=== PATIENT | female | born 1945 | race Caucasian/White ===

== ENCOUNTER 2018-01-04 23:15 | Inpatient (IN) ==
[2018-01-05] MEDS ORDERED: Nitroglycerin 0.4 MG TAB.SUBL SL ONE (00:29)
[2018-01-05] MEDS ORDERED: Aspirin 81 MG TAB.CHEW PO ONE (00:29)
[2018-01-05] MEDS ORDERED: Furosemide 40 MG/4 ML VIAL IVP ONE (00:29)
[2018-01-05] MEDS ORDERED: Ipratropium/Albuterol Neb 3 ML IH ONE (00:31)
--- NOTE | 2018-01-05 00:34 | Emergency Department Note ---
Disposition Clinical Impression: Acute exacerbation of CHF (congestive heart failure) Qualifiers: Heart failure type: combined systolic and diastolic Qualified Code(s): I50.43 - Acute on chronic combined systolic (congestive) and diastolic (congestive) heart failure Disposition: Admitted As Inpatient Condition: Good Referrals: Joy Finnegan MD [Primary Care Provider] - Forms: ED Satisfaction Letter Time of Disposition: 02:28 General Adult HPI - General Chief complaint: ED Extremity Injury, Lower Stated complaint: Cellulitis L Leg Time Seen by Provider: 01/05/18 00:12 Source: patient Limitations: physical limitation Nursing Notes Reviewed: Yes Vital Signs Reviewed: Yes - History of Present Illness HPI Narrative: History of present illness: Chief complaint status lower leg cellulitis the patient is actually here for weeping of the lower extremities with swelling dyspnea on exertion chest discomfort and extreme fatigue. Patient has a history of COPD does not wear oxygen at home came in with saturation 90% on room air. She said she was treated 10 days for Keflex for cellulitis and lower extremities she said that "dried up for weeping". Denies fevers chills no recent medication changes she is normally on Lasix 40 mg daily. Pain Scale: 7 - Related Data Home Medications Medication Instructions Recorded Confirmed Albuterol Sulfate [Albuterol 1 puff IH BID 04/23/17 04/23/17 Inhaler] Ascorbic Acid [Vitamin C] 200 mg PO DAILY 04/23/17 04/23/17 Beclomethasone Diprop 40mcg [Qvar 2 gm IH BID 04/23/17 04/23/17 40 mcg] Calcium Carbonate/Vitamin D3 1 each PO BID 04/23/17 04/23/17 [Calcium 500 + Vit D Caplet] DULoxetine [Cymbalta] 20 mg PO DAILY 04/23/17 04/23/17 Diltiazem HCl [Diltiazem ER] 360 mg PO DAILY 04/23/17 04/23/17 Docusate [Colace] 100 mg PO BID 04/23/17 04/23/17 Ferrous Sulfate [Iron] 325 mg PO DAILY 04/23/17 04/23/17 Furosemide [Lasix] 40 mg PO DAILY 04/23/17 04/23/17 HydrOXYzine 10 mg PO HS 04/23/17 04/23/17 Loratadine [Allergy Relief] 10 mg PO DAILY 04/23/17 04/23/17 Magnesium Oxide [Magnesium] 400 mg PO DAILY 04/23/17 04/23/17 Ranitidine HCl [Acid Bottle Assembler] 150 mg PO BID 04/23/17 04/23/17 Vitamin E 1,000 unit PO BID 04/23/17 04/23/17 Warfarin [Coumadin] 5 mg PO 1800 04/23/17 04/23/17 Previous Rx's Medication Instructions Recorded Tamoxifen Citrate 20 mg PO DAILY #30 tablet 09/20/16 Clotrimazole/Betamethasone Dip 15 gm TP TID PRN #1 tub 12/17/17 [Lotrisone Cream] Allergies Allergy/AdvReac Type Severity Reaction Status Date / Time gabapentin [From Neurontin] Allergy See Verified 07/13/16 19:19 Comments Penicillins [PCN] Allergy Rash Verified 07/13/16 19:19 All systems ED: reviewed and negative except as stated. Constitutional: Reports: weakness Cardiovascular: Reports: chest pain, dyspnea on exertion, orthopnea, edema Past Medical History - Past Medical History Attestation: Yes The following information was validated with the patient. Source: patient Medical history: Reports: atrial fibrillation, cancer, CHF, osteoporosis Psychiatric history: Reports: depression - Social History Smoking Status: Never smoker Smokeless Tobacco Status: No Alcohol use: Reports: none Drug use: Reports: none Physical Exam - General Limitations: no limitations, physical limitation General appearance: alert, in distress - Head Head exam: atraumatic, normocephalic - Eye Eye exam: Present: normal appearance, PERRL, EOMI - ENT ENT exam: normal exam, normal oropharynx - Neck Neck exam: Present: normal inspection, full ROM - Chest Chest inspection: Present: normal inspection - Respiratory Respiratory exam: Present: other - Cardiovascular Cardiovascular exam: Present: regular rate, normal rhythm - Abdominal Exam Abdominal exam: Present: soft, Non-Tender - Extremities Exam Extremities exam: Present: pedal edema (Symmetrical bilateral 3+ pitting edema to the mid tibia with weeping and chronic skin changes) - Expanded Lower Extremity Exam Neurovascular/Tendon exam: Present: normal capillary refill Gait: not tested/not observed - Back Exam Back exam: Present: normal inspection, full ROM - Neurological Exam Neurological exam: Present: alert, oriented X3 - Psychiatric Psychiatric exam: Present: normal affect, normal mood - Skin Skin exam: Present: warm, dry, intact Course - Reevaluation(s) Reevaluation #1: Patient's clinical presentation is more consistent with CHF with dyspnea on exertion chest discomfort fatigue and increased swelling in the lower extremities. Patient will get a cardiac workup including a BNP chest x-ray DuoNeb treatment 40 mg IV Lasix with admission anticipated. Disposition pending Time: 00:34 Reevaluation #2: The workup is complete. CBC chemistry panel within normal limits patient's chest x-ray from radiology as suggestive for pulmonary edema. Patient will be admitted hospitalist kyled. Time: 01:57 Reevaluation #3: Discussed patient's information so condition. He requested PT INR which was reported. case with the hospitalist Dr. MELLO, Time: 02:27 Vital Signs Temperature 97.7 F 01/04/18 23:27 Pulse Rate 83 01/04/18 23:27 Respiratory Rate 20 01/04/18 23:27 Blood Pressure 153/90 01/04/18 23:27 O2 Sat by Pulse Oximetry 92 01/04/18 23:27 Temperature 97.7 F 01/04/18 23:27 Pulse Rate 80 01/05/18 01:00 Respiratory Rate 19 01/05/18 01:00 Blood Pressure 135/80 01/05/18 01:00 O2 Sat by Pulse Oximetry 96 01/05/18 01:00 Oxygen Delivery Oxygen Delivery Room Air Medical Decision Making - Medical Records Medical records reviewed: Yes I reviewed the patient's medical records. - Lab Data Lab results reviewed: Yes I reviewed the patient's lab results. Result diagrams: 01/05/18 01:00 01/05/18 01:00 Lab Results 01/05/18 01/05/18 01/05/18 Range/Units 01:00 01:00 01:00 WBC 6.1 (4.3-11.1) K/mcL RBC 4.36 (3.82-4.97) M/mcL Hgb 13.2 (11.5-15.4) g/dL Hct 40.3 (35.3-44.9) % MCV 92.4 (83.0-100.0) fL MCH 30.3 (28.0-33.3) pg MCHC 32.8 (31.6-35.5) g/dL RDW 13.8 (11.5-14.5) % Plt Count 166 (140-400) K/mcL MPV 10.4 (9.4-12.4) fL Immature Gran % 0.3 (0-4) % Seg Neutrophils % 67.2 % Lymphocytes % 16.9 % Monocytes % 6.7 % Eosinophils % 8.6 % Basophils % 0.3 % Neutrophils # 4.1 (1.6-8.9) K/mcL Lymphocytes # 1.0 (0.6-4.6) K/mcL Monocytes # 0.4 (0.0-1.3) K/mcL Eosinophils # 0.5 (0.0-0.6) K/mcL Basophils # 0.0 (0.0-0.2) K/mcL Sodium 139 (136-145) mEq/L Potassium 3.5 (3.5-5.1) mEq/L Chloride 102 (98-107) mEq/L Carbon Dioxide 31 H (23-29) mEq/L BUN 23 (8-23) mg/dL Creatinine 0.99 (0.60-1.20) mg/dL Est GFR ( Amer) > 60 (> 60) Est GFR (Non-Af Amer) 55 L (> 60) BUN/Creatinine Ratio 23 (6-26) Glucose 92 (70-105) mg/dL Calculated Osmolality 291 (280-300) Calcium 8.9 (8.6-10.3) mg/dL Troponin I < 0.03 (< 0.04) ng/mL B-Natriuretic Peptide 175 H (Less than 100) pg/mL - Radiology Data Radiology results reviewed: Yes I reviewed the patient's radiology results. - EKG Data EKG #1 EKG attestation: Yes I reviewed and interpreted this EKG. EKG results narrative: Twelve-lead EKG interpreted without Cardiologic assistance shows atrial fibrillation history of same nonspecific ST-T changes no old EKG available for comparison
[2018-01-05 01:21] LABS: Basophils % 0.3 %; Eosinophils # 0.5 K/mcL (0.0-0.6); Eosinophils % 8.6 %; Hematocrit 40.3 % (35.3-44.9); Hemoglobin 13.2 g/dL (11.5-15.4); Immature Granulocytes % 0.3 % (0-4); Lymphocytes % 16.9 %; Mean Corpuscular HGB Conc 32.8 g/dL (31.6-35.5); Mean Corpuscular Hemoglobin 30.3 pg (28.0-33.3); Mean Corpuscular Volume 92.4 fL (83.0-100.0); Mean Platelet Volume 10.4 fL (9.4-12.4); Monocytes # 0.4 K/mcL (0.0-1.3); Monocytes % 6.7 %; Neutrophils # 4.1 K/mcL (1.6-8.9); Platelet Count 166 K/mcL (140-400); Red Blood Count 4.36 M/mcL (3.82-4.97); Red Cell Distribution Width 13.8 % (11.5-14.5); Segmented Neutrophils % 67.2 %
[2018-01-05 01:41] LABS: BUN/Creatinine Ratio 23 (6-26); Blood Urea Nitrogen 23 mg/dL (8-23); Calcium 8.9 mg/dL (8.6-10.3); Carbon Dioxide 31 mEq/L (23-29); Chloride 102 mEq/L (98-107); Glucose 92 mg/dL (70-105); Osmolality,Calculated 291 (280-300); Potassium 3.5 mEq/L (3.5-5.1); Sodium 139 mEq/L (136-145); eGFR For African Americans > 60 (> 60); eGFR For Non-African Americans 55 (> 60)
[2018-01-05 01:42] LABS: Troponin I < 0.03 ng/mL (< 0.04)
[2018-01-05 02:47] LABS: INR 2.3
[2018-01-05] MEDS ORDERED: Naloxone 0.4 MG/ML INJ IVP PRN (05:34)
[2018-01-05] MEDS ORDERED: Acetaminophen 325 MG TABLET PO PRN (05:34)
[2018-01-05] MEDS ORDERED: Albuterol 2.5 MG/3 ML NEBULIZER IH PRN (05:42)
--- NOTE | 2018-01-05 05:52 | Internal Med History&Physical ---
Date of Encounter: 01/05/18 Time of Encounter: 05:10 Internal Medicine - H&P: HPI Chief complaint: SOB; leg swelling Admitted From: Emergency Dept Plans for Post Hospital Care: Home History of present illness: Ms. Veloz is a 72 year old female who presents to the ER tonight with complaints of shortness of breath, leg swelling, and weeping drainage from her legs. She had been on some outpatient antibiotics with some improvement in her legs. However, she noticed some swelling, increasing abdominal girth, and shortness of breath. She had remote history of heart failure in the past but has not been treated for that for quite some time. She came to ER where she was seen and evaluated and diagnosed with heart failure. She was therefore admitted to hospitalist service. Upon my assessment of the patient, she is resting comfortably. She does admit to having increasing dyspnea, lower extremity edema, and some orthopnea. She does have sleep apnea, but she does not wear CPAP mask. She does not smoke but she is surrounded by smokers. She states she has been told she has COPD but she 's never been a smoker. However, she has been exposed to secondhand smoke most of her life. She denies any fevers, shakes, chills, or night sweats. Past Med Surg Social Fam HX - Past Medical History Source: patient, old records reviewed Medical history: atrial fibrillation, cancer, CHF, osteoporosis Additional medical history: breast cancer, sleep apnea non compliant with cpap machine Psychiatric history: depression - Past Surgical History Surgical History: breast surgery - Social History Smoking Status: Never smoker Smokeless Tobacco Status: No Alcohol use: none Drug use: none Current living situation: Home, With Family Activity Level: Independent ambulation Recent Out of Country Travel Within the Last 8 Weeks: No - Family History Father Living Status: Hx Family Endocrine Disorder: Yes (Diabetes) Mother Living Status: Hx Family Cancer: Yes (Breast) Internal Medicine - H&P: Meds Tamoxifen Citrate 20 mg PO DAILY #30 tablet 09/20/16 [Rx] Albuterol Sulfate [Albuterol Inhaler] 1 puff IH BID 04/23/17 [History] Ascorbic Acid [Vitamin C] 200 mg PO DAILY 04/23/17 [History] Beclomethasone Diprop 40mcg [Qvar 40 mcg] 2 gm IH BID 04/23/17 [History] Calcium Carbonate/Vitamin D3 [Calcium 500 + Vit D Caplet] 1 each PO BID [History] DULoxetine [Cymbalta] 20 mg PO DAILY 04/23/17 [History] Diltiazem HCl [Diltiazem ER] 360 mg PO DAILY 04/23/17 [History] Docusate [Colace] 100 mg PO BID 04/23/17 [History] Ferrous Sulfate [Iron] 325 mg PO DAILY 04/23/17 [History] Furosemide [Lasix] 40 mg PO DAILY 04/23/17 [History] HydrOXYzine 10 mg PO HS 04/23/17 [History] Loratadine [Allergy Relief] 10 mg PO DAILY 04/23/17 [History] Magnesium Oxide [Magnesium] 400 mg PO DAILY 04/23/17 [History] Ranitidine HCl [Acid Volunteer Services Specialist] 150 mg PO BID 04/23/17 [History] Vitamin E 1,000 unit PO BID 04/23/17 [History] Warfarin [Coumadin] 5 mg PO 1800 04/23/17 [History] Clotrimazole/Betamethasone Dip [Lotrisone Cream] 15 gm TP TID PRN #1 tub [Rx] 3 Allergy/AdvReac Type Severity Reaction Status Date / Time gabapentin [From Neurontin] Allergy See Verified 07/13/16 19:19 Comments Penicillins [PCN] Allergy Rash Verified 07/13/16 19:19 - Constitutional Constitutional: fatigue, weight gain, no chills, no fever(s) - EENT Eyes: no blurry vision, no change in vision Ears: no tinnitus Nose, mouth and throat: no sore throat - Cardiovascular Cardiovascular ROS IM: dyspnea, dyspnea on exertion, edema, orthopnea, no chest pain - Respiratory Respiratory: no cough, no hemoptysis, no chest congestion, no excessive phlegm production - Gastrointestinal Gastrointestinal: no abdominal pain, no diarrhea, no hematemesis, no hematochezia, no melena, no vomiting - Genitourinary Genitourinary: no dysuria, no flank pain, no hematuria - Musculoskeletal Musculoskeletal ROS IM: no back pain, no joint swelling - Integumentary Integumentary IM: erythema (legs), rash (legs) - Neurological Neurological ROS: no focal weakness, no frequent falls, no headache(s) - Psychiatric Psychiatric: no anxiety, no depression - Endocrine Endocrine IM: no polydipsia, no polyuria - Allergic/Immunologic Allergic/Immunologic: no GI upset with certain foods - Constitutional Vitals: Temp Pulse Resp BP Pulse Ox 97.7 F 81 16 136/86 96 01/05/18 03:22 01/05/18 03:22 01/05/18 03:22 01/05/18 03:22 01/05/18 03:47 General appearance: Present: cooperative, A&O X 3, pleasant, no acute distress - Head Head exam: Present: atraumatic, normal inspection - Eye Eye exam: Present: EOMI, normal appearance, PERRL. Absent: scleral icterus Pupils: Present: normal accommodation - ENT ENT exam: Present: mucous membranes dry, normal exam - Neck Neck exam general surgery: Present: full ROM, supple. Absent: tenderness, nuchal rigidity, thyromegaly - Respiratory Respiratory exam: Present: prolonged expiratory phase, rales (bibasilar ), wheezes. Absent: respiratory distress, rhonchi - Cardiovascular Cardiovascular exam: Present: RRR, +S1, +S2. Absent: diastolic murmur, JVD, systolic murmur - GI/Abdominal GI/Abdominal exam: Present: normal bowel sounds, soft. Absent: hepatomegaly, splenomegaly, tenderness - Extremities Exam Extremities exam: Present: full ROM, pedal edema (2-3+ with red cellulitis and weeping rash both legs), warm, radial pulses palpable and symmetrical. Absent: calf tenderness - Back Exam Back exam: Absent: CVA tenderness (L), CVA tenderness (R) - Neurological Exam Neurological exam: Present: alert, oriented X3, no focal deficits - Psychiatric Psychiatric exam: Present: normal affect, normal mood - Skin Skin exam: Present: dry, rash (BLE as above), warm Internal Med - H&P Results - Labs CBC & Chem 7: 01/05/18 01:00 01/05/18 01:00 - EKG Data -: EKG Interpreted by Myself - EKG Data Prior EKG available for review: no EKG comments: 01/05/18 06:01 atrial fibrillation -- rate controlled - Diagnostic Studies Chest x-ray Status: image reviewed by me (mild pulmonary edema) - VTE Reasons for not Prescribing Prophylaxis: Not indicated-Anticoagulated or INR therapeutic - Assessment and plan (1) CHF (congestive heart failure) Current Visit: Yes Status: Acute Assessment and plan: 1. Will treat with IV Lasix x 2 doses, then her home dose needs to be resumed. 2. Fluid restrict at 1500 ml per day. 3. Will trend troponins and order ECHO. Qualifiers: Heart failure type: unspecified Heart failure chronicity: acute Qualified Code(s): I50.9 - Heart failure, unspecified (2) Bilateral lower leg cellulitis Current Visit: Yes Status: Acute Assessment and plan: 1. Patient failed outpatient Keflex. 2. Will place on Rocephin and Vancomycin. 3. Monitor clinical response. (3) Afib Current Visit: Yes Status: Chronic Assessment and plan: 1. Continue home meds as appropriate once verified. 2. Continue Coumadin -- therapeutic presently. 3. Monitor daily PT/INR. Qualifiers: Atrial fibrillation type: chronic Qualified Code(s): I48.2 - Chronic atrial fibrillation (4) DVT prophylaxis Current Visit: Yes Status: Acute Assessment and plan: 1. On Coumadin as above.
[2018-01-05] MEDS: Furosemide 20 MG/2 ML VIAL IVP SCH ×2 (09:10→16:13)
[2018-01-05] MEDS: cefTRIAXone 1,000 MG in Water for inj. (sterile) 20 ML 10 ML IVP SCH (09:10)
[2018-01-05] MEDS ORDERED: Perflutren Lipid Microsphere 1.3 ML in 0.9 % Sodium Chloride 8.7 ML IVP ONE (14:09)
[2018-01-05] MEDS ORDERED: Perflutren Lipid Microsphere 2 ML VIAL ONE (14:13)
[2018-01-05] MEDS ORDERED: diazePAM 5 MG TABLET PO PRN (15:04)
--- NOTE | 2018-01-05 15:20 | Internal Med Progress Note ---
Date of Encounter: 01/05/18 Time of Encounter: 15:24 - Assessment and plan (1) Bilateral lower leg cellulitis Current Visit: Yes Status: Acute Assessment and plan: recently treated Keflex; failed outpatient therapy. Symptomatic with erythema and open lesions. Cont IV vanco. Wound care consult (2) Afib Current Visit: Yes Status: Chronic Assessment and plan: per hx. Rate controlled. Cont home CCB, coumadin Qualifiers: Atrial fibrillation type: chronic Qualified Code(s): I48.2 - Chronic atrial fibrillation (3) CHF (congestive heart failure) Current Visit: Yes Status: Acute Assessment and plan: Expected. Symptomatically shortness of breath and lower extremity edema. Received 2 doses of IV Lasix. No known CHF or echocardiogram per chart review. Check echo. Qualifiers: Heart failure type: unspecified Heart failure chronicity: acute Qualified Code(s): I50.9 - Heart failure, unspecified (4) DVT prophylaxis Current Visit: Yes Status: Acute Assessment and plan: Coumadin - Time Spent With Patient Total time spent is greater than 50% in coordination of care (as documented) at patient's floor/unit and/or counseling patient: - Subjective Interval history: Seen and examined at bedside. Patient is new to me, information obtained from chart review and patient report. Says she is feeling a little better today. Shortness of breath is better. Says she was recently treated with ATB for lower extreme a cellulitis; redness has improved but open wounds/drainage is worse. - Constitutional Vitals: Temp Pulse Resp BP Pulse Ox 97.8 F 88 17 145/82 97 01/05/18 11:44 01/05/18 11:44 01/05/18 11:44 01/05/18 11:44 01/05/18 11:44 General appearance: Present: cooperative, A&O X 3, pleasant, no acute distress Internal Medicine: Result - Labs CBC & Chem 7: 01/05/18 01:00 01/05/18 01:00 Labs: Cardiac Enzymes 01/05/18 01/05/18 Range/Units 07:14 13:18 Troponin I < 0.03 < 0.03 (< 0.04) ng/mL - ABG Interpretation ABG results: PT/INR, D-dimer PT 25.0 Seconds (9.4-12.1) H 01/05/18 01:00 - VTE Reasons for not Prescribing Prophylaxis: Not indicated-Anticoagulated or INR therapeutic Consult Discharge Plan - Plan Referrals: Joy Finnegan MD [Primary Care Provider] -
[2018-01-05] MEDS ORDERED: Warfarin perPT PO PRN (18:00)
[2018-01-05] MEDS ORDERED: *HR* Warfarin 4 MG TABLET PO ONE (18:00)
[2018-01-05] MEDS: Famotidine 20 MG TABLET PO SCH (20:32)
[2018-01-05] MEDS: Beclomethasone 40mcg MDI IH SCH (20:36)
[2018-01-06] MEDS: Diltiazem CD (24hr) 120 MG CAPSULE PO SCH (06:22)
[2018-01-06 07:29] LABS: Hematocrit 39.6 % (35.3-44.9); Hemoglobin 12.8 g/dL (11.5-15.4); Mean Corpuscular HGB Conc 32.3 g/dL (31.6-35.5); Mean Corpuscular Hemoglobin 30.3 pg (28.0-33.3); Mean Corpuscular Volume 93.8 fL (83.0-100.0); Mean Platelet Volume 10.5 fL (9.4-12.4); Platelet Count 143 K/mcL (140-400); Red Blood Count 4.22 M/mcL (3.82-4.97); Red Cell Distribution Width 13.9 % (11.5-14.5)
[2018-01-06 07:36] LABS: INR 1.7; Prothrombin Time 18.2 Seconds (9.4-12.1)
[2018-01-06 07:51] LABS: Alanine Aminotransferase 13 Units/L (7-52); Albumin 3.3 g/dL (3.5-5.7); Albumin/Globulin Ratio 1.1 (1.1-2.2); Alkaline Phosphatase 77 Units/L (34-104); Aspartate Amino Transferase 22 Units/L (13-39); BUN/Creatinine Ratio 22 (6-26); Bilirubin,Total 0.6 mg/dL (0.3-1.0); Blood Urea Nitrogen 22 mg/dL (8-23); Calcium 8.7 mg/dL (8.6-10.3); Carbon Dioxide 31 mEq/L (23-29); Chloride 105 mEq/L (98-107); Chol/HDL Ratio 2.8 (0-4.9); Cholesterol 144 mg/dL (< 200); Globulin 2.9 g/dL (2.4-3.5); Glucose 97 mg/dL (70-105); HDL Cholesterol 52 mg/dL (40-59); LDL Cholesterol,Calculated 78 mg/dL (0-99); Osmolality,Calculated 295 (280-300); Potassium 3.8 mEq/L (3.5-5.1); Sodium 141 mEq/L (136-145); Total Protein 6.2 g/dL (6.4-8.9); Triglycerides 71 mg/dL (< 150); eGFR For African Americans > 60 (> 60); eGFR For Non-African Americans 55 (> 60)
[2018-01-06] MEDS: Beclomethasone 40mcg MDI IH SCH ×2 (07:51→19:35)
[2018-01-06] MEDS: Loratadine 10 MG TABLET PO SCH (08:35)
[2018-01-06] MEDS: Furosemide 40 MG TABLET PO SCH (08:35)
[2018-01-06] MEDS: Famotidine 20 MG TABLET PO SCH ×2 (08:35→20:51)
[2018-01-06] MEDS: cefTRIAXone 1,000 MG in Water for inj. (sterile) 20 ML 10 ML IVP SCH (08:36)
--- NOTE | 2018-01-06 10:08 | Electrocardiograph Report ---
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
--- NOTE | 2018-01-06 15:43 | Internal Med Progress Note ---
Date of Encounter: 01/06/18 Time of Encounter: 15:36 - Assessment and plan (1) Bilateral lower leg cellulitis Current Visit: Yes Status: Acute Assessment and plan: recently treated Keflex; failed outpatient therapy. Symptomatic with erythema and open lesions. Cont IV vanco. Wound care consulted (2) Afib Current Visit: Yes Status: Chronic Assessment and plan: per hx. Rate controlled. Cont home CCB, coumadin (pharmacy dosing) Qualifiers: Atrial fibrillation type: chronic Qualified Code(s): I48.2 - Chronic atrial fibrillation (3) CHF (congestive heart failure) Current Visit: Yes Status: Acute Assessment and plan: Acute on chronic diastolic heart failure. TTE with EF 60%, mild left ventricular hypertrophy, mild aortic regurgitation and aortic stenosis. No wall motion abnormalities. Received 2 doses IV Lasix. Home Lasix resumed. Educated on low sodium diet, limiting water intake and daily weights. Qualifiers: Heart failure type: unspecified Heart failure chronicity: acute Qualified Code(s): I50.9 - Heart failure, unspecified (4) DVT prophylaxis Current Visit: Yes Status: Acute Assessment and plan: Coumadin - Time Spent With Patient Total time spent is greater than 50% in coordination of care (as documented) at patient's floor/unit and/or counseling patient: - Subjective Interval history: Seen and examined at bedside. Sitting up in chair bedside. Says she feels okay. Lower extremity leg wounds improved per patient but still draining. Erythema improved. She thinks she needs 1 more day of IV ATB. Wound consult pending. - Constitutional Vitals: Temp Pulse Resp BP Pulse Ox 97.6 F 114 14 156/80 94 01/06/18 11:49 01/06/18 11:49 01/06/18 11:49 01/06/18 11:49 01/06/18 11:49 General appearance: Present: cooperative, A&O X 3, pleasant, no acute distress - Head Head exam: Present: atraumatic, normocephalic - Eye Eye exam: Present: PERRL, conjuntiva pink, sclera anicteric Pupils: Present: PERRL - Neck Neck exam general surgery: Present: supple, trachea midline. Absent: lymphadenopathy - Respiratory Respiratory exam: Present: CTAB. Absent: accessory muscle use, rales, rhonchi, wheezes - Cardiovascular Cardiovascular exam: Present: RRR, +S1, +S2. Absent: diastolic murmur, gallop, rubs, systolic murmur - GI/Abdominal GI/Abdominal exam: Present: normal bowel sounds, soft, no peritoneal signs. Absent: distended, tenderness - Extremities Exam Extremities exam: Present: pedal edema, warm, radial pulses palpable and symmetrical. Absent: calf tenderness, cyanotic - Neurological Exam Neurological exam: Present: CN II-XII intact, oriented X3, no focal deficits. Absent: pronater drift, facial droop, speech deficit - Skin Skin exam: Present: dry, intact Internal Medicine: Result - Labs CBC & Chem 7: 01/06/18 07:08 01/06/18 07:08 Labs: Short CBC 01/06/18 Range/Units 07:08 WBC 4.1 L (4.3-11.1) K/mcL Hgb 12.8 (11.5-15.4) g/dL Hct 39.6 (35.3-44.9) % Plt Count 143 (140-400) K/mcL BMP 01/06/18 07:08 Sodium 141 Potassium 3.8 Chloride 105 Carbon Dioxide 31 H BUN 22 Creatinine 0.99 Glucose 97 Calcium 8.7 Liver Function 01/06/18 Range/Units 07:08 Total Bilirubin 0.6 (0.3-1.0) mg/dL AST 22 (13-39) Units/L ALT 13 (7-52) Units/L Alkaline Phosphatase 77 (34-104) Units/L Albumin 3.3 L (3.5-5.7) g/dL - ABG Interpretation ABG results: PT/INR, D-dimer PT 18.2 Seconds (9.4-12.1) H 01/06/18 07:08 - Impressions Impressions Echocardiogram 01/05/18 05:34 Impressions: LVEF 60%. Normal LV chamber size and function. Mild concentric left ventricular hypertrophy. Indeterminate diastolic function. Right ventricle was not well visualized. Grossly, it is normal in function. Mild aortic regurgitation. Mild aortic stenosis. Mean gradient 13 mmHg. Mild tricuspid regurgitation. Moderate pulmonary hypertension. Left Ventricular Wall Motion: Rest Echo Findings All wall segments showed normal motion. Findings: Study Quality * Technically adequate exam. ECG Findings * Atrial fibrillation. Left Ventricle * LVEF 60%. * Normal LV chamber size and function. * Mild concentric left ventricular hypertrophy. * Indeterminate diastolic function. Right Ventricle * Right ventricle was not well visualized. Grossly, it is normal in function. Left Atrium * Grossly, moderately dilated left atrium. Right Atrium * Grossly, moderately dilated right atrium. Aortic Valve * Aortic valve not well visualized. * Grossly, mildly calcified aortic valve leaflets. * Mild aortic regurgitation. * Mild aortic stenosis. Mean gradient 13 mmHg. Mitral Valve * Normal mitral valve structure and function. * No mitral regurgitation. * No mitral stenosis. Tricuspid Valve * Normal tricuspid valve structure. * Mild tricuspid regurgitation. * Moderate pulmonary hypertension. Pulmonic Valve * Normal pulmonic valve structure and function. * No pulmonic regurgitation. Aorta * Normally sized aortic root. Pericardium * The pericardium appears normal. IVC * Normal IVC dimensions and inspiratory collapse. Pulmonary Artery * Normal visualized portions of the main pulmonary artery. - VTE Reasons for not Prescribing Prophylaxis: Not indicated-Anticoagulated or INR therapeutic Consult Discharge Plan - Plan Referrals: Joy Finnegan MD [Primary Care Provider] - 01/14/18 11:45 am
[2018-01-06] MEDS ORDERED: *HR* Warfarin 5 MG TABLET PO ONE (18:00)
[2018-01-07 04:40] LABS: INR 1.5; Prothrombin Time 16.8 Seconds (9.4-12.1)
[2018-01-07] MEDS: Beclomethasone 40mcg MDI IH SCH ×2 (07:41→19:57)
[2018-01-07] MEDS: Loratadine 10 MG TABLET PO SCH (09:01)
[2018-01-07] MEDS: Furosemide 40 MG TABLET PO SCH (09:01)
[2018-01-07] MEDS: cefTRIAXone 1,000 MG in Water for inj. (sterile) 20 ML 10 ML IVP SCH (09:01)
[2018-01-07] MEDS: Diltiazem CD (24hr) 120 MG CAPSULE PO SCH (09:01)
[2018-01-07] MEDS: Famotidine 20 MG TABLET PO SCH ×2 (09:01→21:10)
[2018-01-07 09:44] LABS: Basophils % 0.8 %; Eosinophils # 0.4 K/mcL (0.0-0.6); Eosinophils % 10.5 %; Hematocrit 41.8 % (35.3-44.9); Hemoglobin 13.2 g/dL (11.5-15.4); Immature Granulocytes % 0.3 % (0-4); Lymphocytes # 0.7 K/mcL (0.6-4.6); Lymphocytes % 17.1 %; Mean Corpuscular HGB Conc 31.6 g/dL (31.6-35.5); Mean Corpuscular Hemoglobin 29.9 pg (28.0-33.3); Mean Corpuscular Volume 94.6 fL (83.0-100.0); Mean Platelet Volume 10.4 fL (9.4-12.4); Monocytes # 0.3 K/mcL (0.0-1.3); Monocytes % 6.6 %; Neutrophils # 2.5 K/mcL (1.6-8.9); Platelet Count 150 K/mcL (140-400); Red Blood Count 4.42 M/mcL (3.82-4.97); Red Cell Distribution Width 13.7 % (11.5-14.5); Segmented Neutrophils % 64.7 %
[2018-01-07 10:03] LABS: BUN/Creatinine Ratio 26 (6-26); Blood Urea Nitrogen 22 mg/dL (8-23); Carbon Dioxide 31 mEq/L (23-29); Chloride 105 mEq/L (98-107); Glucose 88 mg/dL (70-105); Osmolality,Calculated 297 (280-300); Sodium 142 mEq/L (136-145); eGFR For African Americans > 60 (> 60); eGFR For Non-African Americans > 60 (> 60)
--- NOTE | 2018-01-07 11:12 | Internal Med Progress Note ---
Date of Encounter: 01/07/18 Time of Encounter: 11:12 - Assessment and plan (1) Afib Current Visit: Yes Status: Chronic Assessment and plan: Presently rate controlled we will continue with Coumadin per pharmacy dosing continue with Cardizem Qualifiers: Atrial fibrillation type: chronic Qualified Code(s): I48.2 - Chronic atrial fibrillation (2) CHF (congestive heart failure) Current Visit: Yes Status: Acute Assessment and plan: Acute on chronic diastolic heart failure. TTE with EF 60%, mild left ventricular hypertrophy, mild aortic regurgitation and aortic stenosis. No wall motion abnormalities. Received 2 doses IV Lasix. Home Lasix resumed. Educated on low sodium diet, limiting water intake and daily weights. Weight appears stable at this time continues to have lower extremity swelling encouraged patient to elevate lower extremities Qualifiers: Heart failure type: unspecified Heart failure chronicity: acute Qualified Code(s): I50.9 - Heart failure, unspecified (3) Bilateral lower leg cellulitis Current Visit: Yes Status: Acute Assessment and plan: recently treated Keflex; failed outpatient therapy. Symptomatic-continues with erythema and open lesions. Cont IV vanco. Wound care consulted appreciate recommend patient (4) DVT prophylaxis Current Visit: Yes Status: Acute Assessment and plan: On Coumadin - Time Spent With Patient Total time spent is greater than 50% in coordination of care (as documented) at patient's floor/unit and/or counseling patient: - Subjective Interval history: Patient was seen and examined at bedside. Presently denies any chest pain shortness of breath or palpitations. Encouraged patient to elevate lower extremities - Constitutional Vitals: Temp Pulse Resp BP Pulse Ox 97.5 F L 101 16 132/83 94 01/07/18 07:50 01/07/18 07:50 01/07/18 07:50 01/07/18 07:50 01/07/18 07:50 General appearance: Present: cooperative, A&O X 3, pleasant, no acute distress - Head Head exam: Present: atraumatic, normocephalic - Eye Eye exam: Present: PERRL, conjuntiva pink, sclera anicteric Pupils: Present: PERRL - Neck Neck exam general surgery: Present: supple, trachea midline. Absent: lymphadenopathy - Respiratory Respiratory exam: Present: CTAB. Absent: accessory muscle use, rales, rhonchi, wheezes - GI/Abdominal GI/Abdominal exam: Present: normal bowel sounds, soft, no peritoneal signs. Absent: distended, tenderness - Extremities Exam Extremities exam: Present: pedal edema, warm, radial pulses palpable and symmetrical. Absent: calf tenderness, cyanotic Additional comments: Lower extremity swelling bilaterally with weeping wounds - Neurological Exam Neurological exam: Present: CN II-XII intact, oriented X3, no focal deficits. Absent: pronater drift, facial droop, speech deficit - Skin Skin exam: Present: dry, intact Internal Medicine: Result - Labs CBC & Chem 7: 01/07/18 08:42 01/07/18 08:42 Labs: Short CBC 01/07/18 Range/Units 08:42 WBC 3.8 L (4.3-11.1) K/mcL Hgb 13.2 (11.5-15.4) g/dL Hct 41.8 (35.3-44.9) % Plt Count 150 (140-400) K/mcL Neutrophils # 2.5 (1.6-8.9) K/mcL BMP 01/07/18 08:42 Sodium 142 Potassium 4.0 Chloride 105 Carbon Dioxide 31 H BUN 22 Creatinine 0.86 Glucose 88 Calcium 9.0 - ABG Interpretation ABG results: PT/INR, D-dimer PT 16.8 Seconds (9.4-12.1) H 01/07/18 04:14 - VTE Reasons for not Prescribing Prophylaxis: Not indicated-Anticoagulated or INR therapeutic Consult Discharge Plan - Plan Referrals: Joy Finnegan MD [Primary Care Provider] - 01/14/18 11:45 am
[2018-01-07] MEDS ORDERED: *HR* Warfarin 5 MG TABLET PO ONE (18:00)
[2018-01-08 06:33] LABS: Basophils % 0.7 %; Eosinophils # 0.5 K/mcL (0.0-0.6); Hematocrit 39.5 % (35.3-44.9); Hemoglobin 12.5 g/dL (11.5-15.4); Immature Granulocytes % 0.2 % (0-4); Lymphocytes # 0.8 K/mcL (0.6-4.6); Lymphocytes % 19.5 %; Mean Corpuscular HGB Conc 31.6 g/dL (31.6-35.5); Mean Corpuscular Hemoglobin 29.6 pg (28.0-33.3); Mean Corpuscular Volume 93.6 fL (83.0-100.0); Mean Platelet Volume 10.7 fL (9.4-12.4); Monocytes # 0.3 K/mcL (0.0-1.3); Neutrophils # 2.4 K/mcL (1.6-8.9); Platelet Count 166 K/mcL (140-400); Red Blood Count 4.22 M/mcL (3.82-4.97); Red Cell Distribution Width 13.8 % (11.5-14.5); Segmented Neutrophils % 58.6 %
[2018-01-08 06:41] LABS: INR 1.5; Prothrombin Time 16.2 Seconds (9.4-12.1)
[2018-01-08 06:47] LABS: BUN/Creatinine Ratio 30 (6-26); Blood Urea Nitrogen 24 mg/dL (8-23); Calcium 8.9 mg/dL (8.6-10.3); Carbon Dioxide 30 mEq/L (23-29); Chloride 106 mEq/L (98-107); Glucose 88 mg/dL (70-105); Osmolality,Calculated 295 (280-300); Sodium 141 mEq/L (136-145); eGFR For African Americans > 60 (> 60); eGFR For Non-African Americans > 60 (> 60)
[2018-01-08] MEDS: Beclomethasone 40mcg MDI IH SCH ×2 (07:44→22:34)
[2018-01-08] MEDS: Famotidine 20 MG TABLET PO SCH ×2 (08:42→20:51)
[2018-01-08] MEDS: cefTRIAXone 1,000 MG in Water for inj. (sterile) 20 ML 10 ML IVP SCH (08:42)
[2018-01-08] MEDS: Furosemide 40 MG TABLET PO SCH (08:42)
[2018-01-08] MEDS: Loratadine 10 MG TABLET PO SCH (08:42)
[2018-01-08] MEDS: Diltiazem CD (24hr) 120 MG CAPSULE PO SCH (08:42)
--- NOTE | 2018-01-08 16:13 | Discharge Summary ---
- NOTES TO OUTPATIENT PROVIDER Notes to Outpatient Provider: Patient was diuresed-educated on low sodium diet as well as monitoring water intake and daily weights. Lower leg cellulitis patient will follow-up with outpatient wound clinic was given IV vague and Rocephin transition to doxycycline Orders not resulted at time of discharge: Pending orders 01/09/18 04:00 INR/PT [Prothrombin Time INR] [COAG] AM 0400 01/10/18 04:00 INR/PT [Prothrombin Time INR] [COAG] AM 0400 01/11/18 04:00 INR/PT [Prothrombin Time INR] [COAG] AM 0400 01/12/18 04:00 INR/PT [Prothrombin Time INR] [COAG] AM 0400 01/13/18 04:00 INR/PT [Prothrombin Time INR] [COAG] AM 040 Date of Encounter: 01/09/18 Time of Encounter: 10:32 - Discharge Diagnosis (1) Afib Priority: Secondary Status: Chronic Qualifiers: Atrial fibrillation type: chronic Qualified Code(s): I48.2 - Chronic atrial fibrillation (2) CHF (congestive heart failure) Priority: Primary Status: Acute Qualifiers: Heart failure type: diastolic Heart failure chronicity: acute Qualified Code(s): I50.31 - Acute diastolic (congestive) heart failure (3) Bilateral lower leg cellulitis Priority: Secondary Status: Acute Hospital course: Ms. Veloz is a 72 year old female past medical history of atrial fibrillation CHF DIANNE breast cancer. Patient presented to [facility] ER with complaints of shortness of breath and lower extremity leg swelling weeping and drainage from legs bilaterally. She been treated as an outpatient was placed on antibiotics with some improvement in leukocytosis chest x-ray with some mild pulmonary edema patient was given IV Lasix 2 and home dose resumed she is placed on fluid restriction echo was completed which showed EF of 60%. She was placed on IV Rocephin and vancomycin. Her respiratory state did improve as well as swelling in her lower extremities. Lower extremities without any drainage wound to left leg dried and improved. Patient educated on the importance of fluid restriction daily weights and low salt diet. Patient is set up with appointment to follow-up in wound clinic. Advised patient to follow-up with primary care provider since this provider knows her best and can adjust medications accordingly. Patient given a prescription of doxycycline for 7 days. Anticipated discharging patient yesterday However patient had elevated HR.Apparently she was taking 120 of cardizem cd and was suppose to be on 360mg cardizem CD. Resumed 360mg cardizem cd this am hr improved. I answered patient 's questions she verbalized understanding concerning follow-ups and medications she is hemodynamically stable this time is ready for discharge. Discharge discussed with: patient - Time Spent with Patient Total time spent providing and/or coordinating discharge services: - Discharge Medications Prescriptions: Doxycycline 100 mg PO BID 7 Days #14 capsule Home Medications: Albuterol Sulfate [Albuterol Inhaler] 1 puff IH BID 04/23/17 [History] Ascorbic Acid [Vitamin C] 200 mg PO DAILY 04/23/17 [History] Beclomethasone Diprop 40mcg [QVAR 40 mcg] 2 puff IH BID 04/23/17 [History] Calcium Carbonate/Vitamin D3 [Calcium 500 + Vit D Caplet] 1 each PO BID [History] Docusate [Colace] 100 mg PO BID 04/23/17 [History] Ferrous Sulfate [Iron] 325 mg PO DAILY 04/23/17 [History] Furosemide [Lasix] 40 mg PO DAILY 04/23/17 [History] Loratadine [Allergy Relief] 10 mg PO DAILY 04/23/17 [History] Magnesium Oxide [Magnesium] 400 mg PO DAILY 04/23/17 [History] Ranitidine HCl [Acid Plow Mechanic] 150 mg PO BID 04/23/17 [History] Vitamin E 1,000 unit PO BID 04/23/17 [History] Warfarin [Coumadin] 5 mg PO SUTUTHSA 04/23/17 [History] Clotrimazole/Betamethasone Dip [Lotrisone Cream] 1 appl TP TID PRN 01/05/18 [ History] Duloxetine HCl [Cymbalta] 60 mg PO DAILY 01/05/18 [History] Warfarin [Coumadin] 2.5 mg PO MOWEFR 01/05/18 [History] diazePAM [Valium] 5 mg PO BID PRN 01/05/18 [History] dilTIAZem HCl [Diltiazem HCl] 360 mg PO DAILY 01/05/18 [History] Doxycycline 100 mg PO BID 7 Days #14 capsule 01/08/18 [Rx] Allergies/Adverse Reactions: 3 Allergy/AdvReac Type Severity Reaction Status Date / Time gabapentin [From Neurontin] Allergy See Verified 07/13/16 19:19 Comments Penicillins [PCN] Allergy Rash Verified 07/13/16 19:19 Date of admission: 01/06/18 23:43 Primary care physician: Joy Marshall Consults: 01/07/18 09:18 Consult to Nurse Navigator [CONS] Routine Comment: CHF Discharging clinician: Kirstin Johnson Anticipated date of discharge: 01/08/18 - Constitutional Vitals: Temp Pulse Resp BP Pulse Ox 97.8 F 116 17 143/82 94 01/08/18 11:24 01/08/18 11:24 01/08/18 11:24 01/08/18 11:24 01/08/18 11:24 General appearance: Present: cooperative, A&O X 3, pleasant, no acute distress - Head Head exam: Present: atraumatic, normocephalic - Eye Eye exam: Present: PERRL, conjuntiva pink, sclera anicteric Pupils: Present: PERRL - Neck Neck exam general surgery: Present: supple, trachea midline. Absent: lymphadenopathy - Respiratory Respiratory exam: Present: CTAB. Absent: accessory muscle use, rales, rhonchi, wheezes - Cardiovascular Cardiovascular exam: Present: RRR, +S1, +S2. Absent: diastolic murmur, gallop, rubs, systolic murmur - GI/Abdominal GI/Abdominal exam: Present: normal bowel sounds, soft, no peritoneal signs. Absent: distended, tenderness - Extremities Exam Extremities exam: Present: warm, radial pulses palpable and symmetrical. Absent : calf tenderness, cyanotic, pedal edema - Neurological Exam Neurological exam: Present: CN II-XII intact, oriented X3, no focal deficits. Absent: pronater drift, facial droop, speech deficit - Skin Skin exam: Present: dry, intact - Patient Status Disposition: Home, Self-Care Condition: Good - Discharge Instructions Follow Up With: Baldev Knott MD [Non-Partnered Physician] - 01/14/18 9:30 am Joy Finnegan MD [Primary Care Provider] - 01/14/18 11:45 am - Diet and Activity Activity: resume usual activities as tolerated Diet: advance to your usual diet - VTE Reasons for not Prescribing Prophylaxis: Not indicated-Anticoagulated or INR therapeutic
--- NOTE | 2018-01-08 16:58 | Internal Med Progress Note ---
Date of Encounter: 01/08/18 Time of Encounter: 16:56 - Assessment and plan (1) CHF (congestive heart failure) Current Visit: Yes Status: Acute Assessment and plan: Acute on chronic diastolic heart failure. TTE with EF 60%, mild left ventricular hypertrophy, mild aortic regurgitation and aortic stenosis. No wall motion abnormalities. Received 2 doses IV Lasix. Home Lasix resumed. Educated on low sodium diet, limiting water intake and daily weights. Appears to be euvolemic at this time Weight appears stable lower extremity swelling improved encouraged patient to elevate lower extremities educated patient on the importance of low sodium diet as well as monitoring fluid intake and daily weights Qualifiers: Heart failure type: diastolic Heart failure chronicity: acute Qualified Code(s): I50.31 - Acute diastolic (congestive) heart failure (2) Afib Current Visit: Yes Status: Chronic Assessment and plan: Presently rate increased 120s to upper 100s. We will increase Cardizem CD to 180 mg daily starting tomorrow. We will give extra dose of 60 mg Cardizem this p.m. continue with Coumadin Qualifiers: Atrial fibrillation type: chronic Qualified Code(s): I48.2 - Chronic atrial fibrillation (3) Bilateral lower leg cellulitis Current Visit: Yes Status: Acute Assessment and plan: recently treated Keflex; failed outpatient therapy. Does appear to be improving no seeping noted no redness or swelling Cont IV vanco, Rocephin. Wound care consulted appreciate recommend patient patient will follow up with wound clinic as outpatient. We will discharge on oral doxycycline - Time Spent With Patient Total time spent is greater than 50% in coordination of care (as documented) at patient's floor/unit and/or counseling patient: - Subjective Interval history: Patient was seen and examined at bedside. Was preparing to discharge patient home however noted that her heart rate was increased 120-100. Patient denies a chest pain or shortness of breath. She has been upset due to recent in her family however she states she feels fine now. We will keep patient overnight and increased Cardizem and observe, if improved we will discharge in a.m. discussed with patient who verbalized understanding and agreement to treatment plan - Constitutional Vitals: Temp Pulse Resp BP Pulse Ox 97.5 F L 100 16 128/72 93 01/08/18 16:16 01/08/18 16:55 01/08/18 16:16 01/08/18 16:55 01/08/18 16:16 General appearance: Present: cooperative, A&O X 3, pleasant, no acute distress - Head Head exam: Present: atraumatic, normocephalic - Eye Eye exam: Present: PERRL, conjuntiva pink, sclera anicteric Pupils: Present: PERRL - Neck Neck exam general surgery: Present: supple, trachea midline. Absent: lymphadenopathy - Respiratory Respiratory exam: Present: CTAB. Absent: accessory muscle use, rales, rhonchi, wheezes - Cardiovascular Cardiovascular exam: Present: irregular rhythm, RRR, +S1, +S2. Absent: diastolic murmur, gallop, rubs, systolic murmur - GI/Abdominal GI/Abdominal exam: Present: normal bowel sounds, soft, no peritoneal signs. Absent: distended, tenderness - Extremities Exam Extremities exam: Present: warm, radial pulses palpable and symmetrical. Absent : calf tenderness, cyanotic, pedal edema - Neurological Exam Neurological exam: Present: CN II-XII intact, oriented X3, no focal deficits. Absent: pronater drift, facial droop, speech deficit - Skin Skin exam: Present: dry, intact Internal Medicine: Result - Labs CBC & Chem 7: 01/08/18 05:30 01/08/18 05:30 Labs: Short CBC 01/08/18 Range/Units 05:30 WBC 4.0 L (4.3-11.1) K/mcL Hgb 12.5 (11.5-15.4) g/dL Hct 39.5 (35.3-44.9) % Plt Count 166 (140-400) K/mcL Neutrophils # 2.4 (1.6-8.9) K/mcL BMP 01/08/18 05:30 Sodium 141 Potassium 4.0 Chloride 106 Carbon Dioxide 30 H BUN 24 H Creatinine 0.79 Glucose 88 Calcium 8.9 - ABG Interpretation ABG results: PT/INR, D-dimer PT 16.2 Seconds (9.4-12.1) H 01/08/18 05:30 - VTE Reasons for not Prescribing Prophylaxis: Not indicated-Anticoagulated or INR therapeutic Consult Discharge Plan - Plan Referrals: Baldev Knott MD [Non-Partnered Physician] - 01/14/18 9:30 am Joy Finnegan MD [Primary Care Provider] - 01/14/18 11:45 am Prescriptions: Doxycycline 100 mg PO BID 7 Days #14 capsule
[2018-01-08] MEDS ORDERED: *HR* Warfarin 5 MG TABLET PO ONE (18:00)
[2018-01-09] MEDS: Beclomethasone 40mcg MDI IH SCH (07:41)
[2018-01-09 07:49] LABS: Basophils % 0.8 %; Eosinophils # 0.6 K/mcL (0.0-0.6); Eosinophils % 15.1 %; Hematocrit 41.2 % (35.3-44.9); Hemoglobin 13.5 g/dL (11.5-15.4); Immature Granulocytes % 0.3 % (0-4); Lymphocytes # 0.9 K/mcL (0.6-4.6); Lymphocytes % 21.9 %; Mean Corpuscular HGB Conc 32.8 g/dL (31.6-35.5); Mean Corpuscular Hemoglobin 30.3 pg (28.0-33.3); Mean Corpuscular Volume 92.6 fL (83.0-100.0); Mean Platelet Volume 10.3 fL (9.4-12.4); Monocytes # 0.3 K/mcL (0.0-1.3); Neutrophils # 2.2 K/mcL (1.6-8.9); Platelet Count 168 K/mcL (140-400); Red Blood Count 4.45 M/mcL (3.82-4.97); Red Cell Distribution Width 13.5 % (11.5-14.5); Segmented Neutrophils % 53.9 %
[2018-01-09] MEDS: Famotidine 20 MG TABLET PO SCH (07:49)
[2018-01-09] MEDS: Loratadine 10 MG TABLET PO SCH (07:49)
[2018-01-09] MEDS: Furosemide 40 MG TABLET PO SCH (07:49)
[2018-01-09] MEDS: cefTRIAXone 1,000 MG in Water for inj. (sterile) 20 ML 10 ML IVP SCH (07:58)
[2018-01-09 07:59] LABS: INR 1.4; Prothrombin Time 15.7 Seconds (9.4-12.1)
[2018-01-09 08:05] LABS: BUN/Creatinine Ratio 26 (6-26); Blood Urea Nitrogen 21 mg/dL (8-23); Calcium 8.9 mg/dL (8.6-10.3); Carbon Dioxide 31 mEq/L (23-29); Chloride 105 mEq/L (98-107); Glucose 90 mg/dL (70-105); Osmolality,Calculated 295 (280-300); Potassium 3.9 mEq/L (3.5-5.1); Sodium 141 mEq/L (136-145); eGFR For African Americans > 60 (> 60); eGFR For Non-African Americans > 60 (> 60)
[2018-01-09] MEDS ORDERED: Diltiazem CD (24hr) 180 MG CAPSULE PO SCH ×2 (09:00)
[2018-01-09 11:50] VITALS: BP 142/77
[2018-01-09] MEDS ORDERED: Aminoglycoside Consult 1 EACH MC ONE (13:23)
[2018-01-09] MEDS ORDERED: *HR* Warfarin 7.5 MG TABLET PO ONE (18:00)
== END 2018-01-09 13:24 | disposition home or self-care (01) | DRG 194 ==
LOC: 3BNU 23:15 → EMEROO 23:15 → 3BNU 01-05 03:07
PROVIDERS: ADMIT Pediatrics; ATTEND Pediatrics

== ENCOUNTER 2018-07-20 12:14 | Observation (INO) ==
[2018-07-20] MEDS ORDERED: Albuterol 2.5 MG/3 ML NEBULIZER IH ONE (12:41)
[2018-07-20] MEDS ORDERED: Furosemide 40 MG/4 ML VIAL IVP ONE (12:41)
[2018-07-20] MEDS ORDERED: predniSONE 20 MG TABLET PO ONE (12:41)
[2018-07-20] MEDS ORDERED: Ipratropium/Albuterol Neb 3 ML IH ONE (12:41)
--- NOTE | 2018-07-20 12:45 | Emergency Department Note ---
Disposition Clinical Impression: Acute exacerbation of chronic obstructive airways disease CHF (congestive heart failure) Qualifiers: Heart failure type: unspecified Heart failure chronicity: unspecified Qualified Code(s): I50.9 - Heart failure, unspecified Disposition: Admitted As Inpatient Condition: Fair Referrals: Joy Finnegan MD [Primary Care Provider] - Forms: ED Satisfaction Letter Time of Disposition: 17:12 General Adult HPI - General Chief complaint: ED Shortness of Breath/Dyspnea Stated complaint: cough, LLQ pain, blisters bilat LE Time Seen by Provider: 07/20/18 12:34 Source: patient Mode of arrival: wheelchair Limitations: no limitations - History of Present Illness HPI Narrative: This is an obese 72-year-old female with a history of COPD and CHF who comes to emergency department stating that she has become more short of breath over the previous 5 days, with cough worsening, largely nonproductive. She has also developed worsening pedal edema with leakage of fluid from her legs over the course of the last 2 weeks. In addition, she has now developed left lower quadrant pain that she states is worse when she coughs. Pain Scale: 9 - Related Data Home Medications Medication Instructions Recorded Confirmed Albuterol Sulfate [Albuterol 2 puff IH Q4H PRN 04/23/17 07/20/18 Inhaler] Calcium Carbonate/Vitamin D3 1 each PO BID 04/23/17 07/20/18 [Calcium 500 + Vit D Caplet] Docusate [Colace] 100 mg PO BID PRN 04/23/17 07/20/18 Furosemide [Lasix] 40 mg PO DAILY 04/23/17 07/20/18 Loratadine [Allergy Relief] 10 mg PO DAILY 04/23/17 07/20/18 Magnesium Oxide [Magnesium] 400 mg PO DAILY 04/23/17 07/20/18 Ranitidine HCl [Acid Window Trimmer] 150 mg PO BID 04/23/17 07/20/18 Warfarin [Coumadin] 5 mg PO SUTUTHSA 04/23/17 07/20/18 Clotrimazole/Betamethasone Dip 1 appl TP TID PRN 01/05/18 07/20/18 [Lotrisone Cream] Duloxetine HCl [Cymbalta] 60 mg PO DAILY 01/05/18 07/20/18 Warfarin [Coumadin] 2.5 mg PO MOWEFR 01/05/18 07/20/18 Ascorbic Acid [Vitamin C] 1,000 mg PO DAILY 07/20/18 07/20/18 Beclomethasone Dip 40mcg REDIH 2 puff IH BID 07/20/18 07/20/18 [Qvar 40 mcg REDIHALER] Diltiazem CD (24hr) [Cardizem CD] 120 mg PO DAILY 07/20/18 07/20/18 Diltiazem CD (24hr) [Cardizem CD] 240 mg PO DAILY 07/20/18 07/20/18 Spironolactone 25 mg PO DAILY 07/20/18 07/20/18 Vitamin E Acetate [Vitamin E] 400 unit PO BID 07/20/18 07/20/18 hydrOXYzine HCl [Hydroxyzine HCl] 50 mg PO TID PRN 07/20/18 07/20/18 Allergies Allergy/AdvReac Type Severity Reaction Status Date / Time gabapentin [From Neurontin] Allergy See Verified 07/20/18 13:50 Comments Penicillins [PCN] Allergy Rash Verified 07/20/18 13:50 All systems ED: reviewed and negative except as stated. Cardiovascular: Reports: dyspnea on exertion, edema Respiratory: Reports: cough, dyspnea Gastrointestinal: Reports: abdominal pain Past Medical History - Past Medical History Medical history: Reports: atrial fibrillation, cancer, CHF, COPD, hypertension, osteoporosis Surgical history: Reports: breast surgery Psychiatric history: Reports: depression DEMOLITION SPECIALIST history: Reports: no DEMOLITION SPECIALIST history - Social History Smoking Status: Never smoker Smokeless Tobacco Status: No Alcohol use: Reports: none Drug use: Reports: none Physical Exam - General Limitations: no limitations General appearance: alert, anxious, in distress (In moderate distress from dyspnea) - Head Head exam: atraumatic, normocephalic, normal inspection - Eye Eye exam: Present: normal appearance, PERRL, EOMI. Absent: scleral icterus - Chest Chest inspection: Present: normal inspection, symmetric chest wall rise. Absent: tenderness - Respiratory Respiratory exam: Present: respiratory distress (There is mild restaurant distress), wheezes (There are expiratory wheezes in all torres), other (There are coarse crackles in the bases bilaterally) - Cardiovascular Cardiovascular exam: Present: regular rate, irregular rhythm - Abdominal Exam Abdominal exam: Present: soft, tenderness, distention. Absent: guarding, rebound, rigidity Abdominal tenderness: Present: LUQ, LLQ. Absent: RUQ, RLQ - Extremities Exam Extremities exam: Present: pedal edema (There is 2+ bilateral pedal edema to the mid calves), other (There is hyperpigmentation of both lower legs consistent with venous insufficiency) - Neurological Exam Neurological exam: Present: alert, oriented X3 - Psychiatric Psychiatric exam: Present: normal affect, normal mood - Skin Skin exam: Present: warm, dry, intact, normal color Course Course Narrative: This is a 72-year-old female with an exam most consistent with COPD exacerbation and CHF exacerbation. Vital Signs Temperature 97.7 F 07/20/18 12:32 Pulse Rate 115 07/20/18 12:32 Respiratory Rate 24 07/20/18 12:32 Blood Pressure 170/75 07/20/18 12:32 O2 Sat by Pulse Oximetry 92 07/20/18 12:32 Temperature 98.4 F 07/20/18 16:59 Pulse Rate 112 07/20/18 16:59 Respiratory Rate 24 07/20/18 16:59 Blood Pressure 139/59 07/20/18 16:59 O2 Sat by Pulse Oximetry 95 07/20/18 16:59 Oxygen Delivery Oxygen Delivery Room Air Medical Decision Making - [facility] Narrative Medical decision making narrative: This is a 72-year-old female with a COPD exacerbation. Because of the worsening pedal edema, treatment for CHF appeared warranted She was given bronchodilators and prednisone for COPD, and furosemide for the CHF exacerbation. Her heart rate was increased after bronchodilators. She appears appropriate for admission. I discussed her case with the on-call hospitalist, who accepted her for admission - Lab Data Result diagrams: 07/20/18 12:41 07/20/18 12:41 Lab Results 07/20/18 07/20/18 07/20/18 Range/Units 12:41 12:41 13:28 WBC 5.3 (4.3-11.1) K/mcL RBC 4.62 (3.82-4.97) M/mcL Hgb 13.5 (11.5-15.4) g/dL Hct 42.8 (35.3-44.9) % MCV 92.6 (83.0-100.0) fL MCH 29.2 (28.0-33.3) pg MCHC 31.5 L (31.6-35.5) g/dL RDW 13.8 (11.5-14.5) % Plt Count 151 (140-400) K/mcL MPV 10.2 (9.4-12.4) fL Immature Gran % 0.4 (0-4) % Seg Neutrophils % 76.5 % Lymphocytes % 10.4 % Monocytes % 10.4 % Eosinophils % 1.9 % Basophils % 0.4 % Neutrophils # 4.0 (1.6-8.9) K/mcL Lymphocytes # 0.6 (0.6-4.6) K/mcL Monocytes # 0.6 (0.0-1.3) K/mcL Eosinophils # 0.1 (0.0-0.6) K/mcL Basophils # 0.0 (0.0-0.2) K/mcL Sodium 139 (136-145) mEq/L Potassium 3.9 (3.5-5.1) mEq/L Chloride 102 (98-107) mEq/L Carbon Dioxide 28 (23-29) mEq/L BUN 13 (8-23) mg/dL Creatinine 0.81 (0.60-1.20) mg/dL Est GFR ( Amer) > 60 (> 60) Est GFR (Non-Af Amer) > 60 (> 60) BUN/Creatinine Ratio 16 (6-26) Glucose 103 (70-105) mg/dL Calculated Osmolality 288 (280-300) Lactic Acid 0.9 (0.5-2.2) mmol/L Calcium 9.0 (8.6-10.3) mg/dL Troponin I < 0.03 (< 0.04) ng/mL - EKG Data EKG #1 EKG attestation: Yes I reviewed and interpreted this EKG. EKG results narrative: ECG showed atrial fibrillation with a rapid ventricular response of 106 bpm, normal intervals, normal axis, normal ST and T waves Critical Care Time Critical Care Time: No
[2018-07-20 13:32] LABS: Basophils % 0.4 %; Eosinophils # 0.1 K/mcL (0.0-0.6); Eosinophils % 1.9 %; Hematocrit 42.8 % (35.3-44.9); Hemoglobin 13.5 g/dL (11.5-15.4); Immature Granulocytes % 0.4 % (0-4); Lymphocytes # 0.6 K/mcL (0.6-4.6); Lymphocytes % 10.4 %; Mean Corpuscular HGB Conc 31.5 g/dL (31.6-35.5); Mean Corpuscular Hemoglobin 29.2 pg (28.0-33.3); Mean Corpuscular Volume 92.6 fL (83.0-100.0); Mean Platelet Volume 10.2 fL (9.4-12.4); Monocytes # 0.6 K/mcL (0.0-1.3); Monocytes % 10.4 %; Platelet Count 151 K/mcL (140-400); Red Blood Count 4.62 M/mcL (3.82-4.97); Red Cell Distribution Width 13.8 % (11.5-14.5); Segmented Neutrophils % 76.5 %
[2018-07-20 13:51] LABS: BUN/Creatinine Ratio 16 (6-26); Blood Urea Nitrogen 13 mg/dL (8-23); Carbon Dioxide 28 mEq/L (23-29); Chloride 102 mEq/L (98-107); Glucose 103 mg/dL (70-105); Osmolality,Calculated 288 (280-300); Potassium 3.9 mEq/L (3.5-5.1); Sodium 139 mEq/L (136-145); eGFR For Non-African Americans > 60 (> 60)
[2018-07-20 13:53] LABS: Troponin I < 0.03 ng/mL (< 0.04)
[2018-07-20] MEDS ORDERED: Isovue-370 500 ML INFUS..BTL IV ONE (14:17)
[2018-07-20] MEDS ORDERED: 0.9 % Sodium Chloride 1,000 ML IVC ONE (17:05)
[2018-07-20] MEDS ORDERED: Clotrimazole/Betameth Dip CRM 45 APPL/45 GM TUBE TP PRN (17:38)
[2018-07-20] MEDS ORDERED: hydrOXYzine pamoate 25 MG CAPSULE PO PRN (17:38)
[2018-07-20] MEDS ORDERED: *HR* Warfarin 5 MG TABLET PO SCH (17:45)
[2018-07-20] MEDS ORDERED: 0.9 % Sodium Chloride 1,000 ML ONE (17:56)
[2018-07-20] MEDS ORDERED: Diltiazem CD (24hr) 240 MG CAPSULE PO SCH (18:15)
[2018-07-20] MEDS ORDERED: Diltiazem SR (12hr) 60 MG CAPSULE PO STA (18:31)
[2018-07-20] MEDS ORDERED: Ipratropium/Albuterol Neb 3 ML IH PRN (18:33)
[2018-07-20] MEDS ORDERED: Naloxone 0.4 MG/ML INJ IVP PRN (18:36)
[2018-07-20] MEDS ORDERED: Acetaminophen 325 MG TABLET PO PRN (18:36)
[2018-07-20] MEDS ORDERED: traMADol 50 MG TABLET PO PRN (18:36)
--- NOTE | 2018-07-20 18:43 | Internal Med History&Physical ---
Date of Encounter: 07/20/18 Time of Encounter: 18:40 Internal Medicine - H&P: HPI Admitted From: Home Plans for Post Hospital Care: Home History of present illness: This is an obese 72-year-old female with a history of COPD and CHF who comes to emergency department stating that she has become more short of breath over the previous 5 days, with cough worsening, largely nonproductive. She has also developed worsening pedal edema with leakage of fluid from her legs over the course of the last 2 weeks. In addition, she has now developed left lower quadrant pain that she states is worse when she coughs. At the ED, was found tachycardia with heart rate between 110-140, telemetry tracing showed atrial fibrillation, labs were unremarkable, chest x-ray has no acute changes, CT abdomen was unremarkable. However, patient does appear in moderate respiratory distress with diffuse bilateral wheezing and rhonchi. She also seems volume overloaded with bilateral pitting edema and crackles on both lung torres. Patient will be admitted for further management of COPD and CHF. Past Med Surg Social Fam HX - Past Medical History Medical history: atrial fibrillation, cancer, CHF, COPD, hypertension, osteoporosis Additional medical history: breast cancer, sleep apnea non compliant with cpap machine Psychiatric history: depression - Past Surgical History Surgical History: breast surgery - Social History Smoking Status: Never smoker Smokeless Tobacco Status: No Alcohol use: none Drug use: none - Family History Father Adopted: No Family Member Ethnicity: Non- Living Status: Hx Family Cardiac Disorders: Yes Hx Family Respiratory Disorders: No Hx Family Cancer: No Hx Family GI Disorders: No Hx Family Endocrine Disorder: Yes (Diabetes) Hx Family Neuromuscular Disorders: No Hx Family Neurologic Disorders: No Hx Family HEENT Disorders: No Hx Family Autoimmune Disorders: No Mother Living Status: Hx Family Cardiac Disorders: No Hx Family Respiratory Disorders: No Hx Family Cancer: Yes (Breast) Hx Family GI Disorders: No Hx Family Endocrine Disorder: No Hx Family Neuromuscular Disorders: No Hx Family Neurologic Disorders: No Hx Family HEENT Disorders: No Hx Family Autoimmune Disorders: No Internal Medicine - H&P: Meds Albuterol Sulfate [Albuterol Inhaler] 2 puff IH Q4H PRN 04/23/17 [History] Calcium Carbonate/Vitamin D3 [Calcium 500 + Vit D Caplet] 1 each PO BID 04/23/17 [History] Docusate [Colace] 100 mg PO BID PRN 04/23/17 [History] Furosemide [Lasix] 40 mg PO DAILY 04/23/17 [History] Loratadine [Allergy Relief] 10 mg PO DAILY 04/23/17 [History] Magnesium Oxide [Magnesium] 400 mg PO DAILY 04/23/17 [History] Ranitidine HCl [Acid [facility]] 150 mg PO BID 04/23/17 [History] Warfarin [Coumadin] 5 mg PO SUTUTHSA 04/23/17 [History] Clotrimazole/Betamethasone Dip [Lotrisone Cream] 1 appl TP TID PRN 01/05/18 [History] Duloxetine HCl [Cymbalta] 60 mg PO DAILY 01/05/18 [History] Warfarin [Coumadin] 2.5 mg PO MOWEFR 01/05/18 [History] Ascorbic Acid [Vitamin C] 1,000 mg PO DAILY 07/20/18 [History] Beclomethasone Dip 40mcg REDIH [Qvar 40 mcg REDIHALER] 2 puff IH BID 07/20/18 [History] Diltiazem CD (24hr) [Cardizem CD] 120 mg PO DAILY 07/20/18 [History] Diltiazem CD (24hr) [Cardizem CD] 240 mg PO DAILY 07/20/18 [History] Spironolactone 25 mg PO DAILY 07/20/18 [History] Vitamin E Acetate [Vitamin E] 400 unit PO BID 07/20/18 [History] hydrOXYzine HCl [Hydroxyzine HCl] 50 mg PO TID PRN 07/20/18 [History] Allergy/AdvReac Type Severity Reaction Status Date / Time gabapentin [From Neurontin] Allergy See Verified 07/20/18 13:50 Comments Penicillins [PCN] Allergy Rash Verified 07/20/18 13:50 All Systems PM: A 10-system review of systems was performed and is negative for pertinent findings except as documented above in the HPI. Review of systems: REVIEW OF SYSTEMS: CONSTITUTIONAL: No weight loss, fever, chills, weakness or fatigue. HEENT: Eyes: No visual loss, blurred vision, double vision or yellow sclerae. Ears, Nose, Throat: No hearing loss, sneezing, congestion, runny nose or sore throat. SKIN: No rash or itching. CARDIOVASCULAR: No chest pain, chest pressure or chest discomfort. No palpi tations, see HPI. RESPIRATORY: see HPI. GASTROINTESTINAL: No anorexia, nausea, vomiting or diarrhea. No abdominal pain or blood. GENITOURINARY: No dysuria, urgency, or frequency. NEUROLOGICAL: No headache, dizziness, syncope, paralysis, ataxia, numbness or tingling in the extremities. No change in bowel or bladder control. MUSCULOSKELETAL: No muscle, back pain, joint pain or stiffness. HEMATOLOGIC: No anemia, bleeding or bruising. LYMPHATICS: No enlarged nodes. No history of splenectomy. PSYCHIATRIC: No history of depression or anxiety. ENDOCRINOLOGIC: No reports of sweating, cold or heat intolerance. No polyuria or polydipsia. - Constitutional Vitals: Temp Pulse Resp BP Pulse Ox 98.7 F 112 24 134/77 95 07/20/18 18:08 07/20/18 16:59 07/20/18 18:08 07/20/18 18:08 07/20/18 16:59 General appearance: Present: cooperative, A&O X 3, answers questions appropriately Exam: PHYSICAL EXAMINATION: GENERAL APPEARANCE: The patient is alert, oriented and in no acute distress. HEENT: Head is normocephalic. The sinuses are nontender. Pupils are equal and reactive. The nares are patent. Oropharynx clear without lesions. NECK: Supple without lymphadenopathy. HEART: Regular rate and rhythm. LUNGS: bilateral crackles and wheezes are heard. ABDOMEN: Soft, nontender, nondistended with good bowel sounds heard. Inguinal area is normal. EXTREMITIES: Without cyanosis, clubbing or edema. NEUROLOGICAL: Gross nonfocal. SKIN: Warm and dry without any rash. Internal Med - H&P Results - Labs CBC & Chem 7: 07/20/18 12:41 07/20/18 12:41 Labs: Short CBC 07/20/18 Range/Units 12:41 WBC 5.3 (4.3-11.1) K/mcL Hgb 13.5 (11.5-15.4) g/dL Hct 42.8 (35.3-44.9) % Plt Count 151 (140-400) K/mcL Neutrophils # 4.0 (1.6-8.9) K/mcL BMP 07/20/18 12:41 Sodium 139 Potassium 3.9 Chloride 102 Carbon Dioxide 28 BUN 13 Creatinine 0.81 Glucose 103 Calcium 9.0 Cardiac Enzymes 07/20/18 Range/Units 12:41 Troponin I < 0.03 (< 0.04) ng/mL - Impressions ITS Impressions Chest X-Ray 07/20/18 12:41 IMPRESSION: No acute process. D/ / Neo Reynoso MD / Neo Reynoso MD Interpreting Provider: Neo Reynoso MD Abdomen/Pelvis CT 07/20/18 14:17 IMPRESSION: 1. No acute abnormality in the abdomen or pelvis. 2. Severe sigmoid diverticulosis. No CT changes of acute diverticulitis. 3. Abnormal postmenopausal endometrial thickening up to 9 mm. Nonemergent pelvic ultrasound recommended to better characterize. RECOMMENDATIONS: Nonemergent pelvic ultrasound recommended. D/ / 07/20/2018 15:21:40 Quinton Saucedo MD / [facility] Interpreting Provider: Quinton Saucedo MD - Assessment and plan (1) Acute exacerbation of chronic obstructive airways disease Current Visit: Yes Status: Acute Assessment and plan: Pt denies recent URI but admitted she started to cough since [place] and not get better. She does not have any signs of infection. physical exam did reveal diffuse wheezing and rhonchi. we will escalate with with IV steroid, bronchodilators and mucinex. (2) Acute exacerbation of CHF (congestive heart failure) Current Visit: Yes Status: Acute Assessment and plan: She seems volume overloaded, will increase dose. monitor Is/Os. Qualifiers: Heart failure type: combined systolic and diastolic Qualified Code(s): I50.43 - Acute on chronic combined systolic (congestive) and diastolic (congestive) heart failure (3) Afib Current Visit: No Status: Chronic Assessment and plan: rate not controlled, increase dose of cardizem. continue Coumadin. Qualifiers: Atrial fibrillation type: chronic Qualified Code(s): I48.2 - Chronic atrial fibrillation (4) DVT prophylaxis Current Visit: Yes Status: Acute Assessment and plan: continue coumadin. - Time Spent With Patient Total time spent is greater than 50% in coordination of care (as documented) at patient's floor/unit and/or counseling patient: Greater than 35 minutes
[2018-07-20] MEDS ORDERED: Warfarin perPT PO PRN (18:54)
[2018-07-20] MEDS: Ipratropium/Albuterol Neb 3 ML IH SCH (20:20)
[2018-07-20] MEDS: MOMETASONE FUROATE 100 mcg Inhaler IH SCH (20:23)
[2018-07-20] MEDS: Famotidine 20 MG TABLET PO SCH (20:35)
[2018-07-20] MEDS ORDERED: NON-FORMULARY MEDICATION 1 EACH EACH (Calcium Carbonate/Vitamin D3 [Calcium 500 + Vit D Ca PO SCH (21:00)
[2018-07-20] MEDS ORDERED: BECLOMETHASONE DIP 40 MCG IH SCH (21:00)
[2018-07-20] MEDS: Furosemide 40 MG/4 ML VIAL IVP SCH (21:14)
[2018-07-20] MEDS: Cholecalciferol (D-3) 1,000 UNIT TABLET PO SCH (21:16)
[2018-07-20 21:22] LABS: INR 1.5; Prothrombin Time 16.9 Seconds (9.4-12.1)
[2018-07-20] MEDS ORDERED: *HR* Warfarin 5 MG TABLET PO ONE (22:45)
[2018-07-21] MEDS: methylPREDNISolone 125 MG/2 ML VIAL IVP SCH ×3 (03:26→17:11)
[2018-07-21] MEDS: Ipratropium/Albuterol Neb 3 ML IH SCH ×7 (04:32→23:57)
[2018-07-21 06:54] LABS: Basophils % 0.1 %; Hematocrit 41.7 % (35.3-44.9); Hemoglobin 13.4 g/dL (11.5-15.4); Immature Granulocytes % 0.4 % (0-4); Lymphocytes # 0.4 K/mcL (0.6-4.6); Lymphocytes % 5.6 %; Mean Corpuscular HGB Conc 32.1 g/dL (31.6-35.5); Mean Corpuscular Hemoglobin 29.2 pg (28.0-33.3); Mean Corpuscular Volume 90.8 fL (83.0-100.0); Mean Platelet Volume 10.6 fL (9.4-12.4); Monocytes # 0.3 K/mcL (0.0-1.3); Monocytes % 3.4 %; Neutrophils # 7.1 K/mcL (1.6-8.9); Platelet Count 219 K/mcL (140-400); Red Blood Count 4.59 M/mcL (3.82-4.97); Red Cell Distribution Width 13.4 % (11.5-14.5); Segmented Neutrophils % 90.5 %
[2018-07-21 07:03] LABS: INR 1.7; Prothrombin Time 19.2 Seconds (9.4-12.1)
[2018-07-21 07:14] LABS: BUN/Creatinine Ratio 20 (6-26); Blood Urea Nitrogen 17 mg/dL (8-23); Calcium 9.3 mg/dL (8.6-10.3); Carbon Dioxide 27 mEq/L (23-29); Chloride 99 mEq/L (98-107); Glucose 145 mg/dL (70-105); Osmolality,Calculated 288 (280-300); Potassium 3.8 mEq/L (3.5-5.1); Sodium 137 mEq/L (136-145); eGFR For Non-African Americans > 60 (> 60)
[2018-07-21] MEDS: MOMETASONE FUROATE 100 mcg Inhaler IH SCH ×2 (07:23→20:32)
[2018-07-21] MEDS: Diltiazem SR (12hr) 60 MG CAPSULE PO SCH ×2 (08:26→20:21)
[2018-07-21] MEDS: Famotidine 20 MG TABLET PO SCH ×2 (08:26→20:21)
[2018-07-21] MEDS: Cholecalciferol (D-3) 1,000 UNIT TABLET PO SCH (08:26)
[2018-07-21] MEDS: Ascorbic Acid 500 MG TABLET PO SCH (08:26)
[2018-07-21] MEDS: Magnesium Oxide 400 MG TABLET PO SCH (08:27)
[2018-07-21] MEDS: Spironolactone 25 MG TABLET PO SCH (08:27)
[2018-07-21] MEDS: Loratadine 10 MG TABLET PO SCH (08:27)
[2018-07-21] MEDS: Furosemide 40 MG/4 ML VIAL IVP SCH ×2 (08:28→17:11)
[2018-07-21] MEDS ORDERED: Diltiazem CD (24hr) 120 MG CAPSULE PO SCH (09:00)
--- NOTE | 2018-07-21 14:53 | Internal Med Progress Note ---
Hospitalist Progress Note - Encounter Date of Encounter: 07/21/18 Time of Encounter: 14:51 - Subjective Interval History: Pt feels better in breathing, less cough overnight. - Exam Vitals: Temp Pulse Resp BP Pulse Ox 98.5 F 97 15 121/80 93 07/21/18 10:47 07/21/18 10:47 07/21/18 11:57 07/21/18 10:47 07/21/18 11:57 Exam: PHYSICAL EXAMINATION: GENERAL APPEARANCE: The patient is alert, oriented and in no acute distress. HEENT: Head is normocephalic. The sinuses are nontender. Pupils are equal and reactive. The nares are patent. Oropharynx clear without lesions. NECK: Supple without lymphadenopathy. HEART: Regular rate and rhythm. LUNGS: bilateral crackles and wheezes are heard. ABDOMEN: Soft, nontender, nondistended with good bowel sounds heard. Inguinal area is normal. EXTREMITIES: Without cyanosis, clubbing or edema. NEUROLOGICAL: Gross nonfocal. SKIN: Warm and dry without any rash. - Assessment and Plan (1) Acute exacerbation of chronic obstructive airways disease Current Visit: Yes Status: Acute Assessment and Plan: 07/20/2018 Pt denies recent URI but admitted she started to cough since [place] and not get better. She does not have any signs of infection. physical exam did reveal diffuse wheezing and rhonchi. we will escalate with with IV steroid, bronchodilators and mucinex. 07/21 symptoms improved. continue current treatment. (2) Acute exacerbation of CHF (congestive heart failure) Current Visit: Yes Status: Acute Assessment and Plan: 07/20/2018 She seems volume overloaded, will increase dose of lasix. monitor Is/Os. 07/21 overall symptoms improved. continue current treatment. (3) Afib Current Visit: No Status: Chronic Assessment and Plan: 07/20/2018 rate not controlled, increase dose of cardizem. continue Coumadin. 07/21 rate controlled, continue current cardizem dose and coumadin. (4) DVT prophylaxis Current Visit: Yes Status: Acute Assessment and Plan: continue coumadin. - Time Spent with Patient Total time spent is greater than 50% in coordination of care (as documented) at patient's floor/unit and/or counseling patient: Greater than 35 minutes Plan of Care Discussed with: patient Internal Medicine: Result - Labs CBC & Chem 7: 07/21/18 05:45 07/21/18 05:45 Labs: Short CBC 07/21/18 Range/Units 05:45 WBC 7.9 (4.3-11.1) K/mcL Hgb 13.4 (11.5-15.4) g/dL Hct 41.7 (35.3-44.9) % Plt Count 219 (140-400) K/mcL Neutrophils # 7.1 (1.6-8.9) K/mcL BMP 07/21/18 05:45 Sodium 137 Potassium 3.8 Chloride 99 Carbon Dioxide 27 BUN 17 Creatinine 0.83 Glucose 145 H Calcium 9.3 - ABG Interpretation ABG results: PT/INR, D-dimer PT 19.2 Seconds (9.4-12.1) H 07/21/18 05:45 - Impressions Impressions Abdomen/Pelvis CT 07/20/18 14:17 IMPRESSION: 1. No acute abnormality in the abdomen or pelvis. 2. Severe sigmoid diverticulosis. No CT changes of acute diverticulitis. 3. Abnormal postmenopausal endometrial thickening up to 9 mm. Nonemergent pelvic ultrasound recommended to better characterize. RECOMMENDATIONS: Nonemergent pelvic ultrasound recommended. D/ / 07/20/2018 15:21:40 Quinton Saucedo MD / [facility] Interpreting Provider: Quinton Saucedo MD Consult Discharge Plan - Plan Referrals: Joy Finnegan MD [Primary Care Provider] - (Unable to schedule appointment due to holiday. Please call and schedule an appointment witin 7-10 days.) (2) Acute exacerbation of CHF (congestive heart failure) Qualifiers: Heart failure type: combined systolic and diastolic Qualified Code(s): I50.43 - Acute on chronic combined systolic (congestive) and diastolic (congestive) heart failure (3) Afib Qualifiers: Atrial fibrillation type: chronic Qualified Code(s): I48.2 - Chronic atrial fibrillation
[2018-07-21] MEDS ORDERED: *HR* Warfarin 2.5 MG TABLET PO SCH (17:38)
[2018-07-22] MEDS: methylPREDNISolone 125 MG/2 ML VIAL IVP SCH ×3 (00:22→16:02)
[2018-07-22 04:34] LABS: Basophils % 0.1 %; Hematocrit 40.8 % (35.3-44.9); Hemoglobin 13.2 g/dL (11.5-15.4); Immature Granulocytes % 0.4 % (0-4); Lymphocytes # 0.5 K/mcL (0.6-4.6); Mean Corpuscular HGB Conc 32.4 g/dL (31.6-35.5); Mean Corpuscular Hemoglobin 29.2 pg (28.0-33.3); Mean Corpuscular Volume 90.3 fL (83.0-100.0); Mean Platelet Volume 10.5 fL (9.4-12.4); Monocytes # 0.4 K/mcL (0.0-1.3); Monocytes % 3.5 %; Neutrophils # 9.2 K/mcL (1.6-8.9); Platelet Count 300 K/mcL (140-400); Red Blood Count 4.52 M/mcL (3.82-4.97); Red Cell Distribution Width 13.6 % (11.5-14.5)
[2018-07-22 04:38] LABS: INR 1.8; Prothrombin Time 20.4 Seconds (9.4-12.1)
[2018-07-22 04:52] LABS: BUN/Creatinine Ratio 29 (6-26); Blood Urea Nitrogen 31 mg/dL (8-23); Calcium 9.4 mg/dL (8.6-10.3); Carbon Dioxide 27 mEq/L (23-29); Chloride 97 mEq/L (98-107); Glucose 214 mg/dL (70-105); Osmolality,Calculated 293 (280-300); Potassium 4.1 mEq/L (3.5-5.1); Sodium 135 mEq/L (136-145); eGFR For Non-African Americans 50 (> 60)
[2018-07-22] MEDS: Ipratropium/Albuterol Neb 3 ML IH SCH ×5 (05:51→19:51)
[2018-07-22] MEDS: MOMETASONE FUROATE 100 mcg Inhaler IH SCH ×2 (07:38→19:51)
[2018-07-22] MEDS: Furosemide 40 MG/4 ML VIAL IVP SCH (09:20)
[2018-07-22] MEDS: Ascorbic Acid 500 MG TABLET PO SCH (09:21)
[2018-07-22] MEDS: Magnesium Oxide 400 MG TABLET PO SCH (09:22)
[2018-07-22] MEDS: Famotidine 20 MG TABLET PO SCH ×2 (09:22→21:49)
[2018-07-22] MEDS: Loratadine 10 MG TABLET PO SCH (09:22)
[2018-07-22] MEDS: Cholecalciferol (D-3) 1,000 UNIT TABLET PO SCH (09:22)
[2018-07-22] MEDS: Spironolactone 25 MG TABLET PO SCH (09:22)
[2018-07-22] MEDS: Diltiazem SR (12hr) 60 MG CAPSULE PO SCH ×2 (10:22→21:49)
--- NOTE | 2018-07-22 13:45 | Internal Med Progress Note ---
Hospitalist Progress Note - Encounter Date of Encounter: 07/22/18 Time of Encounter: 13:43 - Subjective Interval History: Pt feels better in breathing, less cough overnight. - Exam Vitals: Temp Pulse Resp BP Pulse Ox 97.8 F 104 16 115/70 90 07/22/18 12:07 07/22/18 12:07 07/22/18 12:07 07/22/18 12:07 07/22/18 12:07 Exam: PHYSICAL EXAMINATION: GENERAL APPEARANCE: The patient is alert, oriented and in no acute distress. HEENT: Head is normocephalic. The sinuses are nontender. Pupils are equal and reactive. The nares are patent. Oropharynx clear without lesions. NECK: Supple without lymphadenopathy. HEART: Regular rate and rhythm. LUNGS: bilateral crackles and wheezes are heard. ABDOMEN: Soft, nontender, nondistended with good bowel sounds heard. Inguinal area is normal. EXTREMITIES: Without cyanosis, clubbing or edema. NEUROLOGICAL: Gross nonfocal. SKIN: Warm and dry without any rash. - Assessment and Plan (1) Acute exacerbation of chronic obstructive airways disease Current Visit: Yes Status: Acute Assessment and Plan: 07/20/2018 Pt denies recent URI but admitted she started to cough since [place] and not get better. She does not have any signs of infection. physical exam did reveal diffuse wheezing and rhonchi. we will escalate with with IV steroid, bronchodilators and mucinex. 07/21 symptoms improved. continue current treatment. 07/22/2018 Symptoms improving, less wheezing and cough, continue current treatment, will taper steroid tomorrow. (2) Acute exacerbation of CHF (congestive heart failure) Current Visit: Yes Status: Acute Assessment and Plan: 07/20/2018 She seems volume overloaded, will increase dose of lasix. monitor Is/Os. 07/21 overall symptoms improved. continue current treatment. 07/22/2018 Pt euvolemic, Lasix deescalate to 40 mg po daily ( home dose). (3) Afib Current Visit: No Status: Chronic Assessment and Plan: 07/20/2018 rate not controlled, increase dose of cardizem. continue Coumadin. 07/21 rate controlled, continue current cardizem dose and coumadin. 07/22 HR 90-100 most of the time, continue current treatment. (4) DVT prophylaxis Current Visit: Yes Status: Acute Assessment and Plan: continue coumadin. - Time Spent with Patient Total time spent is greater than 50% in coordination of care (as documented) at patient's floor/unit and/or counseling patient: Greater than 35 minutes Plan of Care Discussed with: patient Internal Medicine: Result - Labs CBC & Chem 7: 07/22/18 04:00 07/22/18 04:00 Labs: Short CBC 07/22/18 Range/Units 04:00 WBC 10.1 (4.3-11.1) K/mcL Hgb 13.2 (11.5-15.4) g/dL Hct 40.8 (35.3-44.9) % Plt Count 300 (140-400) K/mcL Neutrophils # 9.2 H (1.6-8.9) K/mcL BMP 07/22/18 04:00 Sodium 135 L Potassium 4.1 Chloride 97 L Carbon Dioxide 27 BUN 31 H Creatinine 1.07 Glucose 214 H Calcium 9.4 - ABG Interpretation ABG results: PT/INR, D-dimer PT 20.4 Seconds (9.4-12.1) H 07/22/18 04:00 Consult Discharge Plan - Plan Referrals: Joy Finnegan MD [Primary Care Provider] - (Unable to schedule a ppointment due to holiday. Please call and schedule an appointment witin 7-10 days.) __ (2) Acute exacerbation of CHF (congestive heart failure) Qualifiers: Heart failure type: combined systolic and diastolic Qualified Code(s): I50.43 - Acute on chronic combined systolic (congestive) and diastolic (congestive) he art failure (3) Afib Qualifiers: Atrial fibrillation type: chronic Qualified Code(s): I48.2 - Chronic atrial fibrillation
[2018-07-22] MEDS ORDERED: *HR* Warfarin 5 MG TABLET PO ONE (18:00)
[2018-07-23] MEDS: methylPREDNISolone 125 MG/2 ML VIAL IVP SCH ×2 (00:21→07:57)
[2018-07-23] MEDS: Ipratropium/Albuterol Neb 3 ML IH SCH ×5 (00:27→15:25)
[2018-07-23 05:43] LABS: Basophils % 0.2 %; Hematocrit 38.7 % (35.3-44.9); Hemoglobin 12.6 g/dL (11.5-15.4); Immature Granulocytes % 0.6 % (0-4); Lymphocytes # 0.4 K/mcL (0.6-4.6); Lymphocytes % 6.1 %; Mean Corpuscular HGB Conc 32.6 g/dL (31.6-35.5); Mean Corpuscular Volume 89.2 fL (83.0-100.0); Mean Platelet Volume 10.3 fL (9.4-12.4); Monocytes # 0.2 K/mcL (0.0-1.3); Monocytes % 3.5 %; Neutrophils # 5.9 K/mcL (1.6-8.9); Platelet Count 235 K/mcL (140-400); Red Blood Count 4.34 M/mcL (3.82-4.97); Red Cell Distribution Width 13.5 % (11.5-14.5); Segmented Neutrophils % 89.6 %
[2018-07-23 05:49] LABS: INR 1.7; Prothrombin Time 18.8 Seconds (9.4-12.1)
[2018-07-23 06:06] LABS: BUN/Creatinine Ratio 33 (6-26); Blood Urea Nitrogen 33 mg/dL (8-23); Calcium 9.4 mg/dL (8.6-10.3); Carbon Dioxide 28 mEq/L (23-29); Chloride 97 mEq/L (98-107); Glucose 197 mg/dL (70-105); Osmolality,Calculated 293 (280-300); Potassium 4.2 mEq/L (3.5-5.1); Sodium 135 mEq/L (136-145); eGFR For Non-African Americans 55 (> 60)
[2018-07-23] MEDS: MOMETASONE FUROATE 100 mcg Inhaler IH SCH (07:32)
[2018-07-23] MEDS: Spironolactone 25 MG TABLET PO SCH (07:56)
[2018-07-23] MEDS: Ascorbic Acid 500 MG TABLET PO SCH (07:56)
[2018-07-23] MEDS: Magnesium Oxide 400 MG TABLET PO SCH (07:56)
[2018-07-23] MEDS: Diltiazem SR (12hr) 60 MG CAPSULE PO SCH (07:56)
[2018-07-23] MEDS: Cholecalciferol (D-3) 1,000 UNIT TABLET PO SCH (07:57)
[2018-07-23] MEDS: Loratadine 10 MG TABLET PO SCH (07:57)
[2018-07-23] MEDS: Famotidine 20 MG TABLET PO SCH (07:57)
[2018-07-23] MEDS ORDERED: Furosemide 40 MG TABLET PO SCH (09:00)
--- NOTE | 2018-07-23 10:14 | Discharge Summary ---
- NOTES TO OUTPATIENT PROVIDER Notes to Outpatient Provider: f/u with PCP within a week. Orders not resulted at time of discharge: Pending orders 07/24/18 04:00 INR/PT [Prothrombin Time INR] [COAG] AM 0400 07/25/18 04:00 INR/PT [Prothrombin Time INR] [COAG] AM 0400 07/26/18 04:00 INR/PT [Prothrombin Time INR] [COAG] AM 0400 07/20/18 12:41 ECG 12 lead ECG [ECG] Stat Date of Encounter: 07/23/18 Time of Encounter: 10:09 - Discharge Diagnosis (1) Acute exacerbation of chronic obstructive airways disease Priority: Primary Status: Acute (2) Acute exacerbation of CHF (congestive heart failure) Priority: Primary Status: Acute Qualifiers: Heart failure type: combined systolic and diastolic Qualified Code(s): I50.43 - Acute on chronic combined systolic (congestive) and diastolic (congestive) heart failure (3) Afib Priority: Secondary Status: Chronic Qualifiers: Atrial fibrillation type: chronic Qualified Code(s): I48.2 - Chronic atrial fibrillation (4) DVT prophylaxis Priority: Primary Status: Acute Hospital course: Ms. Veloz is a 72 year old female with a history of COPD and CHF who comes to emergency department stating that she has become more short of breath over the previous 5 days, with cough worsening, largely nonproductive. She has also developed worsening pedal edema with leakage of fluid from her legs over the course of the last 2 weeks. In addition, she has now developed left lower quadr ant pain that she states is worse when she coughs. At the ED, was found tachycardia with heart rate between 110-140, telemetry tracing showed atrial fibrillation, labs were unremarkable, chest x-ray has no acute changes, CT abdomen was unremarkable. However, patient does appear in moderate respiratory distress with diffuse bilateral wheezing and rhonchi. She also seems volume overloaded with bilateral pitting edema and crackles on both lung torres. Patient will be admitted for further management of COPD and CHF. Pt was started on IV lasix for fluid overloaded. To treat the COPD exacerbation, She received [place] azithromycin for acute bronchitis, IV steroid for wheezing, bronchodilator for SOB. She was also tachycardia with HR 130, cardizem ER was increased to 240 mg BID. Her sob, cough and fluid overload were improved. She will be discharged home today with tapering dose of steroid. She will f/u with PCP within a week. Discharge discussed with: patient Time spent discussing smoking cessation with patient: more than 10 minutes - Time Spent with Patient Total time spent providing and/or coordinating discharge services: Greater than 30 minutes - Discharge Medications Prescriptions: predniSONE [PredniSONE] 40 mg PO DAILY #21 tablet Home Medications: Albuterol Sulfate [Albuterol Inhaler] 2 puff IH Q4H PRN 04/23/17 [History] Calcium Carbonate/Vitamin D3 [Calcium 500 + Vit D Caplet] 1 each PO BID 04/23/17 [History] Docusate [Colace] 100 mg PO BID PRN 04/23/17 [History] Furosemide [Lasix] 40 mg PO DAILY 04/23/17 [History] Loratadine [Allergy Relief] 10 mg PO DAILY 04/23/17 [History] Magnesium Oxide [Magnesium] 400 mg PO DAILY 04/23/17 [History] Ranitidine HCl [Acid [employer]] 150 mg PO BID 04/23/17 [History] Warfarin [Coumadin] 5 mg PO SUTUTHSA 04/23/17 [History] Clotrimazole/Betamethasone Dip [Lotrisone Cream] 1 appl TP TID PRN 01/05/18 [History] Duloxetine HCl [Cymbalta] 60 mg PO DAILY 01/05/18 [History] Warfarin [Coumadin] 2.5 mg PO MOWEFR 01/05/18 [History] Ascorbic Acid [Vitamin C] 1,000 mg PO DAILY 07/20/18 [History] Beclomethasone Dip 40mcg REDIH [Qvar 40 Mcg Redihaler] 2 puff IH BID 07/20/18 [History] Spironolactone 25 mg PO DAILY 07/20/18 [History] Vitamin E Acetate [Vitamin E] 400 unit PO BID 07/20/18 [History] hydrOXYzine HCl [Hydroxyzine HCl] 50 mg PO TID PRN 07/20/18 [History] Diltiazem SR (12hr) [Cardizem SR] 240 mg PO BID cap.er.12h 07/23/18 [Rx] predniSONE [PredniSONE] 40 mg PO DAILY #21 tablet 07/23/18 [Rx] Allergies/Adverse Reactions: Allergy/AdvReac Type Severity Reaction Status Date / Time gabapentin [From Neurontin] Allergy See Verified 07/20/18 13:50 Comments Penicillins [PCN] Allergy Rash Verified 07/20/18 13:50 Date of admission: 07/20/18 17:47 Primary care physician: Joy Finnegan MD Anticipated date of discharge: 07/23/18 - Constitutional Vitals: Temp Pulse Resp BP Pulse Ox 97.6 F 91 18 148/80 94 07/23/18 07:09 07/23/18 07:09 07/23/18 07:34 07/23/18 07:09 07/23/18 08:05 General appearance: Present: cooperative, A&O X 3, answers questions appropriately Exam: PHYSICAL EXAMINATION: GENERAL APPEARANCE: The patient is alert, oriented and in no acute distress. HEENT: Head is normocephalic. The sinuses are nontender. Pupils are equal and reactive. The nares are patent. Oropharynx clear without lesions. NECK: Supple without lymphadenopathy. HEART: Regular rate and rhythm. LUNGS: scattered bilateral crackles and wheezes are heard. ABDOMEN: Soft, nontender, nondistended with good bowel sounds heard. Inguinal area is normal. EXTREMITIES: Without cyanosis, clubbing or edema. NEUROLOGICAL: Gross nonfocal. SKIN: Warm and dry without any rash. - Patient Status Disposition: Home, Self-Care Condition: Fair Functional capacity at discharge: independent ambulation Overall status at discharge: patient is progressing back to baseline - Discharge Instructions Follow Up With: Joy Finnegan MD [Primary Care Provider] - 08/04/18 11:45 am (Unable to schedule appointment due to holiday. Please call and schedule an appointment witin 7-10 days.) - Diet and Activity Activity: increase activity as tolerated Diet: advance to your usual diet
[2018-07-23 15:51] VITALS: BP 129/65
[2018-07-23] MEDS ORDERED: *HR* Warfarin 5 MG TABLET PO ONE (18:00)
[2018-07-24] MEDS ORDERED: predniSONE 20 MG TABLET PO SCH (09:00)
== END 2018-07-23 18:06 | disposition home or self-care (01) ==
LOC: EMEROOARM 12:14 → 3BNU 12:14
PROVIDERS: ADMIT Internal Medicine; ATTEND Internal Medicine

== ENCOUNTER 2018-09-25 13:00 | Observation (INO) ==
[2018-09-25] MEDS ORDERED: Dexamethasone 4 MG/ML VIAL IVP ONE (15:46)
[2018-09-25] MEDS ORDERED: Famotidine 20 MG/2 ML VIAL IVP ONE (15:47)
[2018-09-25] MEDS ORDERED: Ondansetron 4 MG/2 ML VIAL IVP ONE (15:49)
--- NOTE | 2018-09-25 15:52 | Emergency Department Note ---
Disposition Clinical Impression: Scalded skin syndrome Cellulitis Qualifiers: Site of cellulitis: unspecified site Qualified Code(s): L03.90 - Cellulitis, unspecified Disposition: Admitted As Inpatient Condition: Fair Referrals: Joy Finnegan MD [Primary Care Provider] - Forms: ED Satisfaction Letter General Adult HPI - General Chief complaint: ED Extremity Problem,Nontraumatic Stated complaint: Cellulitis Time Seen by Provider: 09/25/18 15:30 Source: patient, family Mode of arrival: private vehicle Limitations: no limitations Nursing Notes Reviewed: Yes Vital Signs Reviewed: Yes - History of Present Illness HPI Narrative: Patient presents from home with family for evaluation of itching all over and a rash. She states that she is concerned she may have cellulitis legs as she has had this several times before. She states that she has CHF and often has a lot of peripheral edema. For the past six days she has had itching in the extremities and the trunk. This has progressively gotten worse and now is "all over." She also describes having some nausea but no vomiting, generalized malaise, and decreased food intake - because of the nausea. She denies pain a nywhere at this time. No fever or chills. No recent changes in meds, no new meds or new foods. No travel and no trauma. Pt Subjective Complaint: Itchy rash and redness all over, nausea Onset (ago): day(s) (6) Location: head, face, neck, chest, back, abdomen, buttocks, left, right, upper extremity, lower extremity Pain Scale: 0 ("no pain, just very itchy") Quality: other (pruritic) Consistency: constant Improves with: nothing Worsens with: nothing Associated symptoms: Reports: loss of appetite, nausea/vomiting, rash. Denies: confusion, chest pain, cough, diaphoresis, fever/chills, headaches, seizure, shortness of breath, syncope, weakness Treatments Prior to Arrival: other (benadryl) - Related Data Home Medications Medication Instructions Recorded Confirmed Albuterol Sulfate [Albuterol 2 puff IH Q4H PRN 04/23/17 07/24/18 Inhaler] Calcium Carbonate/Vitamin D3 1 each PO BID 04/23/17 07/24/18 [Calcium 500 + Vit D Caplet] Docusate [Colace] 100 mg PO BID PRN 04/23/17 07/24/18 Furosemide [Lasix] 40 mg PO DAILY 04/23/17 07/24/18 Loratadine [Allergy Relief] 10 mg PO DAILY 04/23/17 07/24/18 Magnesium Oxide [Magnesium] 400 mg PO DAILY 04/23/17 07/24/18 Ranitidine HCl [Acid Tool Grinder Operator External] 150 mg PO BID 04/23/17 07/24/18 Clotrimazole/Betamethasone Dip 1 appl TP TID PRN 01/05/18 07/24/18 [Lotrisone Cream] Duloxetine HCl [Cymbalta] 60 mg PO HS 01/05/18 07/24/18 Ascorbic Acid [Vitamin C] 1,000 mg PO DAILY 07/20/18 07/24/18 Beclomethasone Dip 40mcg REDIH 2 puff IH Q4H PRN 07/20/18 07/24/18 [Qvar 40 Mcg Redihaler] Spironolactone 25 mg PO DAILY 07/20/18 07/24/18 Vitamin E Acetate [Vitamin E] 400 unit PO BID 07/20/18 07/24/18 hydrOXYzine HCl [Hydroxyzine HCl] 50 mg PO HS 07/20/18 07/20/18 Ferrous Sulfate 325 mg PO DAILY 07/24/18 07/24/18 Previous Rx's Medication Instructions Recorded Diltiazem SR (12hr) [Cardizem SR] 240 mg PO BID cap.er.12h 07/23/18 predniSONE [PredniSONE] 40 mg PO DAILY #21 tablet 07/23/18 Allergies Allergy/AdvReac Type Severity Reaction Status Date / Time gabapentin [From Neurontin] Allergy See Verified 07/24/18 07:32 Comments Penicillins [PCN] Allergy Rash Verified 07/24/18 07:32 All systems ED: reviewed and negative except as stated. Review of Systems: As Per HPI Constitutional: Denies: fever, chills, weakness Eyes: Denies: eye pain, eye discharge, vision change ENT ED: Denies: throat pain, congestion, dysphagia Cardiovascular: Reports: dyspnea on exertion, edema. Denies: chest pain, palpit ations, syncope Respiratory: Denies: cough, dyspnea, wheezes, hemoptysis, stridor, sputum production Gastrointestinal: Reports: as per HPI, nausea. Denies: abdominal pain, vomiting, diarrhea, constipation Genitourinary: Reports: other ("Only urinated twice yesterday"). Denies: urgency, dysuria, frequency, hematuria Musculoskeletal: Denies: back pain, neck pain, arthralgia Integumentary: Reports: as per HPI, rash, pruritus, other ("Weaping blisters on legs from swelling") Neurological: Denies: headache, weakness, confusion Hematological/Lymphatic: Denies: easy bleeding, easy bruising, lymphadenopathy Allergic/Immunologic: Denies: facial swelling, urticaria, itchy eyes Past Medical History - Past Medical History Attestation: Yes The following information was validated with the patient. Source: patient Medical history: Reports: atrial fibrillation, cancer, CHF, COPD, hypertension, osteoporosis Surgical history: Reports: breast surgery Psychiatric history: Reports: depression CHIEF CONTROLLER history: Reports: no CHIEF CONTROLLER history - Social History Smoking Status: Never smoker Smokeless Tobacco Status: No Alcohol use: Reports: none Drug use: Reports: none Physical Exam - General Limitations: no limitations General appearance: alert, in no apparent distress - Head Head exam: atraumatic, normocephalic, normal inspection - Eye Eye exam: Present: normal appearance, PERRL, periorbital swelling (mild, bilateral, medial-superior). Absent: scleral icterus, conjunctival injection, miosis, mydriasis, periorbital tenderness - ENT ENT exam: normal oropharynx, mucous membranes dry - Neck Neck exam: Present: full ROM, trachea midline. Absent: tenderness, meningismus, lymphadenopathy - Respiratory Respiratory exam: Present: normal lung sounds bilaterally. Absent: respiratory distress, wheezes, stridor, accessory muscle use, prolonged expiratory phase - Cardiovascular Cardiovascular exam: Present: tachycardia, irregular rhythm, systolic murmur - Extremities Exam Extremities exam: Present: normal capillary refill, pedal edema (1+ non-pitting edema, symmetric, bilateral feet to knees) - Neurological Exam Neurological exam: Present: alert, oriented X3, CN II-XII intact, normal gait (slow but steady gait from chau to bed) - Psychiatric Psychiatric exam: Present: normal affect, normal mood - Skin Skin exam: Present: warm, dry, intact, normal color Course Course Narrative: Patient was brought back to [facility] wound in a wheelchair. She got out of the wheelchair and walked to the bed without assistance. After this 15 foot walk, and climbing into bed, she was tachypneic and had to pause several times to provide a history. This lasted for approximately 3-4 minutes, then she was able to speak in complete sentences. She describes history of chronic peripheral edema and notes that she sometimes has fluid-filled blisters in her lower extremities from the edema. These sometimes drain yellow or clear fluid. She has had the itchy rash and blisters for about five or six days, and has had nausea and generalized malaise since . She states that she has not been eating solid food because she is "afraid of vomiting." On exam, heart rate is in the high 90s, irregular. This an improvement compared to triage pulse which was 133. Suspect that this was from ambulating into the hospital from the parking lot. Patient has an extensive rash is actively scratching throughout the entire history and physical exam. We have not been able to identify a potential cause. She has no mucous membrane involvement and no sloughing of the skin. She does have areas of hyperemia; specifically on the volar aspect of both forearms, and the anterior aspect of both shins. Face is normal color with a few excoriation moreno, same with the scalp and the dorsal aspect of the feet. She does have what she thinks is an acute area on the dorsal medial aspect of the great toe. She states that this area just broke out in a rash this morning. There are no excoriation moreno in this area. She has extensive excoriation moreno on the anterior trunk and low back but no signs of secondary infection in these areas. Case discussed with Dr. Radha Pimentel. She has had face to face time with the patient and agrees with the assessment and plan. She recommends starting ABX and consulting Dermatology. - Reevaluation(s) Reevaluation #1: Just informed that the patient does not yet have an IV due to difficulty reaching a vein - even with U/S. Meds changed to IM. Charge nurse to ask another to use power-glide. - Consultations Consultation #1: Derm paged. Case discussed with Dr. Siddiqi. He had no additional recommendations. He states that he will send a message to his partners and one of them will see the patient in the hospital tomorrow. Time: 16:45 Consultation #2: Case discussed with the hospitalist. He has accepted the patient. Vital Signs Temperature 97.3 F L 09/25/18 13:08 Pulse Rate 133 09/25/18 13:08 Respiratory Rate 16 09/25/18 13:08 Blood Pressure 120/60 09/25/18 13:08 O2 Sat by Pulse Oximetry 96 09/25/18 13:08 Temperature 97.3 F L 09/25/18 13:08 Pulse Rate 133 09/25/18 13:08 Respiratory Rate 16 09/25/18 13:08 Blood Pressure 120/60 09/25/18 13:08 O2 Sat by Pulse Oximetry 96 09/25/18 13:08 Oxygen Delivery Oxygen Delivery Room Air Medical Decision Making - Medical Records Medical records reviewed: Yes I reviewed the patient's medical records. - Lab Data Lab results reviewed: Yes I reviewed the patient's lab results. Lab results narrative: Laboratory Last Values WBC 12.8 K/mcL (4.3-11.1) H 09/25/18 16:29 RBC 4.90 M/mcL (3.82-4.97) 09/25/18 16:29 Hgb 14.3 g/dL (11.5-15.4) 09/25/18 16:29 Hct 42.6 % (35.3-44.9) 09/25/18 16:29 MCV 86.9 fL (83.0-100.0) 09/25/18 16:29 MCH 29.2 pg (28.0-33.3) 09/25/18 16:29 MCHC 33.6 g/dL (31.6-35.5) 09/25/18 16:29 RDW 14.6 % (11.5-14.5) H 09/25/18 16:29 Plt Count 270 K/mcL (140-400) 09/25/18 16:29 MPV 10.2 fL (9.4-12.4) 09/25/18 16:29 Immature Gran % 0.9 % (0-4) 09/25/18 16:29 Seg Neutrophils % 77.7 % 09/25/18 16:29 Lymphocytes % 8.9 % 09/25/18 16:29 Monocytes % 2.8 % 09/25/18 16:29 Eosinophils % 9.5 % 09/25/18 16:29 Basophils % 0.2 % 09/25/18 16:29 Neutrophils # 9.9 K/mcL (1.6-8.9) H 09/25/18 16:29 Lymphocytes # 1.1 K/mcL (0.6-4.6) 09/25/18 16:29 Monocytes # 0.4 K/mcL (0.0-1.3) 09/25/18 16:29 Eosinophils # 1.2 K/mcL (0.0-0.6) H 09/25/18 16:29 Basophils # 0.0 K/mcL (0.0-0.2) 09/25/18 16:29 PT 25.7 Seconds (9.4-12.1) H 09/25/18 15:52 INR 2.3 09/25/18 15:52 APTT 38.2 Seconds (26.0-36.0) H 09/25/18 15:52 Sodium 135 mEq/L (136-145) L 09/25/18 15:47 Potassium 3.3 mEq/L (3.5-5.1) L 09/25/18 15:47 Chloride 100 mEq/L (98-107) 09/25/18 15:47 Carbon Dioxide 23 mEq/L (23-29) 09/25/18 15:47 BUN 19 mg/dL (8-23) 09/25/18 15:47 Creatinine 0.94 mg/dL (0.60-1.20) 09/25/18 15:47 Est GFR ( Amer) > 60 (> 60) 09/25/18 15:47 Est GFR (Non-Af Amer) 58 (> 60) L 09/25/18 15:47 BUN/Creatinine Ratio 20 (6-26) 09/25/18 15:47 Glucose 99 mg/dL (70-105) 09/25/18 15:47 Calculated Osmolality 282 (280-300) 09/25/18 15:47 Lactic Acid 1.9 mmol/L (0.5-2.2) 09/25/18 16:14 Calcium 8.6 mg/dL (8.6-10.3) 09/25/18 15:47 Total Bilirubin 0.7 mg/dL (0.3-1.0) 09/25/18 15:47 Direct Bilirubin 0.2 mg/dL (0.0-0.2) 09/25/18 15:47 Indirect Bilirubin 0.5 mg/dL (0.0-1.2) 09/25/18 15:47 AST 12 Units/L (13-39) L 09/25/18 15:47 ALT 7 Units/L (7-52) 09/25/18 15:47 Alkaline Phosphatase 81 Units/L (34-104) 09/25/18 15:47 Troponin I < 0.03 ng/mL (< 0.04) 09/25/18 15:47 B-Natriuretic Peptide 119 pg/mL (Less than 100) H 09/25/18 15:47 Serum Total Protein 5.9 g/dL (6.4-8.9) L 09/25/18 15:47 Albumin 3.4 g/dL (3.5-5.7) L 09/25/18 15:47 Globulin 2.5 g/dL (2.4-3.5) 09/25/18 15:47 Albumin/Globulin Ratio 1.4 (1.1-2.2) 09/25/18 15:47 Specimen Rejected Clotted 09/25/18 16:14 Result diagrams: 09/25/18 16:29 09/25/18 15:47 Lab Results 09/25/18 09/25/18 09/25/18 Range/Units 15:47 15:47 15:52 WBC (4.3-11.1) K/mcL RBC (3.82-4.97) M/mcL Hgb (11.5-15.4) g/dL Hct (35.3-44.9) % MCV (83.0-100.0) fL MCH (28.0-33.3) pg MCHC (31.6-35.5) g/dL RDW (11.5-14.5) % Plt Count (140-400) K/mcL MPV (9.4-12.4) fL Immature Gran % (0-4) % Seg Neutrophils % % Lymphocytes % % Monocytes % % Eosinophils % % Basophils % % Neutrophils # (1.6-8.9) K/mcL Lymphocytes # (0.6-4.6) K/mcL Monocytes # (0.0-1.3) K/mcL Eosinophils # (0.0-0.6) K/mcL Basophils # (0.0-0.2) K/mcL PT 25.7 H (9.4-12.1) Seconds INR 2.3 APTT 38.2 H (26.0-36.0) Seconds Sodium 135 L (136-145) mEq/L Potassium 3.3 L (3.5-5.1) mEq/L Chloride 100 (98-107) mEq/L Carbon Dioxide 23 (23-29) mEq/L BUN 19 (8-23) mg/dL Creatinine 0.94 (0.60-1.20) mg/dL Est GFR ( Amer) > 60 (> 60) Est GFR (Non-Af Amer) 58 L (> 60) BUN/Creatinine Ratio 20 (6-26) Glucose 99 (70-105) mg/dL Calculated Osmolality 282 (280-300) Lactic Acid (0.5-2.2) mmol/L Calcium 8.6 (8.6-10.3) mg/dL Total Bilirubin 0.7 (0.3-1.0) mg/dL Direct Bilirubin 0.2 (0.0-0.2) mg/dL Indirect Bilirubin 0.5 (0.0-1.2) mg/dL AST 12 L (13-39) Units/L ALT 7 (7-52) Units/L Alkaline Phosphatase 81 (34-104) Units/L Troponin I < 0.03 (< 0.04) ng/mL B-Natriuretic Peptide 119 H (Less than 100) pg/mL Serum Total Protein 5.9 L (6.4-8.9) g/dL Albumin 3.4 L (3.5-5.7) g/dL Globulin 2.5 (2.4-3.5) g/dL Albumin/Globulin Ratio 1.4 (1.1-2.2) Specimen Rejected 09/25/18 09/25/18 09/25/18 Range/Units 16:14 16:14 16:29 WBC 12.8 H (4.3-11.1) K/mcL RBC 4.90 (3.82-4.97) M/mcL Hgb 14.3 (11.5-15.4) g/dL Hct 42.6 (35.3-44.9) % MCV 86.9 (83.0-100.0) fL MCH 29.2 (28.0-33.3) pg MCHC 33.6 (31.6-35.5) g/dL RDW 14.6 H (11.5-14.5) % Plt Count 270 (140-400) K/mcL MPV 10.2 (9.4-12.4) fL Immature Gran % 0.9 (0-4) % Seg Neutrophils % 77.7 % Lymphocytes % 8.9 % Monocytes % 2.8 % Eosinophils % 9.5 % Basophils % 0.2 % Neutrophils # 9.9 H (1.6-8.9) K/mcL Lymphocytes # 1.1 (0.6-4.6) K/mcL Monocytes # 0.4 (0.0-1.3) K/mcL Eosinophils # 1.2 H (0.0-0.6) K/mcL Basophils # 0.0 (0.0-0.2) K/mcL PT (9.4-12.1) Seconds INR APTT (26.0-36.0) Seconds Sodium (136-145) mEq/L Potassium (3.5-5.1) mEq/L Chloride (98-107) mEq/L Carbon Dioxide (23-29) mEq/L BUN (8-23) mg/dL Creatinine (0.60-1.20) mg/dL Est GFR ( Amer) (> 60) Est GFR (Non-Af Amer) (> 60) BUN/Creatinine Ratio (6-26) Glucose (70-105) mg/dL Calculated Osmolality (280-300) Lactic Acid 1.9 (0.5-2.2) mmol/L Calcium (8.6-10.3) mg/dL Total Bilirubin (0.3-1.0) mg/dL Direct Bilirubin (0.0-0.2) mg/dL Indirect Bilirubin (0.0-1.2) mg/dL AST (13-39) Units/L ALT (7-52) Units/L Alkaline Phosphatase (34-104) Units/L Troponin I (< 0.04) ng/mL B-Natriuretic Peptide (Less than 100) pg/mL Serum Total Protein (6.4-8.9) g/dL Albumin (3.5-5.7) g/dL Globulin (2.4-3.5) g/dL Albumin/Globulin Ratio (1.1-2.2) Specimen Rejected Clotted
[2018-09-25 16:34] LABS: INR 2.3; Prothrombin Time 25.7 Seconds (9.4-12.1)
[2018-09-25 16:36] LABS: Activated Partial Thrombo Time 38.2 Seconds (26.0-36.0)
[2018-09-25] MEDS ORDERED: cefTRIAXone 1,000 MG in 0.9 % Sodium Chloride Mini Bag 100 ML IVPB ONE (16:44)
[2018-09-25 16:56] LABS: Alanine Aminotransferase 7 Units/L (7-52); Albumin 3.4 g/dL (3.5-5.7); Albumin/Globulin Ratio 1.4 (1.1-2.2); Alkaline Phosphatase 81 Units/L (34-104); Aspartate Amino Transferase 12 Units/L (13-39); BUN/Creatinine Ratio 20 (6-26); Bilirubin,Direct 0.2 mg/dL (0.0-0.2); Bilirubin,Indirect 0.5 mg/dL (0.0-1.2); Bilirubin,Total 0.7 mg/dL (0.3-1.0); Blood Urea Nitrogen 19 mg/dL (8-23); Calcium 8.6 mg/dL (8.6-10.3); Carbon Dioxide 23 mEq/L (23-29); Chloride 100 mEq/L (98-107); Globulin 2.5 g/dL (2.4-3.5); Glucose 99 mg/dL (70-105); Osmolality,Calculated 282 (280-300); Potassium 3.3 mEq/L (3.5-5.1); Sodium 135 mEq/L (136-145); Total Protein 5.9 g/dL (6.4-8.9); Troponin I < 0.03 ng/mL (< 0.04); eGFR For Non-African Americans 58 (> 60)
[2018-09-25 17:02] LABS: Basophils % 0.2 %; Eosinophils # 1.2 K/mcL (0.0-0.6); Eosinophils % 9.5 %; Hematocrit 42.6 % (35.3-44.9); Hemoglobin 14.3 g/dL (11.5-15.4); Immature Granulocytes % 0.9 % (0-4); Lymphocytes # 1.1 K/mcL (0.6-4.6); Lymphocytes % 8.9 %; Mean Corpuscular HGB Conc 33.6 g/dL (31.6-35.5); Mean Corpuscular Hemoglobin 29.2 pg (28.0-33.3); Mean Corpuscular Volume 86.9 fL (83.0-100.0); Mean Platelet Volume 10.2 fL (9.4-12.4); Monocytes # 0.4 K/mcL (0.0-1.3); Monocytes % 2.8 %; Neutrophils # 9.9 K/mcL (1.6-8.9); Platelet Count 270 K/mcL (140-400); Red Cell Distribution Width 14.6 % (11.5-14.5); Segmented Neutrophils % 77.7 %
--- NOTE | 2018-09-25 17:04 | Emergency Department Note ---
Disposition Clinical Impression: Scalded skin syndrome Cellulitis Qualifiers: Site of cellulitis: unspecified site Qualified Code(s): L03.90 - Cellulitis, unspecified Disposition: Admitted As Inpatient Condition: Fair General Adult HPI - General Chief complaint: ED Extremity Problem,Nontraumatic Stated complaint: Cellulitis Time Seen by Provider: 09/25/18 15:30 Source: patient, family Mode of arrival: private vehicle Limitations: no limitations - History of Present Illness Location: head, face, neck, chest, back, abdomen, buttocks, left, right, upper extremity, lower extremity Pain Scale: 0 ("no pain, just very itchy") Quality: other (pruritic) Improves with: nothing Worsens with: nothing Associated symptoms: Reports: loss of appetite, nausea/vomiting, rash. Denies: confusion, chest pain, cough, diaphoresis, fever/chills, headaches, seizure, shortness of breath, syncope, weakness Treatments Prior to Arrival: other (benadryl) - Related Data Home Medications Medication Instructions Recorded Confirmed Albuterol Sulfate [Albuterol 2 puff IH Q4H PRN 04/23/17 07/24/18 Inhaler] Calcium Carbonate/Vitamin D3 1 each PO BID 04/23/17 07/24/18 [Calcium 500 + Vit D Caplet] Docusate [Colace] 100 mg PO BID PRN 04/23/17 07/24/18 Furosemide [Lasix] 40 mg PO DAILY 04/23/17 07/24/18 Loratadine [Allergy Relief] 10 mg PO DAILY 04/23/17 07/24/18 Magnesium Oxide [Magnesium] 400 mg PO DAILY 04/23/17 07/24/18 Ranitidine HCl [Acid Asphalt Paving Machine Operator] 150 mg PO BID 04/23/17 07/24/18 Clotrimazole/Betamethasone Dip 1 appl TP TID PRN 01/05/18 07/24/18 [Lotrisone Cream] Duloxetine HCl [Cymbalta] 60 mg PO HS 01/05/18 07/24/18 Ascorbic Acid [Vitamin C] 1,000 mg PO DAILY 07/20/18 07/24/18 Beclomethasone Dip 40mcg REDIH 2 puff IH Q4H PRN 07/20/18 07/24/18 [Qvar 40 Mcg Redihaler] Spironolactone 25 mg PO DAILY 07/20/18 07/24/18 Vitamin E Acetate [Vitamin E] 400 unit PO BID 07/20/18 07/24/18 hydrOXYzine HCl [Hydroxyzine HCl] 50 mg PO HS 07/20/18 07/20/18 Ferrous Sulfate 325 mg PO DAILY 07/24/18 07/24/18 Previous Rx's Medication Instructions Recorded Diltiazem SR (12hr) [Cardizem SR] 240 mg PO BID cap.er.12h 07/23/18 predniSONE [PredniSONE] 40 mg PO DAILY #21 tablet 07/23/18 Allergies Allergy/AdvReac Type Severity Reaction Status Date / Time gabapentin [From Neurontin] Allergy See Verified 07/24/18 07:32 Comments Penicillins [PCN] Allergy Rash Verified 07/24/18 07:32 Constitutional: Denies: fever, chills, weakness Eyes: Denies: eye pain, eye discharge, vision change ENT ED: Denies: throat pain, congestion, dysphagia Cardiovascular: Reports: dyspnea on exertion, edema. Denies: chest pain, palpitations, syncope Respiratory: Denies: cough, dyspnea, wheezes, hemoptysis, stridor, sputum production Gastrointestinal: Reports: as per HPI, nausea. Denies: abdominal pain, vomiting, diarrhea, constipation Genitourinary: Reports: other ("Only urinated twice yesterday"). Denies: urgency, dysuria, frequency, hematuria Musculoskeletal: Denies: back pain, neck pain, arthralgia Integumentary: Reports: as per HPI, rash, pruritus, other ("Weaping blisters on legs from swelling") Neurological: Denies: headache, weakness, confusion Hematological/Lymphatic: Denies: easy bleeding, easy bruising, lymphadenopathy Allergic/Immunologic: Denies: facial swelling, urticaria, itchy eyes Past Medical History - Past Medical History Medical history: Reports: atrial fibrillation, cancer, CHF, COPD, hypertension, osteoporosis Surgical history: Reports: breast surgery Psychiatric history: Reports: depression C2 TACTICAL ANALYSIS TECHNICIAN history: Reports: no C2 TACTICAL ANALYSIS TECHNICIAN history - Social History Smoking Status: Never smoker Smokeless Tobacco Status: No Alcohol use: Reports: none Drug use: Reports: none Physical Exam - General Limitations: no limitations General appearance: alert, in no apparent distress Course Vital Signs Temperature 97.3 F L 09/25/18 13:08 Pulse Rate 133 09/25/18 13:08 Respiratory Rate 16 09/25/18 13:08 Blood Pressure 120/60 09/25/18 13:08 O2 Sat by Pulse Oximetry 96 09/25/18 13:08 Temperature 97.3 F L 09/25/18 13:08 Pulse Rate 94 09/25/18 20:14 Respiratory Rate 20 09/25/18 20:14 Blood Pressure 124/71 09/25/18 20:14 O2 Sat by Pulse Oximetry 96 09/25/18 20:14 Oxygen Delivery Oxygen Delivery Room Air Medical Decision Making - Lab Data Result diagrams: 09/25/18 16:29 09/25/18 15:47 Lab Results 09/25/18 09/25/18 09/25/18 Range/Units 15:47 15:47 15:52 WBC (4.3-11.1) K/mcL RBC (3.82-4.97) M/mcL Hgb (11.5-15.4) g/dL Hct (35.3-44.9) % MCV (83.0-100.0) fL MCH (28.0-33.3) pg MCHC (31.6-35.5) g/dL RDW (11.5-14.5) % Plt Count (140-400) K/mcL MPV (9.4-12.4) fL Immature Gran % (0-4) % Seg Neutrophils % % Lymphocytes % % Monocytes % % Eosinophils % % Basophils % % Neutrophils # (1.6-8.9) K/mcL Lymphocytes # (0.6-4.6) K/mcL Monocytes # (0.0-1.3) K/mcL Eosinophils # (0.0-0.6) K/mcL Basophils # (0.0-0.2) K/mcL PT 25.7 H (9.4-12.1) Seconds INR 2.3 APTT 38.2 H (26.0-36.0) Seconds Sodium 135 L (136-145) mEq/L Potassium 3.3 L (3.5-5.1) mEq/L Chloride 100 (98-107) mEq/L Carbon Dioxide 23 (23-29) mEq/L BUN 19 (8-23) mg/dL Creatinine 0.94 (0.60-1.20) mg/dL Est GFR ( Amer) > 60 (> 60) Est GFR (Non-Af Amer) 58 L (> 60) BUN/Creatinine Ratio 20 (6-26) Glucose 99 (70-105) mg/dL Calculated Osmolality 282 (280-300) Lactic Acid (0.5-2.2) mmol/L Calcium 8.6 (8.6-10.3) mg/dL Total Bilirubin 0.7 (0.3-1.0) mg/dL Direct Bilirubin 0.2 (0.0-0.2) mg/dL Indirect Bilirubin 0.5 (0.0-1.2) mg/dL AST 12 L (13-39) Units/L ALT 7 (7-52) Units/L Alkaline Phosphatase 81 (34-104) Units/L Troponin I < 0.03 (< 0.04) ng/mL B-Natriuretic Peptide 119 H (Less than 100) pg/mL Serum Total Protein 5.9 L (6.4-8.9) g/dL Albumin 3.4 L (3.5-5.7) g/dL Globulin 2.5 (2.4-3.5) g/dL Albumin/Globulin Ratio 1.4 (1.1-2.2) Specimen Rejected 09/25/18 09/25/18 09/25/18 Range/Units 16:14 16:14 16:29 WBC 12.8 H (4.3-11.1) K/mcL RBC 4.90 (3.82-4.97) M/mcL Hgb 14.3 (11.5-15.4) g/dL Hct 42.6 (35.3-44.9) % MCV 86.9 (83.0-100.0) fL MCH 29.2 (28.0-33.3) pg MCHC 33.6 (31.6-35.5) g/dL RDW 14.6 H (11.5-14.5) % Plt Count 270 (140-400) K/mcL MPV 10.2 (9.4-12.4) fL Immature Gran % 0.9 (0-4) % Seg Neutrophils % 77.7 % Lymphocytes % 8.9 % Monocytes % 2.8 % Eosinophils % 9.5 % Basophils % 0.2 % Neutrophils # 9.9 H (1.6-8.9) K/mcL Lymphocytes # 1.1 (0.6-4.6) K/mcL Monocytes # 0.4 (0.0-1.3) K/mcL Eosinophils # 1.2 H (0.0-0.6) K/mcL Basophils # 0.0 (0.0-0.2) K/mcL PT (9.4-12.1) Seconds INR APTT (26.0-36.0) Seconds Sodium (136-145) mEq/L Potassium (3.5-5.1) mEq/L Chloride (98-107) mEq/L Carbon Dioxide (23-29) mEq/L BUN (8-23) mg/dL Creatinine (0.60-1.20) mg/dL Est GFR ( Amer) (> 60) Est GFR (Non-Af Amer) (> 60) BUN/Creatinine Ratio (6-26) Glucose (70-105) mg/dL Calculated Osmolality (280-300) Lactic Acid 1.9 (0.5-2.2) mmol/L Calcium (8.6-10.3) mg/dL Total Bilirubin (0.3-1.0) mg/dL Direct Bilirubin (0.0-0.2) mg/dL Indirect Bilirubin (0.0-1.2) mg/dL AST (13-39) Units/L ALT (7-52) Units/L Alkaline Phosphatase (34-104) Units/L Troponin I (< 0.04) ng/mL B-Natriuretic Peptide (Less than 100) pg/mL Serum Total Protein (6.4-8.9) g/dL Albumin (3.5-5.7) g/dL Globulin (2.4-3.5) g/dL Albumin/Globulin Ratio (1.1-2.2) Specimen Rejected Clotted Attestation Statement - Attestation Attestation: I examined this patient and my medical decision-making was reviewed with the Nurse Practioner/PA. I agree with the documented findings, disposition and treatment plan as described except to the extent set forth below. 72 year old female presennts to the Ed with complaints of redness to her skin that started at thrursday and has started on her legs and now is located across all skin folds and skin. Patinet states that just yesterday she had blisters that formed and with presusre opened conerning for a (+) nikolsy sign althuogh she does not display any blisters today. She has had a history of cellulitis in the past without history of MRSA according to her and has CHF. Brenda could be displaying Scalded skin syndrome howveer she does not show any oral muocal lesion but does have invovlement of the palms and soles. poor hygiene makin git difficult to assess true extensive involvement. WE will consult with derm and then admit to medicine. sepsis protocol initated due to tahcycardia and reported fevers at home. vanc/zosyn ordered now
[2018-09-25] MEDS ORDERED: Dexamethasone 4 MG/ML VIAL IM ONE (17:35)
[2018-09-25] MEDS ORDERED: Famotidine 20 MG TABLET PO ONE (17:36)
[2018-09-25] MEDS ORDERED: Tdap (Boostrix) Vaccine 0.5 ML SYRINGE IM ONE (17:36)
[2018-09-25] MEDS ORDERED: Aminoglycoside Consult 1 EACH MC ONE (17:44)
[2018-09-25] MEDS ORDERED: Ondansetron 4 MG/2 ML VIAL IVP PRN (21:24)
[2018-09-25] MEDS ORDERED: Naloxone 0.4 MG/ML INJ IVP PRN (21:24)
--- NOTE | 2018-09-25 21:37 | Internal Med History&Physical ---
Date of Encounter: 09/25/18 Time of Encounter: 21:42 Internal Medicine - H&P: HPI Chief complaint: Cellulitis Admitted From: Emergency Dept Plans for Post Hospital Care: Home History of present illness: Ms. Veloz is a 72 year old female Patient presented to the ER for a pruritic rash. She has a history of cellulitis in her legs initially has had this several times. She has history of CHF and has a long history of peripheral edema as well. For the past 6 days she has had increased itching of her arms, legs and trunk. She feels that the itching is getting worse and is now diffuse over her whole body. She has a ssociated nausea but no vomiting, weakness and decreased oral intake. She denies new medications as well as food allergies. She has not had any recent travel. In the emergency room, patient's initial vitals were within normal limits aside from an elevated pulse of 133, irregular history of atrial fibrillation. This improved over the course of her ER stay. Patient's CBC showed a white count of 12.8 with elevated neutrophil and eosinophil count. Patient's INR was 2.3, and BMP was within normal limits. Patient's GFR was 58, the patient has baseline chronic kidney disease stage III. Patient's initial troponin was undetectable, BNP was 119. In the emergency room dermatology was consulted, and they will come to the hospital tomorrow and evaluate the patient. She was given a dose of ceftriaxone, vancomycin, blood cultures were drawn as well. To help with itching patient received 10 mg of dexamethasone, and 50 mg dose of Benadryl. She was sent to the medical floor for further management. Upon my evaluation, patient states that her itching has improved since her arrival to the emergency room. She denies sick contacts, other members of her family having similar symptoms, new detergents, new food and medications. She denies chest pain, abdominal pain, nausea, vomiting, constipation and diarrhea. She has no shortness of breath or difficulty breathing. She notes that she has had cellulitis in the past, and typically gets it in her lower extremities. Her rash over the last several days she says has been "spreading like crazy." She is a full code. Past Med Surg Social Fam HX - Past Medical History Medical history: atrial fibrillation, cancer, CHF, COPD, hypertension, osteoporosis Additional medical history: breast cancer, sleep apnea non compliant with cpap machine Psychiatric history: depression - Past Surgical History Surgical History: breast surgery - Social History Smoking Status: Never smoker Smokeless Tobacco Status: No Alcohol use: none Drug use: none - Family History Father Adopted: No Family Member Ethnicity: Non- Living Status: Hx Family Cardiac Disorders: Yes Hx Family Respiratory Disorders: No Hx Family Cancer: No Hx Family GI Disorders: No Hx Family Endocrine Disorder: Yes (Diabetes) Hx Family Neuromuscular Disorders: No Hx Family Neurologic Disorders: No Hx Family HEENT Disorders: No Hx Family Autoimmune Disorders: No Mother Living Status: Hx Family Cardiac Disorders: No Hx Family Respiratory Disorders: No Hx Family Cancer: Yes (Breast) Hx Family GI Disorders: No Hx Family Endocrine Disorder: No Hx Family Neuromuscular Disorders: No Hx Family Neurologic Disorders: No Hx Family HEENT Disorders: No Hx Family Autoimmune Disorders: No Internal Medicine - H&P: Meds Albuterol Sulfate [Albuterol Inhaler] 2 puff IH Q4H PRN 04/23/17 [History] Calcium Carbonate/Vitamin D3 [Calcium 500 + Vit D Caplet] 1 each PO BID 04/23/17 [History] Docusate [Colace] 100 mg PO BID PRN 04/23/17 [History] Furosemide [Lasix] 40 mg PO DAILY 04/23/17 [History] Loratadine [Allergy Relief] 10 mg PO DAILY 04/23/17 [History] Magnesium Oxide [Magnesium] 400 mg PO DAILY 04/23/17 [History] Ranitidine HCl [Acid Photographic Developer [employer]inter] 150 mg PO BID 04/23/17 [History] Clotrimazole/Betamethasone Dip [Lotrisone Cream] 1 appl TP TID PRN 01/05/18 [History] Duloxetine HCl [Cymbalta] 60 mg PO HS 01/05/18 [History] Ascorbic Acid [Vitamin C] 1,000 mg PO DAILY 07/20/18 [History] Beclomethasone Dip 40mcg REDIH [Qvar 40 Mcg Redihaler] 2 puff IH Q4H PRN 07/20/18 [History] Spironolactone 25 mg PO DAILY 07/20/18 [History] Vitamin E Acetate [Vitamin E] 400 unit PO BID 07/20/18 [History] hydrOXYzine HCl [Hydroxyzine HCl] 50 mg PO HS 07/20/18 [History] Ferrous Sulfate 325 mg PO DAILY 07/24/18 [History] Beclomethasone Dip 40mcg REDIH [Qvar 40 Mcg Redihaler] 1 puff IH PRN 09/25/18 [History] Diltiazem SR (12hr) [Cardizem SR] 360 mg PO DAILY 09/25/18 [History] Polyethylene Glycol 3350 [MiraLAX] 17 gm PO DAILY 09/25/18 [History] Tiotropium [place] [Spiriva Respimat] 4 gm IH DAILY 09/25/18 [History] Warfarin Sodium 2.5 mg PO DAILY 09/25/18 [History] Allergy/AdvReac Type Severity Reaction Status Date / Time doxycycline Allergy Rash Verified 09/25/18 21:18 gabapentin [From Neurontin] Allergy See Verified 07/24/18 07:32 Comments Penicillins [PCN] Allergy Rash Verified 07/24/18 07:32 All Systems PM: A 10-system review of systems was performed and is negative for pertinent findings except as documented above in the HPI. - Constitutional Vitals: Temp Pulse Resp BP Pulse Ox 97.3 F L 94 20 124/71 96 09/25/18 13:08 09/25/18 20:14 09/25/18 20:14 09/25/18 20:14 09/25/18 20:14 General appearance: Present: cooperative, A&O X 3, pleasant, no acute distress, answers questions appropriately Exam: - - Head Head exam: Present: normal inspection - Eye Eye exam: Present: EOMI, normal appearance - Respiratory Respiratory exam: Absent: CTAB, rales, respiratory distress, rhonchi, wheezes - Cardiovascular Cardiovascular exam: Present: irregular rhythm. Absent: diastolic murmur, systolic murmur - GI/Abdominal GI/Abdominal exam: Present: normal bowel sounds, soft. Absent: tenderness - Extremities Exam Extremities exam: Present: pedal edema, warm, radial pulses palpable and symmetrical. Absent: tenderness Additional comments: 2+ pitting edema bilaterally - Neurological Exam Neurological exam: Present: no focal deficits, strengths equal and symetr throughout. Absent: motor sensory deficit, facial droop, speech deficit - Skin Skin exam: Present: dry, erythema, excoriation, rash, warm. Absent: normal color Additional comments: multiple areas of skin excoriation to the arms, legs, feet and abdomen due to scratching. Non-blanching Erythema on right arm worse than left, with diffuse redness of both lower extremities. Lower back also shows evidence of scratching but no significant excoriation noted. Right medial lower leg open with clear drainage, possible cellulitis. 2+ pitting edema noted bilaterally in lower extremities. Swelling in upper extremities noted as well, but non-pitting. Internal Med - H&P Results - Labs CBC & Chem 7: 09/25/18 16:29 09/25/18 15:47 Labs: Short CBC 09/25/18 Range/Units 16:29 WBC 12.8 H (4.3-11.1) K/mcL Hgb 14.3 (11.5-15.4) g/dL Hct 42.6 (35.3-44.9) % Plt Count 270 (140-400) K/mcL Neutrophils # 9.9 H (1.6-8.9) K/mcL BMP 09/25/18 15:47 Sodium 135 L Potassium 3.3 L Chloride 100 Carbon Dioxide 23 BUN 19 Creatinine 0.94 Glucose 99 Calcium 8.6 Cardiac Enzymes 09/25/18 Range/Units 15:47 Troponin I < 0.03 (< 0.04) ng/mL Liver Function 09/25/18 Range/Units 15:47 Total Bilirubin 0.7 (0.3-1.0) mg/dL Direct Bilirubin 0.2 (0.0-0.2) mg/dL AST 12 L (13-39) Units/L ALT 7 (7-52) Units/L Alkaline Phosphatase 81 (34-104) Units/L Albumin 3.4 L (3.5-5.7) g/dL - Assessment and Plan (1) Generalized pruritus Current Visit: Yes Status: Acute Assessment and plan: Improved with decadron, benadryl and famotidine. Pruritus has improved. Will continue as below Follow up dermatology consult (2) Rash in adult Current Visit: Yes Status: Acute Assessment and plan: Unknown cause and source. Patient denies new foods, new medications, soaps, detergents, contacts, pets etc. It was diffusely itchy, which has improved with the steroids, benadryl and famotidine given in the ER. Patient has never had anything like this before. The rash seems worse on the right arm than the left, and her lower extremities demonstrate erythema up to her mid-thighs. This has been worsening over the last few days. ER consulted dermatology, they will see the patient in the morning. Continue steroids, benadryl and famotidine Follow up dermatology consultation Monitor for worsening symptoms (3) Cellulitis Current Visit: Yes Status: Acute Assessment and plan: Patient has an area on the medial aspect of her right leg that resembles cellulitis, though with her overall picture of rash and skin excoriation actual borders could not be well differentiated. Blood cultures drawn in the ER, started on ceftriaxone and vancomycin. Continue IV antibiotics Follow up blood cultures Qualifiers: Site of cellulitis: extremity Site of cellulitis of extremity: lower extremity Laterality: right Qualified Code(s): L03.115 - Cellulitis of right lower limb (4) Afib Current Visit: No Status: Acute Assessment and plan: Continue home meds diltiazem, coumadin Qualifiers: Atrial fibrillation type: chronic Qualified Code(s): I48.2 - Chronic atrial fibrillation (5) CHF (congestive heart failure) Current Visit: No Status: Chronic Assessment and plan: Patient has history of CHF, BNP in the ER was 119. Lung exam was clear but she does have 2+ pitting edema bilaterally in her lower extremities. She takes Lasix and spironolactone at home. Continue Lasix IV 40 mg daily. Strict I's and O's Daily weights Qualifiers: Heart failure type: diastolic Heart failure chronicity: unspecified Qualified Code(s): I50.30 - Unspecified diastolic (congestive) heart failure (6) DVT prophylaxis Current Visit: No Status: Acute Assessment and plan: Continue warfarin, pharmacy to dose Repeat INR in the morning - Time Spent With Patient Total time spent is greater than 50% in coordination of care (as documented) at patient's floor/unit and/or counseling patient: Greater than 35 minutes
[2018-09-25] MEDS ORDERED: *HR* Warfarin 2.5 MG TABLET PO ONE (23:30)
[2018-09-25] MEDS: Furosemide 40 MG/4 ML VIAL IVP SCH (23:33)
[2018-09-26 04:46] LABS: Hematocrit 40.9 % (35.3-44.9); Hemoglobin 13.4 g/dL (11.5-15.4); Mean Corpuscular HGB Conc 32.8 g/dL (31.6-35.5); Mean Corpuscular Hemoglobin 29.1 pg (28.0-33.3); Mean Corpuscular Volume 88.7 fL (83.0-100.0); Mean Platelet Volume 10.3 fL (9.4-12.4); Platelet Count 277 K/mcL (140-400); Red Blood Count 4.61 M/mcL (3.82-4.97); Red Cell Distribution Width 14.6 % (11.5-14.5)
[2018-09-26 04:53] LABS: BUN/Creatinine Ratio 21 (6-26); Blood Urea Nitrogen 20 mg/dL (8-23); Calcium 8.7 mg/dL (8.6-10.3); Carbon Dioxide 23 mEq/L (23-29); Chloride 101 mEq/L (98-107); Glucose 130 mg/dL (70-105); Osmolality,Calculated 286 (280-300); Potassium 3.8 mEq/L (3.5-5.1); Sodium 136 mEq/L (136-145); eGFR For Non-African Americans 57 (> 60)
[2018-09-26 04:59] LABS: INR 2.3
[2018-09-26] MEDS ORDERED: Famotidine 20 MG/2 ML VIAL IVP SCH (06:00)
--- NOTE | 2018-09-26 08:41 | Internal Med Progress Note ---
Addendum entered and electronically signed by Thelma Leon 09/26/18 17:15: Dr. Maurer, geography professor, examined the patient while I was in the room. She reports the rash to likely be a stasis dermatitis with impetiginization and secondary ID/hypersensitivity reaction. She suggests proper skin care and moisturizer once discharged, and recommends lisa, zyrtec, triamcinolone and a steroid taper upon discharge. She states she willl see the patient in the office for follow up of this rash. Original Note: <Thelma Leon - Last Filed: 09/26/18 13:10> Hospitalist Progress Note - Encounter Date of Encounter: 09/26/18 Time of Encounter: 08:41 - Subjective Interval History: Pt in NAD this morning. She states she is feeling much better and thinks the medications are working to control her pruritus. Dermatology has been consulted and we will wait to stop the abx until they seen her. We will order an US of her liver to check it as a potential source of her pruritus. Pt currently has no complaints. - Exam Vitals: Temp Pulse Resp BP Pulse Ox 97.5 F L 69 18 112/77 90 09/26/18 07:59 09/26/18 07:59 09/26/18 07:59 09/26/18 07:59 09/25/18 21:33 Exam: General - alert, in NAD HEENT - PERRL, EOMI Neck - nontender to palpation, no LAD Chest - nontender to palpation Cardio - Regular rate, no audible murmurs Respiratory - CTA bilaterally without wheezing, rhonchi or rales Abdomen - soft, nontender to palpation. no rebound, guarding or rigidity. Extremities - trace edema of bilateral lower extremities and 1+ pitting edema of bilateral upper extremities. Equal pulses in all 4 extremities. Skin - extensive excoriations on her chest, abdomen, extremities and upper back with some sparing of the groin region. Some scabbed over wounds scattered across body. No desquamation or infected lesions noted. Neuro a&ox3 without focal deficits - Assessment and Plan (1) Generalized pruritus Current Visit: Yes Status: Acute Assessment and Plan: Treatment with decadron, benadryl and pepcid Pt feeling much better Dermatology consulted Continue to monitor Will obtain liver US for source of pruritus (2) Rash in adult Current Visit: Yes Status: Acute Assessment and Plan: Unknown source Dermatology consulted - appreciate recommendations Treatment as above Continue to monitor (3) Cellulitis Current Visit: Yes Status: Suspected Assessment and Plan: Rash not well circumscribed, with scattered lesion across body Unlikely cellulitis Dermatology consulted Treatment as above (4) CHF (congestive heart failure) Current Visit: No Status: Chronic Assessment and Plan: BNP 119 in ER - lowest in our records Not in acute exacerbation Continue home medications Strict I&Os Daily weights (5) COPD (chronic obstructive pulmonary disease) Current Visit: No Status: Acute Assessment and Plan: Continue home inhalers Not in acute exacerbation Monitor (6) Afib Current Visit: No Status: Chronic Assessment and Plan: Continue coumadin, pharmacy to dose Trend INRs DVT Prophylaxis: Coumadin - Time Spent with Patient Total time spent is greater than 50% in coordination of care (as documented) at patient's floor/unit and/or counseling patient: Internal Medicine: Result - Labs CBC & Chem 7: 09/26/18 03:56 09/26/18 03:56 Labs: Short CBC 09/25/18 09/26/18 Range/Units 16:29 03:56 WBC 12.8 H 9.6 (4.3-11.1) K/mcL Hgb 14.3 13.4 (11.5-15.4) g/dL Hct 42.6 40.9 (35.3-44.9) % Plt Count 270 277 (140-400) K/mcL Neutrophils # 9.9 H (1.6-8.9) K/mcL BMP 09/25/18 09/26/18 15:47 03:56 Sodium 135 L 136 Potassium 3.3 L 3.8 Chloride 100 101 Carbon Dioxide 23 23 BUN 19 20 Creatinine 0.94 0.96 Glucose 99 130 H Calcium 8.6 8.7 Cardiac Enzymes 09/25/18 Range/Units 15:47 Troponin I < 0.03 (< 0.04) ng/mL Liver Function 09/25/18 Range/Units 15:47 Total Bilirubin 0.7 (0.3-1.0) mg/dL Direct Bilirubin 0.2 (0.0-0.2) mg/dL AST 12 L (13-39) Units/L ALT 7 (7-52) Units/L Alkaline Phosphatase 81 (34-104) Units/L Albumin 3.4 L (3.5-5.7) g/dL - ABG Interpretation ABG results: PT/INR, D-dimer PT 26.0 Seconds (9.4-12.1) H 09/26/18 03:56 Consult Discharge Plan - Plan Referrals: Joy Finnegan MD [Primary Care Provider] - <Herminia Morales - Last Filed: 09/26/18 13:57> Hospitalist Progress Note - Encounter Date of Encounter: 09/26/18 - Exam Vitals: Temp Pulse Resp BP Pulse Ox 98.0 F 97 20 114/71 96 09/26/18 10:43 09/26/18 10:43 09/26/18 10:43 09/26/18 10:43 09/26/18 10:43 - Time Spent with Patient Total time spent is greater than 50% in coordination of care (as documented) at patient's floor/unit and/or counseling patient: Internal Medicine: Result - Labs CBC & Chem 7: 09/26/18 03:56 09/26/18 03:56 Labs: Short CBC 09/25/18 09/26/18 Range/Units 16:29 03:56 WBC 12.8 H 9.6 (4.3-11.1) K/mcL Hgb 14.3 13.4 (11.5-15.4) g/dL Hct 42.6 40.9 (35.3-44.9) % Plt Count 270 277 (140-400) K/mcL Neutrophils # 9.9 H (1.6-8.9) K/mcL BMP 09/25/18 09/26/18 15:47 03:56 Sodium 135 L 136 Potassium 3.3 L 3.8 Chloride 100 101 Carbon Dioxide 23 23 BUN 19 20 Creatinine 0.94 0.96 Glucose 99 130 H Calcium 8.6 8.7 Cardiac Enzymes 09/25/18 Range/Units 15:47 Troponin I < 0.03 (< 0.04) ng/mL Liver Function 09/25/18 Range/Units 15:47 Total Bilirubin 0.7 (0.3-1.0) mg/dL Direct Bilirubin 0.2 (0.0-0.2) mg/dL AST 12 L (13-39) Units/L ALT 7 (7-52) Units/L Alkaline Phosphatase 81 (34-104) Units/L Albumin 3.4 L (3.5-5.7) g/dL - ABG Interpretation ABG results: PT/INR, D-dimer PT 26.0 Seconds (9.4-12.1) H 09/26/18 03:56 - Attending Attestation I examined this patient and my medical decision-making was reviewed with the Resident Physician Dr Leon. I agree with the documented findings, disposition and treatment plan as described except to the extent set forth below. Mr Veloz is admitted for diffuse body rash and pruritus awake, pleasant, continued diffuse body itching, no change to rash. no sob, wheezing, fevers or chills. some relief with ordered meds. gen- alert, awake,appears stated age, obese eyes- pupils equal round, no scleral icterus cv- reg rate and irreg/irreg rhythm, normal s1,s2, no murmurs appreciated, cannot appreciate pitting edema in any extremity, no jvd appreciated lungs- ctabl, no wheezing, rhonchi or crackles, normal resp effort on ra skin- diffuse erythematous raised rash all ext, trunk, back and face with mult iple excoriations across body neuro- AAOx3 Diffuse Rash and Pruritus- Derm to see pt today, cont steroid, H1/H2 blockers, will cont abx at this time pending derm eval, though I cannot appreciate cellulitis, check US liver, cmp unremarkable Afib rvr on admit, now rate controlled- cont warfarin and CCB Chronic CHF- I cannot appreciate exacerbation on exam, will change diuretic to home dosing orally, it appears non pitting edema in ext would be from rash/itching/inflammation at this time, will cont to monitor Morbid obesity- BMI 51 lifestyle education further diagnoses and plan as noted by resident <Thelma Leon R - Last Filed: 09/26/18 13:10> (3) Cellulitis Qualifiers: Site of cellulitis: extremity Site of cellulitis of extremity: lower extremity Laterality: right Qualified Code(s): L03.115 - Cellulitis of right lower limb (4) CHF (congestive heart failure) Qualifiers: Heart failure type: diastolic Heart failure chronicity: unspecified Quali fied Code(s): I50.30 - Unspecified diastolic (congestive) heart failure (6) Afib Qualifiers: Atrial fibrillation type: chronic Qualified Code(s): I48.2 - Chronic atrial fibrillation
[2018-09-26] MEDS ORDERED: cefTRIAXone 1,000 MG in Water for inj. (sterile) 20 ML 10 ML IVP SCH (09:00)
[2018-09-26] MEDS: Diltiazem CD (24hr) 180 MG CAPSULE PO SCH (09:10)
[2018-09-26] MEDS: Furosemide 40 MG/4 ML VIAL IVP SCH (11:14)
[2018-09-26] MEDS ORDERED: Clotrimazole/Betameth Dip CRM 45 APPL/45 GM TUBE TP PRN (11:26)
[2018-09-26] MEDS ORDERED: Furosemide 20 MG TABLET PO SCH (11:30)
[2018-09-26] MEDS: Tiotropium 18 MCG inhalation IH SCH (15:05)
[2018-09-26] MEDS: Magnesium Oxide 400 MG TABLET PO SCH (15:09)
[2018-09-26] MEDS: Famotidine 20 MG TABLET PO SCH (15:09)
[2018-09-26] MEDS: Loratadine 10 MG TABLET PO SCH (15:09)
[2018-09-26] MEDS: Spironolactone 25 MG TABLET PO SCH (15:09)
--- NOTE | 2018-09-26 16:22 | Electrocardiograph Report ---
[address] [place], [place] [address] Test Date: 2018-09-25 Pat Name: Marina Veloz Department: [id number] Room: [facility] Gender: F Supervisor Production Managing: : 1945 Requested By: Yesi Ponce Order Number: [id number] Reading MD: Marie Colón Measurements Intervals [place] Rate: 95 P: 247 [place]: 165 QRS: -34 QRSD: 97 T: 109 QT: 362 QTc: 456 Interpretive Statements Atrial fibrillation Left axis deviation Low voltage, precordial leads Nonspecific ST abnormalities Electronically Signed On 09-26-2018 16:20:49 EST by Marie Colón
[2018-09-26] MEDS ORDERED: *HR* Warfarin 2.5 MG TABLET PO ONE (18:00)
[2018-09-26] MEDS ORDERED: Warfarin perPT PO PRN (18:00)
[2018-09-26] MEDS: MOMETASONE FUROATE 100 mcg Inhaler IH SCH (22:30)
[2018-09-26] MEDS: hydrOXYzine pamoate 25 MG CAPSULE PO SCH (23:12)
[2018-09-27 07:11] LABS: Hemoglobin 12.6 g/dL (11.5-15.4); Mean Corpuscular HGB Conc 32.3 g/dL (31.6-35.5); Mean Corpuscular Volume 89.7 fL (83.0-100.0); Mean Platelet Volume 9.9 fL (9.4-12.4); Platelet Count 355 K/mcL (140-400); Red Blood Count 4.35 M/mcL (3.82-4.97); Red Cell Distribution Width 14.6 % (11.5-14.5)
[2018-09-27 07:20] LABS: INR 1.9; Prothrombin Time 21.4 Seconds (9.4-12.1)
[2018-09-27 07:27] LABS: Calcium 9.2 mg/dL (8.6-10.3); Potassium 3.9 mEq/L (3.5-5.1)
[2018-09-27] MEDS: Tiotropium 18 MCG inhalation IH SCH (08:25)
[2018-09-27] MEDS: MOMETASONE FUROATE 100 mcg Inhaler IH SCH ×2 (08:26→20:27)
[2018-09-27] MEDS: Loratadine 10 MG TABLET PO SCH (08:33)
[2018-09-27] MEDS: Spironolactone 25 MG TABLET PO SCH (08:33)
[2018-09-27] MEDS: Famotidine 20 MG TABLET PO SCH ×2 (08:33→17:43)
[2018-09-27] MEDS: Magnesium Oxide 400 MG TABLET PO SCH (08:33)
[2018-09-27] MEDS: Furosemide 20 MG TABLET PO SCH (08:34)
[2018-09-27] MEDS: Diltiazem CD (24hr) 180 MG CAPSULE PO SCH (08:34)
--- NOTE | 2018-09-27 08:59 | Internal Med Progress Note ---
Hospitalist Progress Note - Encounter Date of Encounter: 09/27/18 Time of Encounter: 09:20 - Subjective Interval History: awake, itching better controlled, some improvement in redness in arms and chest, mild improvement in legs. she is hesitant to go home due to not quite feeling she has the energy yet. explained we are monitoring leuikocytosis with steroid initiation and will monitor her on med regimen for further improvement of rash today. no fevers or chills, n/v. - Exam Vitals: Temp Pulse Resp BP Pulse Ox 98.2 F 90 16 137/75 95 09/27/18 06:54 09/27/18 06:54 09/27/18 08:26 09/27/18 06:54 09/27/18 08:26 Exam: gen- alert, awake,appears stated age, obese cv- reg rate and reg rhythm, normal s1,s2, no murmurs appreciated, no pitting edema, no jvd lungs- ctabl, no wheezing, rhonchi or crackles, normal resp effort on ra skin- diffuse erythematous raised rash all ext, trunk, back and face with multiple excoriations across body, resolution of erythema or face, chest and UEs, mild improvement in erythema BL LE neuro- AAOx3 - Assessment and Plan (1) Generalized pruritus Current Visit: Yes Status: Acute Assessment and Plan: likely 2/2 stasis dermatitis with impetiginization and secondary ID/hypersensitivity reaction as diagnosed by dermatology liver US for source of pruritus without identification of liver cause of itching -cont steroids with taper as per derm, claritin and triamcinolone (dc on nikki or zyrtec) (2) Rash in adult Current Visit: Yes Status: Acute Assessment and Plan: 2/2 above treatment as above fu with Dr Luu outpt (3) Subtherapeutic anticoagulation Current Visit: Yes Status: Acute Assessment and Plan: INR 1.9 on warfarin for afib lovenox bridge repeat inr in am (4) Afib Current Visit: No Status: Chronic Assessment and Plan: Afib rvr on admit, now rate controlled or NSR - cont warfarin + lovenox as above -cont home CCB (5) CHF (congestive heart failure) Current Visit: No Status: Chronic Assessment and Plan: Chronic CHF-not in exacerbation -cont home diuretic dosing (6) COPD (chronic obstructive pulmonary disease) Current Visit: No Status: Chronic Assessment and Plan: Continue home inhalers Not in acute exacerbation (7) Morbid obesity Current Visit: Yes Status: Acute Assessment and Plan: BMI 51 lifestyle education fu with pcp DVT Prophylaxis: lovenox bridge to therapeutic coumadin - Time Spent with Patient Total time spent is greater than 50% in coordination of care (as documented) at patient's floor/unit and/or counseling patient: less than 15 minutes Plan of Care Discussed with: patient Internal Medicine: Result - Labs CBC & Chem 7: 09/27/18 04:00 09/27/18 04:00 Labs: Short CBC 09/27/18 Range/Units 04:00 WBC 16.7 H D (4.3-11.1) K/mcL Hgb 12.6 (11.5-15.4) g/dL Hct 39.0 (35.3-44.9) % Plt Count 355 (140-400) K/mcL BMP 09/27/18 04:00 Sodium 138 Potassium 3.9 Chloride 101 Carbon Dioxide 30 H BUN 29 H Creatinine 1.15 Glucose 103 Calcium 9.2 - ABG Interpretation ABG results: PT/INR, D-dimer PT 21.4 Seconds (9.4-12.1) H 09/27/18 04:00 - Impressions Impressions Liver Ultrasound 09/26/18 21:00 IMPRESSION: Right perinephric fluid collection. D/ / Vernon Martinez MD / Vernon Martinez MD Interpreting Provider: Vernon Martinez MD Consult Discharge Plan - Plan Referrals: Joy Finnegan MD [Primary Care Provider] - Prescriptions: Cetirizine HCl [Zyrtec] 10 mg PO QPM #30 capsule Fexofenadine/Pseudoephedrine [Nikki-D 24 Hour Tablet] 1 each PO QAM #30 tab.er.24h PredniSONE [Deltasone] 20 mg PO QDPC #26 tablet Triamcinolone Acet 0.1% CRM [Kenalog] 453.6 gm TP BID PRN #1 cream..g. PRN Reason: Rash __ (4) Afib Qualifiers: Atrial fibrillation type: chronic Qualified Code(s): I48.2 - Chronic atrial fibrillation (5) CHF (congestive heart failure) Qualifiers: Heart failure type: diastolic Heart failure chronicity: unspecified Qualified Code(s): I50.30 - Unspecified diastolic (congestive) heart failure (6) COPD (chronic obstructive pulmonary disease) Qualifiers: COPD type: unspecified COPD Qualified Code(s): J44.9 - Chronic obstructive pulmonary disease, unspecified
[2018-09-27] MEDS ORDERED: predniSONE 20 MG TABLET PO SCH (09:00)
[2018-09-27] MEDS ORDERED: predniSONE 20 MG TABLET PO ONE (15:07)
[2018-09-27] MEDS: *HR* Enoxaparin 150 MG/ML SYRINGE SQ SCH ×2 (15:30→17:43)
[2018-09-27] MEDS ORDERED: *HR* Warfarin 2.5 MG TABLET PO ONE (18:00)
[2018-09-27] MEDS: hydrOXYzine pamoate 25 MG CAPSULE PO SCH (21:45)
[2018-09-28] MEDS: *HR* Enoxaparin 150 MG/ML SYRINGE SQ SCH ×2 (06:20→20:55)
[2018-09-28 06:43] LABS: Basophils # 0.1 K/mcL (0.0-0.2); Basophils % 0.5 %; Eosinophils # 0.5 K/mcL (0.0-0.6); Eosinophils % 4.9 %; Hematocrit 36.1 % (35.3-44.9); Hemoglobin 11.6 g/dL (11.5-15.4); Immature Granulocytes % 4.1 % (0-4); Lymphocytes % 9.8 %; Mean Corpuscular HGB Conc 32.1 g/dL (31.6-35.5); Mean Corpuscular Hemoglobin 28.9 pg (28.0-33.3); Mean Platelet Volume 10.1 fL (9.4-12.4); Monocytes # 0.5 K/mcL (0.0-1.3); Monocytes % 5.1 %; Neutrophils # 7.9 K/mcL (1.6-8.9); Platelet Count 204 K/mcL (140-400); Red Blood Count 4.01 M/mcL (3.82-4.97); Red Cell Distribution Width 14.6 % (11.5-14.5); Segmented Neutrophils % 75.6 %
[2018-09-28 06:49] LABS: INR 1.8; Prothrombin Time 19.9 Seconds (9.4-12.1)
[2018-09-28 07:07] LABS: BUN/Creatinine Ratio 39 (6-26); Blood Urea Nitrogen 34 mg/dL (8-23); Calcium 8.8 mg/dL (8.6-10.3); Carbon Dioxide 29 mEq/L (23-29); Chloride 100 mEq/L (98-107); Glucose 133 mg/dL (70-105); Osmolality,Calculated 292 (280-300); Potassium 4.2 mEq/L (3.5-5.1); Sodium 136 mEq/L (136-145); eGFR For Non-African Americans > 60 (> 60)
[2018-09-28] MEDS: MOMETASONE FUROATE 100 mcg Inhaler IH SCH ×2 (08:29→20:16)
[2018-09-28] MEDS: Tiotropium 18 MCG inhalation IH SCH (08:30)
[2018-09-28] MEDS: Loratadine 10 MG TABLET PO SCH (08:35)
[2018-09-28] MEDS: Diltiazem CD (24hr) 180 MG CAPSULE PO SCH (08:35)
[2018-09-28] MEDS: Furosemide 20 MG TABLET PO SCH (08:35)
[2018-09-28] MEDS: Spironolactone 25 MG TABLET PO SCH (08:36)
[2018-09-28] MEDS: Magnesium Oxide 400 MG TABLET PO SCH (08:36)
[2018-09-28] MEDS: predniSONE 20 MG TABLET PO SCH (08:36)
[2018-09-28] MEDS: Famotidine 20 MG TABLET PO SCH ×2 (08:37→16:59)
--- NOTE | 2018-09-28 08:54 | Internal Med Progress Note ---
Hospitalist Progress Note - Encounter Date of Encounter: 09/28/18 Time of Encounter: 09:45 - Subjective Interval History: awake, tearful and anxious about going home and feeling rushed. rash is improving and itching is improving. no fevers or chills. states her nephew wasn't making meth in the house he was spray painting. She seems very stressed and anxious but denies she has any needs at home right now. Updated to subtherapeutic INR and treatment options. She cannot afford cost of lovenox so says she would "just have to go without". Agreeable to lovenox bridge today, INR in AM, discussion with pharmacy (follows at coumadin [facility]) in AM and solidify outpt dc plan. She is less tearful and feeling reassured. - Exam Vitals: Temp Pulse Resp BP Pulse Ox 98.0 F 93 16 157/84 94 09/28/18 06:37 09/28/18 06:37 09/28/18 08:30 09/28/18 06:37 09/28/18 08:30 Exam: gen- alert, awake,appears stated age, obese cv- reg rate and reg rhythm, normal s1,s2, no murmurs appreciated, no pitting edema lungs- ctabl, no wheezing, rhonchi or crackles, normal resp effort on ra skin- diffuse erythematous raised rash all ext, with multiple excoriations across body worst on the right leg, scabbed and healing, improvement in erythema BL LE neuro- AAOx3 - Assessment and Plan (1) Generalized pruritus Current Visit: Yes Status: Acute Assessment and Plan: likely 2/2 stasis dermatitis with impetiginization and secondary ID/hypersensitivity reaction as diagnosed by dermatology liver US for source of pruritus without identification of liver cause of itching -cont steroids with taper as per derm, claritin and triamcinolone (dc on nikki or zyrtec) (2) Rash in adult Current Visit: Yes Status: Acute Assessment and Plan: 2/2 above treatment as above fu with Dr Luu outpt (3) Subtherapeutic anticoagulation Current Visit: Yes Status: Acute Assessment and Plan: INR 1.8 on warfarin for afib lovenox bridge inpt as do not believe pt would be able to fill/afford/reliabley bridge with lovenox at home repeat inr in am cont warfarin as per pharmacy hopefully therapeutic in am (4) Afib Current Visit: No Status: Chronic Assessment and Plan: Afib rvr on admit, now rate controlled or NSR - cont warfarin + lovenox as above -cont home CCB (5) CHF (congestive heart failure) Current Visit: No Status: Chronic Assessment and Plan: Chronic CHF-not in exacerbation -cont home diuretic dosing which was confirmed by pharmacy to be 20 mg lasix daily not 40 mg daily (6) COPD (chronic obstructive pulmonary disease) Current Visit: No Status: Chronic Assessment and Plan: Continue home inhalers Not in acute exacerbation (7) Morbid obesity Current Visit: Yes Status: Acute Assessment and Plan: BMI 51 lifestyle education fu with pcp DVT Prophylaxis: lovenox bridge to therapeutic coumadin - Time Spent with Patient Total time spent is greater than 50% in coordination of care (as documented) at patient's floor/unit and/or counseling patient: less than 15 minutes Plan of Care Discussed with: patient Internal Medicine: Result - Labs CBC & Chem 7: 09/28/18 06:05 09/28/18 06:05 Labs: Short CBC 09/28/18 Range/Units 06:05 WBC 10.5 (4.3-11.1) K/mcL Hgb 11.6 (11.5-15.4) g/dL Hct 36.1 (35.3-44.9) % Plt Count 204 (140-400) K/mcL Neutrophils # 7.9 (1.6-8.9) K/mcL BMP 09/28/18 06:05 Sodium 136 Potassium 4.2 Chloride 100 Carbon Dioxide 29 BUN 34 H Creatinine 0.88 Glucose 133 H Calcium 8.8 - ABG Interpretation ABG results: PT/INR, D-dimer PT 19.9 Seconds (9.4-12.1) H 09/28/18 06:05 Consult Discharge Plan - Plan Referrals: Joy Finnegan MD [Primary Care Provider] - Prescriptions: Cetirizine HCl [Zyrtec] 10 mg PO QPM #30 capsule Fexofenadine/Pseudoephedrine [Nikki-D 24 Hour Tablet] 1 each PO QAM #30 tab.er.24h PredniSONE [Deltasone] 20 mg PO QDPC #26 tablet Triamcinolone Acet 0.1% CRM [Kenalog] 453.6 gm TP BID PRN #1 cream..g. PRN Reason: Rash (4) Afib Qualifiers: Atrial fibrillation type: chronic Qualified Code(s): I48.2 - Chronic atrial fibrillation (5) CHF (congestive heart failure) Qualifiers: Heart failure type: diastolic Heart failure chronicity: unspecified Qualified Code(s): I50.30 - Unspecified diastolic (congestive) heart failure (6) COPD (chronic obstructive pulmonary disease) Qualifiers: COPD type: unspecified COPD Qualified Code(s): J44.9 - Chronic obstructive pulmonary disease, unspecified
[2018-09-28] MEDS ORDERED: *HR* Warfarin 2.5 MG TABLET PO ONE (18:00)
[2018-09-28] MEDS: hydrOXYzine pamoate 25 MG CAPSULE PO SCH (20:56)
[2018-09-29 04:00] LABS: INR 1.7; Prothrombin Time 19.3 Seconds (9.4-12.1)
[2018-09-29 07:31] VITALS: BP 130/80
[2018-09-29] MEDS: Tiotropium 18 MCG inhalation IH SCH (08:15)
[2018-09-29] MEDS: MOMETASONE FUROATE 100 mcg Inhaler IH SCH (08:15)
[2018-09-29] MEDS ORDERED: Furosemide 20 MG TABLET PO SCH (09:00)
[2018-09-29] MEDS: Spironolactone 25 MG TABLET PO SCH (11:09)
[2018-09-29] MEDS: Loratadine 10 MG TABLET PO SCH (11:09)
[2018-09-29] MEDS: predniSONE 20 MG TABLET PO SCH (11:09)
[2018-09-29] MEDS: Diltiazem CD (24hr) 180 MG CAPSULE PO SCH (11:09)
[2018-09-29] MEDS: Magnesium Oxide 400 MG TABLET PO SCH (11:09)
[2018-09-29] MEDS: Famotidine 20 MG TABLET PO SCH (11:09)
[2018-09-29] MEDS: *HR* Enoxaparin 150 MG/ML SYRINGE SQ SCH (11:10)
--- NOTE | 2018-09-29 12:17 | Discharge Summary ---
<Jaime Vivar - Last Filed: 09/29/18 13:02> - NOTES TO OUTPATIENT PROVIDER Notes to Outpatient Provider: Patient was admitted for puritic rash which was thought to be secondary to drug reaction/stasis dermatitis with impetiginization and secondary ID/hypersensitivity reaction. She will be discharged on steroid taper, antihystamine, TCA ointment with dermatology follow up Orders not resulted at time of discharge: Pending orders 09/25/18 16:14 Culture,Blood [BC] Stat 09/30/18 04:00 INR/PT [Prothrombin Time INR] [COAG] AM 0400 10/01/18 04:00 INR/PT [Prothrombin Time INR] [COAG] AM 0400 10/02/18 04:00 INR/PT [Prothrombin Time INR] [COAG] AM 0400 10/03/18 04:00 INR/PT [Prothrombin Time INR] [COAG] AM 0400 Date of Encounter: 09/29/18 Time of Encounter: 08:10 - Discharge Diagnosis (1) Afib Priority: Secondary Status: Chronic Qualifiers: Atrial fibrillation type: chronic Qualified Code(s): I48.2 - Chronic atrial fibrillation (2) CHF (congestive heart failure) Priority: Secondary Status: Chronic Qualifiers: Heart failure type: diastolic Heart failure chronicity: unspecified Qualified Code(s): I50.30 - Unspecified diastolic (congestive) heart failure (3) COPD (chronic obstructive pulmonary disease) Priority: Secondary Status: Chronic Qualifiers: COPD type: unspecified COPD Qualified Code(s): J44.9 - Chronic obstructive pulmonary disease, unspecified (4) Generalized pruritus Priority: Secondary Status: Acute (5) Rash in adult Priority: Primary Status: Acute (6) Morbid obesity Priority: Secondary Status: Acute (7) Subtherapeutic anticoagulation Priority: Secondary Status: Acute Hospital course: Ms. Veloz is a 72 year old female with past medical history of atrial f ibrillation on Coumadin, CHF, COPD, hypertension, osteoporosis who presented to the emergency room with complaint of pruritic rash. She also has a history of recurrent cellulitis as well as stasis dermatitis with peripheral edema. Rash was present diffusely over her entire body she denied any new medications or food. In the emergency room, vital signs were significant for a heart rate of 133 and EKG was consistent with atrial fibrillation. CBC showed leukocytosis of 12.8 with elevated neutrophil and eosinophil count. Dermatology was consulted in the emergency room and did evaluate the patient. Dermatology assess the patient and determined that this was most likely secondary to hypersensitivity reaction and patient was started on steroids, triamcinolone cream, antihistamines. Her rash did improve over the course of her hospital stay. Vital signs have returned to normal levels. Her leukocytosis has resolved. INR is subtherapeutic at time of discharge at 1.7 however patient is only on prophylactic dosing for atrial fibrillation and has close follow-up with Coumadin clinic. Patient's pruritus has improved with symptomatic therapy. She will be instructed to follow up with her primary care physician as well as the Coumadin clinic in the near future. Patient is medically stable for discharge at this time. - Time Spent with Patient Total time spent providing and/or coordinating discharge services: - Discharge Medications Prescriptions: New Cetirizine HCl [Zyrtec] 10 mg PO QPM #30 capsule PredniSONE [Deltasone] 20 mg PO QDPC #26 tablet Triamcinolone Acet 0.1% CRM [Kenalog] 453.6 gm TP BID PRN #1 cream..g. PRN Reason: Rash Continue Albuterol Sulfate [Albuterol Inhaler] 2 puff IH Q4H PRN PRN Reason: Shortness Of Breath Ranitidine HCl [Acid Special Education Coordinator] 150 mg PO BID Furosemide [Lasix] 40 mg PO DAILY Magnesium Oxide [Magnesium] 400 mg PO DAILY Docusate [Colace] 100 mg PO BID PRN PRN Reason: Constipation Clotrimazole/Betamethasone Dip [Lotrisone Cream] 1 appl TP TID PRN PRN Reason: Rash Duloxetine HCl [Cymbalta] 60 mg PO HS Ascorbic Acid [Vitamin C] 1,000 mg PO DAILY Beclomethasone Dip 40mcg REDIH [Qvar 40 Mcg Redihaler] 2 puff IH BID PRN PRN Reason: Shortness Of Breath Vitamin E Acetate [Vitamin E] 400 unit PO BID Spironolactone 25 mg PO DAILY Ferrous Sulfate 325 mg PO DAILY Tiotropium [place] [Spiriva Respimat] 1 puff IH DAILY Calcium Carbonate/Vitamin D3 [Calcium 600 + Vit D Tablet] 1 tab PO BID dilTIAZem HCl [Diltiazem 24Hr ER] 120 mg PO DAILY Diltiazem HCl [Diltiazem 24Hr Cd] 240 mg PO DAILY Polyethylene Glycol 3350 [Natura-Lax] 17 gm PO DAILY PRN PRN Reason: Constipation Changed Warfarin [Coumadin] 2.5 mg PO DAILY #0 Discontinued Loratadine [Allergy Relief] 10 mg PO DAILY Home Medications: Albuterol Sulfate [Albuterol Inhaler] 2 puff IH Q4H PRN 04/23/17 [History] Docusate [Colace] 100 mg PO BID PRN 04/23/17 [History] Furosemide [Lasix] 40 mg PO DAILY 04/23/17 [History] Magnesium Oxide [Magnesium] 400 mg PO DAILY 04/23/17 [History] Ranitidine HCl [Acid Special Education Coordinator] 150 mg PO BID 04/23/17 [History] Clotrimazole/Betamethasone Dip [Lotrisone Cream] 1 appl TP TID PRN 01/05/18 [His tory] Duloxetine HCl [Cymbalta] 60 mg PO HS 01/05/18 [History] Ascorbic Acid [Vitamin C] 1,000 mg PO DAILY 07/20/18 [History] Beclomethasone Dip 40mcg REDIH [Qvar 40 Mcg Redihaler] 2 puff IH BID PRN 1 [History] Spironolactone 25 mg PO DAILY 07/20/18 [History] Vitamin E Acetate [Vitamin E] 400 unit PO BID 07/20/18 [History] Ferrous Sulfate 325 mg PO DAILY 07/24/18 [History] Tiotropium [place] [Spiriva Respimat] 1 puff IH DAILY 09/25/18 [History] Cetirizine HCl [Zyrtec] 10 mg PO QPM #30 capsule 09/26/18 [Rx] PredniSONE [Deltasone] 20 mg PO QDPC #26 tablet 09/26/18 [Rx] Triamcinolone Acet 0.1% CRM [Kenalog] 453.6 gm TP BID PRN #1 cream..g. 09/26/18 [Rx] Calcium Carbonate/Vitamin D3 [Calcium 600 + Vit D Tablet] 1 tab PO BID 09/27/18 [History] Diltiazem HCl [Diltiazem 24Hr Cd] 240 mg PO DAILY 09/27/18 [History] Polyethylene Glycol 3350 [Natura-Lax] 17 gm PO DAILY PRN 09/27/18 [History] dilTIAZem HCl [Diltiazem 24Hr ER] 120 mg PO DAILY 09/27/18 [History] Warfarin [Coumadin] 2.5 mg PO DAILY #0 09/29/18 [Rx] Allergies/Adverse Reactions: Allergy/AdvReac Type Severity Reaction Status Date / Time doxycycline Allergy Rash Verified 09/27/18 15:26 gabapentin [From Neurontin] Allergy See Verified 09/27/18 15:26 Comments Penicillins [PCN] Allergy Rash Verified 09/27/18 15:26 Date of admission: 09/25/18 17:43 Primary care physician: Joy Finnegan MD Consults: 09/25/18 17:42 Consult to Dermatology [CONS] Stat Consulting Provider: Dermatology Nurys Reason for Consult: extensive rash and itching Time Notified: 17:22 Call Completed: Yes 09/25/18 22:03 Consult to Nutrition [CONS] Routine Comment: Consulting Provider: NUTRITION Reason for Dietary Consult: MST Score 09/27/18 13:33 Consult to Continuous Linter Drier Operator [CONS] Routine Reason for SW Consult: issues with home situtation, possible APS needed Discharging clinician: Jaime Vivar Anticipated date of discharge: 09/29/18 - Constitutional Vitals: Temp Pulse Resp BP Pulse Ox 98.1 F 80 18 130/80 91 09/29/18 07:26 09/29/18 07:26 09/29/18 08:16 09/29/18 07:26 09/29/18 08:16 General appearance: Present: cooperative, A&O X 3, pleasant, no acute distress, answers questions appropriately Exam: Gen.: Vitals noted. No acute distress. AAOx3, resting comfortably in bed. , Morbidly obese HEENT: PERRL/EOMI, oropharynx clear, Normocephalic, atraumatic, MMM Neck: Supple. No adenopathy. No thyroid nodules. Cardiac: RRR, no murmur, +S1/S2, No BLE edema Pulmonary: CTA bilaterally, no wheezes, rales or rhonchi, equal chest expansion, unlabored breathing, mildly diminished in bases Abdomen: soft, nontender, BS noted, no guarding, no palpable HSM Skin: warm and dry, no visible lesions. Very mild erythema noted diffusely with more prominence in left lower extremity. No visible rash present today MSK: ROM not assessed, no joint swelling noted, gait no assessed while in bed. Non tender calf or clubbing Neuro: A&Ox3, moves all extremities, no focal deficits, sensation intact Psych: Appropriate mood and behavior, AOx3 - Patient Status Disposition: Home, Self-Care Condition: Fair Functional capacity at discharge: independent ambulation Overall status at discharge: patient is progressing back to baseline - Discharge Instructions Follow Up With: Joy Finnegan MD [Primary Care Provider] - Ruthie Luu MD [Partnered Physician] - Additional Instructions: Please take all medications as prescribed and be sure to follow-up with both your primary care physician, dermatology as well as the Coumadin clinic. THE COUMADIN CLINIC IS AWARE YOU WERE HERE AND NEED FOLLOW UP. THEY WILL CONTACT YOU AT HOME TO SCHEDULE YOUR APPT FOR THIS WEEK - Diet and Activity Activity: increase activity as tolerated, return to work once cleared by your PCP/specialist, resume usual activities as tolerated Diet: advance to your usual diet <Herminia Morales - Last Filed: 09/29/18 14:26> Orders not resulted at time of discharge: Pending orders 09/25/18 16:14 Culture,Blood [BC] Stat 09/30/18 04:00 INR/PT [Prothrombin Time INR] [COAG] AM 0400 10/01/18 04:00 INR/PT [Prothrombin Time INR] [COAG] AM 0400 10/02/18 04:00 INR/PT [Prothrombin Time INR] [COAG] AM 0400 10/03/18 04:00 INR/PT [Prothrombin Time INR] [COAG] AM 0400 Date of Encounter: 09/29/18 - Discharge Diagnosis (1) Afib Status: Chronic Qualifiers: Atrial fibrillation type: chronic Qualified Code(s): I48.2 - Chronic atrial fibrillation (2) CHF (congestive heart failure) Status: Chronic Qualifiers: Heart failure type: diastolic Heart failure chronicity: unspecified Qualified Code(s): I50.30 - Unspecified diastolic (congestive) heart failure (3) COPD (chronic obstructive pulmonary disease) Status: Chronic Qualifiers: COPD type: unspecified COPD Qualified Code(s): J44.9 - Chronic obstructive pulmonary disease, unspecified (4) Generalized pruritus Status: Acute (5) Rash in adult Status: Acute (6) Morbid obesity Status: Acute (7) Subtherapeutic anticoagulation Status: Acute Hospital course: Ms. Veloz is a 72 year old female - Time Spent with Patient Total time spent providing and/or coordinating discharge services: Time spent: Greater than 30 minutes (40 min) Date of admission: 09/25/18 17:43 Primary care physician: Joy Finnegan MD Consults: 09/25/18 17:42 Consult to Dermatology [CONS] Stat Consulting Provider: Dermatology Nurys Reason for Consult: extensive rash and itching Time Notified: 17:22 Call Completed: Yes 09/25/18 22:03 Consult to Nutrition [CONS] Routine Comment: Consulting Provider: NUTRITION Reason for Dietary Consult: MST Score 09/27/18 13:33 Consult to Continuous Linter Drier Operator [CONS] Routine Reason for SW Consult: issues with home situtation, possible APS needed - Constitutional Vitals: Temp Pulse Resp BP Pulse Ox 98.1 F 80 18 130/80 91 09/29/18 07:26 09/29/18 07:26 09/29/18 08:16 09/29/18 07:26 09/29/18 08:16 - Attending Attestation I examined this patient and my medical decision-making was reviewed with the Resident Physician Dr Vivar. I agree with the documented findings, disposition and treatment plan as described except to the extent set forth below. Ms Veloz was observed for Generalized pururitus and tasis dermatitis with impetiginization and secondary ID/hypersensitivity reaction. she is being discharged to home with outpt fu with Derm and her coumadin clinic. Of note, APS contacted by SW on 3NE this admit for pt report that her nephew lives in her basement and may be making meth and pt distress regarding the issue. awake, pleasant, got poor sleep last night and tired. rash improving, itching much better. no questions re dc to home today. discussed INR and coumadin clinic follow up with pharmacy staff and the office will be calling her with appt for follow up this week. gen- alert, awake,appears stated age, obese cv- reg rate and reg rhythm, normal s1,s2, no pitting edema lungs- ctabl, no wheezing, rhonchi or crackles, normal resp effort on ra skin- diffuse erythematous raised rash all ext, with further reduction erythema, no edema, with multiple excoriations across body worst on the right leg, scabbed and healing, no draining wounds neuro- AAOx3, CN grossly intact RAsh/Generalized Pruritus likely 2/2 stasis dermatitis with impetiginization and secondary ID/hypersensitivity reaction as diagnosed by dermatology- cont TAC, + steroid taper and antihistamin on dc, fu with Dr Jus Valadez hx- currently NSR- she was afib only in ED and then without intervention has remained NSR since admit- cont couamdin, dose increased to 2.5 mg daily as pharm later confirmed home dose was hold on wednesdays. - lovenox bridge while inpt, cannot afford cost outpt, given she has remained NSR, follows with our coumadin clinic, I d/w pharmacy and he reviewed chart and clinic notes, Clinic will be calling her this week to arrange fu for further dose adjustments and INR monitoring, cont coumadin on dc. further diagnoses and plan as noted by resident time spent on dc 40 min
--- NOTE | 2018-09-29 12:31 | Dermatology Consult Note ---
Date of Encounter: 09/26/18 Time of Encounter: 16:50 History of Present Illness Reason for Consult: rash all over History of Present Illness: Pt is a 72y/o WF w/ hx of CHF and lower leg swelling with hx of increased itching all over body for the last week. She was thought to have possible cellulitis and was started on ceftriaxone and vancomycin. She otherwise feels well except for some nausea. She is itching all over. no treatment was given at home for her itching. Review of Systems General/Constitutional: Patient denies fevers, chills, nor recent unintended weight loss, night sweats, no change in appetite or malaise. Hematologic: Patient denies new or enlarging lumps or bumps. Skin: Patient denies new or changing moles, or rash other than what is mentioned above. Past Med Surg Social Fam HX - Past Medical History Medical history: atrial fibrillation, cancer, CHF, COPD, hypertension, o steoporosis Additional medical history: breast cancer, sleep apnea non compliant with cpap machine Psychiatric history: depression - Past Surgical History Surgical History: breast surgery Additional surgical history: lumpectomy - Social History Smoking Status: Never smoker Smokeless Tobacco Status: No Alcohol use: none Drug use: none - Family History Father Adopted: No Family Member Ethnicity: Non- Living Status: Age at : 66 Hx Family Cardiac Disorders: Yes Hx Family Respiratory Disorders: No Hx Family Cancer: No Hx Family GI Disorders: No Hx Family Endocrine Disorder: Yes (Diabetes) Hx Family Neuromuscular Disorders: No Hx Family Neurologic Disorders: No Hx Family HEENT Disorders: No Hx Family Autoimmune Disorders: No Mother Living Status: Hx Family Cardiac Disorders: No Hx Family Respiratory Disorders: No Hx Family Cancer: Yes (Breast) Hx Family GI Disorders: No Hx Family Endocrine Disorder: No Hx Family Neuromuscular Disorders: No Hx Family Neurologic Disorders: No Hx Family HEENT Disorders: No Hx Family Autoimmune Disorders: No Medications and Allergies Albuterol Sulfate [Albuterol Inhaler] 2 puff IH Q4H PRN 04/23/17 [History] Docusate [Colace] 100 mg PO BID PRN 04/23/17 [History] Furosemide [Lasix] 40 mg PO DAILY 04/23/17 [History] Loratadine [Allergy Relief] 10 mg PO DAILY 04/23/17 [History] Magnesium Oxide [Magnesium] 400 mg PO DAILY 04/23/17 [History] Ranitidine HCl [Acid Fashion Consultant] 150 mg PO BID 04/23/17 [History] Clotrimazole/Betamethasone Dip [Lotrisone Cream] 1 appl TP TID PRN 01/05/18 [History] Duloxetine HCl [Cymbalta] 60 mg PO HS 01/05/18 [History] Ascorbic Acid [Vitamin C] 1,000 mg PO DAILY 07/20/18 [History] Beclomethasone Dip 40mcg REDIH [Qvar 40 Mcg Redihaler] 2 puff IH BID PRN 07/20/18 [History] Spironolactone 25 mg PO DAILY 07/20/18 [History] Vitamin E Acetate [Vitamin E] 400 unit PO BID 07/20/18 [History] Ferrous Sulfate 325 mg PO DAILY 07/24/18 [History] Tiotropium [place] [Spiriva Respimat] 1 puff IH DAILY 09/25/18 [History] Cetirizine HCl [Zyrtec] 10 mg PO QPM #30 capsule 09/26/18 [Rx] Fexofenadine/Pseudoephedrine [Nikki-D 24 Hour Tablet] 1 each PO QAM #30 tab.er.24h 09/26/18 [Rx] PredniSONE [Deltasone] 20 mg PO QDPC #26 tablet 09/26/18 [Rx] Triamcinolone Acet 0.1% CRM [Kenalog] 453.6 gm TP BID PRN #1 cream..g. 09/26/18 [Rx] Calcium Carbonate/Vitamin D3 [Calcium 600 + Vit D Tablet] 1 tab PO BID 09/27/18 [History] Diltiazem HCl [Diltiazem 24Hr Cd] 240 mg PO DAILY 09/27/18 [History] Polyethylene Glycol 3350 [Natura-Lax] 17 gm PO DAILY PRN 09/27/18 [History] Warfarin [Coumadin] 5 mg PO DAILY 09/27/18 [History] dilTIAZem HCl [Diltiazem 24Hr ER] 120 mg PO DAILY 09/27/18 [History] Allergy/AdvReac Type Severity Reaction Status Date / Time doxycycline Allergy Rash Verified 09/27/18 15:26 gabapentin [From Neurontin] Allergy See Verified 09/27/18 15:26 Comments Penicillins [PCN] Allergy Rash Verified 09/27/18 15:26 Examination Vital Signs: Temp Pulse Resp BP Pulse Ox 98.1 F 80 18 130/80 91 09/29/18 07:26 09/29/18 07:26 09/29/18 08:16 09/29/18 07:26 09/29/18 08:16 General Examination: The patient appears alert, oriented X3, in no acute distress,obese, disheveled, normal mood. A detailed skin examination of sites including: scalp, head, neck, face, conjunctive, lids, lips, back, chest/breast/axilla, abdomen, bilateral upper extremities including hands/digits/fingernails, bilateral lower extremities including feet/digits was completed and found to be normal except: pt w/ 2+ edema lower legs and hyperpigmented confluent erythematous patches w/ secondary impetiginization and dirt/debri and upper body w/ diffuse erythematous ill defined excoriated patches - Assessment and Plan (1) Rash in adult Current Visit: Yes Status: Acute Pt w/ obvious stasis dermatitis w/ secondary impetiginization and I feel ID/ hypersen reaction most likely due to that. rec compression hose and weight los s. Better personal care would be helpful. rec cerave or cetaphil products and zyrtec q hs and nikki q am. Also rec 1 lb jar of TAC cream be applied bid prn along w/ pdn taper x 2 weeks when discharged from hospital. side effects, risks, and benefits of meds d/w pt in detail Procedure: Dermatology Date of procedure: 09/26/18 Procedure: no procedure done Consult Discharge Plan - Plan Referrals: Joy Finnegan MD [Primary Care Provider] - Prescriptions: Cetirizine HCl [Zyrtec] 10 mg PO QPM #30 capsule Fexofenadine/Pseudoephedrine [Nikki-D 24 Hour Tablet] 1 each PO QAM #30 tab.er.24h PredniSONE [Deltasone] 20 mg PO QDPC #26 tablet Triamcinolone Acet 0.1% CRM [Kenalog] 453.6 gm TP BID PRN #1 cream..g. PRN Reason: Rash
[2018-09-29] MEDS ORDERED: *HR* Warfarin 4 MG TABLET PO ONE (18:00)
== END 2018-09-29 15:35 | disposition home or self-care (01) ==
LOC: 3NENU 13:00 → EMEROOARM 13:00 → SUATTDRO 17:43 → 3NENU 20:49
PROVIDERS: ADMIT Internal Medicine; ATTEND Internal Medicine

== ENCOUNTER 2019-01-29 15:57 | Inpatient (IN) ==
--- NOTE | 2019-01-29 16:03 | Emergency Department Note ---
Disposition Clinical Impression: Bilateral lower leg cellulitis, Hypokalemia Acute exacerbation of CHF (congestive heart failure) Qualifiers: Heart failure type: unspecified Qualified Code(s): I50.9 - Heart failure, unspecified Cellulitis Qualifiers: Site of cellulitis: extremity Site of cellulitis of extremity: lower extremity Laterality: unspecified laterality Qualified Code(s): L03.119 - Cellulitis of unspecified part of limb Disposition: Admitted As Inpatient Time of Disposition: 19:51 General Adult HPI - General Chief complaint: ED Skin/Abscess/Foreign Body Stated complaint: Cellulitis Time Seen by Provider: 01/29/19 16:02 Source: patient, EMS Mode of arrival: EMS Limitations: no limitations Nursing Notes Reviewed: Yes Vital Signs Reviewed: Yes - History of Present Illness HPI Narrative: She is a 73-year-old female coming in today with increasing leg swelling and leg pain. States that she woke up this morning and her legs were significantly more swollen and red and tender than usual. She states that her legs have been weeping an increased amount of fluids from the open sores covering them. Recently treated for cellulitis in the hospital approximately 4 months ago and was seen by dermatology for allergic dermatitis of the lower extremities. She states that her pain is a 10 out of 10 and is sharp achy pain, she states that her left lower extremity is much more worse than her right lower extremity. She states that really take anything at home for her lower extremity swelling or pain. She denies any worsening orthopnea or worsening PND. On entering the room the nurses inform me that she met SIRS criteria for heart rate and respiratory rate. She also had an elevated temperature. The patient states that she was not feeling very good and has been having subjective fevers at home. Denies any chest pain or shortness of breath however she is currently using oxygen and denies needing oxygen at home. Pt Subjective Complaint: Cellulitis - Related Data Home Medications Medication Instructions Recorded Confirmed Albuterol Sulfate [Proventil 2 puff IH Q4H PRN 04/23/17 01/29/19 Inhaler] Docusate [Colace] 100 mg PO BID PRN 04/23/17 01/29/19 Magnesium Oxide [Magnesium] 400 mg PO DAILY 04/23/17 01/29/19 Ranitidine HCl [Acid Corporate Administrative Assistant] 150 mg PO BID 04/23/17 01/29/19 Duloxetine HCl [Cymbalta] 60 mg PO HS 01/05/18 01/29/19 Ascorbic Acid [Vitamin C] 1,000 mg PO DAILY 07/20/18 01/29/19 Beclomethasone Dip 40mcg REDIH 2 puff IH BID 07/20/18 01/29/19 [Qvar 40 Mcg Redihaler] Spironolactone 25 mg PO DAILY 07/20/18 01/29/19 Vitamin E Acetate [Vitamin E] 400 unit PO BID 07/20/18 01/29/19 Ferrous Sulfate 325 mg PO DAILY 07/24/18 01/29/19 Tiotropium [place] [Spiriva 2 puff IH DAILY 09/25/18 01/29/19 Respimat] Calcium Carbonate/Vitamin D3 1 tab PO BID 09/27/18 01/29/19 [Calcium 600 + Vit D Tablet] Polyethylene Glycol 3350 17 gm PO DAILY PRN 09/27/18 01/29/19 [Natura-Lax] Diltiazem CD (24hr) [Cardizem CD] 120 mg PO DAILY 01/29/19 01/29/19 Diltiazem CD (24hr) [Cardizem CD] 240 mg PO DAILY 01/29/19 01/29/19 Furosemide [Lasix] 40 mg PO BID 01/29/19 01/29/19 Loratadine [Claritin] 10 mg PO DAILY 01/29/19 01/29/19 Triamcinolone Acet 0.1% CRM 1 each TP BID PRN 01/29/19 01/29/19 [Kenalog] Warfarin [Coumadin] 2.5 mg PO MOWEFR 01/29/19 01/29/19 Warfarin [Coumadin] 5 mg PO SUTUTHSA 01/29/19 01/29/19 hydrOXYzine HCl [Hydroxyzine HCl] 50 mg PO HS 01/29/19 01/29/19 Allergies Allergy/AdvReac Type Severity Reaction Status Date / Time doxycycline Allergy Rash Verified 09/27/18 15:26 gabapentin [From Neurontin] Allergy See Verified 09/27/18 15:26 Comments Penicillins [PCN] Allergy Rash Verified 09/27/18 15:26 Review of Systems: Constitutional: admits fever, denies chills, weight changes HEENT: denies blurry vision, tinnitus, sore throat Cardio: denies chest pain, palpiltations Lungs: denies SOB, wheeze, cough, hemoptysis GI: denies N/V/D, , hematochezia; admits abdominal pain : denies dysuria, hematuria MSK: admits to decreased ROM and joint swelling / stiffness; cannot ambultate on their own Heme: denies easy bruising Neuro: deneis numbness or tingling, denies dizziness Skin: admits to open wounds or cuts on the bilateral LE Lymph: admits to bilateral edema and fluid retention Psych: denies anxiety, depression Allergy: denies seasonal allergies or food allergies All systems ED: reviewed and negative except as stated. Review of Systems: As Per HPI Past Medical History - Past Medical History Attestation: Yes The following information was validated with the patient. 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 General: Well-developed, well-nourished patient lying in bed who appears non- toxic, no apparent distress Head: Atraumatic, normocephalic. Eyes: Sclera anicteric. ENT: Mucous membranes moist. Heart: irregular rhyhtm with tacycardia without appreciable murmur.CTA Neck: no JVD Lungs: Normal respiratory pattern without distress, lungs clear to auscultation b/l. Mild expiratory wheezing right side Abdomen: Soft, non-tender, non-distended, no guarding or peritoneal signs. No bruising noted to the abdomen. Obese. Skin: Warm and dry without rash. Neurologic: Awake and alert with normal speech and mental status. Pupils are equal. Moves all extremities equally well. No focal deficits or lateralizing sig ns. Follows command. Psychiatric: Mood and affect appropriate. Musculoskeletal: No peripheral edema. No asymmetrical swelling, no calf tenderness - General Limitations: physical limitation General appearance: alert, anxious Course Course Narrative: Does meet SIRS criteria upon entering the emergency room for heart rate and respiratory rate. She also does have an elevated temperature although does not meet the criteria for SIRS. We will obtain blood cultures, lactic acid, CBC CMP and patient for cellulitis with ceftriaxone and vancomycin. She is a high risk for MRSA infection as well as multi-organism infection given her multiple comorbidities. X-ray to be ordered and evidence of peripheral pitting edema and history of congestive heart failure. We will also obtain a lower extremity ultrasound and d-dimer to rule out T/PE. Patient likely to be admitted to the hospital - Consultations Consultation #1: Hospitalist accepted the patient for admission. I discussed CODE STATUS with the patient she is a full code. We will also give the patient 1 dose of IV push Lasix. Vital Signs Temperature 100.1 F H 01/29/19 16:01 Pulse Rate 113 01/29/19 16:01 Respiratory Rate 20 01/29/19 16:01 Blood Pressure 147/76 01/29/19 16:01 O2 Sat by Pulse Oximetry 91 01/29/19 16:01 Temperature 100.1 F H 01/29/19 16:01 Pulse Rate 94 01/29/19 19:11 Respiratory Rate 22 01/29/19 19:11 Blood Pressure 130/74 01/29/19 19:11 O2 Sat by Pulse Oximetry 97 01/29/19 19:11 Oxygen Delivery Oxygen Delivery Nasal Cannula Medical Decision Making - [facility] Narrative Medical decision making narrative: Patient arrived from home with complaints of increased leg pain and cellulitis. She was wheezing on examination was given a dose of DuoNeb's. Results were negative for source of infection at this time. POTASSIUM was noted to be 3.4 and this was replaced. UA was negative. D-dimer is negative. Chest x-ray showed findings of possible pulmonary edema and given her history of congestive heart failure is likely that this is the cause of this. She did however have an elevated BNP and given the bilateral lower extremity and we will give her a dose of IV push Lasix. blood cx are pending if the lower extremities are source of infection. A dose of ceftriaxone and vancomycin IV while in the emergency room. Hospitalist did accept the admission and clarify the CODE STATUS with the patient and at this time she is a full code. She is to be admitted for further workup and treatment. - Medical Records Medical records reviewed: Yes I reviewed the patient's medical records. - Lab Data Lab results reviewed: Yes I reviewed the patient's lab results. Result diagrams: 02/03/19 06:59 02/03/19 06:59 Lab Results 01/29/19 01/29/19 01/29/19 Range/Units 16:12 16:12 16:12 WBC 10.2 (4.3-11.1) K/mcL RBC 4.22 (3.82-4.97) M/mcL Hgb 12.8 (11.5-15.4) g/dL Hct 39.1 (35.3-44.9) % MCV 92.7 (83.0-100.0) fL MCH 30.3 (28.0-33.3) pg MCHC 32.7 (31.6-35.5) g/dL RDW 13.5 (11.5-14.5) % Plt Count 152 (140-400) K/mcL MPV 10.4 (9.4-12.4) fL Immature Gran % 0.5 (0-4) % Seg Neutrophils % 90.2 % Lymphocytes % 4.9 % Monocytes % 4.2 % Eosinophils % 0.0 % Basophils % 0.2 % Neutrophils # 9.2 H (1.6-8.9) K/mcL Lymphocytes # 0.5 L (0.6-4.6) K/mcL Monocytes # 0.4 (0.0-1.3) K/mcL Eosinophils # 0.0 (0.0-0.6) K/mcL Basophils # 0.0 (0.0-0.2) K/mcL PT (9.4-12.1) Seconds INR APTT (26.0-36.0) Seconds D-Dimer (0-500) ng/mLFEU Sodium 134 L (136-145) mEq/L Potassium 3.4 L (3.5-5.1) mEq/L Chloride 99 (98-107) mEq/L Carbon Dioxide 26 (23-29) mEq/L BUN 17 (8-23) mg/dL Creatinine 0.92 (0.60-1.20) mg/dL Est GFR ( Amer) > 60 (> 60) Est GFR (Non-Af Amer) 60 (> 60) BUN/Creatinine Ratio 18 (6-26) Glucose 104 (70-105) mg/dL Calculated Osmolality 280 (280-300) Lactic Acid 1.0 (0.5-2.2) mmol/L Calcium 8.5 L (8.6-10.3) mg/dL Phosphorus 1.9 L (2.7-4.5) mg/dL Magnesium 1.7 (1.6-2.6) mg/dL Troponin I < 0.03 (< 0.04) ng/mL B-Natriuretic Peptide (Less than 100) pg/mL Urine Color (Yellow) Urine Clarity (Clear) Urine pH (5.0-8.0) pH Units Ur Specific [place] (1.010-1.025) Urine Protein (Neg-Trace) mg/dL Urine Glucose (UA) (Normal) mg/dL Urine Ketones (Negative) mg/dL Urine Blood (Negative) Urine Nitrite (Negative) Urine Bilirubin (Negative) Urine Urobilinogen (Normal) mg/dL Ur Leukocyte Esterase (Negative) Ur Culture Indicated? (NO) 01/29/19 01/29/19 01/29/19 Range/Units 16:12 16:12 18:42 WBC (4.3-11.1) K/mcL RBC (3.82-4.97) M/mcL Hgb (11.5-15.4) g/dL Hct (35.3-44.9) % MCV (83.0-100.0) fL MCH (28.0-33.3) pg MCHC (31.6-35.5) g/dL RDW (11.5-14.5) % Plt Count (140-400) K/mcL MPV (9.4-12.4) fL Immature Gran % (0-4) % Seg Neutrophils % % Lymphocytes % % Monocytes % % Eosinophils % % Basophils % % Neutrophils # (1.6-8.9) K/mcL Lymphocytes # (0.6-4.6) K/mcL Monocytes # (0.0-1.3) K/mcL Eosinophils # (0.0-0.6) K/mcL Basophils # (0.0-0.2) K/mcL PT 21.9 H (9.4-12.1) Seconds INR 1.9 APTT 36.3 H (26.0-36.0) Seconds D-Dimer 469 (0-500) ng/mLFEU Sodium (136-145) mEq/L Potassium (3.5-5.1) mEq/L Chloride (98-107) mEq/L Carbon Dioxide (23-29) mEq/L BUN (8-23) mg/dL Creatinine (0.60-1.20) mg/dL Est GFR ( Amer) (> 60) Est GFR (Non-Af Amer) (> 60) BUN/Creatinine Ratio (6-26) Glucose (70-105) mg/dL Calculated Osmolality (280-300) Lactic Acid (0.5-2.2) mmol/L Calcium (8.6-10.3) mg/dL Phosphorus (2.7-4.5) mg/dL Magnesium (1.6-2.6) mg/dL Troponin I (< 0.04) ng/mL B-Natriuretic Peptide 346 H (Less than 100) pg/mL Urine Color Dark Yellow (Yellow) Urine Clarity Clear (Clear) Urine pH 5.5 (5.0-8.0) pH Units Ur Specific [place] 1.020 (1.010-1.025) Urine Protein Negative (Neg-Trace) mg/dL Urine Glucose (UA) Normal (Normal) mg/dL Urine Ketones Negative (Negative) mg/dL Urine Blood Negative (Negative) Urine Nitrite Negative (Negative) Urine Bilirubin Negative (Negative) Urine Urobilinogen Normal (Normal) mg/dL Ur Leukocyte Esterase Negative (Negative) Ur Culture Indicated? NO (NO) - Radiology Data Radiology results reviewed: Yes I reviewed the patient's radiology results. Chest X-Ray 01/29/19 18:05 IMPRESSION: Perihilar predominant airspace disease with indistinctness the pulmonary vasculature suspicious for pulmonary edema. D/ / Leny Fountain Cha, MD / Leny Fountain Cha, MD Interpreting Provider: Leny Fountain Cha, MD - EKG Data EKG #1 EKG attestation: Yes I reviewed and interpreted this EKG. EKG results narrative: EKG showed atrial fibrillation her heart rate of 99 and QTC of 466 ms. No acute from previous EKG no ST elevation or deviation. Attestation Statement - Attestation Attestation: I have seen this patient with the resident physician, I have personally evaluated this patient. I had reviewed the chart and document dictation by the resident physician and aM in agreement with the information documented by the resident physician. Please see documentation by the resident physician for complete chart including past medical history, family medical history, review of systems, current history and physical and laboratory and imaging studies. I was present for all procedures, provided direct supervision for all procedures, was present for the entirety of all procedures and provided direct guidance during the procedures. Please see documentation by the resident physician for any procedures performed. I have reviewed all interpretations of EKGs, and reviewed all EKGs performed on patient's as well. I have also reviewed reports of imaging as provided by radiology.
[2019-01-29] MEDS ORDERED: Ondansetron 4 MG/2 ML VIAL IVP ONE (16:16)
[2019-01-29] MEDS ORDERED: *HR* FentaNYL (PF) 100 MCG/2 ML VIAL IVP ONE (16:16)
[2019-01-29] MEDS ORDERED: cefTRIAXone 2,000 MG in Water for inj. (sterile) 20 ML IVP ONE (16:25)
[2019-01-29 16:36] LABS: Basophils % 0.2 %; Hematocrit 39.1 % (35.3-44.9); Hemoglobin 12.8 g/dL (11.5-15.4); Immature Granulocytes % 0.5 % (0-4); Lymphocytes # 0.5 K/mcL (0.6-4.6); Lymphocytes % 4.9 %; Mean Corpuscular HGB Conc 32.7 g/dL (31.6-35.5); Mean Corpuscular Hemoglobin 30.3 pg (28.0-33.3); Mean Corpuscular Volume 92.7 fL (83.0-100.0); Mean Platelet Volume 10.4 fL (9.4-12.4); Monocytes # 0.4 K/mcL (0.0-1.3); Monocytes % 4.2 %; Neutrophils # 9.2 K/mcL (1.6-8.9); Platelet Count 152 K/mcL (140-400); Red Blood Count 4.22 M/mcL (3.82-4.97); Red Cell Distribution Width 13.5 % (11.5-14.5); Segmented Neutrophils % 90.2 %; White Blood Count 10.2 K/mcL (4.3-11.1)
[2019-01-29] MEDS ORDERED: Ipratropium/Albuterol Neb 3 ML IH ONE (16:38)
[2019-01-29 16:49] LABS: BUN/Creatinine Ratio 18 (6-26); Blood Urea Nitrogen 17 mg/dL (8-23); Calcium 8.5 mg/dL (8.6-10.3); Carbon Dioxide 26 mEq/L (23-29); Chloride 99 mEq/L (98-107); Glucose 104 mg/dL (70-105); Osmolality,Calculated 280 (280-300); Potassium 3.4 mEq/L (3.5-5.1); Sodium 134 mEq/L (136-145); eGFR For African Americans > 60 (> 60); eGFR For Non-African Americans 60 (> 60)
[2019-01-29 17:00] LABS: INR 1.9; Prothrombin Time 21.9 Seconds (9.4-12.1)
[2019-01-29 17:03] LABS: Activated Partial Thrombo Time 36.3 Seconds (26.0-36.0)
[2019-01-29 17:05] LABS: Magnesium 1.7 mg/dL (1.6-2.6); Phosphorous 1.9 mg/dL (2.7-4.5); Troponin I < 0.03 ng/mL (< 0.04)
[2019-01-29] MEDS ORDERED: Potassium Chloride Elixir 20 MEQ/15 ML UDC PO ONE (17:29)
[2019-01-29 19:02] LABS: Bilirubin,Urine Negative (Negative); Blood,Urine Negative (Negative); Clarity,Urine Clear (Clear); Color,Urine Dark Yellow (Yellow); Glucose,Urine (UA) Normal (Normal); Ketones,Urine Negative (Negative); Leukocyte Esterase,Urine Negative (Negative); Nitrite,Urine Negative (Negative); PH,Urine 5.5 pH Units (5.0-8.0); Protein,Urine Negative (Neg-Trace); Urobilinogen,Urine Normal (Normal)
[2019-01-29] MEDS ORDERED: Furosemide 40 MG/4 ML VIAL IVP ONE (19:51)
--- NOTE | 2019-01-29 20:46 | Emergency Department Note ---
Disposition Clinical Impression: Bilateral lower leg cellulitis Acute exacerbation of CHF (congestive heart failure) Qualifiers: Heart failure type: unspecified Qualified Code(s): I50.9 - Heart failure, unspecified Cellulitis Qualifiers: Site of cellulitis: extremity Site of cellulitis of extremity: lower extremity Laterality: unspecified laterality Qualified Code(s): L03.119 - Cellulitis of unspecified part of limb Disposition: Admitted As Inpatient Referrals: Joy Finnegan MD [Primary Care Provider] - Forms: ED Satisfaction Letter Time of Disposition: 19:15 General Adult HPI - General Chief complaint: ED Skin/Abscess/Foreign Body Stated complaint: Cellulitis Time Seen by Provider: 01/29/19 16:02 Source: patient, EMS Mode of arrival: EMS Limitations: physical limitation Nursing Notes Reviewed: Yes Vital Signs Reviewed: Yes - History of Present Illness Pain Scale: 10 - Related Data Home Medications Medication Instructions Recorded Confirmed Albuterol Sulfate [Proventil 2 puff IH Q4H PRN 04/23/17 09/27/18 Inhaler] Docusate [Colace] 100 mg PO BID PRN 04/23/17 09/27/18 Furosemide [Lasix] 40 mg PO DAILY 04/23/17 09/27/18 Magnesium Oxide [Magnesium] 400 mg PO DAILY 04/23/17 09/27/18 Ranitidine HCl [Acid Energy Conservation Director] 150 mg PO BID 04/23/17 09/27/18 Clotrimazole/Betamethasone Dip 1 appl TP TID PRN 01/05/18 09/27/18 [Lotrisone Cream] Duloxetine HCl [Cymbalta] 60 mg PO HS 01/05/18 09/27/18 Ascorbic Acid [Vitamin C] 1,000 mg PO DAILY 07/20/18 09/27/18 Beclomethasone Dip 40mcg REDIH 2 puff IH BID PRN 07/20/18 09/27/18 [Qvar 40 Mcg Redihaler] Spironolactone 25 mg PO DAILY 07/20/18 09/27/18 Vitamin E Acetate [Vitamin E] 400 unit PO BID 07/20/18 09/27/18 Ferrous Sulfate 325 mg PO DAILY 07/24/18 09/27/18 Tiotropium [place] [Spiriva 1 puff IH DAILY 09/25/18 09/27/18 Respimat] Calcium Carbonate/Vitamin D3 1 tab PO BID 09/27/18 09/27/18 [Calcium 600 + Vit D Tablet] Diltiazem HCl [Diltiazem 24Hr Cd] 240 mg PO DAILY 09/27/18 09/27/18 Polyethylene Glycol 3350 17 gm PO DAILY PRN 09/27/18 09/27/18 [Natura-Lax] dilTIAZem HCl [Diltiazem 24Hr ER] 120 mg PO DAILY 09/27/18 09/27/18 Previous Rx's Medication Instructions Recorded Cetirizine HCl [Zyrtec] 10 mg PO QPM #30 capsule 09/26/18 PredniSONE [Deltasone] 20 mg PO QDPC #26 tablet 09/26/18 Triamcinolone Acet 0.1% CRM 453.6 gm TP BID PRN #1 cream..g. 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 - Social History Smoking Status: Never smoker Smokeless Tobacco Status: No Alcohol use: Reports: none Drug use: Reports: none Physical Exam - General Limitations: physical limitation General appearance: alert, anxious Course Vital Signs Temperature 100.1 F H 01/29/19 16:01 Pulse Rate 113 01/29/19 16:01 Respiratory Rate 20 01/29/19 16:01 Blood Pressure 147/76 01/29/19 16:01 O2 Sat by Pulse Oximetry 91 01/29/19 16:01 Temperature 100.1 F H 01/29/19 16:01 Pulse Rate 94 01/29/19 19:11 Respiratory Rate 22 01/29/19 19:11 Blood Pressure 130/74 01/29/19 19:11 O2 Sat by Pulse Oximetry 97 01/29/19 19:11 Oxygen Delivery Oxygen Delivery Nasal Cannula Medical Decision Making - Lab Data Result diagrams: 01/29/19 16:12 01/29/19 16:12 Lab Results 01/29/19 01/29/19 01/29/19 Range/Units 16:12 16:12 16:12 WBC 10.2 (4.3-11.1) K/mcL RBC 4.22 (3.82-4.97) M/mcL Hgb 12.8 (11.5-15.4) g/dL Hct 39.1 (35.3-44.9) % MCV 92.7 (83.0-100.0) fL MCH 30.3 (28.0-33.3) pg MCHC 32.7 (31.6-35.5) g/dL RDW 13.5 (11.5-14.5) % Plt Count 152 (140-400) K/mcL MPV 10.4 (9.4-12.4) fL Immature Gran % 0.5 (0-4) % Seg Neutrophils % 90.2 % Lymphocytes % 4.9 % Monocytes % 4.2 % Eosinophils % 0.0 % Basophils % 0.2 % Neutrophils # 9.2 H (1.6-8.9) K/mcL Lymphocytes # 0.5 L (0.6-4.6) K/mcL Monocytes # 0.4 (0.0-1.3) K/mcL Eosinophils # 0.0 (0.0-0.6) K/mcL Basophils # 0.0 (0.0-0.2) K/mcL PT (9.4-12.1) Seconds INR APTT (26.0-36.0) Seconds D-Dimer (0-500) ng/mLFEU Sodium 134 L (136-145) mEq/L Potassium 3.4 L (3.5-5.1) mEq/L Chloride 99 (98-107) mEq/L Carbon Dioxide 26 (23-29) mEq/L BUN 17 (8-23) mg/dL Creatinine 0.92 (0.60-1.20) mg/dL Est GFR ( Amer) > 60 (> 60) Est GFR (Non-Af Amer) 60 (> 60) BUN/Creatinine Ratio 18 (6-26) Glucose 104 (70-105) mg/dL Calculated Osmolality 280 (280-300) Lactic Acid 1.0 (0.5-2.2) mmol/L Calcium 8.5 L (8.6-10.3) mg/dL Phosphorus 1.9 L (2.7-4.5) mg/dL Magnesium 1.7 (1.6-2.6) mg/dL Troponin I < 0.03 (< 0.04) ng/mL B-Natriuretic Peptide (Less than 100) pg/mL Urine Color (Yellow) Urine Clarity (Clear) Urine pH (5.0-8.0) pH Units Ur Specific [place] (1.010-1.025) Urine Protein (Neg-Trace) mg/dL Urine Glucose (UA) (Normal) mg/dL Urine Ketones (Negative) mg/dL Urine Blood (Negative) Urine Nitrite (Negative) Urine Bilirubin (Negative) Urine Urobilinogen (Normal) mg/dL Ur Leukocyte Esterase (Negative) Ur Culture Indicated? (NO) 01/29/19 01/29/19 01/29/19 Range/Units 16:12 16:12 18:42 WBC (4.3-11.1) K/mcL RBC (3.82-4.97) M/mcL Hgb (11.5-15.4) g/dL Hct (35.3-44.9) % MCV (83.0-100.0) fL MCH (28.0-33.3) pg MCHC (31.6-35.5) g/dL RDW (11.5-14.5) % Plt Count (140-400) K/mcL MPV (9.4-12.4) fL Immature Gran % (0-4) % Seg Neutrophils % % Lymphocytes % % Monocytes % % Eosinophils % % Basophils % % Neutrophils # (1.6-8.9) K/mcL Lymphocytes # (0.6-4.6) K/mcL Monocytes # (0.0-1.3) K/mcL Eosinophils # (0.0-0.6) K/mcL Basophils # (0.0-0.2) K/mcL PT 21.9 H (9.4-12.1) Seconds INR 1.9 APTT 36.3 H (26.0-36.0) Seconds D-Dimer 469 (0-500) ng/mLFEU Sodium (136-145) mEq/L Potassium (3.5-5.1) mEq/L Chloride (98-107) mEq/L Carbon Dioxide (23-29) mEq/L BUN (8-23) mg/dL Creatinine (0.60-1.20) mg/dL Est GFR ( Amer) (> 60) Est GFR (Non-Af Amer) (> 60) BUN/Creatinine Ratio (6-26) Glucose (70-105) mg/dL Calculated Osmolality (280-300) Lactic Acid (0.5-2.2) mmol/L Calcium (8.6-10.3) mg/dL Phosphorus (2.7-4.5) mg/dL Magnesium (1.6-2.6) mg/dL Troponin I (< 0.04) ng/mL B-Natriuretic Peptide 346 H (Less than 100) pg/mL Urine Color Dark Yellow (Yellow) Urine Clarity Clear (Clear) Urine pH 5.5 (5.0-8.0) pH Units Ur Specific [place] 1.020 (1.010-1.025) Urine Protein Negative (Neg-Trace) mg/dL Urine Glucose (UA) Normal (Normal) mg/dL Urine Ketones Negative (Negative) mg/dL Urine Blood Negative (Negative) Urine Nitrite Negative (Negative) Urine Bilirubin Negative (Negative) Urine Urobilinogen Normal (Normal) mg/dL Ur Leukocyte Esterase Negative (Negative) Ur Culture Indicated? NO (NO) Attestation Statement - Attestation Attestation: I have seen this patient with the resident physician, I have personally evaluated this patient. I had reviewed the chart and document dictation by the resident physician and aM in agreement with the information documented by the resident physician. Please see documentation by the resident physician for complete chart including past medical history, family medical history, review of systems, current history and physical and laboratory and imaging studies. I was present for all procedures, provided direct supervision for all procedures, was present for the entirety of all procedures and provided direct guidance during the procedures. Please see documentation by the resident physic charles for any procedures performed. I have reviewed all interpretations of EKGs, and reviewed all EKGs performed on patient's as well. I have also reviewed reports of imaging as provided by radiology. Patient presented to the emergency department with chief complaint of progressively increasing leg pain and redness and swelling, slightly increased cough but no significant increase in her chronic shortness of breath. No chest pain. She states the pain and swelling and redness is in her left leg. She has had subjective fevers. No significant abdominal pain nausea vomiting or diarrhea. On physical examination she is alert oriented 3 nontoxic in appearance. Cranial nerves are grossly intact. Lungs reveal some scattered coarse wheezes, slight upon expiratory phase. No crackles no rales or rhonchi. Abdomen is morbidly obese, no obvious CVA areas of tenderness, some very mild left anterior abdominal wall tenderness, or she reports she had a hematoma in the past. Left lower extremity and right lower extremity both reveal significant edema, left greater than right, with significant erythema warmth and slight weeping, no sloughing of the skin no palpable crepitus no bruising no blistering, the erythema extends up to the thigh. Does not extend into the groin with no evidence of perineal cellulitis. Sepsis order set was utilized that she did have vital signs consistent with systemic inflammatory response syndrome upon arrival. Basic laboratory studies were within acceptable limits without lactic acidosis. Mildly elevated BNP. EKG was unchanged from prior EKG. Chest x-ray showed evidence to suggest interstitial edema and CHF. Ultrasound was negative for DVT d-dimer was negative, and patient is on Coumadin INR was 1.9. Patient given IV antibiotics and admitted for significant left lower extremity cellulitis as well as evidence for CHF.
[2019-01-30] MEDS ORDERED: Naloxone 0.4 MG/ML INJ IVP PRN (04:23)
--- NOTE | 2019-01-30 04:28 | Internal Med History&Physical ---
Date of Encounter: 01/30/19 Time of Encounter: 00:40 Internal Medicine - H&P: HPI Chief complaint: Cellulitis Admitted From: Emergency Dept Plans for Post Hospital Care: Home History of present illness: Ms. Veloz is a 73 year old female Patient presented to the emergency department with swelling in her lower legs. She is also had pain and redness left worse than right that is progressively increased over the last 2 days. She had recently been seen by a lapidary apprentice for her cellulitis and was prescribed a topical ointment. She has been using this at home but the redness and pain has increased. She also had completed a dose of antibiotics a few months ago as well. In the emergency department patient's initial vital signs demonstrated a temperature of 100.1 initially with a pulse of 113 and respiratory rate of 20. She had oxygen saturation of 91 on room air improved with 2 L of nasal cannula. Blood pressures 147/76. CBC Within normal limits BMP demonstrated a potassium of 3.4 and a sodium of 134. Troponin undetectable BNP 346 Magnesium 1.7 Phosphorus 1.9 Urinalysis negative for infection Chest x-ray showed pulmonary edema EKG showed atrial fibrillation with a rate of 99. QTc 466. No ischemic changes In the emergency department patient received a dose of ceftriaxone 2 g, vancomycin, breathing treatments, 40 mg of IV Lasix and oral potassium chloride. She was admitted to the hospital for further management. Blood cultures were drawn. Upon my evaluation, patient is resting comfortably in the hospital bed in no acute distress. She denies chest pain, abdominal pain, nausea, vomiting, d iarrhea and constipation. His have pain with palpation of her lower extremities. She has had cellulitis in the past but has never been quite this bad. She is a full code. Past Med Surg Social Fam HX - Past Medical History Medical history: atrial fibrillation, cancer, CHF, COPD, hypertension, osteoporosis Additional medical history: breast cancer, sleep apnea non compliant with cpap machine Psychiatric history: depression - Past Surgical History Surgical History: breast surgery Additional surgical history: lumpectomy - Social History Smoking Status: Never smoker Smokeless Tobacco Status: No Alcohol use: none Drug use: none - Family History Father Adopted: No Family Member Ethnicity: Non- Living Status: Hx Family Cardiac Disorders: Yes Hx Family Respiratory Disorders: No Hx Family Cancer: No Hx Family GI Disorders: No Hx Family Endocrine Disorder: Yes (Diabetes) Hx Family Neuromuscular Disorders: No Hx Family Neurologic Disorders: No Hx Family HEENT Disorders: No Hx Family Autoimmune Disorders: No Mother Living Status: Hx Family Cardiac Disorders: No Hx Family Respiratory Disorders: No Hx Family Cancer: Yes (Breast) Hx Family GI Disorders: No Hx Family Endocrine Disorder: No Hx Family Neuromuscular Disorders: No Hx Family Neurologic Disorders: No Hx Family HEENT Disorders: No Hx Family Autoimmune Disorders: No Internal Medicine - H&P: Meds Albuterol Sulfate [Proventil Inhaler] 2 puff IH Q4H PRN 04/23/17 [History] Docusate [Colace] 100 mg PO BID PRN 04/23/17 [History] Magnesium Oxide [Magnesium] 400 mg PO DAILY 04/23/17 [History] Ranitidine HCl [Acid Hair Clipper Power] 150 mg PO BID 04/23/17 [History] Duloxetine HCl [Cymbalta] 60 mg PO HS 01/05/18 [History] Ascorbic Acid [Vitamin C] 1,000 mg PO DAILY 07/20/18 [History] Beclomethasone Dip 40mcg REDIH [Qvar 40 Mcg Redihaler] 2 puff IH BID 07/20/18 [History] Spironolactone 25 mg PO DAILY 07/20/18 [History] Vitamin E Acetate [Vitamin E] 400 unit PO BID 07/20/18 [History] Ferrous Sulfate 325 mg PO DAILY 07/24/18 [History] Tiotropium [place] [Spiriva Respimat] 2 puff IH DAILY 09/25/18 [History] Calcium Carbonate/Vitamin D3 [Calcium 600 + Vit D Tablet] 1 tab PO BID 09/27/18 [History] Polyethylene Glycol 3350 [Natura-Lax] 17 gm PO DAILY PRN 09/27/18 [History] Diltiazem CD (24hr) [Cardizem CD] 120 mg PO DAILY 01/29/19 [History] Diltiazem CD (24hr) [Cardizem CD] 240 mg PO DAILY 01/29/19 [History] Furosemide [Lasix] 40 mg PO BID 01/29/19 [History] Loratadine [Claritin] 10 mg PO DAILY 01/29/19 [History] Triamcinolone Acet 0.1% CRM [Kenalog] 1 each TP BID PRN 01/29/19 [History] Warfarin [Coumadin] 2.5 mg PO MOWEFR 01/29/19 [History] Warfarin [Coumadin] 5 mg PO SUTUTHSA 01/29/19 [History] hydrOXYzine HCl [Hydroxyzine HCl] 50 mg PO HS 01/29/19 [History] Allergy/AdvReac Type Severity Reaction Status Date / Time doxycycline Allergy Rash Verified 09/27/18 15:26 gabapentin [From Neurontin] Allergy See Verified 09/27/18 15:26 Comments Penicillins [PCN] Allergy Rash Verified 09/27/18 15:26 All Systems PM: A 10-system review of systems was performed and is negative for pertinent findings except as documented above in the HPI. - Constitutional Vitals: Temp Pulse Resp BP Pulse Ox 99.2 F 78 14 125/75 91 01/30/19 00:23 01/30/19 00:23 01/30/19 00:23 01/30/19 00:23 01/30/19 00:23 General appearance: Present: cooperative, A&O X 3, pleasant, no acute distress, answers questions appropriately Exam: - - Head Head exam: Present: normal inspection - Eye Eye exam: Present: EOMI, normal appearance - Respiratory Respiratory exam: Present: CTAB. Absent: rales, respiratory distress, rhonchi, wheezes - Cardiovascular Cardiovascular exam: Present: irregular rhythm. Absent: diastolic murmur, systolic murmur - GI/Abdominal GI/Abdominal exam: Present: normal bowel sounds, soft. Absent: tenderness - Extremities Exam Extremities exam: Present: pedal edema, tenderness, warm, radial pulses palpable and symmetrical Additional comments: Left leg greater than right leg cellulitis and redness from knee down. Tenderness to palpation. 2+ pitting edema bilaterally. No obvious discharge from wounds. Multiple small scabbed over lesions in various phases of healing. - Neurological Exam Neurological exam: Present: no focal deficits, strengths equal and symetr throughout. Absent: motor sensory deficit, facial droop, speech deficit - Skin Skin exam: Present: dry, erythema, warm Additional comments: As above lower extremity edema left worse than right in the lower legs Internal Med - H&P Results - Labs CBC & Chem 7: 01/29/19 16:12 01/29/19 16:12 Labs: Short CBC 01/29/19 Range/Units 16:12 WBC 10.2 (4.3-11.1) K/mcL Hgb 12.8 (11.5-15.4) g/dL Hct 39.1 (35.3-44.9) % Plt Count 152 (140-400) K/mcL Neutrophils # 9.2 H (1.6-8.9) K/mcL BMP 01/29/19 16:12 Sodium 134 L Potassium 3.4 L Chloride 99 Carbon Dioxide 26 BUN 17 Creatinine 0.92 Glucose 104 Calcium 8.5 L Cardiac Enzymes 01/29/19 Range/Units 16:12 Troponin I < 0.03 (< 0.04) ng/mL Urine 01/29/19 Range/Units 18:42 Urine Color Dark Yellow (Yellow) Urine Clarity Clear (Clear) Urine pH 5.5 (5.0-8.0) pH Units Ur Specific [place] 1.020 (1.010-1.025) Urine Protein Negative (Neg-Trace) mg/dL Urine Glucose (UA) Normal (Normal) mg/dL - Impressions ITS Impressions Chest X-Ray 01/29/19 18:05 IMPRESSION: Perihilar predominant airspace disease with indistinctness the pulmonary vasculature suspicious for pulmonary edema. D/ / Leny Fountain Cha, MD / Leny Fountain Cha, MD Interpreting Provider: Leny Fountain Cha, MD - Assessment and Plan (1) Cellulitis Current Visit: Yes Status: Acute Assessment and plan: Left lower extremity worse than right lower extremity. Tenderness with palpation on exam. Follow-up blood cultures when available Continue Vancomycin and ceftriaxone Wound care consult Monitor for worsening signs of infection Qualifiers: Site of cellulitis: extremity Site of cellulitis of extremity: lower extremity Laterality: unspecified laterality Qualified Code(s): L03.119 - Cellulitis of unspecified part of limb (2) CHF (congestive heart failure) Current Visit: No Status: Chronic Assessment and plan: Patient received a 40 mg dose of Lasix in the ER. Continue IV Lasix Strict I's and O's Daily weights Echocardiogram in the morning Qualifiers: Heart failure type: diastolic Heart failure chronicity: unspecified Qualified Code(s): I50.30 - Unspecified diastolic (congestive) heart failure (3) Hypokalemia Current Visit: Yes Status: Acute Assessment and plan: Mildly low potassium at 3.4. She received 40 mEq of oral potassium in the ER. Repeat labs in the morning (4) Hypophosphatemia Current Visit: Yes Status: Acute Assessment and plan: Phosphorus was 1.9. Calcium level mildly low at 8.5. Replete phosphorus Repeat lab once IV phosphorus completed (5) Afib Current Visit: No Status: Acute Assessment and plan: Patient takes diltiazem and warfarin at home. Continue home meds Pharmacy dosing warfarin Qualifiers: Atrial fibrillation type: chronic Qualified Code(s): I48.2 - Chronic atrial fibrillation (6) Morbid obesity Current Visit: No Status: Acute Assessment and plan: BMI 56.5. (7) DVT prophylaxis Current Visit: No Status: Acute Assessment and plan: Continue warfarin Pharmacy to dose Repeat INR in the morning - Time Spent With Patient Total time spent is greater than 50% in coordination of care (as documented) at patient's floor/unit and/or counseling patient: Greater than 35 minutes
[2019-01-30 05:53] LABS: Mean Corpuscular HGB Conc 32.4 g/dL (31.6-35.5); Mean Corpuscular Hemoglobin 30.3 pg (28.0-33.3); Mean Corpuscular Volume 93.4 fL (83.0-100.0); Mean Platelet Volume 10.2 fL (9.4-12.4); Platelet Count 122 K/mcL (140-400); Red Blood Count 3.96 M/mcL (3.82-4.97); Red Cell Distribution Width 13.6 % (11.5-14.5); White Blood Count 6.3 K/mcL (4.3-11.1)
[2019-01-30 05:58] LABS: INR 1.8; Prothrombin Time 20.3 Seconds (9.4-12.1)
[2019-01-30 06:12] LABS: BUN/Creatinine Ratio 19 (6-26); Blood Urea Nitrogen 17 mg/dL (8-23); Calcium 8.4 mg/dL (8.6-10.3); Carbon Dioxide 27 mEq/L (23-29); Chloride 102 mEq/L (98-107); Glucose 110 mg/dL (70-105); Osmolality,Calculated 286 (280-300); Potassium 3.3 mEq/L (3.5-5.1); Sodium 137 mEq/L (136-145); eGFR For African Americans > 60 (> 60); eGFR For Non-African Americans > 60 (> 60)
[2019-01-30] MEDS ORDERED: Potassium Chloride Elixir 20 MEQ/15 ML UDC PO ONE (07:56)
[2019-01-30] MEDS: Diltiazem CD (24hr) 120 MG CAPSULE PO SCH (09:30)
[2019-01-30] MEDS: cefTRIAXone 1,000 MG in Water for inj. (sterile) 10 ML IVP SCH (09:30)
[2019-01-30] MEDS: Furosemide 40 MG/4 ML VIAL IVP SCH (09:30)
[2019-01-30] MEDS: Diltiazem CD (24hr) 240 MG CAPSULE PO SCH (09:30)
[2019-01-30] MEDS ORDERED: Perflutren Lipid Microsphere 1.3 ML in 0.9 % Sodium Chloride 8.7 ML IVP ONE (15:09)
[2019-01-30] MEDS ORDERED: Warfarin perPT PO PRN (18:00)
[2019-01-30] MEDS ORDERED: *HR* Warfarin 5 MG TABLET PO ONE (18:00)
--- NOTE | 2019-01-30 18:27 | Event Note ---
Date of Encounter: 01/30/19 Time of Encounter: 10:00 H/p reviewed. Patient came in here because of lower extremity swelling and left leg edema, erythema, warmth and yellowish discharge. She has been treated with Rocephin and vancomycin for left lower extremity cellulitis. Patient had low temp overnight however she did not have any temperature during the day. She remained hemodynamically stable throughout. Infectious workup including blood cultures are still pending. MRSA swab is pending, and cultures from the leg discharge still pending. She is also on IV Lasix for her leg swelling. We will continue and monitor her input and output. We will check INR for Coumadin tomorrow. Patient was also found to have pulmonary edema on her chest x-ray. IV Lasix will be given as well. Echocardiogram is ordered and is pending.
[2019-01-30] MEDS: hydrOXYzine pamoate 25 MG CAPSULE PO SCH (21:14)
[2019-01-31 05:26] LABS: Hematocrit 39.9 % (35.3-44.9); Hemoglobin 12.5 g/dL (11.5-15.4); Mean Corpuscular HGB Conc 31.3 g/dL (31.6-35.5); Mean Corpuscular Hemoglobin 29.6 pg (28.0-33.3); Mean Corpuscular Volume 94.5 fL (83.0-100.0); Platelet Count 136 K/mcL (140-400); Red Blood Count 4.22 M/mcL (3.82-4.97); Red Cell Distribution Width 13.6 % (11.5-14.5); White Blood Count 6.1 K/mcL (4.3-11.1)
[2019-01-31 05:33] LABS: INR 1.5
[2019-01-31 05:46] LABS: BUN/Creatinine Ratio 21 (6-26); Blood Urea Nitrogen 21 mg/dL (8-23); Calcium 8.8 mg/dL (8.6-10.3); Carbon Dioxide 30 mEq/L (23-29); Chloride 101 mEq/L (98-107); Glucose 121 mg/dL (70-105); Osmolality,Calculated 294 (280-300); Potassium 3.9 mEq/L (3.5-5.1); Sodium 140 mEq/L (136-145); eGFR For African Americans > 60 (> 60); eGFR For Non-African Americans 54 (> 60)
[2019-01-31] MEDS: Diltiazem CD (24hr) 120 MG CAPSULE PO SCH (09:10)
[2019-01-31] MEDS: Diltiazem CD (24hr) 240 MG CAPSULE PO SCH (09:10)
[2019-01-31] MEDS: cefTRIAXone 1,000 MG in Water for inj. (sterile) 10 ML IVP SCH (09:11)
[2019-01-31] MEDS: Furosemide 40 MG/4 ML VIAL IVP SCH (09:11)
[2019-01-31] MEDS: Ascorbic Acid 500 MG TABLET PO SCH (09:25)
[2019-01-31] MEDS: Loratadine 10 MG TABLET PO SCH (09:25)
[2019-01-31] MEDS: Famotidine 20 MG TABLET PO SCH ×2 (09:25→20:19)
[2019-01-31] MEDS: Magnesium Oxide 400 MG TABLET PO SCH (09:25)
[2019-01-31] MEDS: Tiotropium 18 MCG inhalation IH SCH (11:14)
--- NOTE | 2019-01-31 13:54 | Internal Med Progress Note ---
Hospitalist Progress Note - Encounter Date of Encounter: 01/31/19 Time of Encounter: 10:10 - Exam Vitals: Temp Pulse Resp BP Pulse Ox 98.3 F 98 16 137/81 95 01/31/19 10:28 01/31/19 10:28 01/31/19 10:28 01/31/19 10:28 01/31/19 10:28 Exam: -General: Patient is alert, oriented 3. No distress Head: Atraumatic, normal inspection, normocephalic. Eye: EOMI, PERRLA, no scleral icterus noted. ENT: Mucous membranes moist. No odontogenic infection noted. Neck: Normal inspection, no meningismus. Respiratory: Bilateral bibasilar crackles. Cardiovascular: Regular rate and regular rhythm, S1 and S2 audible. Systolic murmur. The right sternal border. GI: Soft, nondistended, normal bowel sounds. Extremities: Left leg dressing, erythema noted up to the medial thigh. Neurological: Alert, oriented 3, no focal deficits. Psychiatric: normal affect, normal mood. Skin: Dry, intact, warm. Normal color. No rashes. - Assessment and Plan (1) Left leg cellulitis Current Visit: Yes Status: Acute (2) Morbid obesity Current Visit: No Status: Acute (3) Afib Current Visit: Yes Status: Chronic (4) Hypokalemia Current Visit: Yes Status: Resolved (5) Hypophosphatemia Current Visit: Yes Status: Resolved (6) Morbid obesity with BMI of 50.0-59.9, adult Current Visit: Yes Status: Chronic (7) DVT prophylaxis Current Visit: No Status: Acute - Summary of Assessment and Plan Summary of Assessment and Plan: 73-year-old female with history of morbid obesity, heart failure preserved ejection fraction, atrial fibrillation, COPD, DIANNE, breast cancer who is managing the hospital for left leg cellulitis. Left leg cellulitis: - Continue renally dosed vancomycin and Rocephin, day 3. Vancomycin trough level is 16. - Blood cultures are pending, MRSA swab is +, discharge cultures from the wound is still pending. - Patient is afebrile, hemodynamically stable. Has no leukocytosis. Acute decompensated HFpEF: - Likely secondary to tachycardia and infection at presentation. - She is on Lasix 40 mg IV daily. We may switch to monitor her home dose 40 mg by mouth twice a day. - Echo revealed preserved ejection fraction. - I&o -1.5L. COPD: - Not in acute exacerbation. Continue home dose inhalers. Atrial fibrillation: - Continue Coumadin, monitor INR - Continue home dose diltiazem Morbid obesity with BMI of 56: - Life style modification recommended. DVT prophylaxis: On Coumadin Disposition: BMAT 3, Consult PT/OT I reviewed independently all laboratory workup, pertinent images including x- rays and CT scans. I also reviewed independently and EKGs and my findings are in the body of my assessment and plan. I ordered the laboratory workup and images myself. I discussed finding with patient's, their families, RN's and consultants involved in the care of the patient. - Time Spent with Patient Total time spent is greater than 50% in coordination of care (as documented) at patient's floor/unit and/or counseling patient: Greater than 35 minutes Plan of Care Discussed with: patient Internal Medicine: Result - Labs CBC & Chem 7: 01/31/19 05:15 01/31/19 05:15 Labs: Short CBC 01/31/19 Range/Units 05:15 WBC 6.1 (4.3-11.1) K/mcL Hgb 12.5 (11.5-15.4) g/dL Hct 39.9 (35.3-44.9) % Plt Count 136 L (140-400) K/mcL BMP 01/31/19 05:15 Sodium 140 Potassium 3.9 Chloride 101 Carbon Dioxide 30 H BUN 21 Creatinine 1.00 Glucose 121 H Calcium 8.8 - ABG Interpretation ABG results: PT/INR, D-dimer PT 17.0 Seconds (9.4-12.1) H 01/31/19 05:15 D-Dimer 469 ng/mLFEU (0-500) 01/29/19 16:12 - Impressions Impressions Echocardiogram 01/30/19 04:51 Impressions: All LV wall not well visualized, grossly normal systolic function. Indeterminate diastolic function. Grossly normal right ventricular structure and function. Mildly dilated left atrium. Mild tricuspid regurgitation. Unable to estimate RVSP due to lack of IVC visualization. Recommend limited echo with definity when IV access available. Left Ventricular Wall Motion: Rest Echo Findings The apex, apical inferior, mid inferior, basal inferior, apical anterior, mid anterior, basal anterior, apical septal, mid inferior septal, basal inferior septal, apical lateral, mid anterior lateral and basal anterior lateral bangura were not visualized. All other wall segments showed normal motion. Findings: Study Quality * Technically sub-optimal due to poor echocardiographic windows, need definity. ECG Findings * IIR, likely atrial fibrillation. Left Ventricle * All LV wall not well visualized, grossly normal systolic function. * Normal LV chamber size, wall thickness. * Indeterminate diastolic function. * Definity echo contrast was not used. Right Ventricle * RV not well visualized, grossly normal right ventricular structure and function. Left Atrium * Mildly dilated left atrium. Right Atrium * Right atrium is not well visualized. Interatrial Septum * Interatrial septum not well evaluated. Aortic Valve * Aortic valve not well visualized. * No aortic stenosis. * No aortic regurgitation. Mitral Valve * Mitral valve not well visualized. * No mitral stenosis. * No mitral regurgitation. Tricuspid Valve * Normal tricuspid valve structure. * No tricuspid stenosis. * Mild tricuspid regurgitation. * Unable to estimate RVSP due to lack of IVC visualization. * Estimated RV-RA gradient 29 mmHg. Pulmonic Valve * Pulmonic valve is not well visualized. * No pulmonic stenosis. * No pulmonic regurgitation. Aorta * Normally sized aortic root. Pericardium * The pericardium appears normal. IVC * The IVC is not well evaluated. Consult Discharge Plan - Plan Referrals: Joy Finnegan MD [Primary Care Provider] - (3) Afib Qualifiers: Atrial fibrillation type: chronic Qualified Code(s): I48.2 - Chronic atrial fibrillation
[2019-01-31] MEDS ORDERED: Triamcinolone Acet 0.1% CRM 15 GM TUBE TP PRN (14:06)
[2019-01-31] MEDS ORDERED: *HR* Warfarin 5 MG TABLET PO ONE (18:00)
[2019-01-31] MEDS: VITAMIN E ACETATE PO SCH (20:19)
[2019-01-31] MEDS: hydrOXYzine pamoate 25 MG CAPSULE PO SCH (20:19)
[2019-02-01 06:54] LABS: INR 1.5; Prothrombin Time 16.8 Seconds (9.4-12.1)
[2019-02-01] MEDS: Tiotropium 18 MCG inhalation IH SCH (07:57)
[2019-02-01] MEDS: Diltiazem CD (24hr) 240 MG CAPSULE PO SCH (09:30)
[2019-02-01] MEDS: Diltiazem CD (24hr) 120 MG CAPSULE PO SCH (09:30)
[2019-02-01] MEDS: Loratadine 10 MG TABLET PO SCH (09:31)
[2019-02-01] MEDS: Furosemide 40 MG/4 ML VIAL IVP SCH ×2 (09:31→18:39)
[2019-02-01] MEDS: Magnesium Oxide 400 MG TABLET PO SCH (09:31)
[2019-02-01] MEDS: Ascorbic Acid 500 MG TABLET PO SCH (09:31)
[2019-02-01] MEDS: VITAMIN E ACETATE PO SCH ×2 (09:31→20:50)
[2019-02-01] MEDS: Famotidine 20 MG TABLET PO SCH ×2 (09:31→20:49)
[2019-02-01] MEDS: cefTRIAXone 1,000 MG in Water for inj. (sterile) 10 ML IVP SCH (09:32)
[2019-02-01 12:41] LABS: Basophils % 0.4 %; Eosinophils # 0.1 K/mcL (0.0-0.6); Eosinophils % 1.9 %; Hematocrit 38.7 % (35.3-44.9); Hemoglobin 12.4 g/dL (11.5-15.4); Immature Granulocytes % 0.4 % (0-4); Lymphocytes # 0.4 K/mcL (0.6-4.6); Lymphocytes % 8.1 %; Mean Corpuscular Hemoglobin 29.7 pg (28.0-33.3); Mean Corpuscular Volume 92.8 fL (83.0-100.0); Mean Platelet Volume 10.5 fL (9.4-12.4); Monocytes # 0.5 K/mcL (0.0-1.3); Monocytes % 9.8 %; Neutrophils # 3.7 K/mcL (1.6-8.9); Platelet Count 164 K/mcL (140-400); Red Blood Count 4.17 M/mcL (3.82-4.97); Red Cell Distribution Width 13.2 % (11.5-14.5); Segmented Neutrophils % 79.4 %; White Blood Count 4.7 K/mcL (4.3-11.1)
[2019-02-01 12:43] LABS: VBG HCO3 28 mEq/L (21-27); VBG PCO2 41 mmHg (41-51); VBG PH 7.45 pH Units (7.32-7.42); VBG PO2 167 mmHg (25-50)
[2019-02-01 12:52] LABS: BUN/Creatinine Ratio 25 (6-26); Blood Urea Nitrogen 21 mg/dL (8-23); Carbon Dioxide 28 mEq/L (23-29); Chloride 99 mEq/L (98-107); Creatine Kinase 10 Units/L (30-223); Glucose 111 mg/dL (70-105); Osmolality,Calculated 286 (280-300); Potassium 3.7 mEq/L (3.5-5.1); Sodium 136 mEq/L (136-145); eGFR For African Americans > 60 (> 60); eGFR For Non-African Americans > 60 (> 60)
--- NOTE | 2019-02-01 14:47 | Internal Med Progress Note ---
Hospitalist Progress Note - Encounter Date of Encounter: 02/01/19 Time of Encounter: 11:00 - Subjective Interval History: Patient was seen and examined. She looks little drowsy and sleepy. She did not have any sleep overnight due to noise in the chau of floor. She denied shortness of breath, palpitation or chest pain. - Exam Vitals: Temp Pulse Resp BP Pulse Ox 98.1 F 81 15 123/73 93 02/01/19 14:31 02/01/19 14:31 02/01/19 14:31 02/01/19 14:02/01/19 14:31 Exam: -General: Patient is alert, oriented 3. No distress. Somehow drowsy. Head: Atraumatic, normal inspection, normocephalic. Eye: EOMI, PERRLA, no scleral icterus noted. ENT: Mucous membranes moist. No odontogenic infection noted. Neck: Normal inspection, no meningismus. Respiratory: Bilateral bibasilar crackles, scattered wheezing bilaterally. Cardiovascular: Regular rate and regular rhythm, S1 and S2 audible. Systolic murmur atThe right sternal border. +1 lower extremity edema. GI: Soft, nondistended, normal bowel sounds. Extremities: Left leg dressing, erythema noted up to the medial thigh. Neurological: Alert, oriented 3, no focal deficits. Psychiatric: normal affect, normal mood. Skin: Dry, intact, warm. Normal color. No rashes. - Assessment and Plan (1) Left leg cellulitis Current Visit: Yes Status: Acute (2) Morbid obesity Current Visit: Yes Status: Acute (3) Afib Current Visit: Yes Status: Chronic (4) Hypokalemia Current Visit: Yes Status: Resolved (5) Hypophosphatemia Current Visit: Yes Status: Resolved (6) Morbid obesity with BMI of 50.0-59.9, adult Current Visit: Yes Status: Chronic (7) DVT prophylaxis Current Visit: No Status: Acute - Summary of Assessment and Plan Summary of Assessment and Plan: 73-year-old female with history of morbid obesity, heart failure preserved ejection fraction, atrial fibrillation, COPD, DIANNE, breast cancer who is managing the hospital for left leg cellulitis. Left leg cellulitis: - Continue renally dosed vancomycin. Rocephin is switched to cefepime due to lack of clinical improvement, day 4. Vancomycin trough level is 16. - Blood cultures are pending, MRSA swab is +, wound cultures growing GPC likely staph. - Patient is afebrile, hemodynamically stable. Has no leukocytosis. - check CBC tomorrow. Acute decompensated HFpEF: - Ordered VBG today without hypercarbia. - Likely secondary to tachycardia and infection at presentation. - will increase her to Lasix 40 mg IV BID. I/O -2.7L. - Echo revealed preserved ejection fraction. - Ordered BMP and Mg level for tomorrow. Left leg swelling: - Likely from infection, HF. - CPK is 10, Doppler US of LE ordered to r/o DVT. COPD: - Not in acute exacerbation. Continue home dose inhalers. - VBG today 7. Atrial fibrillation: - Continue Coumadin, INR subtheraputic, monitor INR tomorrow. - Continue home dose diltiazem Morbid obesity with BMI of 56: - Life style modification recommended. DVT prophylaxis: On Coumadin Disposition: BMAT 3, Consult PT/OT I reviewed independently all laboratory workup, pertinent images including x- rays and CT scans. I also reviewed independently and EKGs and my findings are in the body of my assessment and plan. I ordered the laboratory workup and images myself. I discussed finding with patient's, their families, RN's and consultants involved in the care of the patient. - Time Spent with Patient Total time spent is greater than 50% in coordination of care (as documented) at patient's floor/unit and/or counseling patient: Greater than 35 minutes Internal Medicine: Result - Labs CBC & Chem 7: 02/01/19 12:10 02/01/19 12:10 Labs: Short CBC 02/01/19 Range/Units 12:10 WBC 4.7 (4.3-11.1) K/mcL Hgb 12.4 (11.5-15.4) g/dL Hct 38.7 (35.3-44.9) % Plt Count 164 (140-400) K/mcL Neutrophils # 3.7 (1.6-8.9) K/mcL BMP 02/01/19 12:10 Sodium 136 Potassium 3.7 Chloride 99 Carbon Dioxide 28 BUN 21 Creatinine 0.83 Glucose 111 H Calcium 9.0 - ABG Interpretation ABG results: PT/INR, D-dimer PT 16.8 Seconds (9.4-12.1) H 02/01/19 05:43 D-Dimer 469 ng/mLFEU (0-500) 01/29/19 16:12 Consult Discharge Plan - Plan Referrals: Joy Finnegan MD [Primary Care Provider] - (3) Afib Qualifiers: Atrial fibrillation type: chronic Qualified Code(s): I48.2 - Chronic atrial fibrillation
[2019-02-01] MEDS ORDERED: Ipratropium/Albuterol Neb 3 ML IH PRN (14:54)
[2019-02-01] MEDS ORDERED: *HR* Warfarin 5 MG TABLET PO ONE (18:00)
--- NOTE | 2019-02-01 18:13 | Electrocardiograph Report ---
[facility] [facility] Test Date: 2019-01-29 Pat Name: Marina Veloz Department: [id number] Room: 3A33 Gender: F [employer] Operator: : [id number] Requested By: Sy Campoverde Order Number: [id number] Reading MD: Andrew Mccain Measurements Intervals [place] Rate: 99 P: VA: QRS: -59 QRSD: 93 T: 60 QT: 363 QTc: 466 Interpretive Statements Atrial fibrillation Ventricular premature complex Left anterior fascicular block Low voltage, precordial leads Abnormal R-wave progression, late transition Electronically Signed On 02-01-2019 18:12:36 EDT by Andrew Mccain
[2019-02-01] MEDS: Cefepime HCl 1,000 MG in Water for inj. (sterile) 10 ML IVP SCH (18:39)
[2019-02-01] MEDS: *HR* Enoxaparin 30 MG/0.3 ML SYRINGE SQ SCH (18:40)
[2019-02-01] MEDS: hydrOXYzine pamoate 25 MG CAPSULE PO SCH (20:49)
[2019-02-02] MEDS: Cefepime HCl 1,000 MG in Water for inj. (sterile) 10 ML IVP SCH (05:34)
[2019-02-02] MEDS: *HR* Enoxaparin 30 MG/0.3 ML SYRINGE SQ SCH (05:34)
[2019-02-02 07:55] LABS: Hematocrit 36.3 % (35.3-44.9); Hemoglobin 11.5 g/dL (11.5-15.4); Mean Corpuscular HGB Conc 31.7 g/dL (31.6-35.5); Mean Corpuscular Hemoglobin 29.9 pg (28.0-33.3); Mean Corpuscular Volume 94.5 fL (83.0-100.0); Mean Platelet Volume 10.9 fL (9.4-12.4); Platelet Count 151 K/mcL (140-400); Red Blood Count 3.84 M/mcL (3.82-4.97); Red Cell Distribution Width 13.2 % (11.5-14.5)
[2019-02-02 08:01] LABS: INR 1.6; Prothrombin Time 18.1 Seconds (9.4-12.1)
[2019-02-02] MEDS: Tiotropium 18 MCG inhalation IH SCH (08:02)
[2019-02-02 08:05] LABS: BUN/Creatinine Ratio 36 (6-26); Blood Urea Nitrogen 27 mg/dL (8-23); Calcium 8.9 mg/dL (8.6-10.3); Carbon Dioxide 29 mEq/L (23-29); Chloride 100 mEq/L (98-107); Glucose 108 mg/dL (70-105); Osmolality,Calculated 290 (280-300); Potassium 3.3 mEq/L (3.5-5.1); Sodium 137 mEq/L (136-145); eGFR For African Americans > 60 (> 60); eGFR For Non-African Americans > 60 (> 60)
[2019-02-02] MEDS ORDERED: Potassium Chloride Elixir 20 MEQ/15 ML UDC PO ONE (08:19)
[2019-02-02] MEDS: Diltiazem CD (24hr) 240 MG CAPSULE PO SCH (08:57)
[2019-02-02] MEDS: Loratadine 10 MG TABLET PO SCH (08:57)
[2019-02-02] MEDS: VITAMIN E ACETATE PO SCH ×2 (08:57→19:57)
[2019-02-02] MEDS: Furosemide 40 MG/4 ML VIAL IVP SCH ×2 (08:57→18:11)
[2019-02-02] MEDS: Ascorbic Acid 500 MG TABLET PO SCH (08:57)
[2019-02-02] MEDS: Magnesium Oxide 400 MG TABLET PO SCH (08:58)
[2019-02-02] MEDS: Famotidine 20 MG TABLET PO SCH ×2 (08:58→19:57)
[2019-02-02] MEDS: Diltiazem CD (24hr) 120 MG CAPSULE PO SCH (08:58)
--- NOTE | 2019-02-02 17:52 | Internal Med Progress Note ---
Hospitalist Progress Note - Encounter Date of Encounter: 02/02/19 Time of Encounter: 10:00 - Subjective Interval History: No major events overnight. Patient was seen this a.m. He denied fever, chills or night sweats. sHe has no nausea, vomiting or abdominal pain. Patient denied chest pain, shortness of breath or palpitation. She feels that her legs look better today. - Exam Vitals: Temp Pulse Resp BP Pulse Ox 98.0 F 101 16 119/73 100 02/02/19 14:40 02/02/19 14:40 02/02/19 14:40 02/02/19 14:40 02/02/19 14:40 Exam: -General: Patient is alert, oriented 3. No distress. No distress Head: Atraumatic, normal inspection, normocephalic. Eye: EOMI, PERRLA, no scleral icterus noted. ENT: Mucous membranes moist. No odontogenic infection noted. Neck: Normal inspection, no meningismus. Respiratory: Clear to auscultation. Cardiovascular: Regular rate and regular rhythm, S1 and S2 audible. Systolic murmur atThe right sternal border. +1 lower extremity edema. GI: Soft, nondistended, normal bowel sounds. Extremities: Left leg dressing, erythema noted up to the medial thigh. Neurological: Alert, oriented 3, no focal deficits. Psychiatric: normal affect, normal mood. Skin: Dry, intact, warm. Normal color. No rashes. - Assessment and Plan (1) Left leg cellulitis Current Visit: Yes Status: Acute (2) Morbid obesity Current Visit: Yes Status: Acute (3) Afib Current Visit: Yes Status: Chronic (4) Hypokalemia Current Visit: Yes Status: Resolved (5) Hypophosphatemia Current Visit: Yes Status: Resolved (6) Morbid obesity with BMI of 50.0-59.9, adult Current Visit: Yes Status: Chronic (7) DVT prophylaxis Current Visit: No Status: Acute - Summary of Assessment and Plan Summary of Assessment and Plan: 73-year-old female with history of morbid obesity, heart failure preserved ejection fraction, atrial fibrillation, COPD, DIANNE, breast cancer who is managing the hospital for left leg cellulitis. Left leg cellulitis: - Blood cultures are pending, MRSA swab is +, wound cultures growing MRSA. - Continue renally dosed vancomycin day 6. Will Dc cefepime. Vancomycin trough level is 16. - Patient is afebrile, hemodynamically stable. Has no leukocytosis. - check CBC tomorrow. Hypokalemia: - new event, oral replacement given. - ordered BMP for tomorrow. Acute decompensated HFpEF: - Likely secondary to tachycardia and infection at presentation. - on Lasix 40 mg IV BID. I/O - 7L. - Echo revealed preserved ejection fraction. - Ordered BMP and Mg level for tomorrow. Left leg swelling: - Likely from infection, HF. - CPK is 10, Doppler US of LE ordered to r/o DVT. COPD: - Not in acute exacerbation. Continue home dose inhalers. - VBG today 7. Atrial fibrillation: - Continue Coumadin, INR subtheraputic, monitor INR tomorrow. WILL bridge with theraputic lovenox. discussed with pharmacy. - Continue home dose diltiazem Morbid obesity with BMI of 56: - Life style modification recommended. DVT prophylaxis: On Coumadin Disposition: BMAT 3, Consult PT/OT I reviewed independently all laboratory workup, pertinent images including x- rays and CT scans. I also reviewed independently and EKGs and my findings are in the body of my assessment and plan. I ordered the laboratory workup and images myself. I discussed finding with patient's, their families, RN's and consultants involved in the care of the patient. - Time Spent with Patient Total time spent is greater than 50% in coordination of care (as documented) at patient's floor/unit and/or counseling patient: Plan of Care Discussed with: patient Internal Medicine: Result - Labs CBC & Chem 7: 02/02/19 07:06 02/02/19 07:06 Labs: Short CBC 02/02/19 Range/Units 07:06 WBC 4.0 L (4.3-11.1) K/mcL Hgb 11.5 (11.5-15.4) g/dL Hct 36.3 (35.3-44.9) % Plt Count 151 (140-400) K/mcL BMP 02/02/19 07:06 Sodium 137 Potassium 3.3 L Chloride 100 Carbon Dioxide 29 BUN 27 H Creatinine 0.74 Glucose 108 H Calcium 8.9 - ABG Interpretation ABG results: PT/INR, D-dimer PT 18.1 Seconds (9.4-12.1) H 02/02/19 07:06 D-Dimer 469 ng/mLFEU (0-500) 01/29/19 16:12 Consult Discharge Plan - Plan Referrals: Joy Finnegan MD [Primary Care Provider] - (3) Afib Qualifiers: Atrial fibrillation type: chronic Qualified Code(s): I48.2 - Chronic atrial fibrillation
[2019-02-02] MEDS ORDERED: *HR* Warfarin 7.5 MG TABLET PO ONE (18:00)
[2019-02-02] MEDS: *HR* Enoxaparin 150 MG/ML SYRINGE SQ SCH (18:10)
[2019-02-02] MEDS: hydrOXYzine pamoate 25 MG CAPSULE PO SCH (19:58)
[2019-02-03] MEDS: *HR* Enoxaparin 150 MG/ML SYRINGE SQ SCH (05:36)
[2019-02-03 07:38] LABS: Hematocrit 37.6 % (35.3-44.9); Hemoglobin 11.8 g/dL (11.5-15.4); Mean Corpuscular HGB Conc 31.4 g/dL (31.6-35.5); Mean Corpuscular Hemoglobin 29.4 pg (28.0-33.3); Mean Corpuscular Volume 93.8 fL (83.0-100.0); Mean Platelet Volume 11.1 fL (9.4-12.4); Platelet Count 145 K/mcL (140-400); Red Blood Count 4.01 M/mcL (3.82-4.97); Red Cell Distribution Width 13.2 % (11.5-14.5); White Blood Count 3.9 K/mcL (4.3-11.1)
[2019-02-03] MEDS: Tiotropium 18 MCG inhalation IH SCH (07:53)
[2019-02-03 07:55] LABS: Prothrombin Time 22.7 Seconds (9.4-12.1)
[2019-02-03 07:58] LABS: BUN/Creatinine Ratio 34 (6-26); Blood Urea Nitrogen 26 mg/dL (8-23); Calcium 8.8 mg/dL (8.6-10.3); Carbon Dioxide 29 mEq/L (23-29); Chloride 100 mEq/L (98-107); Glucose 105 mg/dL (70-105); Osmolality,Calculated 293 (280-300); Potassium 3.7 mEq/L (3.5-5.1); Sodium 139 mEq/L (136-145); eGFR For African Americans > 60 (> 60); eGFR For Non-African Americans > 60 (> 60)
[2019-02-03] MEDS: VITAMIN E ACETATE PO SCH ×2 (08:48→20:26)
[2019-02-03] MEDS: Diltiazem CD (24hr) 240 MG CAPSULE PO SCH (08:48)
[2019-02-03] MEDS: Ascorbic Acid 500 MG TABLET PO SCH (08:48)
[2019-02-03] MEDS: Magnesium Oxide 400 MG TABLET PO SCH (08:48)
[2019-02-03] MEDS: Diltiazem CD (24hr) 120 MG CAPSULE PO SCH (08:49)
[2019-02-03] MEDS: Loratadine 10 MG TABLET PO SCH (08:49)
[2019-02-03] MEDS: Famotidine 20 MG TABLET PO SCH ×2 (08:49→20:26)
[2019-02-03] MEDS: Furosemide 40 MG/4 ML VIAL IVP SCH ×2 (08:50→17:42)
--- NOTE | 2019-02-03 16:10 | Internal Med Progress Note ---
Hospitalist Progress Note - Encounter Date of Encounter: 02/03/19 Time of Encounter: 09:00 - Subjective Interval History: No major events overnight. Patient was seen this a.m. He denied fever, chills or night sweats. sHe has no nausea, vomiting or abdominal pain. Patient denied chest pain, shortness of breath or palpitation. She noticed significant improvement in her leg swelling and erythema. - Exam Vitals: Temp Pulse Resp BP Pulse Ox 98.2 F 82 15 122/78 97 02/03/19 15:42 02/03/19 15:42 02/03/19 15:42 02/03/19 15:42 02/03/19 15:42 Exam: -General: Patient is alert, oriented 3. No distress. No distress Head: Atraumatic, normal inspection, normocephalic. Eye: EOMI, PERRLA, no scleral icterus noted. ENT: Mucous membranes moist. No odontogenic infection noted. Neck: Normal inspection, no meningismus. Respiratory: Clear to auscultation. No wheezing or crackles. Cardiovascular: Regular rate and regular rhythm, S1 and S2 audible. Systolic murmur atThe right sternal border. +1 lower extremity edema. GI: Soft, nondistended, normal bowel sounds. Extremities: Left leg dressing, no erythema erythema or warmth noted Neurological: Alert, oriented 3, no focal deficits. Psychiatric: normal affect, normal mood. Skin: Dry, intact, warm. Normal color. No rashes. - Assessment and Plan (1) Left leg cellulitis Current Visit: Yes Status: Acute (2) Morbid obesity Current Visit: Yes Status: Acute (3) Afib Current Visit: Yes Status: Chronic (4) Hypokalemia Current Visit: Yes Status: Resolved (5) Hypophosphatemia Current Visit: Yes Status: Resolved (6) Morbid obesity with BMI of 50.0-59.9, adult Current Visit: Yes Status: Chronic (7) DVT prophylaxis Current Visit: No Status: Acute - Summary of Assessment and Plan Summary of Assessment and Plan: 73-year-old female with history of morbid obesity, heart failure preserved ejection fraction, atrial fibrillation, COPD, DIANNE, breast cancer who is managing the hospital for left leg cellulitis. Left leg cellulitis: - Blood cultures are pending, MRSA swab is +, wound cultures growing MRSA. - Continue renally dosed vancomycin day 7/10. Dc cefepime. Vancomycin trough level is 19. - Patient is afebrile, hemodynamically stable. Has no leukocytosis. - Left lower extremity Doppler is negative for DVT - check CBC tomorrow. Acute decompensated HFpEF: - Likely secondary to tachycardia and infection at presentation. - on Lasix 40 mg IV BID. I/O - 8.8L. - Echo revealed preserved ejection fraction. - Ordered BMP and Mg level for tomorrow. Hypokalemia: Resolved COPD: - Not in acute exacerbation. Continue home dose inhalers. - VBG today 7. Atrial fibrillation: - Continue Coumadin, INR theraputic, monitor INR tomorrow. - Continue home dose diltiazem Morbid obesity with BMI of 56: - Life style modification recommended. DVT prophylaxis: On Coumadin Disposition: BMAT 3, will need SNF I reviewed independently all laboratory workup, pertinent images including x- rays and CT scans. I also reviewed independently and EKGs and my findings are in the body of my assessment and plan. I ordered the laboratory workup and images myself. I discussed finding with patient's, their families, RN's and consultants involved in the care of the patient. - Time Spent with Patient Total time spent is greater than 50% in coordination of care (as documented) at patient's floor/unit and/or counseling patient: Internal Medicine: Result - Labs CBC & Chem 7: 02/03/19 06:59 02/03/19 06:59 Labs: Short CBC 02/03/19 Range/Units 06:59 WBC 3.9 L (4.3-11.1) K/mcL Hgb 11.8 (11.5-15.4) g/dL Hct 37.6 (35.3-44.9) % Plt Count 145 (140-400) K/mcL BMP 02/03/19 06:59 Sodium 139 Potassium 3.7 Chloride 100 Carbon Dioxide 29 BUN 26 H Creatinine 0.76 Glucose 105 Calcium 8.8 - ABG Interpretation ABG results: PT/INR, D-dimer PT 22.7 Seconds (9.4-12.1) H 02/03/19 06:59 D-Dimer 469 ng/mLFEU (0-500) 01/29/19 16:12 Consult Discharge Plan - Plan Referrals: Joy Finnegan MD [Primary Care Provider] - (3) Afib Qualifiers: Atrial fibrillation type: chronic Qualified Code(s): I48.2 - Chronic atrial fibrillation
[2019-02-03] MEDS ORDERED: *HR* Warfarin 2.5 MG TABLET PO ONE (18:00)
[2019-02-03] MEDS: hydrOXYzine pamoate 25 MG CAPSULE PO SCH (20:25)
[2019-02-04 07:43] LABS: Hematocrit 38.8 % (35.3-44.9); Hemoglobin 12.3 g/dL (11.5-15.4); Mean Corpuscular HGB Conc 31.7 g/dL (31.6-35.5); Mean Corpuscular Hemoglobin 29.6 pg (28.0-33.3); Mean Corpuscular Volume 93.5 fL (83.0-100.0); Mean Platelet Volume 10.2 fL (9.4-12.4); Platelet Count 198 K/mcL (140-400); Red Blood Count 4.15 M/mcL (3.82-4.97); Red Cell Distribution Width 13.2 % (11.5-14.5); White Blood Count 4.6 K/mcL (4.3-11.1)
[2019-02-04 08:01] LABS: INR 1.9; Prothrombin Time 21.6 Seconds (9.4-12.1)
[2019-02-04 08:07] LABS: BUN/Creatinine Ratio 32 (6-26); Blood Urea Nitrogen 26 mg/dL (8-23); Carbon Dioxide 34 mEq/L (23-29); Chloride 99 mEq/L (98-107); Glucose 100 mg/dL (70-105); Osmolality,Calculated 301 (280-300); Potassium 3.7 mEq/L (3.5-5.1); Sodium 143 mEq/L (136-145); eGFR For African Americans > 60 (> 60); eGFR For Non-African Americans > 60 (> 60)
[2019-02-04] MEDS: Famotidine 20 MG TABLET PO SCH ×2 (08:44→21:39)
[2019-02-04] MEDS: VITAMIN E ACETATE PO SCH ×2 (08:44→21:39)
[2019-02-04] MEDS: Furosemide 40 MG/4 ML VIAL IVP SCH ×2 (08:44→17:51)
[2019-02-04] MEDS: Magnesium Oxide 400 MG TABLET PO SCH (08:45)
[2019-02-04] MEDS: Diltiazem CD (24hr) 120 MG CAPSULE PO SCH (08:45)
[2019-02-04] MEDS: Loratadine 10 MG TABLET PO SCH (08:45)
[2019-02-04] MEDS: Ascorbic Acid 500 MG TABLET PO SCH (08:45)
[2019-02-04] MEDS: Diltiazem CD (24hr) 240 MG CAPSULE PO SCH (08:45)
[2019-02-04] MEDS: Tiotropium 18 MCG inhalation IH SCH (10:55)
--- NOTE | 2019-02-04 12:17 | Discharge Summary ---
Orders not resulted at time of discharge: Pending orders 02/05/19 04:00 Prothrombin Time INR [COAG] AM 0400 02/05/19 05:00 Vancomycin,Trough Timed Date of Encounter: 02/04/19 Time of Encounter: 11:37 - Discharge Diagnosis (1) Left leg cellulitis Priority: Primary Status: Acute (2) DVT prophylaxis Priority: Secondary Status: Acute (3) Afib Priority: Secondary Status: Chronic Qualifiers: Atrial fibrillation type: chronic Qualified Code(s): I48.2 - Chronic atrial fibrillation (4) Morbid obesity Priority: Secondary Status: Acute (5) Hypokalemia Priority: Secondary Status: Resolved (6) Hypophosphatemia Priority: Secondary Status: Resolved (7) Morbid obesity with BMI of 50.0-59.9, adult Priority: Secondary Status: Chronic Hospital course: Ms. Veloz is a 73 year old female - Time Spent with Patient Total time spent providing and/or coordinating discharge services: - Discharge Medications Prescriptions: New Mometasone Furoate [Asmanex Hfa] 1 puff IH BIDRESP puff Sulfamethoxazole/Trimeth DS [Bactrim DS] 1 each PO BID 6 Days #12 tablet Ipratropium/Albuterol Neb [Duoneb] 3 ml IH [id number] PRN inhsol PRN Reason: Shortness Of Breath/Wheezing Acetaminophen [Tylenol] 500 mg PO Q8HR PRN tablet PRN Reason: Pain Continued Ranitidine HCl [Acid Perl Software Engineer] 150 mg PO BID Magnesium Oxide [Magnesium] 400 mg PO DAILY Docusate [Colace] 100 mg PO BID PRN PRN Reason: Constipation Duloxetine HCl [Cymbalta] 60 mg PO HS Ascorbic Acid [Vitamin C] 1,000 mg PO DAILY Beclomethasone Dip 40mcg REDIH [Qvar 40 Mcg Redihaler] 2 puff IH BID Vitamin E Acetate [Vitamin E] 400 unit PO BID Spironolactone 25 mg PO DAILY Ferrous Sulfate 325 mg PO DAILY Tiotropium [place] [Spiriva Respimat] 2 puff IH DAILY Calcium Carbonate/Vitamin D3 [Calcium 600 + Vit D Tablet] 1 tab PO BID Polyethylene Glycol 3350 [Natura-Lax] 17 gm PO DAILY PRN PRN Reason: Constipation Diltiazem CD (24hr) [Cardizem CD] 240 mg PO DAILY Diltiazem CD (24hr) [Cardizem CD] 120 mg PO DAILY Furosemide [Lasix] 40 mg PO BID hydrOXYzine HCl [Hydroxyzine HCl] 50 mg PO HS Loratadine [Claritin] 10 mg PO DAILY Triamcinolone Acet 0.1% CRM [Kenalog] 1 each TP BID PRN PRN Reason: Rash Warfarin [Coumadin] 2.5 mg PO MOWEFR Warfarin [Coumadin] 5 mg PO SUTUTHSA Discontinued Albuterol Sulfate [Proventil Inhaler] 2 puff IH Q4H PRN PRN Reason: Shortness Of Breath Home Medications: Docusate [Colace] 100 mg PO BID PRN 04/23/17 [History] Magnesium Oxide [Magnesium] 400 mg PO DAILY 04/23/17 [History] Ranitidine HCl [Acid Perl Software Engineer] 150 mg PO BID 04/23/17 [History] Duloxetine HCl [Cymbalta] 60 mg PO HS 01/05/18 [History] Ascorbic Acid [Vitamin C] 1,000 mg PO DAILY 07/20/18 [History] Beclomethasone Dip 40mcg REDIH [Qvar 40 Mcg Redihaler] 2 puff IH BID 07/20/18 [History] Spironolactone 25 mg PO DAILY 07/20/18 [History] Vitamin E Acetate [Vitamin E] 400 unit PO BID 07/20/18 [History] Ferrous Sulfate 325 mg PO DAILY 07/24/18 [History] Tiotropium [place] [Spiriva Respimat] 2 puff IH DAILY 09/25/18 [History] Calcium Carbonate/Vitamin D3 [Calcium 600 + Vit D Tablet] 1 tab PO BID 09/27/18 [History] Polyethylene Glycol 3350 [Natura-Lax] 17 gm PO DAILY PRN 09/27/18 [History] Diltiazem CD (24hr) [Cardizem CD] 120 mg PO DAILY 01/29/19 [History] Diltiazem CD (24hr) [Cardizem CD] 240 mg PO DAILY 01/29/19 [History] Furosemide [Lasix] 40 mg PO BID 01/29/19 [History] Loratadine [Claritin] 10 mg PO DAILY 01/29/19 [History] Triamcinolone Acet 0.1% CRM [Kenalog] 1 each TP BID PRN 01/29/19 [History] Warfarin [Coumadin] 2.5 mg PO MOWEFR 01/29/19 [History] Warfarin [Coumadin] 5 mg PO SUTUTHSA 01/29/19 [History] hydrOXYzine HCl [Hydroxyzine HCl] 50 mg PO HS 01/29/19 [History] Acetaminophen [Tylenol] 500 mg PO Q8HR PRN tablet 02/04/19 [Rx] Ipratropium/Albuterol Neb [Duoneb] 3 ml IH [id number] PRN inhsol 02/04/19 [Rx] Mometasone Furoate [Asmanex Hfa] 1 puff IH BIDRESP puff 02/04/19 [Rx] Sulfamethoxazole/Trimeth DS [Bactrim DS] 1 each PO BID 6 Days #12 tablet 02/04/19 [Rx] Allergies/Adverse Reactions: Allergy/AdvReac Type Severity Reaction Status Date / Time doxycycline Allergy Rash Verified 09/27/18 15:26 gabapentin [From Neurontin] Allergy See Verified 09/27/18 15:26 Comments Penicillins [PCN] Allergy Rash Verified 09/27/18 15:26 Date of admission: 02/02/19 14:51 Primary care physician: Joy Finnegan MD Consults: 01/30/19 04:42 Consult to Wound Care [CONS] Routine Reason for Consult: Left lower extremity cellulitis with multiple wounds of various stages of healing Call Completed: No 01/31/19 14:08 Consult to Occupational Therapy [CONS] Routine Comment: Evaluate, develop and implement POC Reason for Consult: evaluate the need for skilled placement Does patient have active BEDREST order?: No Is patient medically & hemodynamically stable?: Yes Consult to Physical Therapy [CONS] Routine Comment: Evaluate, develop and implement POC Reason for Consult: Evaluate the need for skilled Does patient have active BEDREST order?: No Is patient medically & hemodynamically stable?: Yes 02/02/19 08:38 Consult to Nurse Navigator [CONS] Routine Comment: chf 02/03/19 17:49 Consult to Chemical Engineering Technologist [CONS] Routine Reason for SW Consult: PT/OT recommending SNF - Patient would like to go to [facility] - Constitutional Vitals: Temp Pulse Resp BP Pulse Ox 98.1 F 84 18 121/73 92 02/04/19 03:26 02/04/19 03:26 02/04/19 03:26 02/04/19 03:26 02/04/19 03:26 General appearance: Present: cooperative, A&O X 3, pleasant, no acute distress, answers questions appropriately Exam: -General: Patient is alert, oriented 3. No distress. Head: Atraumatic, normal inspection, normocephalic. Eye: EOMI, PERRLA, no scleral icterus noted. ENT: Mucous membranes moist. No odontogenic infection noted. Neck: Normal inspection, no meningismus. Respiratory: Clear to auscultation. No wheezing or crackles. Cardiovascular: Regular rate and regular rhythm, S1 and S2 audible. Systolic murmur atThe right sternal border. +1 lower extremity edema. GI: Soft, nondistended, normal bowel sounds. Extremities: Left leg dressing looks clean and dry Neurological: Alert, oriented 3, no focal deficits. Psychiatric: normal affect, normal mood. Skin: Dry, intact, warm. Normal color. No rashes. except for on bilateral low er extremities. Has stasis dermatitis - Patient Status Disposition: Transfer SNF Condition: Good Functional capacity at discharge: uses cane/walker (Cane) Overall status at discharge: patient is back to baseline - Discharge Instructions Follow Up With: Joy Finnegan MD [Primary Care Provider] -
--- NOTE | 2019-02-04 12:20 | Physician Discharge Referral ---
ExtendedCare Referral Info Transfer To: [facility] Provider in Charge after Transfer: PCP (MRSA cellulitis. Discharged on Bactrim. Please keep eye on INR due to interaction with coumadin.) Institutional Level of Care: Intermediate - Diagnosis (1) Left leg cellulitis Status: Acute (2) DVT prophylaxis Priority: Secondary Status: Acute (3) Afib Priority: Secondary Status: Chronic (4) Morbid obesity Priority: Secondary Status: Acute (5) Hypokalemia Priority: Secondary Status: Resolved (6) Hypophosphatemia Priority: Secondary Status: Resolved (7) Morbid obesity with BMI of 50.0-59.9, adult Priority: Secondary Status: Chronic Prognosis: Fair - Transfer Medications Prescriptions: Sulfamethoxazole/Trimeth DS [Bactrim DS] 1 each PO BID 6 Days #12 tablet Home Medications: Docusate [Colace] 100 mg PO BID PRN 04/23/17 [History] Magnesium Oxide [Magnesium] 400 mg PO DAILY 04/23/17 [History] Ranitidine HCl [Acid Electronic Industrial Controls Mechanic] 150 mg PO BID 04/23/17 [History] Duloxetine HCl [Cymbalta] 60 mg PO HS 01/05/18 [History] Ascorbic Acid [Vitamin C] 1,000 mg PO DAILY 07/20/18 [History] Beclomethasone Dip 40mcg REDIH [Qvar 40 Mcg Redihaler] 2 puff IH BID 07/20/18 [History] Spironolactone 25 mg PO DAILY 07/20/18 [History] Vitamin E Acetate [Vitamin E] 400 unit PO BID 07/20/18 [History] Ferrous Sulfate 325 mg PO DAILY 07/24/18 [History] Tiotropium [place] [Spiriva Respimat] 2 puff IH DAILY 09/25/18 [History] Calcium Carbonate/Vitamin D3 [Calcium 600 + Vit D Tablet] 1 tab PO BID 09/27/18 [History] Polyethylene Glycol 3350 [Natura-Lax] 17 gm PO DAILY PRN 09/27/18 [History] Diltiazem CD (24hr) [Cardizem CD] 120 mg PO DAILY 01/29/19 [History] Diltiazem CD (24hr) [Cardizem CD] 240 mg PO DAILY 01/29/19 [History] Furosemide [Lasix] 40 mg PO BID 01/29/19 [History] Loratadine [Claritin] 10 mg PO DAILY 01/29/19 [History] Triamcinolone Acet 0.1% CRM [Kenalog] 1 each TP BID PRN 01/29/19 [History] Warfarin [Coumadin] 2.5 mg PO MOWEFR 01/29/19 [History] Warfarin [Coumadin] 5 mg PO SUTUTHSA 01/29/19 [History] hydrOXYzine HCl [Hydroxyzine HCl] 50 mg PO HS 01/29/19 [History] Acetaminophen [Tylenol] 500 mg PO Q8HR PRN tablet 02/04/19 [Rx] Ipratropium/Albuterol Neb [Duoneb] 3 ml IH [id number] PRN inhsol 02/04/19 [Rx] Mometasone Furoate [Asmanex Hfa] 1 puff IH BIDRESP puff 02/04/19 [Rx] Sulfamethoxazole/Trimeth DS [Bactrim DS] 1 each PO BID 6 Days #12 tablet 02/04/19 [Rx] Allergies/Adverse Reactions: Allergy/AdvReac Type Severity Reaction Status Date / Time doxycycline Allergy Rash Verified 09/27/18 15:26 gabapentin [From Neurontin] Allergy See Verified 09/27/18 15:26 Comments Penicillins [PCN] Allergy Rash Verified 09/27/18 15:26 - Respiratory Orders Smoking Cessation: Smoking cessation has been advised. For more information, call the [place] Tobacco Quit Line at 0-329-LORE-NOW. - Advance Directives Code Status: Full Code - Mobility Orders Ambulate - Rehabiliation Orders Rehab Potential: Good - Diet Orders Cardiac CERTIFICATION: I certify that the transfer of the above named patient to an Extended Care Facility is necessary for the continuing treatment of the diagnosis listed. The above information is true and accurate reflection of patient's current condition. Confidential - Redisclosure prohibited without a patient's written consent.
[2019-02-04] MEDS ORDERED: *HR* Warfarin 5 MG TABLET PO ONE (18:00)
[2019-02-04] MEDS: hydrOXYzine pamoate 25 MG CAPSULE PO SCH (21:39)
[2019-02-05 05:21] LABS: INR 2.1; Prothrombin Time 24.2 Seconds (9.4-12.1)
[2019-02-05] MEDS: Tiotropium 18 MCG inhalation IH SCH (07:26)
[2019-02-05] MEDS: Ascorbic Acid 500 MG TABLET PO SCH (09:07)
[2019-02-05] MEDS: VITAMIN E ACETATE PO SCH ×2 (09:07→20:06)
[2019-02-05] MEDS: Furosemide 40 MG/4 ML VIAL IVP SCH (09:07)
[2019-02-05] MEDS: Magnesium Oxide 400 MG TABLET PO SCH (09:08)
[2019-02-05] MEDS: Diltiazem CD (24hr) 120 MG CAPSULE PO SCH (09:08)
[2019-02-05] MEDS: Diltiazem CD (24hr) 240 MG CAPSULE PO SCH (09:08)
[2019-02-05] MEDS: Loratadine 10 MG TABLET PO SCH (09:08)
[2019-02-05] MEDS: Famotidine 20 MG TABLET PO SCH ×2 (09:08→20:07)
[2019-02-05] MEDS ORDERED: Aminoglycoside Consult 1 EACH MC ONE (09:28)
[2019-02-05] MEDS: Sulfamethoxazole/Trimeth DS 1 EACH TABLET PO SCH ×2 (12:58→20:07)
[2019-02-05] MEDS: Furosemide 40 MG TABLET PO SCH (16:36)
[2019-02-05] MEDS ORDERED: *HR* Warfarin 5 MG TABLET PO ONE (18:00)
[2019-02-05] MEDS: hydrOXYzine pamoate 25 MG CAPSULE PO SCH (20:07)
[2019-02-06 04:27] LABS: Prothrombin Time 23.1 Seconds (9.4-12.1)
[2019-02-06] MEDS: Ascorbic Acid 500 MG TABLET PO SCH (10:05)
[2019-02-06] MEDS: Diltiazem CD (24hr) 240 MG CAPSULE PO SCH (10:05)
[2019-02-06] MEDS: Magnesium Oxide 400 MG TABLET PO SCH (10:05)
[2019-02-06] MEDS: Loratadine 10 MG TABLET PO SCH (10:07)
[2019-02-06] MEDS: Diltiazem CD (24hr) 120 MG CAPSULE PO SCH (10:07)
[2019-02-06] MEDS: Sulfamethoxazole/Trimeth DS 1 EACH TABLET PO SCH ×2 (10:07→20:32)
[2019-02-06] MEDS: Furosemide 40 MG TABLET PO SCH ×2 (10:07→17:12)
[2019-02-06] MEDS: Famotidine 20 MG TABLET PO SCH ×2 (10:08→20:32)
[2019-02-06] MEDS: VITAMIN E ACETATE PO SCH ×2 (10:08→20:32)
[2019-02-06] MEDS: Tiotropium 18 MCG inhalation IH SCH (11:00)
--- NOTE | 2019-02-06 12:08 | Internal Med Progress Note ---
Hospitalist Progress Note - Encounter Date of Encounter: 02/06/19 Time of Encounter: 12:03 - Subjective Interval History: No acute events overnight. Patient has no complaints. She denies fever chills and pain in her legs - Exam Vitals: Temp Pulse Resp BP Pulse Ox 36.4 C 113 16 149/96 92 02/06/19 10:25 02/06/19 10:25 02/06/19 11:00 02/06/19 10:25 02/06/19 11:00 Exam: General: Patient is alert, oriented 3. No distress. Head: Atraumatic, normal inspection, normocephalic. Eye: EOMI, PERRLA, no scleral icterus noted. ENT: Mucous membranes moist. No odontogenic infection noted. Neck: Normal inspection, no meningismus. Respiratory: Clear to auscultation. No wheezing or crackles. Cardiovascular: Regular rate and regular rhythm, S1 and S2 audible. Systolic murmur atThe right sternal border. +1 lower extremity edema. GI: Soft, nondistended, normal bowel sounds. Extremities: Clean dressing on both legs Neurological: Alert, oriented 3, no focal deficits. Psychiatric: normal affect, normal mood. Skin: Dry, intact, warm. Normal color. No rashes. except for on bilateral lower extremities. Has stasis dermatitis - Assessment and Plan (1) Left leg cellulitis Current Visit: Yes Status: Acute (2) DVT prophylaxis Current Visit: No Status: Acute (3) Afib Current Visit: Yes Status: Chronic (4) Morbid obesity Current Visit: Yes Status: Acute (5) Hypokalemia Current Visit: Yes Status: Resolved (6) Hypophosphatemia Current Visit: Yes Status: Resolved (7) Morbid obesity with BMI of 50.0-59.9, adult Current Visit: Yes Status: Chronic - Summary of Assessment and Plan Summary of Assessment and Plan: 73-year-old female with history of morbid obesity, heart failure preserved ejection fraction, atrial fibrillation, COPD, DIANNE, breast cancer who is being managed for left leg cellulitis. Left leg cellulitis: -Vitally stable - No complaints - Currently on PO Bactrim. HFpEF: - Patient denies shortness of breath orthopnea and PND - Continue home dose of Lasix Hypokalemia: Resolved COPD: - Not in acute exacerbation. - Continue home dose inhalers. Atrial fibrillation: - Continue Coumadin, INR theraputic - Continue home dose diltiazem Morbid obesity with BMI of 56: - Life style modification recommended. DVT prophylaxis: On Coumadin Disposition: BMAT 3, will need SNF Discharge Planning: Awaiting Approval from insurance for SNF placement. - Time Spent with Patient Total time spent is greater than 50% in coordination of care (as documented) at patient's floor/unit and/or counseling patient: Internal Medicine: Result - Labs CBC & Chem 7: 02/04/19 07:13 02/04/19 07:13 - ABG Interpretation ABG results: PT/INR, D-dimer PT 23.1 Seconds (9.4-12.1) H 02/06/19 03:46 D-Dimer 469 ng/mLFEU (0-500) 01/29/19 16:12 Consult Discharge Plan - Plan Referrals: Joy Finnegan MD [Primary Care Provider] - Prescriptions: Sulfamethoxazole/Trimeth DS [Bactrim DS] 1 each PO BID 6 Days #12 tablet (3) Afib Qualifiers: Atrial fibrillation type: chronic Qualified Code(s): I48.2 - Chronic atrial fibrillation
[2019-02-06] MEDS ORDERED: *HR* Warfarin 2.5 MG TABLET PO ONE (18:00)
[2019-02-06] MEDS: hydrOXYzine pamoate 25 MG CAPSULE PO SCH (20:32)
[2019-02-07 02:36] LABS: BUN/Creatinine Ratio 32 (6-26); Blood Urea Nitrogen 29 mg/dL (8-23); Calcium 8.6 mg/dL (8.6-10.3); Carbon Dioxide 31 mEq/L (23-29); Chloride 100 mEq/L (98-107); Glucose 103 mg/dL (70-105); Osmolality,Calculated 292 (280-300); Potassium 4.1 mEq/L (3.5-5.1); Sodium 138 mEq/L (136-145); eGFR For African Americans > 60 (> 60); eGFR For Non-African Americans 60 (> 60)
[2019-02-07 02:43] LABS: Prothrombin Time 22.7 Seconds (9.4-12.1)
[2019-02-07] MEDS: Tiotropium 18 MCG inhalation IH SCH (07:38)
[2019-02-07] MEDS: Ascorbic Acid 500 MG TABLET PO SCH (09:23)
[2019-02-07] MEDS: Sulfamethoxazole/Trimeth DS 1 EACH TABLET PO SCH ×2 (09:23→21:25)
[2019-02-07] MEDS: VITAMIN E ACETATE PO SCH ×2 (09:23→21:27)
[2019-02-07] MEDS: Loratadine 10 MG TABLET PO SCH (09:23)
[2019-02-07] MEDS: Furosemide 40 MG TABLET PO SCH ×2 (09:23→18:17)
[2019-02-07] MEDS: Diltiazem CD (24hr) 240 MG CAPSULE PO SCH (09:23)
[2019-02-07] MEDS: Diltiazem CD (24hr) 120 MG CAPSULE PO SCH (09:23)
[2019-02-07] MEDS: Famotidine 20 MG TABLET PO SCH ×2 (09:23→21:26)
[2019-02-07] MEDS: Magnesium Oxide 400 MG TABLET PO SCH (09:23)
--- NOTE | 2019-02-07 09:47 | Internal Med Progress Note ---
Hospitalist Progress Note - Encounter Date of Encounter: 02/07/19 Time of Encounter: 09:47 - Subjective Interval History: No acute events. Patient has no new complaints. She denies pain, fever and chills - Exam Vitals: Temp Pulse Resp BP Pulse Ox 36.6 C 85 92 132/67 91 02/07/19 06:51 02/07/19 06:51 02/07/19 07:38 02/07/19 06:51 02/07/19 07:38 Exam: General: Patient is alert, oriented 3. No distress. Head: Atraumatic, normal inspection, normocephalic. Eye: EOMI, PERRLA, no scleral icterus noted. ENT: Mucous membranes moist. No odontogenic infection noted. Neck: Normal inspection, no meningismus. Respiratory: Clear to auscultation. No wheezing or crackles. Cardiovascular: Regular rate and regular rhythm, S1 and S2 audible. Systolic murmur atThe right sternal border. +1 lower extremity edema. GI: Soft, nondistended, normal bowel sounds. Extremities: Clean dressing on both legs Neurological: Alert, oriented 3, no focal deficits. Psychiatric: normal affect, normal mood. Skin: Dry, intact, warm. Normal color. No rashes. except for on bilateral lower extremities. Has stasis dermatitis - Assessment and Plan (1) Left leg cellulitis Current Visit: Yes Status: Acute (2) DVT prophylaxis Current Visit: No Status: Acute (3) Afib Current Visit: Yes Status: Chronic (4) Morbid obesity Current Visit: Yes Status: Acute (5) Hypokalemia Current Visit: Yes Status: Resolved (6) Hypophosphatemia Current Visit: Yes Status: Resolved (7) Morbid obesity with BMI of 50.0-59.9, adult Current Visit: Yes Status: Chronic - Summary of Assessment and Plan Summary of Assessment and Plan: 73-year-old female with history of morbid obesity, heart failure preserved ejection fraction, atrial fibrillation, COPD, DIANNE, breast cancer who is being managed for left leg cellulitis. Left leg cellulitis: -Vitally stable - No complaints - Currently on PO Bactrim. HFpEF: - Patient denies shortness of breath orthopnea and PND - Continue home dose of Lasix Hypokalemia: Resolved COPD: - Not in acute exacerbation. - Continue home dose inhalers. Atrial fibrillation: - Continue Coumadin, INR theraputic - Continue home dose diltiazem Morbid obesity with BMI of 56: - Life style modification recommended. DVT prophylaxis: On Coumadin Disposition: BMAT 3, will need SNF Discharge Planning: Awaiting Approval from insurance for SNF placement. - Time Spent with Patient Total time spent is greater than 50% in coordination of care (as documented) at patient's floor/unit and/or counseling patient: Internal Medicine: Result - Labs CBC & Chem 7: 02/04/19 07:13 02/07/19 01:51 Labs: BMP 02/07/19 01:51 Sodium 138 Potassium 4.1 Chloride 100 Carbon Dioxide 31 H BUN 29 H Creatinine 0.92 Glucose 103 Calcium 8.6 - ABG Interpretation ABG results: PT/INR, D-dimer PT 22.7 Seconds (9.4-12.1) H 02/07/19 01:51 D-Dimer 469 ng/mLFEU (0-500) 01/29/19 16:12 Consult Discharge Plan - Plan Referrals: Joy Finnegan MD [Primary Care Provider] - Prescriptions: Sulfamethoxazole/Trimeth DS [Bactrim DS] 1 each PO BID 6 Days #12 tablet (3) Afib Qualifiers: Atrial fibrillation type: chronic Qualified Code(s): I48.2 - Chronic atrial fibrillation
[2019-02-07] MEDS ORDERED: *HR* Warfarin 2.5 MG TABLET PO ONE (18:00)
[2019-02-07] MEDS: hydrOXYzine pamoate 25 MG CAPSULE PO SCH (21:26)
[2019-02-08 06:07] LABS: Basophils % 0.8 %; Eosinophils # 0.2 K/mcL (0.0-0.6); Hematocrit 39.1 % (35.3-44.9); Immature Granulocytes % 0.8 % (0-4); Lymphocytes # 0.8 K/mcL (0.6-4.6); Lymphocytes % 16.5 %; Mean Corpuscular HGB Conc 30.7 g/dL (31.6-35.5); Mean Corpuscular Hemoglobin 29.1 pg (28.0-33.3); Mean Corpuscular Volume 94.9 fL (83.0-100.0); Mean Platelet Volume 9.8 fL (9.4-12.4); Monocytes # 0.4 K/mcL (0.0-1.3); Monocytes % 7.4 %; Neutrophils # 3.6 K/mcL (1.6-8.9); Platelet Count 268 K/mcL (140-400); Red Blood Count 4.12 M/mcL (3.82-4.97); Red Cell Distribution Width 13.7 % (11.5-14.5); Segmented Neutrophils % 71.5 %
[2019-02-08 06:12] LABS: INR 1.8
[2019-02-08 06:27] LABS: BUN/Creatinine Ratio 27 (6-26); Blood Urea Nitrogen 27 mg/dL (8-23); Calcium 8.8 mg/dL (8.6-10.3); Carbon Dioxide 31 mEq/L (23-29); Chloride 101 mEq/L (98-107); Glucose 101 mg/dL (70-105); Osmolality,Calculated 291 (280-300); Potassium 4.2 mEq/L (3.5-5.1); Sodium 138 mEq/L (136-145); eGFR For African Americans > 60 (> 60); eGFR For Non-African Americans 54 (> 60)
[2019-02-08] MEDS: VITAMIN E ACETATE PO SCH ×2 (08:09→21:04)
[2019-02-08] MEDS: Magnesium Oxide 400 MG TABLET PO SCH (08:10)
[2019-02-08] MEDS: Diltiazem CD (24hr) 240 MG CAPSULE PO SCH (08:10)
[2019-02-08] MEDS: Loratadine 10 MG TABLET PO SCH (08:10)
[2019-02-08] MEDS: Diltiazem CD (24hr) 120 MG CAPSULE PO SCH (08:10)
[2019-02-08] MEDS: Famotidine 20 MG TABLET PO SCH ×2 (08:10→21:04)
[2019-02-08] MEDS: Sulfamethoxazole/Trimeth DS 1 EACH TABLET PO SCH ×2 (08:10→21:04)
[2019-02-08] MEDS: Ascorbic Acid 500 MG TABLET PO SCH (08:11)
[2019-02-08] MEDS: Furosemide 40 MG TABLET PO SCH ×2 (08:11→18:22)
[2019-02-08] MEDS: Tiotropium 18 MCG inhalation IH SCH (08:12)
--- NOTE | 2019-02-08 12:10 | Internal Med Progress Note ---
Hospitalist Progress Note - Encounter Date of Encounter: 02/08/19 Time of Encounter: 10:00 - Subjective Interval History: No acute events. Patient has no new complaints. She denies fever, chills and pain in her lower extremities - Exam Vitals: Temp Pulse Resp BP Pulse Ox 36.4 C 67 17 136/83 95 02/08/19 10:24 02/08/19 10:24 02/08/19 10:24 02/08/19 10:24 02/08/19 10:24 Exam: General: Patient is alert, oriented 3. No distress. Head: Atraumatic, normal inspection, normocephalic. Eye: EOMI, PERRLA, no scleral icterus noted. ENT: Mucous membranes moist. No odontogenic infection noted. Neck: Normal inspection, no meningismus. Respiratory: Clear to auscultation. No wheezing or crackles. Cardiovascular: Regular rate and regular rhythm, S1 and S2 audible. Systolic murmur atThe right sternal border. +1 lower extremity edema. GI: Soft, nondistended, normal bowel sounds. Extremities: Clean dressing on both legs Neurological: Alert, oriented 3, no focal deficits. Psychiatric: normal affect, normal mood. Skin: Dry, intact, warm. Normal color. No rashes. except for on bilateral lower extremities. Has stasis dermatitis - Assessment and Plan (1) Left leg cellulitis Current Visit: Yes Status: Acute (2) DVT prophylaxis Current Visit: No Status: Acute Assessment and Plan: Continue warfarin Pharmacy is dosing (3) Afib Current Visit: Yes Status: Chronic (4) Morbid obesity Current Visit: Yes Status: Acute (5) Hypokalemia Current Visit: Yes Status: Resolved (6) Hypophosphatemia Current Visit: Yes Status: Resolved (7) Morbid obesity with BMI of 50.0-59.9, adult Current Visit: Yes Status: Chronic - Summary of Assessment and Plan Summary of Assessment and Plan: 73-year-old female with history of morbid obesity, heart failure preserved ejection fraction, atrial fibrillation, COPD, DIANNE, breast cancer who is being managed for left leg cellulitis. Left leg cellulitis: -Vitally stable - No complaints - Currently on PO Bactrim. HFpEF: - Patient denies shortness of breath orthopnea and PND - Continue home dose of Lasix Hypokalemia: Resolved COPD: - Not in acute exacerbation. - Continue home dose inhalers. Atrial fibrillation: - Continue Coumadin, INR theraputic - Continue home dose diltiazem Morbid obesity with BMI of 56: - Life style modification recommended. DVT prophylaxis: On Coumadin Disposition: BMAT 3, will need SNF Discharge Planning: Awaiting Approval from insurance for SNF placement. - Time Spent with Patient Total time spent is greater than 50% in coordination of care (as documented) at patient's floor/unit and/or counseling patient: Internal Medicine: Result - Labs CBC & Chem 7: 02/08/19 05:48 02/08/19 05:48 Labs: Short CBC 02/08/19 Range/Units 05:48 WBC 5.0 (4.3-11.1) K/mcL Hgb 12.0 (11.5-15.4) g/dL Hct 39.1 (35.3-44.9) % Plt Count 268 (140-400) K/mcL Neutrophils # 3.6 (1.6-8.9) K/mcL BMP 02/08/19 05:48 Sodium 138 Potassium 4.2 Chloride 101 Carbon Dioxide 31 H BUN 27 H Creatinine 1.00 Glucose 101 Calcium 8.8 - ABG Interpretation ABG results: PT/INR, D-dimer PT 20.0 Seconds (9.4-12.1) H 02/08/19 05:48 D-Dimer 469 ng/mLFEU (0-500) 01/29/19 16:12 Consult Discharge Plan - Plan Referrals: Joy Finnegan MD [Primary Care Provider] - Prescriptions: Sulfamethoxazole/Trimeth DS [Bactrim DS] 1 each PO BID 6 Days #12 tablet (3) Afib Qualifiers: Atrial fibrillation type: chronic Qualified Code(s): I48.2 - Chronic atrial fibrillation
[2019-02-08] MEDS ORDERED: *HR* Warfarin 5 MG TABLET PO ONE (18:00)
[2019-02-08] MEDS: hydrOXYzine pamoate 25 MG CAPSULE PO SCH (21:04)
[2019-02-09 06:34] LABS: INR 1.7; Prothrombin Time 19.3 Seconds (9.4-12.1)
[2019-02-09] MEDS: Tiotropium 18 MCG inhalation IH SCH (07:41)
[2019-02-09] MEDS: Diltiazem CD (24hr) 120 MG CAPSULE PO SCH (10:07)
[2019-02-09] MEDS: Sulfamethoxazole/Trimeth DS 1 EACH TABLET PO SCH ×2 (10:07→22:06)
[2019-02-09] MEDS: Ascorbic Acid 500 MG TABLET PO SCH (10:07)
[2019-02-09] MEDS: VITAMIN E ACETATE PO SCH ×2 (10:07→22:06)
[2019-02-09] MEDS: Furosemide 40 MG TABLET PO SCH ×2 (10:08→18:06)
[2019-02-09] MEDS: Magnesium Oxide 400 MG TABLET PO SCH (10:08)
[2019-02-09] MEDS: Diltiazem CD (24hr) 240 MG CAPSULE PO SCH (10:08)
[2019-02-09] MEDS: Loratadine 10 MG TABLET PO SCH (10:08)
[2019-02-09] MEDS: Famotidine 20 MG TABLET PO SCH ×2 (10:08→22:06)
--- NOTE | 2019-02-09 12:59 | Internal Med Progress Note ---
Hospitalist Progress Note - Encounter Date of Encounter: 02/09/19 Time of Encounter: 12:59 - Subjective Interval History: Patient seen and examined this morning in the center. No acute overnight events. Denies new complaints. Denies any fevers chills nausea vomiting or diarrhea. - Exam Vitals: Temp Pulse Resp BP Pulse Ox 97.6 F 103 16 128/77 96 02/09/19 10:45 02/09/19 10:45 02/09/19 10:45 02/09/19 10:45 02/09/19 10:45 Exam: General: Patient is alert, oriented 3. No distress. Head: Atraumatic, normal inspection, normocephalic. Eye: EOMI, PERRLA, no scleral icterus noted. ENT: Mucous membranes moist. No odontogenic infection noted. Neck: Normal inspection, no meningismus. Respiratory: Clear to auscultation. No wheezing or crackles. Cardiovascular: Regular rate and regular rhythm, S1 and S2 audible. Systolic murmur atThe right sternal border. +1 lower extremity edema. GI: Soft, nondistended, normal bowel sounds. Extremities: Clean dressing on both legs Neurological: Alert, oriented 3, no focal deficits. Psychiatric: normal affect, normal mood. Skin: Dry, intact, warm. Normal color. No rashes. except for on bilateral lower extremities. Has stasis dermatitis - Assessment and Plan (1) DVT prophylaxis Current Visit: No Status: Acute (2) Afib Current Visit: Yes Status: Chronic (3) Morbid obesity Current Visit: Yes Status: Acute (4) Hypokalemia Current Visit: Yes Status: Resolved (5) Hypophosphatemia Current Visit: Yes Status: Resolved (6) Left leg cellulitis Current Visit: Yes Status: Acute (7) Morbid obesity with BMI of 50.0-59.9, adult Current Visit: Yes Status: Chronic - Summary of Assessment and Plan Summary of Assessment and Plan: Assessment Acute Lt leg cellulitis Chronic COPD HFpEF Afib Morbid obesity DIANNE Breast Ca Plan - c/w bactrim for 3 more days - c/w home dose of Lasix for CHF - not in COPD exacerbation. c/w home inhalers. - c/w Coumadin and diltiazem for afib - Awaiting Approval from insurance for SNF placement recommended per PT. Internal Medicine: Result - Labs CBC & Chem 7: 02/08/19 05:48 02/08/19 05:48 - ABG Interpretation ABG results: PT/INR, D-dimer PT 19.3 Seconds (9.4-12.1) H 02/09/19 05:58 D-Dimer 469 ng/mLFEU (0-500) 01/29/19 16:12 Consult Discharge Plan - Plan Referrals: Joy Finnegan MD [Primary Care Provider] - Prescriptions: Sulfamethoxazole/Trimeth DS [Bactrim DS] 1 each PO BID 6 Days #12 tablet (2) Afib Qualifiers: Atrial fibrillation type: chronic Qualified Code(s): I48.2 - Chronic atrial fibrillation
[2019-02-09] MEDS ORDERED: *HR* Warfarin 5 MG TABLET PO ONE (18:00)
[2019-02-09] MEDS: hydrOXYzine pamoate 25 MG CAPSULE PO SCH (22:05)
[2019-02-10] MEDS: Tiotropium 18 MCG inhalation IH SCH (07:32)
[2019-02-10] MEDS: Furosemide 40 MG TABLET PO SCH ×2 (09:21→18:07)
[2019-02-10] MEDS: Magnesium Oxide 400 MG TABLET PO SCH (09:21)
[2019-02-10] MEDS: Ascorbic Acid 500 MG TABLET PO SCH (09:21)
[2019-02-10] MEDS: Famotidine 20 MG TABLET PO SCH ×2 (09:21→21:51)
[2019-02-10] MEDS: Diltiazem CD (24hr) 120 MG CAPSULE PO SCH (09:21)
[2019-02-10] MEDS: Diltiazem CD (24hr) 240 MG CAPSULE PO SCH (09:21)
[2019-02-10] MEDS: VITAMIN E ACETATE PO SCH ×2 (09:21→21:52)
[2019-02-10] MEDS: Sulfamethoxazole/Trimeth DS 1 EACH TABLET PO SCH ×2 (09:21→21:52)
[2019-02-10] MEDS: Loratadine 10 MG TABLET PO SCH (09:21)
[2019-02-10 11:04] LABS: INR 1.7; Prothrombin Time 19.4 Seconds (9.4-12.1)
--- NOTE | 2019-02-10 13:38 | Internal Med Progress Note ---
Hospitalist Progress Note - Encounter Date of Encounter: 02/10/19 Time of Encounter: 11:38 - Subjective Interval History: Patient seen and examined this morning he does appear no acute overnight events. Patient denies new complaints. Denies any chest pain difficulty breathing. He still with lower extremity swelling gradually improved. No fever or chills nausea vomiting or diarrhea. - Exam Vitals: Temp Pulse Resp BP Pulse Ox 97.6 F 91 15 143/67 93 02/10/19 12:04 02/10/19 12:04 02/10/19 12:04 02/10/19 12:04 02/10/19 12:04 Exam: General: In no acute distress. Morbidly obse Respiratory exam: CTAB. no accessory muscle use, rales, rhonchi, wheezes Cardiovascular exam: RRR, systolic murmur, gallop, rubs. GI/Abdominal exam: Non-tender, Non-distended, normal bowel sounds, soft, no peritoneal signs. Extremities exam: 2+ pedal edemab/l, pulses palpable in b/l lower extremities. no calf tenderness Neurological exam: CN II-XII intact, AO X3, no focal deficits. Skin exam: b/l LE stasis dermatitis - Assessment and Plan (1) DVT prophylaxis Current Visit: No Status: Acute (2) Afib Current Visit: Yes Status: Chronic (3) Morbid obesity Current Visit: Yes Status: Acute (4) Hypokalemia Current Visit: Yes Status: Resolved (5) Hypophosphatemia Current Visit: Yes Status: Resolved (6) Left leg cellulitis Current Visit: Yes Status: Acute (7) Morbid obesity with BMI of 50.0-59.9, adult Current Visit: Yes Status: Chronic - Summary of Assessment and Plan Summary of Assessment and Plan: Assessment Acute Lt leg cellulitis Chronic COPD HFpEF Afib Morbid obesity DIANNE Breast Ca Plan - c/w bactrim for 2 more days - c/w home dose of Lasix for CHF. Did have ~12 L negative balance with initial diuresis. - not in COPD exacerbation. c/w home inhalers. - c/w Coumadin and diltiazem for afib - Awaiting Approval from insurance for SNF placement recommended per PT. Called Insurance for [id number] for authorization and left Voicemail to call back. Internal Medicine: Result - Labs CBC & Chem 7: 02/08/19 05:48 02/08/19 05:48 - ABG Interpretation ABG results: PT/INR, D-dimer PT 19.4 Seconds (9.4-12.1) H 02/10/19 10:08 D-Dimer 469 ng/mLFEU (0-500) 01/29/19 16:12 Consult Discharge Plan - Plan Referrals: Joy Finnegan MD [Primary Care Provider] - Prescriptions: Sulfamethoxazole/Trimeth DS [Bactrim DS] 1 each PO BID 6 Days #12 tablet (2) Afib Qualifiers: Atrial fibrillation type: chronic Qualified Code(s): I48.2 - Chronic atrial fibrillation
[2019-02-10] MEDS ORDERED: *HR* Warfarin 7.5 MG TABLET PO ONE (18:00)
[2019-02-10] MEDS: hydrOXYzine pamoate 25 MG CAPSULE PO SCH (21:51)
[2019-02-11 06:09] LABS: INR 1.9; Prothrombin Time 21.2 Seconds (9.4-12.1)
[2019-02-11] MEDS: Tiotropium 18 MCG inhalation IH SCH (07:24)
[2019-02-11] MEDS: Furosemide 40 MG TABLET PO SCH ×2 (09:46→18:07)
[2019-02-11] MEDS: Ascorbic Acid 500 MG TABLET PO SCH (09:46)
[2019-02-11] MEDS: Sulfamethoxazole/Trimeth DS 1 EACH TABLET PO SCH ×2 (09:47→21:56)
[2019-02-11] MEDS: Diltiazem CD (24hr) 120 MG CAPSULE PO SCH (09:47)
[2019-02-11] MEDS: Magnesium Oxide 400 MG TABLET PO SCH (09:47)
[2019-02-11] MEDS: Diltiazem CD (24hr) 240 MG CAPSULE PO SCH (09:47)
[2019-02-11] MEDS: Loratadine 10 MG TABLET PO SCH (09:47)
[2019-02-11] MEDS: Famotidine 20 MG TABLET PO SCH ×2 (09:47→21:56)
[2019-02-11] MEDS: VITAMIN E ACETATE PO SCH ×2 (09:47→21:56)
--- NOTE | 2019-02-11 10:59 | Internal Med Progress Note ---
Hospitalist Progress Note - Encounter Date of Encounter: 02/11/19 Time of Encounter: 10:59 - Subjective Interval History: Patient seen and examined this morning at bedside. No acute overnight events. Denies new complaints. Denies any difficulty breathing or chest pain. Lower extremity swelling about the same. - Exam Vitals: Temp Pulse Resp BP Pulse Ox 97.7 F 108 16 114/70 95 02/11/19 10:28 02/11/19 10:28 02/11/19 10:28 02/11/19 10:28 02/11/19 10:28 Exam: General: In no acute distress. Morbidly obese Respiratory exam: CTAB. no accessory muscle use, rales, rhonchi, wheezes Cardiovascular exam: RRR, systolic murmur, gallop, rubs. GI/Abdominal exam: Non-tender, Non-distended, normal bowel sounds, soft, no peritoneal signs. Extremities exam: 2+ pedal edemab/l, pulses palpable in b/l lower extremities. no calf tenderness Neurological exam: CN II-XII intact, AO X3, no focal deficits. Skin exam: b/l LE stasis dermatitis - Assessment and Plan (1) DVT prophylaxis Current Visit: No Status: Acute (2) Afib Current Visit: Yes Status: Chronic (3) Morbid obesity Current Visit: Yes Status: Acute (4) Hypokalemia Current Visit: Yes Status: Resolved (5) Hypophosphatemia Current Visit: Yes Status: Resolved (6) Left leg cellulitis Current Visit: Yes Status: Acute (7) Morbid obesity with BMI of 50.0-59.9, adult Current Visit: Yes Status: Chronic - Summary of Assessment and Plan Summary of Assessment and Plan: Assessment Acute Lt leg cellulitis Chronic COPD HFpEF Afib Morbid obesity DIANNE Breast Ca Plan - bactrim last day today. - c/w home dose of Lasix for CHF. Did have ~12 L negative balance with initial diuresis. - not in COPD exacerbation. c/w home inhalers. - c/w Coumadin and diltiazem for afib - Awaiting Approval from insurance for SNF placement recommended per PT. Internal Medicine: Result - Labs CBC & Chem 7: 02/08/19 05:48 02/08/19 05:48 - ABG Interpretation ABG results: PT/INR, D-dimer PT 21.2 Seconds (9.4-12.1) H 02/11/19 05:46 D-Dimer 469 ng/mLFEU (0-500) 01/29/19 16:12 Consult Discharge Plan - Plan Referrals: Joy Finnegan MD [Primary Care Provider] - Prescriptions: Sulfamethoxazole/Trimeth DS [Bactrim DS] 1 each PO BID 6 Days #12 tablet (2) Afib Qualifiers: Atrial fibrillation type: chronic Qualified Code(s): I48.2 - Chronic atrial fibrillation
[2019-02-11] MEDS ORDERED: *HR* Warfarin 5 MG TABLET PO ONE (18:00)
[2019-02-11] MEDS: hydrOXYzine pamoate 25 MG CAPSULE PO SCH (21:56)
[2019-02-12 07:09] LABS: INR 2.1; Prothrombin Time 23.5 Seconds (9.4-12.1)
[2019-02-12] MEDS: Tiotropium 18 MCG inhalation IH SCH (08:01)
[2019-02-12] MEDS: Loratadine 10 MG TABLET PO SCH (09:48)
[2019-02-12] MEDS: Ascorbic Acid 500 MG TABLET PO SCH (09:48)
[2019-02-12] MEDS: Magnesium Oxide 400 MG TABLET PO SCH (09:48)
[2019-02-12] MEDS: Sulfamethoxazole/Trimeth DS 1 EACH TABLET PO SCH (09:48)
[2019-02-12] MEDS: VITAMIN E ACETATE PO SCH (09:48)
[2019-02-12] MEDS: Diltiazem CD (24hr) 120 MG CAPSULE PO SCH (09:48)
[2019-02-12] MEDS: Furosemide 40 MG TABLET PO SCH (09:48)
[2019-02-12] MEDS: Famotidine 20 MG TABLET PO SCH (09:49)
[2019-02-12] MEDS: Diltiazem CD (24hr) 240 MG CAPSULE PO SCH (09:49)
[2019-02-12 11:11] VITALS: BP 141/81
--- NOTE | 2019-02-12 12:30 | Discharge Summary ---
- NOTES TO OUTPATIENT PROVIDER Notes to Outpatient Provider: Patient will need close follow-up for diureses and CHF management. Patient would need INR monitoring in 3-5 days given dose adjusted to 5 mg daily. Discharge with home health with PT as insurance would not approve rehabilitation. Orders not resulted at time of discharge: Pending orders 02/13/19 04:00 PT/INR [Prothrombin Time INR] [COAG] AM 0400 02/14/19 04:00 PT/INR [Prothrombin Time INR] [COAG] AM 0400 02/15/19 04:00 PT/INR [Prothrombin Time INR] [COAG] AM 0400 Date of Encounter: 02/12/19 Time of Encounter: 12:28 - Discharge Diagnosis (1) DVT prophylaxis Priority: Secondary Status: Acute (2) Afib Priority: Secondary Status: Chronic Qualifiers: Atrial fibrillation type: chronic Qualified Code(s): I48.2 - Chronic atrial fibrillation (3) Morbid obesity Priority: Secondary Status: Acute (4) Hypokalemia Priority: Primary Status: Resolved (5) Hypophosphatemia Priority: Primary Status: Resolved (6) Left leg cellulitis Priority: Primary Status: Acute (7) Morbid obesity with BMI of 50.0-59.9, adult Priority: Secondary Status: Chronic Hospital course: Ms. Veloz is a 73 year old female with past medical history of atrial fibrillation, CHF, hypertension who came in with left leg cellulitis was treated with vancomycin and changed to Bactrim oral. She was also diuresed for acute on chronic diastolic CHF with almost -11 L. She was discharged and was awaiting placement to rehabilitation as recommended by physical therapy however insurance did not approve it. While waiting for placement to finish her antibiotic course. Her INR was maintained with 5 mg of Coumadin as per pharmacy dosing. See was discharged with 5 mg of Coumadin daily and was asked to get INR checked in 3-5 days. She will need to follow up closely PCP for overall volume management and close monitoring. Home health with PT would be arranged. Discharge discussed with: patient, nurse, social work, case management - Time Spent with Patient Total time spent providing and/or coordinating discharge services: Time spent: Greater than 30 minutes (35) - Discharge Medications Prescriptions: New Mometasone Furoate [Asmanex Hfa] 1 puff IH BIDRESP puff Ipratropium/Albuterol Neb [Duoneb] 3 ml IH [id number] PRN inhsol PRN Reason: Shortness Of Breath/Wheezing Acetaminophen [Tylenol] 500 mg PO Q8HR PRN tablet PRN Reason: Pain Continued Ranitidine HCl [Acid Self Storage Manager] 150 mg PO BID Magnesium Oxide [Magnesium] 400 mg PO DAILY Docusate [Colace] 100 mg PO BID PRN PRN Reason: Constipation Duloxetine HCl [Cymbalta] 60 mg PO HS Ascorbic Acid [Vitamin C] 1,000 mg PO DAILY Beclomethasone Dip 40mcg REDIH [Qvar 40 Mcg Redihaler] 2 puff IH BID Vitamin E Acetate [Vitamin E] 400 unit PO BID Spironolactone 25 mg PO DAILY Ferrous Sulfate 325 mg PO DAILY Tiotropium Chandler [Spiriva Respimat] 2 puff IH DAILY Calcium Carbonate/Vitamin D3 [Calcium 600 + Vit D Tablet] 1 tab PO BID Polyethylene Glycol 3350 [Natura-Lax] 17 gm PO DAILY PRN PRN Reason: Constipation Diltiazem CD (24hr) [Cardizem CD] 240 mg PO DAILY Diltiazem CD (24hr) [Cardizem CD] 120 mg PO DAILY Furosemide [Lasix] 40 mg PO BID hydrOXYzine HCl [Hydroxyzine HCl] 50 mg PO HS Loratadine [Claritin] 10 mg PO DAILY Triamcinolone Acet 0.1% CRM [Kenalog] 1 each TP BID PRN PRN Reason: Rash Changed Warfarin [Coumadin] 5 mg PO DAILY #0 Discontinued Albuterol Sulfate [Proventil Inhaler] 2 puff IH Q4H PRN PRN Reason: Shortness Of Breath Warfarin [Coumadin] 2.5 mg PO [id number] Home Medications: Docusate [Colace] 100 mg PO BID PRN 04/23/17 [History] Magnesium Oxide [Magnesium] 400 mg PO DAILY 04/23/17 [History] Ranitidine HCl [Acid Self Storage Manager] 150 mg PO BID 04/23/17 [History] Duloxetine HCl [Cymbalta] 60 mg PO HS 01/05/18 [History] Ascorbic Acid [Vitamin C] 1,000 mg PO DAILY 07/20/18 [History] Beclomethasone Dip 40mcg REDIH [Qvar 40 Mcg Redihaler] 2 puff IH BID 07/20/18 [History] Spironolactone 25 mg PO DAILY 07/20/18 [History] Vitamin E Acetate [Vitamin E] 400 unit PO BID 07/20/18 [History] Ferrous Sulfate 325 mg PO DAILY 07/24/18 [History] Tiotropium Chandler [Spiriva Respimat] 2 puff IH DAILY 09/25/18 [History] Calcium Carbonate/Vitamin D3 [Calcium 600 + Vit D Tablet] 1 tab PO BID 09/27/18 [History] Polyethylene Glycol 3350 [Natura-Lax] 17 gm PO DAILY PRN 09/27/18 [History] Diltiazem CD (24hr) [Cardizem CD] 120 mg PO DAILY 01/29/19 [History] Diltiazem CD (24hr) [Cardizem CD] 240 mg PO DAILY 01/29/19 [History] Furosemide [Lasix] 40 mg PO BID 01/29/19 [History] Loratadine [Claritin] 10 mg PO DAILY 01/29/19 [History] Triamcinolone Acet 0.1% CRM [Kenalog] 1 each TP BID PRN 01/29/19 [History] hydrOXYzine HCl [Hydroxyzine HCl] 50 mg PO HS 01/29/19 [History] Acetaminophen [Tylenol] 500 mg PO Q8HR PRN tablet 02/04/19 [Rx] Ipratropium/Albuterol Neb [Duoneb] 3 ml IH [id number] PRN inhsol 02/04/19 [Rx] Mometasone Furoate [Asmanex Hfa] 1 puff IH BIDRESP puff 02/04/19 [Rx] Warfarin [Coumadin] 5 mg PO DAILY #0 02/12/19 [Rx] Allergies/Adverse Reactions: Allergy/AdvReac Type Severity Reaction Status Date / Time doxycycline Allergy Rash Verified 09/27/18 15:26 gabapentin [From Neurontin] Allergy See Verified 09/27/18 15:26 Comments Penicillins [PCN] Allergy Rash Verified 09/27/18 15:26 Date of admission: 02/02/19 14:51 Primary care physician: Joy Finnegan MD Consults: 01/30/19 04:42 Consult to Wound Care [CONS] Routine Reason for Consult: Left lower extremity cellulitis with multiple wounds of various stages of healing Call Completed: No 01/31/19 14:08 Consult to Occupational Therapy [CONS] Routine Comment: Evaluate, develop and implement POC Reason for Consult: evaluate the need for skilled placement Does patient have active BEDREST order?: No Is patient medically & hemodynamically stable?: Yes Consult to Physical Therapy [CONS] Routine Comment: Evaluate, develop and implement POC Reason for Consult: Evaluate the need for skilled Does patient have active BEDREST order?: No Is patient medically & hemodynamically stable?: Yes 02/02/19 08:38 Consult to Nurse Navigator [CONS] Routine Comment: chf 02/03/19 17:49 Consult to Structural Layout Worker [CONS] Routine Reason for SW Consult: PT/OT recommending SNF - Patient would like to go to [facility] Discharging clinician: Cassandra Dumont - Constitutional Vitals: Temp Pulse Resp BP Pulse Ox 97.8 F 104 16 141/81 95 02/12/19 11:09 02/12/19 11:09 02/12/19 11:09 02/12/19 11:09 02/12/19 11:09 General appearance: Present: morbidly obese Exam: General: In no acute distress. Morbidly obese Respiratory exam: CTAB. no accessory muscle use, rales, rhonchi, wheezes Cardiovascular exam: RRR, systolic murmur, gallop, rubs. GI/Abdominal exam: Non-tender, Non-distended, normal bowel sounds, soft, no peritoneal signs. Extremities exam: 2+ pedal edema b/l, pulses palpable in b/l lower extremities. no calf tenderness Neurological exam: CN II-XII intact, AO X3, no focal deficits. Skin exam: b/l LE stasis dermatitis - Patient Status Disposition: Home Health Service Condition: Fair - Discharge Instructions Follow Up With: Joy Finnegan MD [Primary Care Provider] - 02/19/19 11:45 am - Diet and Activity Activity: as per physical therapy
--- NOTE | 2019-02-12 12:47 | Physician Discharge Referral ---
Home Health/Hosp Referral Info Transfer to: Home Health - Diagnosis (1) DVT prophylaxis Status: Acute (2) Afib Status: Chronic (3) Morbid obesity Status: Acute (4) Hypokalemia Status: Resolved (5) Hypophosphatemia Status: Resolved (6) Left leg cellulitis Status: Acute (7) Morbid obesity with BMI of 50.0-59.9, adult Status: Chronic - Respiratory Orders Smoking Cessation: Smoking cessation has been advised. For more information, call the [place] Tobacco Quit Line at 4-602-OBNZ-NOW. - Services Needed Following services are medically necessary services: Nursing, Physical Therapy, Occupational Therapy - Transfer Medications Home Medications: Docusate [Colace] 100 mg PO BID PRN 04/23/17 [History] Magnesium Oxide [Magnesium] 400 mg PO DAILY 04/23/17 [History] Ranitidine HCl [Acid Tin Worker] 150 mg PO BID 04/23/17 [History] Duloxetine HCl [Cymbalta] 60 mg PO HS 01/05/18 [History] Ascorbic Acid [Vitamin C] 1,000 mg PO DAILY 07/20/18 [History] Beclomethasone Dip 40mcg REDIH [Qvar 40 Mcg Redihaler] 2 puff IH BID 07/20/18 [History] Spironolactone 25 mg PO DAILY 07/20/18 [History] Vitamin E Acetate [Vitamin E] 400 unit PO BID 07/20/18 [History] Ferrous Sulfate 325 mg PO DAILY 07/24/18 [History] Tiotropium [place] [Spiriva Respimat] 2 puff IH DAILY 09/25/18 [History] Calcium Carbonate/Vitamin D3 [Calcium 600 + Vit D Tablet] 1 tab PO BID 09/27/18 [History] Polyethylene Glycol 3350 [Natura-Lax] 17 gm PO DAILY PRN 09/27/18 [History] Diltiazem CD (24hr) [Cardizem CD] 120 mg PO DAILY 01/29/19 [History] Diltiazem CD (24hr) [Cardizem CD] 240 mg PO DAILY 01/29/19 [History] Furosemide [Lasix] 40 mg PO BID 01/29/19 [History] Loratadine [Claritin] 10 mg PO DAILY 01/29/19 [History] Triamcinolone Acet 0.1% CRM [Kenalog] 1 each TP BID PRN 01/29/19 [History] hydrOXYzine HCl [Hydroxyzine HCl] 50 mg PO HS 01/29/19 [History] Acetaminophen [Tylenol] 500 mg PO Q8HR PRN tablet 02/04/19 [Rx] Ipratropium/Albuterol Neb [Duoneb] 3 ml IH [id number] PRN inhsol 02/04/19 [Rx] Mometasone Furoate [Asmanex Hfa] 1 puff IH BIDRESP puff 02/04/19 [Rx] Warfarin [Coumadin] 5 mg PO DAILY #0 02/12/19 [Rx] Allergies/Adverse Reactions: Allergy/AdvReac Type Severity Reaction Status Date / Time doxycycline Allergy Rash Verified 09/27/18 15:26 gabapentin [From Neurontin] Allergy See Verified 09/27/18 15:26 Comments Penicillins [PCN] Allergy Rash Verified 09/27/18 15:26 Certification: Further, I certify that my clinical findings support that this patient is home bound (i.e. absences from home require considerable and taxing effort and are for medical reasons or jewish services or infrequently or short duration when for other reasons) because: Homebound Reason: Patient requires assistance of a person or device to safely leave home Attestation: My signature below is to certify that this patient is under my care and that I, or nurse practitioner, or a physician's psychiatric technician assistant working with me, has a [id number] encounter with this patient.
[2019-02-12] MEDS ORDERED: *HR* Warfarin 5 MG TABLET PO ONE (18:00)
== END 2019-02-12 15:32 | disposition home health service (06) | DRG 383 ==
LOC: EMEROOARM 15:57 → 3ANU 15:57 → SUATTDRO 21:05 → 3ANU 21:30 → SUATTDRO 02-02 14:51
PROVIDERS: ADMIT Family Medicine; ATTEND Internal Medicine

== ENCOUNTER 2019-06-26 12:17 | Inpatient (IN) ==
[2019-06-26] MEDS ORDERED: Ipratropium/Albuterol Neb 3 ML IH ONE (12:22)
[2019-06-26] MEDS ORDERED: 0.9 % Sodium Chloride 1,000 ML IVC SCH (12:30)
[2019-06-26] MEDS ORDERED: Furosemide 40 MG/4 ML VIAL IVP ONE (13:20)
[2019-06-26 13:28] LABS: Basophils % 0.3 %; Eosinophils % 0.1 %; Hemoglobin 13.5 g/dL (11.5-15.4); Immature Granulocytes % 0.3 % (0-4); Lymphocytes # 0.5 K/mcL (0.6-4.6); Lymphocytes % 6.4 %; Mean Corpuscular HGB Conc 32.9 g/dL (31.6-35.5); Mean Platelet Volume 10.7 fL (9.4-12.4); Monocytes # 0.9 K/mcL (0.0-1.3); Monocytes % 12.6 %; Neutrophils # 5.6 K/mcL (1.6-8.9); Platelet Count 166 K/mcL (140-400); Red Blood Count 4.36 M/mcL (3.82-4.97); Red Cell Distribution Width 13.3 % (11.5-14.5); Segmented Neutrophils % 80.3 %
[2019-06-26 14:07] LABS: Alanine Aminotransferase 25 Units/L (7-52); Albumin 3.7 g/dL (3.5-5.7); Albumin/Globulin Ratio 1.1 (1.1-2.2); Alkaline Phosphatase 154 Units/L (34-104); Aspartate Amino Transferase 29 Units/L (13-39); BUN/Creatinine Ratio 20 (6-26); Bilirubin,Total 2.5 mg/dL (0.3-1.0); Blood Urea Nitrogen 16 mg/dL (8-23); Calcium 9.3 mg/dL (8.6-10.3); Carbon Dioxide 25 mEq/L (23-29); Chloride 99 mEq/L (98-107); Globulin 3.4 g/dL (2.4-3.5); Glucose 115 mg/dL (70-105); Osmolality,Calculated 282 (280-300); Potassium 3.5 mEq/L (3.5-5.1); Sodium 135 mEq/L (136-145); Total Protein 7.1 g/dL (6.4-8.9); eGFR For African Americans > 60 (> 60); eGFR For Non-African Americans > 60 (> 60)
[2019-06-26] MEDS ORDERED: Naloxone 0.4 MG/ML INJ IVP PRN (14:59)
[2019-06-26] MEDS ORDERED: Ipratropium/Albuterol Neb 3 ML IH PRN (16:24)
[2019-06-26] MEDS ORDERED: Azithromycin 500 MG in 0.9 % Sodium Chloride 250 ML IVPB SCH (17:00)
[2019-06-26 17:12] LABS: INR 3.1; Prothrombin Time 35.2 Seconds (9.4-12.1)
[2019-06-26] MEDS ORDERED: MethylPREDNISolone 40 MG/ML VIAL IVP SCH (18:00)
[2019-06-26] MEDS ORDERED: Warfarin perPT PO PRN (18:00)
[2019-06-26] MEDS: Azithromycin 500 MG in 0.9 % Sodium Chloride 250 ML IVPB SCH (18:18)
[2019-06-26] MEDS ORDERED: Ondansetron 4 MG/2 ML VIAL IVP PRN (18:56)
[2019-06-26] MEDS ORDERED: Isovue-370 500 ML BOTTLE IVP ONE (18:57)
[2019-06-26] MEDS: Budesonide/Formoterol 160/4.5 1 PUFF INH IH SCH (19:43)
[2019-06-26] MEDS: Ipratropium/Albuterol Neb 3 ML IH SCH (19:43)
[2019-06-26 19:49] LABS: ABG Base Excess 4 mEq/L (-2 to 3); ABG HCO3 28 mEq/L (21-27); ABG Oxygen Saturation 95 % (95-98); ABG PCO2 43 mmHg (35-45); ABG PH 7.43 pH Units (7.32-7.45); ABG PO2 72 mmHg (85-104); ABG TCO2 30 mEq/L (20-26)
[2019-06-26] MEDS: Furosemide 40 MG/4 ML VIAL IVP SCH (19:56)
[2019-06-26] MEDS ORDERED: Perflutren Lipid Microsphere 1.3 ML in 0.9 % Sodium Chloride 8.7 ML IVP ONE (21:38)
[2019-06-26] MEDS ORDERED: Perflutren Lipid Microsphere 2 ML VIAL ONE (21:41)
[2019-06-26] MEDS: Ciprofloxacin/Dex *EAR* Susp 7.5 ML BOTTLE LEFT EAR SCH (22:05)
[2019-06-27] MEDS: Ipratropium/Albuterol Neb 3 ML IH SCH (00:13)
[2019-06-27] MEDS: MethylPREDNISolone 40 MG/ML VIAL IVP SCH ×4 (01:02→23:14)
[2019-06-27] MEDS: Levalbuterol Neb 1.25 MG/3 ML IH SCH ×5 (03:45→20:01)
[2019-06-27 06:31] LABS: Hematocrit 39.4 % (35.3-44.9); Hemoglobin 12.8 g/dL (11.5-15.4); Immature Granulocytes % 0.3 % (0-4); Lymphocytes # 0.2 K/mcL (0.6-4.6); Mean Corpuscular HGB Conc 32.5 g/dL (31.6-35.5); Mean Corpuscular Hemoglobin 31.1 pg (28.0-33.3); Mean Corpuscular Volume 95.6 fL (83.0-100.0); Mean Platelet Volume 11.1 fL (9.4-12.4); Monocytes # 0.2 K/mcL (0.0-1.3); Monocytes % 4.5 %; Neutrophils # 3.4 K/mcL (1.6-8.9); Platelet Count 142 K/mcL (140-400); Red Blood Count 4.12 M/mcL (3.82-4.97); Red Cell Distribution Width 13.2 % (11.5-14.5); Segmented Neutrophils % 90.2 %; White Blood Count 3.8 K/mcL (4.3-11.1)
[2019-06-27 06:49] LABS: Platelet Estimate Normal (Normal)
[2019-06-27 06:51] LABS: BUN/Creatinine Ratio 22 (6-26); Blood Urea Nitrogen 18 mg/dL (8-23); Carbon Dioxide 29 mEq/L (23-29); Chloride 99 mEq/L (98-107); Chol/HDL Ratio 2.5 (0-4.9); Cholesterol 111 mg/dL (< 200); Glucose 197 mg/dL (70-105); HDL Cholesterol 44 mg/dL (40-59); LDL Cholesterol,Calculated 56 mg/dL (0-99); Magnesium 2.1 mg/dL (1.6-2.6); Osmolality,Calculated 303 (280-300); Phosphorous 3.4 mg/dL (2.7-4.5); Potassium 3.6 mEq/L (3.5-5.1); Sodium 143 mEq/L (136-145); Triglycerides 56 mg/dL (< 150); eGFR For African Americans > 60 (> 60); eGFR For Non-African Americans > 60 (> 60)
[2019-06-27] MEDS: Furosemide 40 MG/4 ML VIAL IVP SCH ×2 (07:33→17:51)
[2019-06-27] MEDS: Ciprofloxacin/Dex *EAR* Susp 7.5 ML BOTTLE LEFT EAR SCH ×2 (07:34→20:13)
[2019-06-27] MEDS: Budesonide/Formoterol 160/4.5 1 PUFF INH IH SCH ×2 (07:46→20:01)
[2019-06-27] MEDS ORDERED: Furosemide 40 MG/4 ML VIAL IVP SCH (09:00)
[2019-06-27] MEDS ORDERED: Diltiazem CD (24hr) 120 MG CAPSULE PO SCH (09:00)
[2019-06-27] MEDS ORDERED: *HR* Metoprolol 5 MG/5 ML VIAL IVP PRN (10:06)
[2019-06-27] MEDS: Spironolactone 25 MG TABLET PO SCH (10:12)
[2019-06-27] MEDS: Loratadine 10 MG TABLET PO SCH (10:12)
[2019-06-27] MEDS: Diltiazem CD (24hr) 180 MG CAPSULE PO SCH (10:12)
[2019-06-27] MEDS: Magnesium Oxide 400 MG TABLET PO SCH (10:12)
[2019-06-27] MEDS: cefTRIAXone 1,000 MG in Water for inj. (sterile) 10 ML IVP SCH (13:42)
[2019-06-27 15:14] LABS: Adenovirus Not Detected (Not Detect); Coronavirus 229E Not Detected (Not Detect); Coronavirus HKU1 Not Detected (Not Detect); Coronavirus NL63 Not Detected (Not Detect); Coronavirus OC43 Not Detected (Not Detect); Human Metapneumovirus Not Detected (Not Detect); Human Rhinovirus/Enterovirus Not Detected (Not Detect); Influenza A Subtype 2009 H1 Not Detected (Not Detect)
[2019-06-27 15:15] LABS: Bordetella Pertussis Not Detected (Not Detect); Chlamydophila pneumoniae Not Detected (Not Detect); Influenza A Untypeable Not Detected (Not Detect); Influenza B Not Detected (Not Detect); Mycoplasma pneumoniae Not Detected (Not Detect); Parainfluenza Virus 1 Not Detected (Not Detect); Parainfluenza Virus 2 Not Detected (Not Detect); Parainfluenza Virus 3 Not Detected (Not Detect); Parainfluenza Virus 4 Not Detected (Not Detect); Respiratory Syncytial Virus Not Detected (Not Detect)
[2019-06-27 17:04] LABS: INR 3.1; Prothrombin Time 35.5 Seconds (9.4-12.1)
[2019-06-27] MEDS: Azithromycin 500 MG in 0.9 % Sodium Chloride 250 ML IVPB SCH (17:51)
[2019-06-28] MEDS: Levalbuterol Neb 1.25 MG/3 ML IH SCH ×7 (00:18→23:45)
[2019-06-28 06:59] LABS: Basophils % 0.2 %; Hematocrit 40.1 % (35.3-44.9); Hemoglobin 13.2 g/dL (11.5-15.4); INR 2.4; Immature Granulocytes % 0.4 % (0-4); Lymphocytes # 0.5 K/mcL (0.6-4.6); Mean Corpuscular HGB Conc 32.9 g/dL (31.6-35.5); Mean Corpuscular Hemoglobin 30.7 pg (28.0-33.3); Mean Corpuscular Volume 93.3 fL (83.0-100.0); Mean Platelet Volume 11.1 fL (9.4-12.4); Monocytes # 0.3 K/mcL (0.0-1.3); Neutrophils # 4.5 K/mcL (1.6-8.9); Platelet Count 204 K/mcL (140-400); Prothrombin Time 27.1 Seconds (9.4-12.1); Red Cell Distribution Width 13.3 % (11.5-14.5); Segmented Neutrophils % 84.4 %; White Blood Count 5.3 K/mcL (4.3-11.1)
[2019-06-28] MEDS: Budesonide/Formoterol 160/4.5 1 PUFF INH IH SCH ×2 (07:29→19:37)
[2019-06-28] MEDS: cefTRIAXone 1,000 MG in Water for inj. (sterile) 10 ML IVP SCH (07:38)
[2019-06-28] MEDS: MethylPREDNISolone 40 MG/ML VIAL IVP SCH ×3 (07:38→23:36)
[2019-06-28] MEDS: Furosemide 40 MG/4 ML VIAL IVP SCH ×2 (07:38→16:38)
[2019-06-28] MEDS: Diltiazem CD (24hr) 180 MG CAPSULE PO SCH (07:39)
[2019-06-28] MEDS: Magnesium Oxide 400 MG TABLET PO SCH (07:39)
[2019-06-28] MEDS: Spironolactone 25 MG TABLET PO SCH (07:39)
[2019-06-28] MEDS: Loratadine 10 MG TABLET PO SCH (07:39)
[2019-06-28] MEDS: Ciprofloxacin/Dex *EAR* Susp 7.5 ML BOTTLE LEFT EAR SCH ×2 (07:40→20:41)
[2019-06-28] MEDS: Azithromycin 500 MG in 0.9 % Sodium Chloride 250 ML IVPB SCH (16:39)
[2019-06-28] MEDS ORDERED: *HR* Warfarin 1 MG TABLET PO ONE (18:00)
[2019-06-28] MEDS ORDERED: *HR* Warfarin 2.5 MG TABLET PO ONE (18:00)
[2019-06-29] MEDS: Levalbuterol Neb 1.25 MG/3 ML IH SCH ×2 (03:30→07:28)
[2019-06-29 06:07] LABS: INR 2.2; Prothrombin Time 25.3 Seconds (9.4-12.1)
[2019-06-29 06:27] LABS: BUN/Creatinine Ratio 48 (6-26); Blood Urea Nitrogen 48 mg/dL (8-23); Calcium 9.2 mg/dL (8.6-10.3); Carbon Dioxide 28 mEq/L (23-29); Chloride 98 mEq/L (98-107); Glucose 177 mg/dL (70-105); Osmolality,Calculated 305 (280-300); Potassium 3.9 mEq/L (3.5-5.1); Sodium 139 mEq/L (136-145); eGFR For African Americans > 60 (> 60); eGFR For Non-African Americans 54 (> 60)
[2019-06-29 07:28] VITALS: BP 124/70
[2019-06-29] MEDS: Budesonide/Formoterol 160/4.5 1 PUFF INH IH SCH (07:28)
[2019-06-29] MEDS: Furosemide 40 MG/4 ML VIAL IVP SCH (08:47)
[2019-06-29] MEDS: Loratadine 10 MG TABLET PO SCH (08:48)
[2019-06-29] MEDS: Diltiazem CD (24hr) 180 MG CAPSULE PO SCH (08:48)
[2019-06-29] MEDS: Magnesium Oxide 400 MG TABLET PO SCH (08:48)
[2019-06-29] MEDS: Spironolactone 25 MG TABLET PO SCH (08:48)
[2019-06-29] MEDS ORDERED: predniSONE 20 MG TABLET PO SCH (09:00)
[2019-06-29] MEDS ORDERED: cefTRIAXone 1,000 MG in 0.9 % Sodium Chloride Mini Bag 100 ML IVPB SCH (09:00)
[2019-06-29] MEDS ORDERED: Azithromycin 250 MG TABLET PO SCH (09:00)
[2019-06-29] MEDS: Ciprofloxacin/Dex *EAR* Susp 7.5 ML BOTTLE LEFT EAR SCH (09:50)
== END 2019-06-29 11:12 | disposition home or self-care (01) | DRG 194 ==
LOC: 2ANU 12:17 → EMEROOARM 12:17 → 2ANU 16:01
PROVIDERS: ADMIT Internal Medicine; ATTEND Internal Medicine

== ENCOUNTER 2019-07-23 14:49 | Observation (INO) ==
[2019-07-23 16:21] LABS: Basophils % 0.4 %; Eosinophils # 0.6 K/mcL (0.0-0.6); Eosinophils % 11.3 %; Hematocrit 43.6 % (35.3-44.9); Hemoglobin 14.3 g/dL (11.5-15.4); Immature Granulocytes % 0.2 % (0-4); Lymphocytes # 0.8 K/mcL (0.6-4.6); Mean Corpuscular HGB Conc 32.8 g/dL (31.6-35.5); Mean Corpuscular Volume 94.4 fL (83.0-100.0); Mean Platelet Volume 10.9 fL (9.4-12.4); Monocytes # 0.4 K/mcL (0.0-1.3); Neutrophils # 3.4 K/mcL (1.6-8.9); Red Blood Count 4.62 M/mcL (3.82-4.97); Segmented Neutrophils % 66.1 %; White Blood Count 5.1 K/mcL (4.3-11.1)
[2019-07-23 16:41] LABS: BUN/Creatinine Ratio 18 (6-26); Blood Urea Nitrogen 15 mg/dL (8-23); C-Reactive Protein 49 mg/L (Less than 10); Calcium 9.7 mg/dL (8.6-10.3); Carbon Dioxide 28 mEq/L (23-29); Chloride 101 mEq/L (98-107); Glucose 90 mg/dL (70-105); Osmolality,Calculated 286 (280-300); Potassium 3.7 mEq/L (3.5-5.1); Sodium 138 mEq/L (136-145); eGFR For African Americans > 60 (> 60); eGFR For Non-African Americans > 60 (> 60)
[2019-07-23 17:21] LABS: Platelet Count 186 K/mcL (140-400)
[2019-07-23 17:22] LABS: Platelet Estimate Normal (Normal)
[2019-07-23] MEDS ORDERED: Acetaminophen 325 MG TABLET PO PRN (18:55)
[2019-07-23] MEDS ORDERED: Naloxone 0.4 MG/ML INJ IVP PRN (18:55)
[2019-07-23] MEDS ORDERED: Ondansetron 4 MG/2 ML VIAL IVP PRN (18:55)
[2019-07-23] MEDS ORDERED: Ipratropium/Albuterol Neb 3 ML IH PRN (19:27)
[2019-07-23 20:45] LABS: Albumin 3.4 g/dL (3.5-5.7); Albumin/Globulin Ratio 1.4 (1.1-2.2); Bilirubin,Direct 0.2 mg/dL (0.0-0.2); Bilirubin,Indirect 0.7 mg/dL (0.0-1.0); Bilirubin,Total 0.9 mg/dL (0.3-1.0); Globulin 2.4 g/dL (2.4-3.5); Total Protein 5.8 g/dL (6.4-8.9)
[2019-07-23 21:27] LABS: Hepatitis B Surface Antigen Nonreactive (Nonreactive)
[2019-07-23 21:55] LABS: Hepatitis C Virus Antibody Nonreactive (Nonreactive)
[2019-07-23 21:57] LABS: Hepatitis A Antibody IgM Nonreactive (Nonreactive)
[2019-07-24] MEDS: *HR* Metoprolol 5 MG/5 ML VIAL IVP SCH ×2 (00:50→05:39)
[2019-07-24 03:22] LABS: Basophils % 0.5 %; Eosinophils # 0.6 K/mcL (0.0-0.6); Eosinophils % 13.2 %; Hematocrit 39.1 % (35.3-44.9); Immature Granulocytes % 0.2 % (0-4); Mean Corpuscular HGB Conc 32.2 g/dL (31.6-35.5); Mean Corpuscular Hemoglobin 30.6 pg (28.0-33.3); Mean Corpuscular Volume 94.9 fL (83.0-100.0); Mean Platelet Volume 10.3 fL (9.4-12.4); Monocytes # 0.4 K/mcL (0.0-1.3); Monocytes % 9.1 %; Neutrophils # 2.3 K/mcL (1.6-8.9); Platelet Count 199 K/mcL (140-400); Red Blood Count 4.12 M/mcL (3.82-4.97); Red Cell Distribution Width 14.3 % (11.5-14.5); White Blood Count 4.2 K/mcL (4.3-11.1)
[2019-07-24 03:24] LABS: Prothrombin Time 23.2 Seconds (9.4-12.1)
[2019-07-24 03:34] LABS: Hemoglobin 12.6 g/dL (11.5-15.4)
[2019-07-24 03:39] LABS: Blood Urea Nitrogen 14 mg/dL (8-23); Calcium 8.9 mg/dL (8.6-10.3); Carbon Dioxide 30 mEq/L (23-29); Chloride 103 mEq/L (98-107); Glucose 94 mg/dL (70-105); Magnesium 1.8 mg/dL (1.6-2.6); Osmolality,Calculated 292 (280-300); Potassium 3.1 mEq/L (3.5-5.1); Sodium 141 mEq/L (136-145)
[2019-07-24 04:18] LABS: BUN/Creatinine Ratio 18 (6-26); eGFR For African Americans > 60 (> 60); eGFR For Non-African Americans > 60 (> 60)
[2019-07-24] MEDS ORDERED: 0.9 % Sodium Chloride 1,000 ML IV ONE (09:56)
[2019-07-24] MEDS ORDERED: Warfarin perPT PO PRN (18:13)
[2019-07-24] MEDS ORDERED: *HR* Warfarin 2.5 MG TABLET PO ONE (19:30)
[2019-07-25] MEDS: *HR* Metoprolol 5 MG/5 ML VIAL IVP SCH ×2 (01:39→06:54)
[2019-07-25 01:52] LABS: Basophils % 0.5 %; Eosinophils # 0.6 K/mcL (0.0-0.6); Eosinophils % 14.4 %; Hematocrit 40.9 % (35.3-44.9); Hemoglobin 13.4 g/dL (11.5-15.4); Immature Granulocytes % 0.3 % (0-4); Immature Platelets 1.6 % (1.1-6.1); Lymphocytes # 0.9 K/mcL (0.6-4.6); Lymphocytes % 22.5 %; Mean Corpuscular HGB Conc 32.8 g/dL (31.6-35.5); Mean Corpuscular Hemoglobin 30.9 pg (28.0-33.3); Mean Corpuscular Volume 94.2 fL (83.0-100.0); Monocytes # 0.3 K/mcL (0.0-1.3); Monocytes % 8.1 %; Neutrophils # 2.1 K/mcL (1.6-8.9); Platelet Count 182 K/mcL (140-400); Red Blood Count 4.34 M/mcL (3.82-4.97); Red Cell Distribution Width 14.2 % (11.5-14.5); Segmented Neutrophils % 54.2 %; White Blood Count 3.8 K/mcL (4.3-11.1)
[2019-07-25 01:57] LABS: INR 1.8; Prothrombin Time 20.2 Seconds (9.4-12.1)
[2019-07-25 04:26] LABS: BUN/Creatinine Ratio 14 (6-26); Blood Urea Nitrogen 13 mg/dL (8-23); Calcium 9.1 mg/dL (8.6-10.3); Carbon Dioxide 28 mEq/L (23-29); Chloride 103 mEq/L (98-107); Glucose 94 mg/dL (70-105); Osmolality,Calculated 294 (280-300); Potassium 4.2 mEq/L (3.5-5.1); Sodium 142 mEq/L (136-145); eGFR For African Americans > 60 (> 60); eGFR For Non-African Americans 58 (> 60)
[2019-07-25] MEDS ORDERED: Furosemide 40 MG/4 ML VIAL IVP ONE ×2 (08:15→12:00)
[2019-07-25] MEDS ORDERED: Diltiazem CD (24hr) 240 MG CAPSULE PO SCH (10:00)
[2019-07-25] MEDS: Ascorbic Acid 500 MG TABLET PO SCH (12:36)
[2019-07-25] MEDS: Diltiazem CD (24hr) 120 MG CAPSULE PO SCH (13:52)
[2019-07-25] MEDS: Spironolactone 25 MG TABLET PO SCH (15:22)
[2019-07-25] MEDS: Loratadine 10 MG TABLET PO SCH (15:22)
[2019-07-25] MEDS: Magnesium Oxide 400 MG TABLET PO SCH (15:22)
[2019-07-25] MEDS ORDERED: *HR* Warfarin 5 MG TABLET PO ONE (18:00)
[2019-07-25] MEDS ORDERED: *HR* Metoprolol 5 MG/5 ML VIAL IVP PRN (18:16)
[2019-07-26 04:39] LABS: ANA IgG by ELISA NONE DETECTED (None Detected)
[2019-07-26 05:46] LABS: Basophils % 0.8 %; Eosinophils # 0.5 K/mcL (0.0-0.6); Eosinophils % 14.5 %; Hematocrit 41.5 % (35.3-44.9); Hemoglobin 13.3 g/dL (11.5-15.4); Immature Granulocytes % 0.3 % (0-4); Lymphocytes # 0.8 K/mcL (0.6-4.6); Lymphocytes % 21.4 %; Mean Corpuscular Hemoglobin 30.3 pg (28.0-33.3); Mean Corpuscular Volume 94.5 fL (83.0-100.0); Monocytes # 0.3 K/mcL (0.0-1.3); Neutrophils # 2.1 K/mcL (1.6-8.9); Platelet Count 181 K/mcL (140-400); Red Blood Count 4.39 M/mcL (3.82-4.97); Red Cell Distribution Width 13.9 % (11.5-14.5); White Blood Count 3.7 K/mcL (4.3-11.1)
[2019-07-26 05:49] LABS: INR 1.4; Prothrombin Time 15.9 Seconds (9.4-12.1)
[2019-07-26 06:03] LABS: BUN/Creatinine Ratio 21 (6-26); Blood Urea Nitrogen 20 mg/dL (8-23); Calcium 9.1 mg/dL (8.6-10.3); Carbon Dioxide 31 mEq/L (23-29); Chloride 102 mEq/L (98-107); Glucose 99 mg/dL (70-105); Magnesium 2.1 mg/dL (1.6-2.6); Osmolality,Calculated 301 (280-300); Potassium 4.1 mEq/L (3.5-5.1); Sodium 144 mEq/L (136-145); eGFR For African Americans > 60 (> 60); eGFR For Non-African Americans 56 (> 60)
[2019-07-26] MEDS: Magnesium Oxide 400 MG TABLET PO SCH (07:42)
[2019-07-26] MEDS: Spironolactone 25 MG TABLET PO SCH (07:43)
[2019-07-26] MEDS: Ascorbic Acid 500 MG TABLET PO SCH (07:43)
[2019-07-26] MEDS: Loratadine 10 MG TABLET PO SCH (07:43)
[2019-07-26] MEDS: Diltiazem CD (24hr) 120 MG CAPSULE PO SCH (07:43)
[2019-07-26] MEDS: Furosemide 40 MG TABLET PO SCH ×2 (07:43→16:56)
[2019-07-26] MEDS ORDERED: *HR* Warfarin 5 MG TABLET PO ONE (18:00)
[2019-07-27 05:39] LABS: Basophils % 0.5 %; Eosinophils # 0.9 K/mcL (0.0-0.6); Eosinophils % 20.8 %; Hematocrit 38.2 % (35.3-44.9); Hemoglobin 12.3 g/dL (11.5-15.4); Immature Granulocytes % 0.5 % (0-4); Lymphocytes # 0.9 K/mcL (0.6-4.6); Lymphocytes % 20.8 %; Mean Corpuscular HGB Conc 32.2 g/dL (31.6-35.5); Mean Corpuscular Volume 96.2 fL (83.0-100.0); Monocytes # 0.3 K/mcL (0.0-1.3); Monocytes % 6.9 %; Neutrophils # 2.2 K/mcL (1.6-8.9); Platelet Count 170 K/mcL (140-400); Red Blood Count 3.97 M/mcL (3.82-4.97); Red Cell Distribution Width 13.8 % (11.5-14.5); Segmented Neutrophils % 50.5 %; White Blood Count 4.4 K/mcL (4.3-11.1)
[2019-07-27 05:43] LABS: INR 1.5; Prothrombin Time 16.5 Seconds (9.4-12.1)
[2019-07-27 06:00] LABS: BUN/Creatinine Ratio 26 (6-26); Blood Urea Nitrogen 25 mg/dL (8-23); Calcium 9.1 mg/dL (8.6-10.3); Carbon Dioxide 30 mEq/L (23-29); Chloride 101 mEq/L (98-107); Glucose 100 mg/dL (70-105); Magnesium 1.9 mg/dL (1.6-2.6); Osmolality,Calculated 294 (280-300); Potassium 3.9 mEq/L (3.5-5.1); Sodium 140 mEq/L (136-145); eGFR For African Americans > 60 (> 60); eGFR For Non-African Americans 58 (> 60)
[2019-07-27 08:00] VITALS: BP 125/70
== END 2019-07-27 10:41 | disposition home or self-care (01) ==
LOC: 3BNU 14:49 → EMEROOARM 14:49 → SUATTDRO 17:32 → 3BNU 18:35
PROVIDERS: ADMIT Pharmacist; ATTEND Pharmacist

== ENCOUNTER 2019-10-06 14:01 | Inpatient (IN) ==
[2019-10-06] MEDS ORDERED: Isovue-370 500 ML BOTTLE IVP ONE (14:13)
[2019-10-06 14:41] LABS: Basophils % 0.3 %; Eosinophils # 0.1 K/mcL (0.0-0.6); Eosinophils % 0.7 %; Hematocrit 44.5 % (35.3-44.9); Hemoglobin 14.6 g/dL (11.5-15.4); Immature Granulocytes % 0.4 % (0-4); Lymphocytes # 0.7 K/mcL (0.6-4.6); Lymphocytes % 8.1 %; Mean Corpuscular HGB Conc 32.8 g/dL (31.6-35.5); Mean Corpuscular Hemoglobin 29.4 pg (28.0-33.3); Mean Corpuscular Volume 89.7 fL (83.0-100.0); Mean Platelet Volume 9.8 fL (9.4-12.4); Monocytes # 0.7 K/mcL (0.0-1.3); Monocytes % 7.7 %; Neutrophils # 7.4 K/mcL (1.6-8.9); Platelet Count 219 K/mcL (140-400); Red Blood Count 4.96 M/mcL (3.82-4.97); Red Cell Distribution Width 12.8 % (11.5-14.5); Segmented Neutrophils % 82.8 %
[2019-10-06 14:46] LABS: Prothrombin Time 34.1 Seconds (9.4-12.1)
[2019-10-06 14:49] LABS: Activated Partial Thrombo Time 51.4 Seconds (26.0-36.0)
[2019-10-06] MEDS ORDERED: Ipratropium/Albuterol Neb 3 ML IH ONE (14:59)
[2019-10-06] MEDS ORDERED: methylPREDNISolone 125 MG/2 ML VIAL IVP ONE (15:00)
[2019-10-06 15:01] LABS: Alanine Aminotransferase 13 Units/L (7-52); Albumin/Globulin Ratio 1.2 (1.1-2.2); Alkaline Phosphatase 140 Units/L (34-104); Aspartate Amino Transferase 18 Units/L (13-39); BUN/Creatinine Ratio 18 (6-26); Bilirubin,Total 1.6 mg/dL (0.3-1.0); Blood Urea Nitrogen 17 mg/dL (8-23); Calcium 9.4 mg/dL (8.6-10.3); Carbon Dioxide 31 mEq/L (23-29); Chloride 95 mEq/L (98-107); Globulin 3.4 g/dL (2.4-3.5); Glucose 117 mg/dL (70-105); Osmolality,Calculated 283 (280-300); Sodium 135 mEq/L (136-145); Total Protein 7.4 g/dL (6.4-8.9); Troponin I < 0.03 ng/mL (< 0.04); eGFR For African Americans > 60 (> 60); eGFR For Non-African Americans 58 (> 60)
[2019-10-06] MEDS ORDERED: Clindamycin 600 MG/50 ML 600 MG/50 ML IV.SOLN IVPB ONE (17:18)
[2019-10-06] MEDS ORDERED: levoFLOXacin 500 MG/100 ML 500 MG/100 ML BAG IVPB ONE (17:18)
[2019-10-06 17:37] LABS: Adenovirus Not Detected (Not Detect); Bordetella Pertussis Not Detected (Not Detect); Chlamydophila pneumoniae Not Detected (Not Detect); Coronavirus 229E Not Detected (Not Detect); Coronavirus HKU1 Not Detected (Not Detect); Coronavirus NL63 Not Detected (Not Detect); Coronavirus OC43 Not Detected (Not Detect); Human Metapneumovirus Not Detected (Not Detect); Human Rhinovirus/Enterovirus Not Detected (Not Detect); Influenza A Subtype 2009 H1 Not Detected (Not Detect); Influenza B Not Detected (Not Detect); Mycoplasma pneumoniae Not Detected (Not Detect); Parainfluenza Virus 1 Not Detected (Not Detect); Parainfluenza Virus 2 Not Detected (Not Detect); Parainfluenza Virus 3 Not Detected (Not Detect); Parainfluenza Virus 4 Not Detected (Not Detect); Respiratory Syncytial Virus Not Detected (Not Detect)
[2019-10-06] MEDS ORDERED: Ondansetron 4 MG/2 ML VIAL IVP PRN (17:47)
[2019-10-06] MEDS ORDERED: Naloxone 0.4 MG/ML INJ IVP PRN (17:47)
[2019-10-06] MEDS ORDERED: Acetaminophen 325 MG TABLET PO PRN (17:47)
[2019-10-06 18:41] LABS: Procalcitonin 0.28 ng/mL (0.00-0.15)
[2019-10-06] MEDS ORDERED: Azithromycin 500 MG in 0.9 % Sodium Chloride 250 ML IVPB SCH (19:00)
[2019-10-06 19:29] LABS: C-Reactive Protein 185 mg/L (Less than 10)
[2019-10-06] MEDS ORDERED: Warfarin perPT PO PRN (20:40)
[2019-10-06 21:30] LABS: VBG HCO3 30 mEq/L (21-27); VBG PCO2 44 mmHg (41-51); VBG PH 7.44 pH Units (7.32-7.42); VBG PO2 128 mmHg (25-50)
[2019-10-06 21:43] LABS: BUN/Creatinine Ratio 20 (6-26); Blood Urea Nitrogen 17 mg/dL (8-23); Calcium 9.2 mg/dL (8.6-10.3); Carbon Dioxide 28 mEq/L (23-29); Chloride 99 mEq/L (98-107); Glucose 151 mg/dL (70-105); Magnesium 1.8 mg/dL (1.6-2.6); Osmolality,Calculated 284 (280-300); Potassium 3.6 mEq/L (3.5-5.1); Sodium 135 mEq/L (136-145); eGFR For African Americans > 60 (> 60); eGFR For Non-African Americans > 60 (> 60)
[2019-10-06] MEDS: Budesonide Neb 0.5 MG/2 ML IH SCH (21:55)
[2019-10-06] MEDS: Levalbuterol Neb 0.63 MG/3 ML IH SCH (21:55)
[2019-10-06 22:54] LABS: Bilirubin,Urine Negative (Negative); Blood,Urine Negative (Negative); Clarity,Urine Clear (Clear); Color,Urine Dark Yellow (Yellow); Glucose,Urine (UA) Normal (Normal); Ketones,Urine Negative (Negative); Leukocyte Esterase,Urine Negative (Negative); Nitrite,Urine Negative (Negative); Protein,Urine Negative (Neg-Trace); Specific Gravity,Urine > 1.030 (1.010-1.025); Urobilinogen,Urine Normal (Normal)
[2019-10-07] MEDS: Cefepime HCl 1,000 MG in Water for inj. (sterile) 10 ML IVPB SCH ×2 (00:58→07:23)
[2019-10-07] MEDS: Levalbuterol Neb 0.63 MG/3 ML IH SCH ×2 (03:34→09:57)
[2019-10-07 04:51] LABS: Immature Granulocytes % 0.2 % (0-4); Lymphocytes # 0.4 K/mcL (0.6-4.6); Mean Corpuscular HGB Conc 32.6 g/dL (31.6-35.5); Mean Corpuscular Hemoglobin 29.3 pg (28.0-33.3); Monocytes # 0.2 K/mcL (0.0-1.3); Monocytes % 2.9 %; Neutrophils # 4.6 K/mcL (1.6-8.9); Platelet Count 175 K/mcL (140-400); Red Blood Count 4.78 M/mcL (3.82-4.97); Red Cell Distribution Width 12.4 % (11.5-14.5); Segmented Neutrophils % 89.9 %; White Blood Count 5.1 K/mcL (4.3-11.1)
[2019-10-07 04:55] LABS: INR 2.9
[2019-10-07 05:09] LABS: BUN/Creatinine Ratio 21 (6-26); Blood Urea Nitrogen 18 mg/dL (8-23); Calcium 9.3 mg/dL (8.6-10.3); Carbon Dioxide 30 mEq/L (23-29); Chloride 102 mEq/L (98-107); Glucose 152 mg/dL (70-105); Magnesium 2.3 mg/dL (1.6-2.6); Osmolality,Calculated 291 (280-300); Sodium 138 mEq/L (136-145); eGFR For African Americans > 60 (> 60); eGFR For Non-African Americans > 60 (> 60)
[2019-10-07] MEDS ORDERED: *HR* Enoxaparin 40 MG/0.4 ML SYRINGE SQ SCH (07:00)
[2019-10-07] MEDS: Budesonide Neb 0.5 MG/2 ML IH SCH (09:57)
[2019-10-07] MEDS ORDERED: Piperacillin/Tazobactam 3.375 GM in 0.9 % Sodium Chloride Mini Bag 100 ML IVPB SCH (10:00)
[2019-10-07] MEDS: MetroNIDAZOLE 500 MG/100 ML 500 MG/100 ML BAG IVPB SCH ×2 (10:06→18:02)
[2019-10-07] MEDS ORDERED: Cefepime HCl 1,000 MG in Water for inj. (sterile) 10 ML IVP SCH (14:00)
[2019-10-07] MEDS ORDERED: Budesonide/Formoterol 160/4.5 1 PUFF INH IH ONE (15:24)
[2019-10-07] MEDS: Budesonide/Formoterol 160/4.5 1 PUFF INH IH SCH ×2 (15:34→21:49)
[2019-10-07] MEDS: Cefepime HCl 2,000 MG in Water for inj. (sterile) 20 ML IVP SCH (15:34)
[2019-10-07] MEDS: Levalbuterol 1 PUFF INHALER IH SCH ×2 (15:35→21:49)
[2019-10-08] MEDS: Cefepime HCl 2,000 MG in Water for inj. (sterile) 20 ML IVP SCH ×4 (00:10→23:05)
[2019-10-08] MEDS: MetroNIDAZOLE 500 MG/100 ML 500 MG/100 ML BAG IVPB SCH ×3 (03:00→18:15)
[2019-10-08] MEDS: Levalbuterol 1 PUFF INHALER IH SCH ×4 (03:01→21:32)
[2019-10-08 04:29] LABS: Basophils % 0.1 %; Eosinophils % 0.1 %; Hemoglobin 13.8 g/dL (11.5-15.4); Immature Granulocytes % 0.4 % (0-4); Lymphocytes # 0.6 K/mcL (0.6-4.6); Lymphocytes % 6.7 %; Mean Corpuscular HGB Conc 31.4 g/dL (31.6-35.5); Mean Corpuscular Hemoglobin 29.2 pg (28.0-33.3); Mean Corpuscular Volume 93.2 fL (83.0-100.0); Mean Platelet Volume 10.3 fL (9.4-12.4); Monocytes # 0.5 K/mcL (0.0-1.3); Monocytes % 5.3 %; Platelet Count 227 K/mcL (140-400); Red Blood Count 4.72 M/mcL (3.82-4.97); Red Cell Distribution Width 12.7 % (11.5-14.5); Segmented Neutrophils % 87.4 %
[2019-10-08 04:30] LABS: White Blood Count 9.2 K/mcL (4.3-11.1)
[2019-10-08 04:33] LABS: INR 2.9
[2019-10-08 04:49] LABS: BUN/Creatinine Ratio 23 (6-26); Blood Urea Nitrogen 23 mg/dL (8-23); Calcium 8.7 mg/dL (8.6-10.3); Carbon Dioxide 31 mEq/L (23-29); Chloride 109 mEq/L (98-107); Glucose 163 mg/dL (70-105); Osmolality,Calculated 303 (280-300); Potassium 4.7 mEq/L (3.5-5.1); Sodium 143 mEq/L (136-145); eGFR For African Americans > 60 (> 60); eGFR For Non-African Americans 54 (> 60)
[2019-10-08] MEDS: Budesonide/Formoterol 160/4.5 1 PUFF INH IH SCH ×2 (08:57→21:31)
[2019-10-08] MEDS ORDERED: DilTIAZem CD (24hr) 240 MG CAP.ER.24H PO SCH (09:00)
[2019-10-08] MEDS ORDERED: DilTIAZem CD (24hr) 120 MG CAP.ER.24H PO ONE (20:00)
[2019-10-08] MEDS ORDERED: *HR* Metoprolol 5 MG/5 ML VIAL IVP PRN ×2 (20:57→23:25)
[2019-10-08] MEDS ORDERED: Furosemide 20 MG/2 ML VIAL IVP ONE (23:07)
[2019-10-09] MEDS: MetroNIDAZOLE 500 MG/100 ML 500 MG/100 ML BAG IVPB SCH ×3 (03:39→16:38)
[2019-10-09] MEDS: Levalbuterol 1 PUFF INHALER IH SCH ×4 (03:52→22:30)
[2019-10-09 04:23] LABS: INR 1.9; Prothrombin Time 21.8 Seconds (9.4-12.1)
[2019-10-09 04:25] LABS: Basophils % 0.4 %; Eosinophils # 0.1 K/mcL (0.0-0.6); Eosinophils % 1.3 %; Hematocrit 41.1 % (35.3-44.9); Hemoglobin 13.5 g/dL (11.5-15.4); Immature Granulocytes % 0.4 % (0-4); Lymphocytes # 0.9 K/mcL (0.6-4.6); Lymphocytes % 13.7 %; Mean Corpuscular HGB Conc 32.8 g/dL (31.6-35.5); Mean Corpuscular Hemoglobin 29.9 pg (28.0-33.3); Mean Corpuscular Volume 91.1 fL (83.0-100.0); Mean Platelet Volume 10.3 fL (9.4-12.4); Monocytes # 0.7 K/mcL (0.0-1.3); Monocytes % 9.7 %; Neutrophils # 5.1 K/mcL (1.6-8.9); Platelet Count 231 K/mcL (140-400); Red Blood Count 4.51 M/mcL (3.82-4.97); Red Cell Distribution Width 13.1 % (11.5-14.5); Segmented Neutrophils % 74.5 %; White Blood Count 6.9 K/mcL (4.3-11.1)
[2019-10-09 04:39] LABS: Alanine Aminotransferase 57 Units/L (7-52); Albumin 3.1 g/dL (3.5-5.7); Alkaline Phosphatase 125 Units/L (34-104); Aspartate Amino Transferase 47 Units/L (13-39); BUN/Creatinine Ratio 25 (6-26); Bilirubin,Total 1.1 mg/dL (0.3-1.0); Blood Urea Nitrogen 22 mg/dL (8-23); Calcium 8.4 mg/dL (8.6-10.3); Carbon Dioxide 28 mEq/L (23-29); Chloride 104 mEq/L (98-107); Globulin 3.1 g/dL (2.4-3.5); Glucose 91 mg/dL (70-105); Osmolality,Calculated 283 (280-300); Potassium 4.2 mEq/L (3.5-5.1); Sodium 135 mEq/L (136-145); Total Protein 6.2 g/dL (6.4-8.9); eGFR For African Americans > 60 (> 60); eGFR For Non-African Americans > 60 (> 60)
[2019-10-09] MEDS: Cefepime HCl 2,000 MG in Water for inj. (sterile) 20 ML IVP SCH ×2 (07:50→16:37)
[2019-10-09] MEDS ORDERED: MethylPREDNISolone 40 MG/ML VIAL IVP SCH (09:00)
[2019-10-09] MEDS ORDERED: DilTIAZem CD (24hr) 180 MG CAP.ER.24H PO SCH (09:00)
[2019-10-09 09:03] LABS: ANA IgG by ELISA NONE DETECTED (None Detected)
[2019-10-09 09:15] LABS: Serine Protease-3 Antibody 2 AU/mL (0-19)
[2019-10-09] MEDS: Budesonide/Formoterol 160/4.5 1 PUFF INH IH SCH ×2 (09:37→22:30)
[2019-10-09] MEDS ORDERED: *HR* Metoprolol 5 MG/5 ML VIAL IVP PRN (10:56)
[2019-10-09] MEDS ORDERED: Ondansetron 4 MG/2 ML VIAL IVP PRN (10:56)
[2019-10-09] MEDS ORDERED: Naloxone 0.4 MG/ML INJ IVP PRN (10:56)
[2019-10-09] MEDS ORDERED: Warfarin perPT PO PRN (10:56)
[2019-10-09] MEDS ORDERED: Acetaminophen 325 MG TABLET PO PRN (10:56)
[2019-10-09] MEDS: MethylPREDNISolone 40 MG/ML VIAL IVP SCH (16:37)
[2019-10-09] MEDS ORDERED: *HR* Warfarin 5 MG TABLET PO ONE (18:00)
[2019-10-10] MEDS: Cefepime HCl 2,000 MG in Water for inj. (sterile) 20 ML IVP SCH ×2 (01:00→08:49)
[2019-10-10] MEDS: MetroNIDAZOLE 500 MG/100 ML 500 MG/100 ML BAG IVPB SCH ×3 (01:05→16:45)
[2019-10-10 02:34] LABS: Basophils % 0.2 %; Hematocrit 42.8 % (35.3-44.9); Hemoglobin 13.7 g/dL (11.5-15.4); Immature Granulocytes % 0.8 % (0-4); Lymphocytes # 0.3 K/mcL (0.6-4.6); Mean Corpuscular Volume 90.7 fL (83.0-100.0); Mean Platelet Volume 10.5 fL (9.4-12.4); Monocytes # 0.1 K/mcL (0.0-1.3); Monocytes % 1.6 %; Neutrophils # 4.6 K/mcL (1.6-8.9); Platelet Count 210 K/mcL (140-400); Red Blood Count 4.72 M/mcL (3.82-4.97); Red Cell Distribution Width 12.4 % (11.5-14.5); Segmented Neutrophils % 92.4 %
[2019-10-10 02:36] LABS: INR 1.4; Prothrombin Time 16.3 Seconds (9.4-12.1)
[2019-10-10 02:55] LABS: Alanine Aminotransferase 45 Units/L (7-52); Albumin 3.4 g/dL (3.5-5.7); Albumin/Globulin Ratio 1.1 (1.1-2.2); Alkaline Phosphatase 142 Units/L (34-104); Aspartate Amino Transferase 28 Units/L (13-39); BUN/Creatinine Ratio 30 (6-26); Bilirubin,Total 0.7 mg/dL (0.3-1.0); Blood Urea Nitrogen 26 mg/dL (8-23); Calcium 8.9 mg/dL (8.6-10.3); Carbon Dioxide 25 mEq/L (23-29); Chloride 102 mEq/L (98-107); Globulin 3.2 g/dL (2.4-3.5); Glucose 217 mg/dL (70-105); Osmolality,Calculated 293 (280-300); Potassium 4.3 mEq/L (3.5-5.1); Sodium 136 mEq/L (136-145); Total Protein 6.6 g/dL (6.4-8.9); eGFR For African Americans > 60 (> 60); eGFR For Non-African Americans > 60 (> 60)
[2019-10-10] MEDS: Levalbuterol 1 PUFF INHALER IH SCH ×4 (04:02→21:27)
[2019-10-10] MEDS: MethylPREDNISolone 40 MG/ML VIAL IVP SCH ×2 (06:29→16:45)
[2019-10-10] MEDS: DilTIAZem CD (24hr) 180 MG CAP.ER.24H PO SCH (08:49)
[2019-10-10] MEDS: Budesonide/Formoterol 160/4.5 1 PUFF INH IH SCH ×2 (10:56→21:27)
[2019-10-10] MEDS ORDERED: Furosemide 40 MG TABLET PO SCH (12:30)
[2019-10-10] MEDS ORDERED: Aminoglycoside Consult 1 EACH MC ONE (13:41)
[2019-10-10] MEDS: levoFLOXacin 750 MG/150 ML 750 MG/150 ML BAG IVPB SCH (15:13)
[2019-10-10] MEDS: Furosemide 40 MG TABLET PO SCH (16:45)
[2019-10-10] MEDS ORDERED: *HR* Warfarin 5 MG TABLET PO ONE (18:00)
[2019-10-11] MEDS: MetroNIDAZOLE 500 MG/100 ML 500 MG/100 ML BAG IVPB SCH ×2 (01:43→11:55)
[2019-10-11] MEDS: Levalbuterol 1 PUFF INHALER IH SCH ×2 (03:49→10:05)
[2019-10-11 03:58] LABS: INR 1.6; Prothrombin Time 18.3 Seconds (9.4-12.1)
[2019-10-11 04:06] LABS: Basophils % 0.2 %; Hematocrit 44.3 % (35.3-44.9); Hemoglobin 14.2 g/dL (11.5-15.4); Immature Granulocytes % 1.4 % (0-4); Lymphocytes # 0.6 K/mcL (0.6-4.6); Lymphocytes % 6.5 %; Mean Corpuscular HGB Conc 32.1 g/dL (31.6-35.5); Mean Corpuscular Hemoglobin 29.2 pg (28.0-33.3); Mean Corpuscular Volume 91.2 fL (83.0-100.0); Mean Platelet Volume 10.3 fL (9.4-12.4); Monocytes # 0.3 K/mcL (0.0-1.3); Monocytes % 3.3 %; Neutrophils # 8.4 K/mcL (1.6-8.9); Platelet Count 323 K/mcL (140-400); Red Blood Count 4.86 M/mcL (3.82-4.97); Red Cell Distribution Width 12.8 % (11.5-14.5); Segmented Neutrophils % 88.6 %
[2019-10-11 04:09] LABS: White Blood Count 9.5 K/mcL (4.3-11.1)
[2019-10-11 04:24] LABS: Alanine Aminotransferase 40 Units/L (7-52); Albumin 3.6 g/dL (3.5-5.7); Albumin/Globulin Ratio 1.1 (1.1-2.2); Alkaline Phosphatase 137 Units/L (34-104); Aspartate Amino Transferase 21 Units/L (13-39); BUN/Creatinine Ratio 35 (6-26); Bilirubin,Total 0.5 mg/dL (0.3-1.0); Blood Urea Nitrogen 29 mg/dL (8-23); Calcium 9.2 mg/dL (8.6-10.3); Carbon Dioxide 27 mEq/L (23-29); Chloride 100 mEq/L (98-107); Globulin 3.2 g/dL (2.4-3.5); Glucose 204 mg/dL (70-105); Osmolality,Calculated 294 (280-300); Potassium 4.1 mEq/L (3.5-5.1); Sodium 136 mEq/L (136-145); Total Protein 6.8 g/dL (6.4-8.9); eGFR For African Americans > 60 (> 60); eGFR For Non-African Americans > 60 (> 60)
[2019-10-11] MEDS: MethylPREDNISolone 40 MG/ML VIAL IVP SCH (06:14)
[2019-10-11] MEDS ORDERED: Magnesium Oxide 400 MG TABLET PO SCH (09:00)
[2019-10-11] MEDS: levoFLOXacin 750 MG/150 ML 750 MG/150 ML BAG IVPB SCH (09:55)
[2019-10-11] MEDS: Furosemide 40 MG TABLET PO SCH (09:58)
[2019-10-11] MEDS: DilTIAZem CD (24hr) 180 MG CAP.ER.24H PO SCH (09:58)
[2019-10-11] MEDS: Budesonide/Formoterol 160/4.5 1 PUFF INH IH SCH (10:05)
[2019-10-11 11:01] VITALS: BP 127/70
[2019-10-11] MEDS ORDERED: *HR* Warfarin 5 MG TABLET PO ONE (18:00)
== END 2019-10-11 13:42 | disposition home or self-care (01) | DRG 720 ==
LOC: EMEROOARM 14:01 → 2NENU 14:01 → SUATTDRO 17:38 → ICNU 18:41 → 2ANU 10-09 10:53 → SUATTDRO 10-09 18:14
PROVIDERS: ADMIT Pharmacist; ATTEND Internal Medicine

== ENCOUNTER 2019-10-30 08:36 | Inpatient (IN) ==
[2019-10-30] MEDS ORDERED: methylPREDNISolone 125 MG/2 ML VIAL IVP ONE (08:47)
[2019-10-30] MEDS ORDERED: Ipratropium/Albuterol Neb 3 ML IH ONE (08:47)
[2019-10-30 09:15] LABS: Basophils % 0.6 %; Eosinophils # 0.1 K/mcL (0.0-0.6); Eosinophils % 2.6 %; Hemoglobin 14.8 g/dL (11.5-15.4); Immature Granulocytes % 0.3 % (0-4); Lymphocytes # 0.6 K/mcL (0.6-4.6); Lymphocytes % 16.7 %; Mean Corpuscular HGB Conc 32.9 g/dL (31.6-35.5); Mean Corpuscular Volume 91.1 fL (83.0-100.0); Mean Platelet Volume 10.2 fL (9.4-12.4); Monocytes # 0.3 K/mcL (0.0-1.3); Monocytes % 7.3 %; Neutrophils # 2.5 K/mcL (1.6-8.9); Platelet Count 148 K/mcL (140-400); Red Blood Count 4.94 M/mcL (3.82-4.97); Red Cell Distribution Width 13.8 % (11.5-14.5); Segmented Neutrophils % 72.5 %; White Blood Count 3.4 K/mcL (4.3-11.1)
[2019-10-30 09:20] LABS: INR 1.7; Prothrombin Time 18.8 Seconds (9.4-12.1)
[2019-10-30 09:23] LABS: Activated Partial Thrombo Time 42.9 Seconds (26.0-36.0)
[2019-10-30 09:35] LABS: BUN/Creatinine Ratio 16 (6-26); Blood Urea Nitrogen 15 mg/dL (8-23); Calcium 9.4 mg/dL (8.6-10.3); Carbon Dioxide 30 mEq/L (23-29); Chloride 103 mEq/L (98-107); Glucose 113 mg/dL (70-105); Osmolality,Calculated 296 (280-300); Potassium 3.2 mEq/L (3.5-5.1); Sodium 142 mEq/L (136-145); eGFR For African Americans > 60 (> 60); eGFR For Non-African Americans 57 (> 60)
[2019-10-30 09:36] LABS: Troponin I < 0.03 ng/mL (< 0.04)
[2019-10-30 09:47] LABS: Bilirubin,Urine Negative (Negative); Blood,Urine Negative (Negative); Color,Urine Yellow (Yellow); Glucose,Urine (UA) Normal (Normal); Ketones,Urine Trace mg/dL (Negative); Leukocyte Esterase,Urine Moderate (Negative); Nitrite,Urine Negative (Negative); Protein,Urine Negative (Neg-Trace); Specific Gravity,Urine 1.021 (1.010-1.025); Urobilinogen,Urine Normal (Normal)
[2019-10-30 09:49] LABS: Clarity,Urine Clear (Clear); RBC,Urine 0-3 per hpf (0-3); Squamous Epithelial Cell,Urine Many per lpf (None-Few)
[2019-10-30 10:00] LABS: Bacteria,Urine Moderate per hpf (None-Few); Calcium Oxalate Crystals,Urine Present; Hyaline Casts,Urine Few per lpf (None-Few)
[2019-10-30] MEDS: DilTIAZem 50 MG in 0.9 % Sodium Chloride 40 ML IVC SCH ×3 (11:32→20:26)
[2019-10-30] MEDS ORDERED: Naloxone 0.4 MG/ML INJ IVP PRN (12:02)
[2019-10-30] MEDS ORDERED: Acetaminophen 325 MG TABLET PO PRN (12:02)
[2019-10-30] MEDS ORDERED: Ondansetron 4 MG/2 ML VIAL IVP PRN (12:02)
[2019-10-30] MEDS ORDERED: *HR* OxyCODONE Immed Rel 5 MG TABLET PO PRN (12:02)
[2019-10-30] MEDS ORDERED: *HR* HYDROcodone/Acet 5/325 mg TABLET PO PRN (12:02)
[2019-10-30] MEDS ORDERED: Ipratropium/Albuterol Neb 3 ML IH PRN (12:12)
[2019-10-30] MEDS: *HR* Heparin 5,000 UNIT/ML VIAL SQ SCH ×2 (13:43→20:28)
[2019-10-30] MEDS: cefTRIAXone 1,000 MG in Water for inj. (sterile) 10 ML IVP SCH (13:44)
[2019-10-30] MEDS ORDERED: Furosemide 40 MG/4 ML VIAL IVP ONE (14:11)
[2019-10-30] MEDS ORDERED: *HR* LORazepam 2 MG/ML VIAL IVP ONE (14:13)
[2019-10-30 15:01] LABS: Alanine Aminotransferase 17 Units/L (7-52); Albumin 4.1 g/dL (3.5-5.7); Albumin/Globulin Ratio 1.8 (1.1-2.2); Alkaline Phosphatase 99 Units/L (34-104); Aspartate Amino Transferase 22 Units/L (13-39); Bilirubin,Direct 0.2 mg/dL (0.0-0.2); Bilirubin,Indirect 0.8 mg/dL (0.0-1.0); Globulin 2.3 g/dL (2.4-3.5); Total Protein 6.4 g/dL (6.4-8.9)
[2019-10-30] MEDS: carvediloL 6.25 MG TABLET PO SCH (15:16)
[2019-10-30] MEDS: Ipratropium/Albuterol Neb 3 ML IH SCH ×2 (15:41→19:44)
[2019-10-30] MEDS ORDERED: carvediloL 6.25 MG TABLET PO SCH (17:00)
[2019-10-30] MEDS ORDERED: Warfarin perPT PO PRN (18:00)
[2019-10-30] MEDS ORDERED: *HR* Warfarin 2.5 MG TABLET PO ONE (18:00)
[2019-10-30] MEDS: Furosemide 40 MG/4 ML VIAL IVP SCH (20:27)
[2019-10-31] MEDS: DilTIAZem 50 MG in 0.9 % Sodium Chloride 40 ML IVC SCH ×5 (00:01→12:42)
[2019-10-31] MEDS: Ipratropium/Albuterol Neb 3 ML IH SCH ×6 (00:26→19:25)
[2019-10-31 01:58] LABS: Hematocrit 44.1 % (35.3-44.9); Hemoglobin 14.6 g/dL (11.5-15.4); Immature Granulocytes % 0.3 % (0-4); Lymphocytes # 0.3 K/mcL (0.6-4.6); Lymphocytes % 10.3 %; Mean Corpuscular HGB Conc 33.1 g/dL (31.6-35.5); Mean Corpuscular Hemoglobin 29.7 pg (28.0-33.3); Mean Corpuscular Volume 89.6 fL (83.0-100.0); Mean Platelet Volume 10.2 fL (9.4-12.4); Monocytes # 0.1 K/mcL (0.0-1.3); Monocytes % 1.9 %; Neutrophils # 2.8 K/mcL (1.6-8.9); Platelet Count 159 K/mcL (140-400); Red Blood Count 4.92 M/mcL (3.82-4.97); Segmented Neutrophils % 87.5 %; White Blood Count 3.2 K/mcL (4.3-11.1)
[2019-10-31 02:00] LABS: INR 1.7; Prothrombin Time 19.4 Seconds (9.4-12.1)
[2019-10-31 02:10] LABS: Alanine Aminotransferase 16 Units/L (7-52); Albumin 3.9 g/dL (3.5-5.7); Albumin/Globulin Ratio 1.4 (1.1-2.2); Alkaline Phosphatase 86 Units/L (34-104); Aspartate Amino Transferase 19 Units/L (13-39); BUN/Creatinine Ratio 17 (6-26); Bilirubin,Total 0.7 mg/dL (0.3-1.0); Blood Urea Nitrogen 15 mg/dL (8-23); Calcium 9.3 mg/dL (8.6-10.3); Carbon Dioxide 26 mEq/L (23-29); Chloride 102 mEq/L (98-107); Globulin 2.7 g/dL (2.4-3.5); Glucose 141 mg/dL (70-105); Magnesium 1.8 mg/dL (1.6-2.6); Osmolality,Calculated 291 (280-300); Potassium 3.7 mEq/L (3.5-5.1); Sodium 139 mEq/L (136-145); Total Protein 6.6 g/dL (6.4-8.9); eGFR For African Americans > 60 (> 60); eGFR For Non-African Americans > 60 (> 60)
[2019-10-31] MEDS: *HR* Heparin 5,000 UNIT/ML VIAL SQ SCH (04:47)
[2019-10-31] MEDS: Tiotropium 18 MCG inhalation IH SCH (08:01)
[2019-10-31] MEDS: Spironolactone 25 MG TABLET PO SCH (08:50)
[2019-10-31] MEDS: carvediloL 6.25 MG TABLET PO SCH ×2 (08:50→17:26)
[2019-10-31] MEDS: Furosemide 40 MG/4 ML VIAL IVP SCH ×2 (08:50→20:54)
[2019-10-31] MEDS: Loratadine 10 MG TABLET PO SCH (08:50)
[2019-10-31] MEDS: cefTRIAXone 1,000 MG in Water for inj. (sterile) 10 ML IVP SCH (08:50)
[2019-10-31] MEDS: predniSONE 20 MG TABLET PO SCH (12:43)
[2019-10-31] MEDS ORDERED: *HR* Warfarin 2.5 MG TABLET PO ONE (18:00)
[2019-10-31] MEDS: hydrOXYzine pamoate 25 MG CAPSULE PO SCH (20:53)
[2019-11-01] MEDS: Ipratropium/Albuterol Neb 3 ML IH SCH ×6 (00:02→19:34)
[2019-11-01] MEDS: DilTIAZem 50 MG in 0.9 % Sodium Chloride 40 ML IVC SCH ×3 (04:45→20:13)
[2019-11-01] MEDS: Tiotropium 18 MCG inhalation IH SCH (07:35)
[2019-11-01] MEDS: Loratadine 10 MG TABLET PO SCH (08:28)
[2019-11-01] MEDS: carvediloL 6.25 MG TABLET PO SCH ×2 (08:28→16:26)
[2019-11-01] MEDS: hydrOXYzine pamoate 25 MG CAPSULE PO SCH ×3 (08:28→20:15)
[2019-11-01] MEDS: Spironolactone 25 MG TABLET PO SCH (08:29)
[2019-11-01] MEDS: predniSONE 20 MG TABLET PO SCH (08:29)
[2019-11-01] MEDS: Furosemide 40 MG/4 ML VIAL IVP SCH (08:31)
[2019-11-01] MEDS: cefTRIAXone 1,000 MG in Water for inj. (sterile) 10 ML IVP SCH (08:32)
[2019-11-01 11:34] LABS: ABG Base Excess 8 mEq/L (-2 to 3); ABG HCO3 34 mEq/L (21-27); ABG Oxygen Saturation 97 % (95-98); ABG PCO2 47 mmHg (35-45); ABG PH 7.46 pH Units (7.32-7.45); ABG PO2 82 mmHg (85-104); ABG TCO2 35 mEq/L (20-26)
[2019-11-01 15:04] LABS: Hematocrit 45.5 % (35.3-44.9); Hemoglobin 14.6 g/dL (11.5-15.4); Mean Corpuscular HGB Conc 32.1 g/dL (31.6-35.5); Mean Corpuscular Hemoglobin 29.1 pg (28.0-33.3); Mean Corpuscular Volume 90.8 fL (83.0-100.0); Mean Platelet Volume 10.1 fL (9.4-12.4); Platelet Count 156 K/mcL (140-400); Red Blood Count 5.01 M/mcL (3.82-4.97); Red Cell Distribution Width 14.1 % (11.5-14.5); White Blood Count 4.6 K/mcL (4.3-11.1)
[2019-11-01 15:11] LABS: INR 2.1; Prothrombin Time 23.5 Seconds (9.4-12.1)
[2019-11-01 15:23] LABS: BUN/Creatinine Ratio 25 (6-26); Blood Urea Nitrogen 20 mg/dL (8-23); Calcium 9.2 mg/dL (8.6-10.3); Carbon Dioxide 30 mEq/L (23-29); Chloride 101 mEq/L (98-107); Glucose 121 mg/dL (70-105); Osmolality,Calculated 286 (280-300); Potassium 3.9 mEq/L (3.5-5.1); Sodium 136 mEq/L (136-145); eGFR For African Americans > 60 (> 60); eGFR For Non-African Americans > 60 (> 60)
[2019-11-01] MEDS: Furosemide 40 MG TABLET PO SCH (16:24)
[2019-11-01] MEDS ORDERED: *HR* Warfarin 2.5 MG TABLET PO ONE (18:00)
[2019-11-02] MEDS: Ipratropium/Albuterol Neb 3 ML IH SCH ×7 (00:08→23:36)
[2019-11-02 05:15] LABS: Hematocrit 44.5 % (35.3-44.9); Hemoglobin 14.2 g/dL (11.5-15.4); Mean Corpuscular HGB Conc 31.9 g/dL (31.6-35.5); Mean Corpuscular Volume 90.8 fL (83.0-100.0); Platelet Count 137 K/mcL (140-400); Red Cell Distribution Width 13.8 % (11.5-14.5); White Blood Count 4.4 K/mcL (4.3-11.1)
[2019-11-02 05:22] LABS: INR 2.1; Prothrombin Time 24.2 Seconds (9.4-12.1)
[2019-11-02 05:35] LABS: BUN/Creatinine Ratio 25 (6-26); Blood Urea Nitrogen 19 mg/dL (8-23); Calcium 8.8 mg/dL (8.6-10.3); Carbon Dioxide 32 mEq/L (23-29); Chloride 101 mEq/L (98-107); Glucose 90 mg/dL (70-105); Osmolality,Calculated 292 (280-300); Potassium 3.1 mEq/L (3.5-5.1); Sodium 140 mEq/L (136-145); eGFR For African Americans > 60 (> 60); eGFR For Non-African Americans > 60 (> 60)
[2019-11-02] MEDS: Tiotropium 18 MCG inhalation IH SCH (07:48)
[2019-11-02] MEDS: hydrOXYzine pamoate 25 MG CAPSULE PO SCH ×2 (09:48→15:34)
[2019-11-02] MEDS: predniSONE 20 MG TABLET PO SCH (09:48)
[2019-11-02] MEDS: Loratadine 10 MG TABLET PO SCH (09:49)
[2019-11-02] MEDS: Spironolactone 25 MG TABLET PO SCH (09:49)
[2019-11-02] MEDS: carvediloL 6.25 MG TABLET PO SCH ×2 (09:49→16:55)
[2019-11-02] MEDS: cefTRIAXone 1,000 MG in Water for inj. (sterile) 10 ML IVP SCH (09:49)
[2019-11-02] MEDS: Furosemide 40 MG TABLET PO SCH ×2 (09:49→16:55)
[2019-11-02] MEDS: DilTIAZem 50 MG in 0.9 % Sodium Chloride 40 ML IVC SCH ×2 (09:50→13:53)
[2019-11-02] MEDS: DilTIAZem CD (24hr) 240 MG CAP.ER.24H PO SCH (11:41)
[2019-11-02] MEDS ORDERED: Potassium Chloride 40 MEQ, Lidocaine 1% 2 ML in 0.9 % Sodium Chloride 500 ML IVPB ONE (13:34)
[2019-11-02] MEDS ORDERED: *HR* Warfarin 2.5 MG TABLET PO ONE (18:00)
[2019-11-03 03:07] LABS: Hematocrit 44.3 % (35.3-44.9)
[2019-11-03 03:08] LABS: Mean Corpuscular HGB Conc 33.2 g/dL (31.6-35.5); Mean Corpuscular Volume 90.4 fL (83.0-100.0); Mean Platelet Volume 10.5 fL (9.4-12.4); Platelet Count 165 K/mcL (140-400); Red Cell Distribution Width 13.6 % (11.5-14.5); White Blood Count 5.5 K/mcL (4.3-11.1)
[2019-11-03 03:10] LABS: Hemoglobin 14.7 g/dL (11.5-15.4)
[2019-11-03 03:13] LABS: INR 1.9; Prothrombin Time 21.6 Seconds (9.4-12.1)
[2019-11-03 03:31] LABS: BUN/Creatinine Ratio 27 (6-26); Blood Urea Nitrogen 22 mg/dL (8-23); Calcium 9.2 mg/dL (8.6-10.3); Carbon Dioxide 31 mEq/L (23-29); Chloride 99 mEq/L (98-107); Glucose 90 mg/dL (70-105); Osmolality,Calculated 291 (280-300); Potassium 3.5 mEq/L (3.5-5.1); Sodium 139 mEq/L (136-145); eGFR For African Americans > 60 (> 60); eGFR For Non-African Americans > 60 (> 60)
[2019-11-03] MEDS: Ipratropium/Albuterol Neb 3 ML IH SCH ×3 (04:16→11:52)
[2019-11-03] MEDS: Tiotropium 18 MCG inhalation IH SCH (07:39)
[2019-11-03] MEDS: carvediloL 6.25 MG TABLET PO SCH (08:48)
[2019-11-03] MEDS: Furosemide 40 MG TABLET PO SCH (08:48)
[2019-11-03] MEDS: Loratadine 10 MG TABLET PO SCH (08:48)
[2019-11-03] MEDS: Spironolactone 25 MG TABLET PO SCH (08:48)
[2019-11-03] MEDS: predniSONE 20 MG TABLET PO SCH (08:48)
[2019-11-03] MEDS: DilTIAZem CD (24hr) 240 MG CAP.ER.24H PO SCH (08:48)
[2019-11-03] MEDS ORDERED: DilTIAZem CD (24hr) 120 MG CAP.ER.24H PO SCH (09:00)
[2019-11-03 11:12] VITALS: BP 142/88
[2019-11-03] MEDS ORDERED: *HR* Warfarin 5 MG TABLET PO ONE (18:00)
== END 2019-11-03 14:48 | disposition home health service (06) | DRG 194 ==
LOC: 2ANU 08:36 → EMEROOARM 08:36 → 2ANU 12:33 → SUATTDRO 14:44
PROVIDERS: ADMIT Student in an Organized Health Care Education/Training Program; ATTEND Family Medicine

== ENCOUNTER 2019-11-08 12:04 | Inpatient (IN) ==
[2019-11-08] MEDS ORDERED: WATER IVC SCH (12:30)
[2019-11-08] MEDS ORDERED: DILTIAZEM IVC SCH (12:30)
[2019-11-08] MEDS ORDERED: DilTIAZem 50 MG in 0.9 % Sodium Chloride 40 ML IVC SCH (12:30)
[2019-11-08] MEDS ORDERED: D5 IVC SCH (12:30)
[2019-11-08 12:41] LABS: Basophils % 0.3 %; Eosinophils # 0.2 K/mcL (0.0-0.6); Eosinophils % 2.4 %; Hemoglobin 17.2 g/dL (11.5-15.4); Immature Granulocytes % 0.3 % (0-4); Lymphocytes # 1.6 K/mcL (0.6-4.6); Lymphocytes % 25.4 %; Mean Corpuscular HGB Conc 32.5 g/dL (31.6-35.5); Mean Corpuscular Hemoglobin 29.1 pg (28.0-33.3); Mean Corpuscular Volume 89.5 fL (83.0-100.0); Mean Platelet Volume 10.4 fL (9.4-12.4); Monocytes # 0.6 K/mcL (0.0-1.3); Monocytes % 9.3 %; Neutrophils # 3.8 K/mcL (1.6-8.9); Platelet Count 302 K/mcL (140-400); Red Blood Count 5.92 M/mcL (3.82-4.97); Red Cell Distribution Width 13.8 % (11.5-14.5); Segmented Neutrophils % 62.3 %; White Blood Count 6.1 K/mcL (4.3-11.1)
[2019-11-08 12:44] LABS: VBG HCO3 33 mEq/L (21-27); VBG PCO2 54 mmHg (41-51); VBG PH 7.39 pH Units (7.32-7.42); VBG PO2 58 mmHg (25-50)
[2019-11-08 12:47] LABS: Bilirubin,Urine Negative (Negative); Blood,Urine Negative (Negative); Color,Urine Dark Yellow (Yellow); Glucose,Urine (UA) Normal (Normal); Ketones,Urine Negative (Negative); Leukocyte Esterase,Urine Moderate (Negative); Nitrite,Urine Negative (Negative); PH,Urine 5.5 pH Units (5.0-8.0); Protein,Urine Trace mg/dL (Neg-Trace); Specific Gravity,Urine 1.022 (1.010-1.025); Urobilinogen,Urine Normal (Normal)
[2019-11-08 12:48] LABS: INR 1.5; Prothrombin Time 17.2 Seconds (9.4-12.1)
[2019-11-08 12:49] LABS: Hyaline Casts,Urine Few per lpf (None-Few); RBC,Urine 0-3 per hpf (0-3); Squamous Epithelial Cell,Urine Many per lpf (None-Few)
[2019-11-08 12:52] LABS: Clarity,Urine Slightly Hazy (Clear)
[2019-11-08 12:54] LABS: Amphetamine Screen,Urine Negative ng/mL (Cutoff=1000); Barbiturate Screen,Urine Negative ng/mL (Cutoff=200); Benzodiazepines Screen,Urine Negative ng/mL (Cutoff=200); Cannabinoid Screen,Urine Negative ng/mL (Cutoff = 50); Cocaine Screen,Urine Negative ng/mL (Cutoff= 300); Opiate Screen,Urine Negative ng/mL (Cutoff=300); Phencyclidine Screen,Urine Negative ng/mL (Cutoff=25)
[2019-11-08 12:56] LABS: Alanine Aminotransferase 43 Units/L (7-52); Albumin 4.3 g/dL (3.5-5.7); Albumin/Globulin Ratio 1.4 (1.1-2.2); Alkaline Phosphatase 121 Units/L (34-104); Aspartate Amino Transferase 30 Units/L (13-39); BUN/Creatinine Ratio 23 (6-26); Bilirubin,Direct 0.3 mg/dL (0.0-0.2); Bilirubin,Total 1.3 mg/dL (0.3-1.0); Blood Urea Nitrogen 29 mg/dL (8-23); Calcium 9.9 mg/dL (8.6-10.3); Carbon Dioxide 31 mEq/L (23-29); Chloride 96 mEq/L (98-107); Ethanol < 10 mg/dL (Less than 10); Globulin 3.1 g/dL (2.4-3.5); Glucose 118 mg/dL (70-105); Osmolality,Calculated 297 (280-300); Potassium 3.2 mEq/L (3.5-5.1); Sodium 140 mEq/L (136-145); Total Protein 7.4 g/dL (6.4-8.9); Troponin I < 0.03 ng/mL (< 0.04); eGFR For African Americans 49 (> 60); eGFR For Non-African Americans 41 (> 60)
[2019-11-08 13:04] LABS: Bacteria,Urine Few per hpf (None-Few)
[2019-11-08] MEDS ORDERED: cefTRIAXone 1,000 MG in 0.9 % Sodium Chloride Mini Bag 100 ML IVPB ONE (13:32)
[2019-11-08] MEDS ORDERED: 0.9 % Sodium Chloride 500 ML IVC ONE (13:32)
[2019-11-08] MEDS ORDERED: cefTRIAXone 1,000 MG in Water for inj. (sterile) 10 ML IVP ONE (13:45)
[2019-11-08] MEDS ORDERED: Acetaminophen 325 MG TABLET PO PRN (13:52)
[2019-11-08] MEDS ORDERED: Ondansetron 4 MG/2 ML VIAL IVP PRN (13:52)
[2019-11-08] MEDS ORDERED: polyethylene glycoL 3350 17 GM POWD.PACK PO PRN (13:54)
[2019-11-08] MEDS ORDERED: DilTIAZem CD (24hr) 240 MG CAP.ER.24H PO STA (15:10)
[2019-11-08] MEDS: carvediloL 6.25 MG TABLET PO SCH (17:18)
[2019-11-08] MEDS ORDERED: *HR* Warfarin 5 MG TABLET PO ONE (18:00)
[2019-11-08] MEDS ORDERED: Warfarin perPT PO PRN (18:00)
[2019-11-08] MEDS ORDERED: Melatonin 3 MG TABLET PO ONE (21:31)
[2019-11-09] MEDS: Tiotropium 18 MCG inhalation IH SCH (07:25)
[2019-11-09] MEDS ORDERED: DilTIAZem CD (24hr) 240 MG CAP.ER.24H PO SCH (09:00)
[2019-11-09] MEDS ORDERED: DilTIAZem CD (24hr) 120 MG CAP.ER.24H PO SCH (09:00)
[2019-11-09] MEDS: cefTRIAXone 1,000 MG in Water for inj. (sterile) 10 ML IVP SCH (12:11)
[2019-11-09] MEDS ORDERED: OLANZapine 10 MG VIAL IM ONE (12:42)
[2019-11-09] MEDS ORDERED: Water for inj. (sterile) 10 ML ONE (13:16)
[2019-11-09 13:25] LABS: INR 1.6; Prothrombin Time 18.2 Seconds (9.4-12.1)
[2019-11-09] MEDS: DilTIAZem CD (24hr) 240 MG CAP.ER.24H PO SCH (14:48)
[2019-11-09] MEDS: carvediloL 6.25 MG TABLET PO SCH ×2 (14:48→17:12)
[2019-11-09] MEDS: DilTIAZem CD (24hr) 120 MG CAP.ER.24H PO SCH (14:48)
[2019-11-09 16:37] LABS: Hematocrit 43.6 % (35.3-44.9); Mean Corpuscular HGB Conc 33.3 g/dL (31.6-35.5); Mean Corpuscular Hemoglobin 29.7 pg (28.0-33.3); Mean Corpuscular Volume 89.2 fL (83.0-100.0); Mean Platelet Volume 10.4 fL (9.4-12.4); Platelet Count 217 K/mcL (140-400); Red Blood Count 4.89 M/mcL (3.82-4.97); Red Cell Distribution Width 13.9 % (11.5-14.5); White Blood Count 4.2 K/mcL (4.3-11.1)
[2019-11-09 16:41] LABS: Hemoglobin 14.5 g/dL (11.5-15.4)
[2019-11-09 16:59] LABS: BUN/Creatinine Ratio 26 (6-26); Blood Urea Nitrogen 24 mg/dL (8-23); Calcium 9.1 mg/dL (8.6-10.3); Carbon Dioxide 30 mEq/L (23-29); Chloride 101 mEq/L (98-107); Glucose 107 mg/dL (70-105); Osmolality,Calculated 295 (280-300); Potassium 3.1 mEq/L (3.5-5.1); Sodium 140 mEq/L (136-145); eGFR For African Americans > 60 (> 60); eGFR For Non-African Americans 59 (> 60)
[2019-11-09 17:00] LABS: Albumin 3.7 g/dL (3.5-5.7); Albumin/Globulin Ratio 1.7 (1.1-2.2); Bilirubin,Direct 0.2 mg/dL (0.0-0.2); Bilirubin,Indirect 0.5 mg/dL (0.0-1.0); Bilirubin,Total 0.7 mg/dL (0.3-1.0); Globulin 2.2 g/dL (2.4-3.5); Total Protein 5.9 g/dL (6.4-8.9)
[2019-11-09] MEDS ORDERED: *HR* Warfarin 5 MG TABLET PO ONE (18:00)
[2019-11-10 01:37] LABS: Hematocrit 45.2 % (35.3-44.9); Hemoglobin 14.7 g/dL (11.5-15.4); Mean Corpuscular HGB Conc 32.5 g/dL (31.6-35.5); Mean Corpuscular Hemoglobin 29.1 pg (28.0-33.3); Mean Corpuscular Volume 89.5 fL (83.0-100.0); Mean Platelet Volume 10.6 fL (9.4-12.4); Platelet Count 196 K/mcL (140-400); Red Blood Count 5.05 M/mcL (3.82-4.97); Red Cell Distribution Width 14.1 % (11.5-14.5); White Blood Count 3.9 K/mcL (4.3-11.1)
[2019-11-10 01:39] LABS: INR 1.6; Prothrombin Time 18.7 Seconds (9.4-12.1)
[2019-11-10 01:52] LABS: BUN/Creatinine Ratio 24 (6-26); Blood Urea Nitrogen 23 mg/dL (8-23); Calcium 9.1 mg/dL (8.6-10.3); Carbon Dioxide 32 mEq/L (23-29); Chloride 101 mEq/L (98-107); Glucose 105 mg/dL (70-105); Osmolality,Calculated 294 (280-300); Sodium 140 mEq/L (136-145); eGFR For African Americans > 60 (> 60); eGFR For Non-African Americans 58 (> 60)
[2019-11-10] MEDS ORDERED: OLANZapine 5 MG TAB.RAPDIS PO SCH (07:15)
[2019-11-10] MEDS: carvediloL 6.25 MG TABLET PO SCH ×2 (09:35→17:17)
[2019-11-10] MEDS: DilTIAZem CD (24hr) 120 MG CAP.ER.24H PO SCH (09:35)
[2019-11-10] MEDS: DilTIAZem CD (24hr) 240 MG CAP.ER.24H PO SCH (09:37)
[2019-11-10] MEDS: cefTRIAXone 1,000 MG in Water for inj. (sterile) 10 ML IVP SCH (09:37)
[2019-11-10] MEDS: Tiotropium 18 MCG inhalation IH SCH (10:53)
[2019-11-10] MEDS ORDERED: *HR* Warfarin 2.5 MG TABLET PO ONE (18:00)
[2019-11-11 01:46] LABS: INR 1.7; Prothrombin Time 19.5 Seconds (9.4-12.1)
[2019-11-11] MEDS: DilTIAZem CD (24hr) 240 MG CAP.ER.24H PO SCH (09:17)
[2019-11-11] MEDS: carvediloL 6.25 MG TABLET PO SCH (09:17)
[2019-11-11] MEDS: DilTIAZem CD (24hr) 120 MG CAP.ER.24H PO SCH (09:17)
[2019-11-11] MEDS: cefTRIAXone 1,000 MG in Water for inj. (sterile) 10 ML IVP SCH (09:18)
[2019-11-11 10:40] VITALS: BP 125/77
[2019-11-11] MEDS: Tiotropium 18 MCG inhalation IH SCH (10:57)
[2019-11-11] MEDS ORDERED: *HR* Warfarin 5 MG TABLET PO ONE (18:00)
== END 2019-11-11 14:37 | disposition home or self-care (01) | DRG 760 ==
LOC: EMEROOARM 12:04 → 2ANU 12:04 → SUATTDRO 13:42 → 2ANU 14:03 → SUATTDRO 11-10 14:33
PROVIDERS: ADMIT Internal Medicine; ATTEND Family Medicine

== ENCOUNTER 2020-05-04 10:02 | Inpatient (IN) ==
[2020-05-04] MEDS ORDERED: 0.9 % Sodium Chloride 1,000 ML IVC ONE ×2 (10:14→12:16)
[2020-05-04 10:48] LABS: VBG HCO3 25 mEq/L (21-27); VBG PCO2 44 mmHg (41-51); VBG PH 7.37 pH Units (7.32-7.42); VBG PO2 59 mmHg (25-50)
[2020-05-04 10:48] LABS: Basophils % 0.3 %; Red Cell Distribution Width 13.3 % (11.5-14.5)
[2020-05-04 10:50] LABS: Hematocrit 41.8 % (35.3-44.9); Immature Granulocytes % 0.9 % (0-4); Immature Platelets 6.1 % (1.1-6.1); Lymphocytes # 0.4 K/mcL (0.6-4.6); Lymphocytes % 3.5 %; Mean Corpuscular HGB Conc 33.5 g/dL (31.6-35.5); Mean Corpuscular Hemoglobin 29.5 pg (28.0-33.3); Mean Platelet Volume 11.8 fL (9.4-12.4); Monocytes # 0.5 K/mcL (0.0-1.3); Monocytes % 4.6 %; Neutrophils # 9.4 K/mcL (1.6-8.9); Red Blood Count 4.75 M/mcL (3.82-4.97); Segmented Neutrophils % 90.7 %; White Blood Count 10.4 K/mcL (4.3-11.1)
[2020-05-04 10:56] LABS: Activated Partial Thrombo Time 44.8 Seconds (26.0-36.0)
[2020-05-04 11:03] LABS: Prothrombin Time 44.3 Seconds (9.4-12.1)
[2020-05-04 11:10] LABS: Platelet Estimate Slight Decrease (Normal); Toxic Vacuolation Present (Not Present)
[2020-05-04 11:14] LABS: Platelet Count 93 K/mcL (140-400)
[2020-05-04 11:16] LABS: Chloride 96 mEq/L (98-107); Troponin I 0.05 ng/mL (< 0.04)
[2020-05-04 11:17] LABS: Alanine Aminotransferase 21 Units/L (7-52); Albumin 3.3 g/dL (3.5-5.7); Albumin/Globulin Ratio 1.1 (1.1-2.2); Alkaline Phosphatase 144 Units/L (34-104); Aspartate Amino Transferase 20 Units/L (13-39); BUN/Creatinine Ratio 24 (6-26); Bilirubin,Direct 1.4 mg/dL (0.0-0.2); Bilirubin,Indirect 1.2 mg/dL (0.0-1.0); Bilirubin,Total 2.6 mg/dL (0.3-1.0); Blood Urea Nitrogen 41 mg/dL (8-23); Calcium 8.6 mg/dL (8.6-10.3); Carbon Dioxide 26 mEq/L (23-29); Creatine Kinase 11 Units/L (30-223); Ethanol < 10 mg/dL (Less than 10); Glucose 118 mg/dL (70-105); Osmolality,Calculated 285 (280-300); Potassium 3.3 mEq/L (3.5-5.1); Sodium 132 mEq/L (136-145); Total Protein 6.3 g/dL (6.4-8.9); eGFR For African Americans 35 (> 60); eGFR For Non-African Americans 29 (> 60)
[2020-05-04] MEDS ORDERED: cefTRIAXone 1,000 MG in Water for inj. (sterile) 10 ML IVP ONE (11:17)
[2020-05-04] MEDS ORDERED: Potassium Chloride 40 MEQ, Lidocaine 1% 2 ML in 0.9 % Sodium Chloride 500 ML IVPB ONE (11:18)
[2020-05-04] MEDS ORDERED: 0.9 % Sodium Chloride 1,000 ML IVC SCH (11:30)
[2020-05-04] MEDS ORDERED: MetroNIDAZOLE 500 MG/100 ML 500 MG/100 ML BAG IVPB ONE (12:00)
[2020-05-04] MEDS ORDERED: Ipratropium/Albuterol Neb 3 ML IH ONE (12:16)
[2020-05-04] MEDS ORDERED: methylPREDNISolone 125 MG/2 ML VIAL IVP ONE (12:16)
[2020-05-04 13:16] LABS: Amorphous Sediment,Urine Few per hpf (None-Few); Bacteria,Urine Few per hpf (None-Few); Bilirubin,Urine Negative (Negative); Blood,Urine Moderate (Negative); Clarity,Urine Ex.Turbid (Clear); Color,Urine Yellow (Yellow); Glucose,Urine (UA) Normal (Normal); Hyaline Casts,Urine Few per lpf (None Seen); Ketones,Urine Negative (Negative); Leukocyte Esterase,Urine Large (Negative); Nitrite,Urine Negative (Negative); PH,Urine 5.5 pH Units (5.0-8.0); Protein,Urine 70 mg/dL (Neg-Trace); Specific Gravity,Urine 1.012 (1.010-1.025); Squamous Epithelial Cell,Urine Few per hpf (None-Few); Transitional Epi Cells,Urine Few per hpf (None-Few); WBC,Urine TNTC per hpf (0-3)
[2020-05-04 13:26] LABS: Amphetamine Screen,Urine Negative ng/mL (Cutoff=1000); Barbiturate Screen,Urine Negative ng/mL (Cutoff=200); Benzodiazepines Screen,Urine Negative ng/mL (Cutoff=200); Cannabinoid Screen,Urine Negative ng/mL (Cutoff = 50); Cocaine Screen,Urine Negative ng/mL (Cutoff= 300); Opiate Screen,Urine Negative ng/mL (Cutoff=300); Phencyclidine Screen,Urine Negative ng/mL (Cutoff=25)
[2020-05-04] MEDS ORDERED: Naloxone 0.4 MG/ML INJ IVP PRN (14:48)
[2020-05-04] MEDS ORDERED: Mag Hydrox/Al Hydrox/Simeth 30 ML UDC PO PRN (14:48)
[2020-05-04] MEDS ORDERED: MOM Conc 10 ML UD.LIQ PO PRN (14:48)
[2020-05-04] MEDS ORDERED: Ondansetron 4 MG/2 ML VIAL IVP PRN (14:48)
[2020-05-04 21:51] LABS: Acinetobacter baumannii by PCR Not Detected (Not Detect); Candida albicans by PCR Not Detected (Not Detect); Candida glabrata by PCR Not Detected (Not Detect); Candida krusei by PCR Not Detected (Not Detect); Candida parapsilosis by PCR Not Detected (Not Detect); Candida tropicalis by PCR Not Detected (Not Detect); Enterobacter cloacae Cmplx PCR Not Detected (Not Detect); Enterococcus by PCR Not Detected (Not Detect); Escherichia coli by PCR DETECTED (Not Detect); Klebsiella oxytoca by PCR Not Detected (Not Detect); Klebsiella pneumoniae by PCR Not Detected (Not Detect); Proteus by PCR Not Detected (Not Detect); Pseudomonas aeruginosa by PCR Not Detected (Not Detect); Serratia marcescens by PCR Not Detected (Not Detect); Staphylococcus aureus by PCR Not Detected (Not Detect); Staphylococcus by PCR Not Detected (Not Detect); Streptococcus agalactiae(B)PCR Not Detected (Not Detect); Streptococcus by PCR Not Detected (Not Detect); Streptococcus pneumoniae PCR Not Detected (Not Detect); Streptococcus pyogenes (A) PCR Not Detected (Not Detect); blaKPC Carbapenem-Resist Gene Not Detected (Not Detect)
[2020-05-04] MEDS: hydrOXYzine pamoate 25 MG CAPSULE PO SCH (22:52)
[2020-05-05 04:31] LABS: Hemoglobin 13.8 g/dL (11.5-15.4); Mean Corpuscular Hemoglobin 29.7 pg (28.0-33.3); Mean Corpuscular Volume 90.1 fL (83.0-100.0)
[2020-05-05 04:32] LABS: Hematocrit 41.8 % (35.3-44.9); Immature Platelets 7.5 % (1.1-6.1); Mean Platelet Volume 11.8 fL (9.4-12.4); Red Blood Count 4.64 M/mcL (3.82-4.97); Red Cell Distribution Width 13.3 % (11.5-14.5); White Blood Count 8.3 K/mcL (4.3-11.1)
[2020-05-05 04:54] LABS: Prothrombin Time 64.1 Seconds (9.4-12.1)
[2020-05-05 04:55] LABS: INR 5.8
[2020-05-05 04:57] LABS: Calcium 8.6 mg/dL (8.6-10.3); Phosphorous 3.3 mg/dL (2.7-4.5); Potassium 3.5 mEq/L (3.5-5.1)
[2020-05-05] MEDS: Spironolactone 25 MG TABLET PO SCH (08:59)
[2020-05-05] MEDS: hydrOXYzine pamoate 25 MG CAPSULE PO SCH ×3 (08:59→20:46)
[2020-05-05] MEDS: Magnesium Oxide 400 MG TABLET PO SCH (08:59)
[2020-05-05] MEDS: Loratadine 10 MG TABLET PO SCH (08:59)
[2020-05-05] MEDS: Furosemide 40 MG TABLET PO SCH ×2 (08:59→16:18)
[2020-05-05] MEDS: DilTIAZem CD (24hr) 240 MG CAP.ER.24H PO SCH (08:59)
[2020-05-05] MEDS ORDERED: cefTRIAXone 1,000 MG in Water for inj. (sterile) 10 ML IVP SCH (12:00)
[2020-05-05] MEDS: cefTRIAXone 2,000 MG in Water for inj. (sterile) 20 ML IVP SCH (12:59)
[2020-05-06 09:10] LABS: Basophils % 0.4 %; Eosinophils % 0.1 %; Hematocrit 42.9 % (35.3-44.9); Hemoglobin 13.9 g/dL (11.5-15.4); Immature Granulocytes % 1.1 % (0-4); Lymphocytes # 0.6 K/mcL (0.6-4.6); Lymphocytes % 5.4 %; Mean Corpuscular HGB Conc 32.4 g/dL (31.6-35.5); Mean Corpuscular Hemoglobin 28.7 pg (28.0-33.3); Mean Corpuscular Volume 88.5 fL (83.0-100.0); Mean Platelet Volume 11.4 fL (9.4-12.4); Monocytes # 0.8 K/mcL (0.0-1.3); Monocytes % 6.8 %; Neutrophils # 9.9 K/mcL (1.6-8.9); Platelet Count 107 K/mcL (140-400); Red Blood Count 4.85 M/mcL (3.82-4.97); Red Cell Distribution Width 13.7 % (11.5-14.5); Segmented Neutrophils % 86.2 %; White Blood Count 11.4 K/mcL (4.3-11.1)
[2020-05-06 09:28] LABS: Calcium 8.9 mg/dL (8.6-10.3); Potassium 3.4 mEq/L (3.5-5.1)
[2020-05-06 09:33] LABS: Prothrombin Time 62.2 Seconds (9.4-12.1)
[2020-05-06 09:34] LABS: INR 5.6
[2020-05-06] MEDS: hydrOXYzine pamoate 25 MG CAPSULE PO SCH ×3 (10:15→20:37)
[2020-05-06] MEDS: Spironolactone 25 MG TABLET PO SCH (10:15)
[2020-05-06] MEDS: DilTIAZem CD (24hr) 240 MG CAP.ER.24H PO SCH (10:15)
[2020-05-06] MEDS: Magnesium Oxide 400 MG TABLET PO SCH (10:15)
[2020-05-06] MEDS: Furosemide 40 MG TABLET PO SCH ×2 (10:15→17:10)
[2020-05-06] MEDS: Loratadine 10 MG TABLET PO SCH (10:15)
[2020-05-06] MEDS: carvediloL 6.25 MG TABLET PO SCH ×2 (10:19→17:10)
[2020-05-06] MEDS: cefTRIAXone 2,000 MG in Water for inj. (sterile) 20 ML IVP SCH (14:33)
[2020-05-07 05:38] LABS: INR 5.1; Prothrombin Time 56.6 Seconds (9.4-12.1)
[2020-05-07 05:57] LABS: Calcium 8.2 mg/dL (8.6-10.3); Potassium 3.2 mEq/L (3.5-5.1)
[2020-05-07 07:50] LABS: Basophils # 0.1 K/mcL (0.0-0.2); Basophils % 0.6 %; Eosinophils # 0.1 K/mcL (0.0-0.6); Eosinophils % 0.7 %; Hematocrit 41.6 % (35.3-44.9); Hemoglobin 13.3 g/dL (11.5-15.4); Immature Granulocytes % 2.1 % (0-4); Immature Platelets 6.7 % (1.1-6.1); Lymphocytes # 0.8 K/mcL (0.6-4.6); Lymphocytes % 9.7 %; Mean Corpuscular Hemoglobin 28.4 pg (28.0-33.3); Mean Corpuscular Volume 88.9 fL (83.0-100.0); Mean Platelet Volume 11.8 fL (9.4-12.4); Monocytes # 0.7 K/mcL (0.0-1.3); Monocytes % 8.3 %; Neutrophils # 6.8 K/mcL (1.6-8.9); Platelet Count 109 K/mcL (140-400); Red Blood Count 4.68 M/mcL (3.82-4.97); Red Cell Distribution Width 13.8 % (11.5-14.5); Segmented Neutrophils % 78.6 %; White Blood Count 8.6 K/mcL (4.3-11.1)
[2020-05-07] MEDS: Magnesium Oxide 400 MG TABLET PO SCH (08:31)
[2020-05-07] MEDS: DilTIAZem CD (24hr) 240 MG CAP.ER.24H PO SCH (08:31)
[2020-05-07] MEDS: Spironolactone 25 MG TABLET PO SCH (08:31)
[2020-05-07] MEDS: hydrOXYzine pamoate 25 MG CAPSULE PO SCH ×3 (08:31→19:48)
[2020-05-07] MEDS: Loratadine 10 MG TABLET PO SCH (08:31)
[2020-05-07] MEDS: carvediloL 6.25 MG TABLET PO SCH ×2 (08:31→17:22)
[2020-05-07] MEDS: Furosemide 40 MG TABLET PO SCH ×2 (08:31→17:22)
[2020-05-07] MEDS: cefTRIAXone 2,000 MG in Water for inj. (sterile) 20 ML IVP SCH (14:20)
[2020-05-07] MEDS: Acetaminophen 325 MG TABLET PO PRN (19:52)
[2020-05-08 05:04] LABS: Hematocrit 43.7 % (35.3-44.9); Hemoglobin 13.9 g/dL (11.5-15.4); Immature Platelets 4.7 % (1.1-6.1); Mean Corpuscular HGB Conc 31.8 g/dL (31.6-35.5); Mean Corpuscular Hemoglobin 28.8 pg (28.0-33.3); Mean Corpuscular Volume 90.7 fL (83.0-100.0); Mean Platelet Volume 11.2 fL (9.4-12.4); Platelet Count 115 K/mcL (140-400); Red Blood Count 4.82 M/mcL (3.82-4.97); Red Cell Distribution Width 13.8 % (11.5-14.5); White Blood Count 7.7 K/mcL (4.3-11.1)
[2020-05-08 05:06] LABS: INR 3.3; Prothrombin Time 36.5 Seconds (9.4-12.1)
[2020-05-08 05:24] LABS: Calcium 8.4 mg/dL (8.6-10.3); Potassium 3.4 mEq/L (3.5-5.1)
[2020-05-08 05:32] LABS: Eosinophils # 0.2 K/mcL (0.0-0.6); Lymphocytes # 0.9 K/mcL (0.6-4.6); Monocytes # 0.9 K/mcL (0.0-1.3); Neutrophils # 5.7 K/mcL (1.6-8.9); Platelet Estimate Slight Decrease (Normal)
[2020-05-08] MEDS: hydrOXYzine pamoate 25 MG CAPSULE PO SCH ×3 (08:32→21:05)
[2020-05-08] MEDS: Spironolactone 25 MG TABLET PO SCH (08:32)
[2020-05-08] MEDS: Loratadine 10 MG TABLET PO SCH (08:32)
[2020-05-08] MEDS: Furosemide 40 MG TABLET PO SCH ×2 (08:32→16:52)
[2020-05-08] MEDS: DilTIAZem CD (24hr) 240 MG CAP.ER.24H PO SCH (08:32)
[2020-05-08] MEDS: carvediloL 6.25 MG TABLET PO SCH ×2 (08:32→16:52)
[2020-05-08] MEDS: Magnesium Oxide 400 MG TABLET PO SCH (08:32)
[2020-05-08] MEDS: Acetaminophen 325 MG TABLET PO PRN (08:34)
[2020-05-08] MEDS: cefTRIAXone 2,000 MG in Water for inj. (sterile) 20 ML IVP SCH (13:54)
[2020-05-08] MEDS: predniSONE 20 MG TABLET PO SCH (13:55)
[2020-05-08] MEDS: Ipratropium/Albuterol Neb 3 ML IH SCH ×3 (16:08→23:07)
[2020-05-09] MEDS: Ipratropium/Albuterol Neb 3 ML IH SCH ×3 (04:01→11:17)
[2020-05-09 05:25] LABS: Basophils # 0.1 K/mcL (0.0-0.2); Basophils % 0.8 %; Hemoglobin 13.7 g/dL (11.5-15.4); Immature Granulocytes % 5.4 % (0-4); Lymphocytes # 0.8 K/mcL (0.6-4.6); Lymphocytes % 7.6 %; Mean Corpuscular HGB Conc 32.6 g/dL (31.6-35.5); Mean Corpuscular Hemoglobin 29.3 pg (28.0-33.3); Mean Corpuscular Volume 89.9 fL (83.0-100.0); Mean Platelet Volume 11.1 fL (9.4-12.4); Monocytes # 0.3 K/mcL (0.0-1.3); Monocytes % 2.8 %; Neutrophils # 8.8 K/mcL (1.6-8.9); Platelet Count 187 K/mcL (140-400); Red Blood Count 4.67 M/mcL (3.82-4.97); Red Cell Distribution Width 13.3 % (11.5-14.5); Segmented Neutrophils % 83.4 %; White Blood Count 10.6 K/mcL (4.3-11.1)
[2020-05-09 05:44] LABS: Calcium 8.8 mg/dL (8.6-10.3); Potassium 4.1 mEq/L (3.5-5.1)
[2020-05-09 06:17] LABS: INR 2.1; Prothrombin Time 23.9 Seconds (9.4-12.1)
[2020-05-09 06:56] LABS: Platelet Estimate Slight Decrease (Normal)
[2020-05-09] MEDS: carvediloL 6.25 MG TABLET PO SCH (08:23)
[2020-05-09] MEDS: DilTIAZem CD (24hr) 240 MG CAP.ER.24H PO SCH (08:23)
[2020-05-09] MEDS: Spironolactone 25 MG TABLET PO SCH (08:23)
[2020-05-09] MEDS: predniSONE 20 MG TABLET PO SCH (08:23)
[2020-05-09] MEDS: hydrOXYzine pamoate 25 MG CAPSULE PO SCH (08:23)
[2020-05-09] MEDS: Magnesium Oxide 400 MG TABLET PO SCH (08:24)
[2020-05-09] MEDS: Acetaminophen 325 MG TABLET PO PRN (08:24)
[2020-05-09] MEDS: Loratadine 10 MG TABLET PO SCH (08:24)
[2020-05-09] MEDS: Furosemide 40 MG TABLET PO SCH (08:25)
[2020-05-09] MEDS ORDERED: Cefdinir 300 MG CAPSULE PO SCH (09:00)
[2020-05-09 10:09] VITALS: BP 115/74
== END 2020-05-09 15:21 | disposition home health service (06) | DRG 720 ==
LOC: EMEROOARM 10:02 → 3ANU 10:02 → SUATTDRO 05-06 14:34
PROVIDERS: ADMIT Internal Medicine; ATTEND Family Medicine

== ENCOUNTER 2020-06-10 19:28 | Inpatient (IN) ==
[2020-06-10] MEDS ORDERED: Isovue-370 500 ML BOTTLE IVP ONE (19:57)
[2020-06-10 20:12] LABS: Basophils % 0.2 %; Eosinophils % 0.1 %; Hematocrit 42.4 % (35.3-44.9); Hemoglobin 13.5 g/dL (11.5-15.4); Immature Granulocytes % 0.5 % (0-4); Lymphocytes # 0.7 K/mcL (0.6-4.6); Mean Corpuscular HGB Conc 31.8 g/dL (31.6-35.5); Mean Corpuscular Hemoglobin 28.5 pg (28.0-33.3); Mean Corpuscular Volume 89.6 fL (83.0-100.0); Mean Platelet Volume 9.9 fL (9.4-12.4); Monocytes # 0.8 K/mcL (0.0-1.3); Platelet Count 150 K/mcL (140-400); Red Blood Count 4.73 M/mcL (3.82-4.97); Segmented Neutrophils % 86.2 %; White Blood Count 11.6 K/mcL (4.3-11.1)
[2020-06-10 20:20] LABS: Prothrombin Time 22.9 Seconds (9.4-12.1)
[2020-06-10 20:33] LABS: Calcium 8.6 mg/dL (8.6-10.3); Potassium 2.9 mEq/L (3.5-5.1)
[2020-06-10 20:34] LABS: Troponin I 0.03 ng/mL (< 0.04)
[2020-06-10] MEDS ORDERED: Cefepime HCl 2,000 MG in Water for inj. (sterile) 20 ML IVP STA (20:37)
[2020-06-10] MEDS ORDERED: 0.9 % Sodium Chloride 500 ML IVC ONE ×2 (20:37→21:28)
[2020-06-10] MEDS ORDERED: Potassium Chloride Elixir 20 MEQ/15 ML UDC PO ONE (20:38)
[2020-06-10] MEDS ORDERED: *HR* Rocuronium Bromide 50 MG/5 ML VIAL IVP ONE (21:00)
[2020-06-10] MEDS ORDERED: *HR* Etomidate 20 MG/10 ML AMPUL IVP ONE (21:00)
[2020-06-10] MEDS ORDERED: Azithromycin 500 MG in D5% in Water 250 ML IVPB ONE (21:03)
[2020-06-10] MEDS ORDERED: Azithromycin 500 MG VIAL ONE (21:37)
[2020-06-10] MEDS ORDERED: Naloxone 0.4 MG/ML INJ IVP PRN (21:48)
[2020-06-10] MEDS ORDERED: Phenylephrine 10 MG in 0.9 % Sodium Chloride 250 ML IVC SCH (21:53)
[2020-06-10] MEDS ORDERED: 0.9 % Sodium Chloride 250 ML ONE ×2 (21:56→22:34)
[2020-06-10] MEDS ORDERED: *HR* Phenylephrine 10 MG/ML VIAL ONE (21:56)
[2020-06-10] MEDS ORDERED: Potassium Chloride 40 MEQ, Lidocaine 1% 2 ML in 0.9 % Sodium Chloride 500 ML IVPB ONE (22:02)
[2020-06-10] MEDS ORDERED: *HR* FentaNYL (PF) 100 MCG/2 ML VIAL ONE (22:20)
[2020-06-10] MEDS ORDERED: 0.9 % Sodium Chloride 1,000 ML ONE (22:24)
[2020-06-10] MEDS: Midazolam HCl 50 MG/100 ML IV.SOLN IVC SCH (22:30)
[2020-06-10] MEDS: FentaNYL (PF) 1,000 MCG/100 ML IV.SOLN IVC SCH (22:31)
[2020-06-10] MEDS ORDERED: *HR* FentaNYL (PF) 100 MCG/2 ML VIAL IVP ONE (22:32)
[2020-06-10] MEDS ORDERED: *HR* Norepinephrine 4 MG/4 ML VIAL IVC ONE (22:34)
[2020-06-10] MEDS ORDERED: Perflutren Lipid Microsphere 1.3 ML in 0.9 % Sodium Chloride 8.7 ML IVP PRN (22:55)
[2020-06-10] MEDS: Norepinephrine 4 MG/254 ML IV.SOLN IVC SCH (23:07)
[2020-06-10] MEDS ORDERED: Ipratropium/Albuterol Neb 3 ML IH ONE (23:19)
[2020-06-10 23:55] LABS: Adenovirus Not Detected (Not Detect); Bordetella Pertussis Not Detected (Not Detect); Chlamydophila pneumoniae Not Detected (Not Detect); Coronavirus 229E Not Detected (Not Detect); Coronavirus HKU1 Not Detected (Not Detect); Coronavirus NL63 Not Detected (Not Detect); Coronavirus OC43 Not Detected (Not Detect); Human Metapneumovirus Not Detected (Not Detect); Human Rhinovirus/Enterovirus Not Detected (Not Detect); Influenza A Subtype 2009 H1 Not Detected (Not Detect); Influenza B Not Detected (Not Detect); Mycoplasma pneumoniae Not Detected (Not Detect); Parainfluenza Virus 1 Not Detected (Not Detect); Parainfluenza Virus 2 Not Detected (Not Detect); Parainfluenza Virus 3 Not Detected (Not Detect); Parainfluenza Virus 4 Not Detected (Not Detect); Respiratory Syncytial Virus Not Detected (Not Detect); SARS-CoV-2 Not Detected (Not Detect)
[2020-06-11 00:30] LABS: ABG Base Excess -2 mEq/L (-2 to 3); ABG HCO3 24 mEq/L (21-27); ABG Oxygen Saturation 94 % (95-98); ABG PCO2 47 mmHg (35-45); ABG PH 7.32 pH Units (7.32-7.45); ABG PO2 75 mmHg (85-104); ABG TCO2 26 mEq/L (20-26); Blood Gas Modality ASSIST CONTROL; Blood Gas VT 500 cc
[2020-06-11] MEDS ORDERED: *HR* Heparin 5,000 UNIT/ML VIAL IVP ONE (01:31)
[2020-06-11] MEDS ORDERED: *HR* Heparin 5,000 UNIT/ML VIAL IVP PRN ×2 (01:31)
[2020-06-11] MEDS ORDERED: Artificial Tears SOLN 15 ML BOTTLE BOTH EYES PRN (01:33)
[2020-06-11] MEDS ORDERED: 0.9 % Sodium Chloride 1,000 ML IVC ONE ×2 (01:42→06:56)
[2020-06-11] MEDS: Heparin 25,000UNIT/250ML 1/2NS 25,000 UNIT/250 ML IV.SOLN IVC SCH ×2 (02:11→13:40)
[2020-06-11 02:17] LABS: Mean Platelet Volume 10.3 fL (9.4-12.4); Red Blood Count 4.45 M/mcL (3.82-4.97)
[2020-06-11 02:19] LABS: Hematocrit 41.1 % (35.3-44.9); Mean Corpuscular HGB Conc 31.6 g/dL (31.6-35.5); Mean Corpuscular Hemoglobin 29.2 pg (28.0-33.3); Mean Corpuscular Volume 92.4 fL (83.0-100.0); Platelet Count 266 K/mcL (140-400); Red Cell Distribution Width 14.3 % (11.5-14.5); White Blood Count 26.2 K/mcL (4.3-11.1)
[2020-06-11 02:38] LABS: Albumin 3.1 g/dL (3.5-5.7); Albumin/Globulin Ratio 1.2 (1.1-2.2); Bilirubin,Total 1.7 mg/dL (0.3-1.0); Calcium 7.8 mg/dL (8.6-10.3); Globulin 2.5 g/dL (2.4-3.5); Potassium 3.2 mEq/L (3.5-5.1); Total Protein 5.6 g/dL (6.4-8.9)
[2020-06-11 02:42] LABS: Heparin anti-factor XA UFH < 0.04 IU/mL (0.30-0.70)
[2020-06-11 02:43] LABS: INR 1.8; Prothrombin Time 20.8 Seconds (9.4-12.1)
[2020-06-11 02:44] LABS: Activated Partial Thrombo Time 32.8 Seconds (26.0-36.0)
[2020-06-11 02:46] LABS: D-Dimer 339 ng/mLFEU (0-500)
[2020-06-11 02:55] LABS: Lymphocytes # 3.1 K/mcL (0.6-4.6); Monocytes # 3.1 K/mcL (0.0-1.3); Neutrophils # 19.4 K/mcL (1.6-8.9); Platelet Estimate Normal (Normal); Reactive Lymphocytes Present (Not Present); Toxic Vacuolation Present (Not Present)
[2020-06-11] MEDS ORDERED: Phenylephrine 10 MG in 0.9 % Sodium Chloride 250 ML IVC SCH (03:00)
[2020-06-11] MEDS ORDERED: Vancomycin 2,000 MG/520 ML IV.SOLN IVPB ONE (03:00)
[2020-06-11] MEDS: Artificial Tears SOLN 15 ML BOTTLE BOTH EYES SCH ×5 (03:51→19:48)
[2020-06-11] MEDS ORDERED: Acetaminophen IV 1,000 MG/100 ML BAG IVPB ONE ×2 (03:52→19:36)
[2020-06-11] MEDS: Levalbuterol Neb 1.25 MG/3 ML IH SCH ×4 (03:54→22:31)
[2020-06-11] MEDS ORDERED: Levalbuterol 1 PUFF INHALER IH SCH (04:00)
[2020-06-11 04:10] LABS: Magnesium 1.4 mg/dL (1.6-2.6)
[2020-06-11 04:28] LABS: ABG Base Excess -5 mEq/L (-2 to 3); ABG HCO3 22 mEq/L (21-27); ABG Oxygen Saturation 97 % (95-98); ABG PCO2 46 mmHg (35-45); ABG PH 7.29 pH Units (7.32-7.45); ABG PO2 106 mmHg (85-104); ABG TCO2 24 mEq/L (20-26); Blood Gas VT 500 cc
[2020-06-11] MEDS: Norepinephrine 4 MG/254 ML IV.SOLN IVC SCH ×2 (04:36→06:58)
[2020-06-11] MEDS: FentaNYL (PF) 1,000 MCG/100 ML IV.SOLN IVC SCH ×3 (05:05→21:55)
[2020-06-11] MEDS: Phenylephrine 50 MG in 0.9 % Sodium Chloride 250 ML IVC SCH ×4 (05:05→19:40)
[2020-06-11] MEDS: Vasopressin 40 UNIT in D5% in Water 100 ML IVC SCH (05:53)
[2020-06-11] MEDS ORDERED: Albumin 25% 25gram/100mL 25 GM/100 ML IV.SOLN IVPB ONE (06:42)
[2020-06-11] MEDS: Hydrocortisone Sodium Succ 100 MG/2 ML VIAL IVP SCH ×3 (06:51→18:15)
[2020-06-11] MEDS ORDERED: Magnesium Sulfate 1 GM/102 ML PIGGYBACK IVPB ONE (08:00)
[2020-06-11] MEDS ORDERED: MetroNIDAZOLE 500 MG/100 ML 500 MG/100 ML BAG IVPB SCH (08:00)
[2020-06-11] MEDS ORDERED: Cefepime HCl 2,000 MG in 0.9 % Sodium Chloride Mini Bag 100 ML IVPB SCH (08:00)
[2020-06-11] MEDS: Chlorhexidine Rinse 15 ML MOUTHWASH MM SCH ×2 (09:16→19:51)
[2020-06-11] MEDS: Pantoprazole 40 MG VIAL IVP SCH (09:16)
[2020-06-11] MEDS: Norepinephrine 8 MG in D5% in Water 250 ML IVC SCH ×3 (09:27→19:20)
[2020-06-11 10:43] LABS: Hematocrit 41.2 % (35.3-44.9); Mean Corpuscular HGB Conc 31.6 g/dL (31.6-35.5); Mean Corpuscular Hemoglobin 29.8 pg (28.0-33.3); Mean Corpuscular Volume 94.5 fL (83.0-100.0); Mean Platelet Volume 10.1 fL (9.4-12.4); Platelet Count 260 K/mcL (140-400); Red Blood Count 4.36 M/mcL (3.82-4.97); Red Cell Distribution Width 14.8 % (11.5-14.5)
[2020-06-11 10:48] LABS: INR 1.9; Prothrombin Time 21.6 Seconds (9.4-12.1)
[2020-06-11 10:54] LABS: White Blood Count 37.3 K/mcL (4.3-11.1)
[2020-06-11 10:54] LABS: VBG Ionized Calcium 1.02 mmol/L (1.15-1.35)
[2020-06-11 11:07] LABS: Amorphous Sediment,Urine Few per hpf (None-Few); Bacteria,Urine Few per hpf (None-Few); Bilirubin,Urine Negative (Negative); Blood,Urine Moderate (Negative); Clarity,Urine Ex.Turbid (Clear); Color,Urine Yellow (Yellow); Glucose,Urine (UA) Normal (Normal); Hyaline Casts,Urine Few per lpf (None Seen); Ketones,Urine Negative (Negative); Leukocyte Esterase,Urine Moderate (Negative); Mucus,Urine Few per lpf (None-Few); Nitrite,Urine Negative (Negative); PH,Urine 6.5 pH Units (5.0-8.0); Protein,Urine >=600 mg/dL (Neg-Trace); Specific Gravity,Urine 1.024 (1.010-1.025); Squamous Epithelial Cell,Urine Few per hpf (None-Few); Urobilinogen,Urine Normal (Normal)
[2020-06-11 11:08] LABS: Activated Partial Thrombo Time 149.8 Seconds (26.0-36.0)
[2020-06-11 11:10] LABS: Lymphocytes # 1.5 K/mcL (0.6-4.6); Monocytes # 1.5 K/mcL (0.0-1.3); Neutrophils # 31.3 K/mcL (1.6-8.9); Platelet Estimate Normal (Normal)
[2020-06-11 11:16] LABS: Albumin 3.4 g/dL (3.5-5.7); Albumin/Globulin Ratio 1.4 (1.1-2.2); Bilirubin,Direct 1.7 mg/dL (0.0-0.2); Bilirubin,Indirect 0.9 mg/dL (0.0-1.0); Bilirubin,Total 2.6 mg/dL (0.3-1.0); Calcium 7.8 mg/dL (8.6-10.3); Globulin 2.4 g/dL (2.4-3.5); Magnesium 2.1 mg/dL (1.6-2.6); Phosphorous 3.7 mg/dL (2.7-4.5); Potassium 4.3 mEq/L (3.5-5.1); Total Protein 5.8 g/dL (6.4-8.9)
[2020-06-11] MEDS: levoFLOXacin 750 MG/150 ML 750 MG/150 ML BAG IVPB SCH (11:47)
[2020-06-11 12:19] LABS: Amphetamine Screen,Urine Negative ng/mL (Cutoff=1000); Barbiturate Screen,Urine Negative ng/mL (Cutoff=200); Benzodiazepines Screen,Urine Positive ng/mL (Cutoff=200); Cannabinoid Screen,Urine Negative ng/mL (Cutoff = 50); Cocaine Screen,Urine Negative ng/mL (Cutoff= 300); Opiate Screen,Urine Negative ng/mL (Cutoff=300); Phencyclidine Screen,Urine Negative ng/mL (Cutoff=25)
[2020-06-11 12:28] LABS: ABG Base Excess -8 mEq/L (-2 to 3); ABG HCO3 19 mEq/L (21-27); ABG Oxygen Saturation 95 % (95-98); ABG PCO2 43 mmHg (35-45); ABG PH 7.26 pH Units (7.32-7.45); ABG PO2 87 mmHg (85-104); ABG TCO2 21 mEq/L (20-26); Blood Gas Modality ASSIST CONTROL; Blood Gas VT 500 cc
[2020-06-11] MEDS ORDERED: Sodium Bicarbonate 150 MEQ in D5% in Water 1,000 ML IVC SCH ×2 (13:00→13:45)
[2020-06-11 14:12] LABS: Appearance of Body Fluid Cloudy (Clear); Volume of Body Fluid 15 mL
[2020-06-11] MEDS: Midazolam HCl 50 MG/100 ML IV.SOLN IVC SCH (15:16)
[2020-06-11 15:42] LABS: Protein/Creatinine Ratio,Urine 2.49 mg/mg (0.00-0.20); Sodium, Urine 30.9 mEq/L
[2020-06-11 17:13] LABS: ABG Base Excess -5 mEq/L (-2 to 3); ABG HCO3 22 mEq/L (21-27); ABG Oxygen Saturation 97 % (95-98); ABG PCO2 44 mmHg (35-45); ABG PO2 99 mmHg (85-104); ABG TCO2 23 mEq/L (20-26); Blood Gas VT 500 cc
[2020-06-11] MEDS ORDERED: Azithromycin 500 MG in 0.9 % Sodium Chloride 250 ML IVPB SCH (21:00)
[2020-06-12] MEDS: Artificial Tears SOLN 15 ML BOTTLE BOTH EYES SCH ×7 (00:19→23:49)
[2020-06-12] MEDS: Hydrocortisone Sodium Succ 100 MG/2 ML VIAL IVP SCH ×4 (00:22→22:05)
[2020-06-12] MEDS: Vasopressin 40 UNIT in D5% in Water 100 ML IVC SCH (02:00)
[2020-06-12] MEDS ORDERED: Vancomycin 1,750 MG/517.5 ML IV.SOLN IVPB SCH (03:00)
[2020-06-12] MEDS: Heparin 25,000UNIT/250ML 1/2NS 25,000 UNIT/250 ML IV.SOLN IVC SCH (03:02)
[2020-06-12] MEDS: Levalbuterol Neb 1.25 MG/3 ML IH SCH ×4 (03:33→21:44)
[2020-06-12 04:04] LABS: Mean Platelet Volume 10.5 fL (9.4-12.4)
[2020-06-12 04:06] LABS: Hematocrit 37.9 % (35.3-44.9); Mean Corpuscular HGB Conc 31.7 g/dL (31.6-35.5); Mean Corpuscular Hemoglobin 29.3 pg (28.0-33.3); Mean Corpuscular Volume 92.4 fL (83.0-100.0); Platelet Count 184 K/mcL (140-400); Red Cell Distribution Width 14.8 % (11.5-14.5); White Blood Count 29.8 K/mcL (4.3-11.1)
[2020-06-12 04:14] LABS: Heparin anti-factor XA UFH 0.41 IU/mL (0.30-0.70)
[2020-06-12 04:16] LABS: INR 3.1; Prothrombin Time 35.1 Seconds (9.4-12.1)
[2020-06-12 04:24] LABS: Albumin 2.9 g/dL (3.5-5.7); Albumin/Globulin Ratio 1.2 (1.1-2.2); Bilirubin,Total 1.4 mg/dL (0.3-1.0); Calcium 6.9 mg/dL (8.6-10.3); Globulin 2.5 g/dL (2.4-3.5); Magnesium 1.9 mg/dL (1.6-2.6); Phosphorous 3.1 mg/dL (2.7-4.5); Potassium 3.5 mEq/L (3.5-5.1); Total Protein 5.4 g/dL (6.4-8.9)
[2020-06-12 04:39] LABS: VBG Ionized Calcium 0.96 mmol/L (1.15-1.35)
[2020-06-12 04:46] LABS: Monocytes # 0.6 K/mcL (0.0-1.3); Neutrophils # 26.2 K/mcL (1.6-8.9)
[2020-06-12 04:51] LABS: ABG Base Excess -2 mEq/L (-2 to 3); ABG HCO3 23 mEq/L (21-27); ABG Oxygen Saturation 97 % (95-98); ABG PCO2 40 mmHg (35-45); ABG PH 7.37 pH Units (7.32-7.45); ABG PO2 92 mmHg (85-104); ABG TCO2 24 mEq/L (20-26); Blood Gas VT 500 cc
[2020-06-12] MEDS: Norepinephrine 8 MG in D5% in Water 250 ML IVC SCH ×4 (05:30→23:50)
[2020-06-12] MEDS: Calcium Gluconate 1gm/50mL 1 GM/50 ML BAG IVPB PRN (05:46)
[2020-06-12] MEDS: Potassium Chloride 40 MEQ/200 ML BAG IVPB PRN (05:47)
[2020-06-12] MEDS ORDERED: Vancomycin 1,250 MG/262.5 ML IV.SOLN IVPB ONE (06:00)
[2020-06-12] MEDS: FentaNYL (PF) 1,000 MCG/100 ML IV.SOLN IVC SCH ×3 (06:15→20:48)
[2020-06-12 07:31] LABS: Enterococcus by PCR Not Detected (Not Detect); Staphylococcus aureus by PCR Not Detected (Not Detect); Staphylococcus by PCR Not Detected (Not Detect)
[2020-06-12 07:32] LABS: Acinetobacter baumannii by PCR Not Detected (Not Detect); Candida albicans by PCR Not Detected (Not Detect); Candida glabrata by PCR Not Detected (Not Detect); Candida krusei by PCR Not Detected (Not Detect); Candida parapsilosis by PCR Not Detected (Not Detect); Candida tropicalis by PCR Not Detected (Not Detect); Enterobacter cloacae Cmplx PCR Not Detected (Not Detect); Enterobacteriaceae by PCR Not Detected (Not Detect); Escherichia coli by PCR Not Detected (Not Detect); Klebsiella oxytoca by PCR Not Detected (Not Detect); Klebsiella pneumoniae by PCR Not Detected (Not Detect); Proteus by PCR Not Detected (Not Detect); Pseudomonas aeruginosa by PCR Not Detected (Not Detect); Serratia marcescens by PCR Not Detected (Not Detect); Streptococcus agalactiae(B)PCR Not Detected (Not Detect); Streptococcus pneumoniae PCR DETECTED (Not Detect); Streptococcus pyogenes (A) PCR Not Detected (Not Detect)
[2020-06-12] MEDS: Chlorhexidine Rinse 15 ML MOUTHWASH MM SCH ×2 (08:47→20:00)
[2020-06-12] MEDS: Pantoprazole 40 MG VIAL IVP SCH (08:47)
[2020-06-12] MEDS: Cefepime HCl 2,000 MG in 0.9 % Sodium Chloride Mini Bag 100 ML IVPB SCH (08:47)
[2020-06-12] MEDS: Midazolam HCl 50 MG/100 ML IV.SOLN IVC SCH (09:07)
[2020-06-12] MEDS ORDERED: Sodium Bicarbonate 150 MEQ in D5% in Water 1,000 ML IVC SCH ×2 (12:15→20:30)
[2020-06-13] MEDS: Midazolam HCl 50 MG/100 ML IV.SOLN IVC SCH ×2 (03:05→23:10)
[2020-06-13] MEDS: FentaNYL (PF) 1,000 MCG/100 ML IV.SOLN IVC SCH ×3 (03:05→18:26)
[2020-06-13] MEDS: Artificial Tears SOLN 15 ML BOTTLE BOTH EYES SCH ×6 (03:19→23:09)
[2020-06-13 03:34] LABS: Basophils % 0.1 %; Hematocrit 33.8 % (35.3-44.9); Lymphocytes # 0.7 K/mcL (0.6-4.6); Lymphocytes % 3.9 %; Mean Corpuscular HGB Conc 32.5 g/dL (31.6-35.5); Mean Corpuscular Hemoglobin 28.7 pg (28.0-33.3); Mean Corpuscular Volume 88.3 fL (83.0-100.0); Mean Platelet Volume 10.7 fL (9.4-12.4); Monocytes # 0.6 K/mcL (0.0-1.3); Monocytes % 3.3 %; Neutrophils # 15.8 K/mcL (1.6-8.9); Platelet Count 142 K/mcL (140-400); Red Blood Count 3.83 M/mcL (3.82-4.97); Red Cell Distribution Width 14.6 % (11.5-14.5); Segmented Neutrophils % 87.7 %
[2020-06-13] MEDS: Vasopressin 40 UNIT in D5% in Water 100 ML IVC SCH (03:34)
[2020-06-13 03:35] LABS: VBG Ionized Calcium 1.02 mmol/L (1.15-1.35)
[2020-06-13 03:37] LABS: Prothrombin Time 23.2 Seconds (9.4-12.1)
[2020-06-13 03:54] LABS: Albumin 2.8 g/dL (3.5-5.7); Albumin/Globulin Ratio 1.1 (1.1-2.2); Bilirubin,Total 1.1 mg/dL (0.3-1.0); Calcium 8.2 mg/dL (8.6-10.3); Globulin 2.6 g/dL (2.4-3.5); Magnesium 2.3 mg/dL (1.6-2.6); Phosphorous 3.2 mg/dL (2.7-4.5); Potassium 3.6 mEq/L (3.5-5.1); Total Protein 5.4 g/dL (6.4-8.9)
[2020-06-13 03:58] LABS: Platelet Estimate Normal (Normal); Polychromasia 1+ (Not Present)
[2020-06-13] MEDS: Levalbuterol Neb 1.25 MG/3 ML IH SCH ×4 (04:15→21:22)
[2020-06-13 04:30] LABS: ABG Base Excess 8 mEq/L (-2 to 3); ABG HCO3 31 mEq/L (21-27); ABG Oxygen Saturation 98 % (95-98); ABG PCO2 37 mmHg (35-45); ABG PH 7.53 pH Units (7.32-7.45); ABG PO2 85 mmHg (85-104); ABG TCO2 32 mEq/L (20-26); Blood Gas VT 500 cc
[2020-06-13] MEDS: Potassium Chloride 40 MEQ/200 ML BAG IVPB PRN ×3 (04:32→19:32)
[2020-06-13] MEDS: Calcium Gluconate 1gm/50mL 1 GM/50 ML BAG IVPB PRN ×3 (04:32→18:19)
[2020-06-13] MEDS: Pantoprazole 40 MG VIAL IVP SCH (09:08)
[2020-06-13] MEDS: Chlorhexidine Rinse 15 ML MOUTHWASH MM SCH ×2 (09:08→20:01)
[2020-06-13] MEDS: Cefepime HCl 2,000 MG in 0.9 % Sodium Chloride Mini Bag 100 ML IVPB SCH (09:08)
[2020-06-13] MEDS: Hydrocortisone Sodium Succ 100 MG/2 ML VIAL IVP SCH ×2 (09:09→20:01)
[2020-06-13 11:21] LABS: ABG Ionized Calcium 1.02 mmol/L (1.15-1.35)
[2020-06-13] MEDS: cefTRIAXone 2,000 MG in Water for inj. (sterile) 20 ML IVP SCH (15:17)
[2020-06-13] MEDS ORDERED: Norepinephrine 8 MG in 0.9 % Sodium Chloride 250 ML IVC SCH (17:15)
[2020-06-13 18:12] LABS: ABG Ionized Calcium 1.01 mmol/L (1.15-1.35)
[2020-06-13 22:17] LABS: ABG Base Excess 3 mEq/L (-2 to 3); ABG HCO3 27 mEq/L (21-27); ABG Oxygen Saturation 96 % (95-98); ABG PCO2 40 mmHg (35-45); ABG PH 7.45 pH Units (7.32-7.45); ABG PO2 78 mmHg (85-104); ABG TCO2 29 mEq/L (20-26); Blood Gas Modality AF; Blood Gas VT 450 cc
[2020-06-13 23:48] LABS: VBG Ionized Calcium 1.11 mmol/L (1.15-1.35)
[2020-06-14] MEDS: FentaNYL (PF) 1,000 MCG/100 ML IV.SOLN IVC SCH ×4 (01:13→23:00)
[2020-06-14] MEDS: Levalbuterol Neb 1.25 MG/3 ML IH SCH ×4 (03:31→21:29)
[2020-06-14] MEDS: Phenylephrine 50 MG in 0.9 % Sodium Chloride 250 ML IVC SCH (03:43)
[2020-06-14] MEDS: Norepinephrine 8 MG in 0.9 % Sodium Chloride 250 ML IVC SCH ×2 (03:44→17:28)
[2020-06-14] MEDS: Artificial Tears SOLN 15 ML BOTTLE BOTH EYES SCH ×5 (03:45→19:41)
[2020-06-14 04:18] LABS: Eosinophils % 0.1 %; Hematocrit 34.8 % (35.3-44.9); Hemoglobin 10.8 g/dL (11.5-15.4); Immature Granulocytes % 0.4 % (0-4); Lymphocytes # 0.8 K/mcL (0.6-4.6); Lymphocytes % 8.3 %; Mean Corpuscular Volume 90.2 fL (83.0-100.0); Monocytes # 0.4 K/mcL (0.0-1.3); Monocytes % 4.3 %; Neutrophils # 7.9 K/mcL (1.6-8.9); Platelet Count 105 K/mcL (140-400); Red Blood Count 3.86 M/mcL (3.82-4.97); Red Cell Distribution Width 14.6 % (11.5-14.5); Segmented Neutrophils % 86.9 %; White Blood Count 9.1 K/mcL (4.3-11.1)
[2020-06-14 04:19] LABS: VBG Ionized Calcium 1.14 mmol/L (1.15-1.35)
[2020-06-14 04:25] LABS: INR 1.8; Prothrombin Time 20.9 Seconds (9.4-12.1)
[2020-06-14 04:37] LABS: Albumin 2.8 g/dL (3.5-5.7); Bilirubin,Total 0.8 mg/dL (0.3-1.0); Calcium 8.4 mg/dL (8.6-10.3); Globulin 2.7 g/dL (2.4-3.5); Magnesium 2.5 mg/dL (1.6-2.6); Phosphorous 3.1 mg/dL (2.7-4.5); Potassium 4.5 mEq/L (3.5-5.1); Total Protein 5.5 g/dL (6.4-8.9)
[2020-06-14 04:37] LABS: ABG Base Excess 3 mEq/L (-2 to 3); ABG HCO3 29 mEq/L (21-27); ABG Oxygen Saturation 94 % (95-98); ABG PCO2 46 mmHg (35-45); ABG PO2 71 mmHg (85-104); ABG TCO2 30 mEq/L (20-26); Blood Gas Modality AF; Blood Gas VT 450 cc
[2020-06-14] MEDS: Pantoprazole 40 MG VIAL IVP SCH (07:47)
[2020-06-14] MEDS: Chlorhexidine Rinse 15 ML MOUTHWASH MM SCH ×2 (07:47→19:41)
[2020-06-14] MEDS: Hydrocortisone Sodium Succ 100 MG/2 ML VIAL IVP SCH ×2 (07:47→19:41)
[2020-06-14 08:33] LABS: Bacteria,Urine Few per hpf (None-Few); Bilirubin,Urine Negative (Negative); Blood,Urine Trace (Negative); Clarity,Urine Turbid (Clear); Color,Urine Yellow (Yellow); Glucose,Urine (UA) Normal (Normal); Ketones,Urine Negative (Negative); Leukocyte Esterase,Urine Trace (Negative); Nitrite,Urine Negative (Negative); Protein,Urine 50 mg/dL (Neg-Trace); RBC,Urine 0-3 per hpf (0-3); Specific Gravity,Urine 1.021 (1.010-1.025); Squamous Epithelial Cell,Urine Few per hpf (None-Few); Urobilinogen,Urine Normal (Normal)
[2020-06-14] MEDS: cefTRIAXone 2,000 MG in Water for inj. (sterile) 20 ML IVP SCH (13:21)
[2020-06-14] MEDS: Midazolam HCl 50 MG/100 ML IV.SOLN IVC SCH (17:59)
[2020-06-15] MEDS: Artificial Tears SOLN 15 ML BOTTLE BOTH EYES SCH ×7 (00:20→23:54)
[2020-06-15] MEDS: Levalbuterol Neb 1.25 MG/3 ML IH SCH ×4 (03:31→21:43)
[2020-06-15 03:54] LABS: VBG Ionized Calcium 1.11 mmol/L (1.15-1.35)
[2020-06-15 03:56] LABS: Basophils % 0.3 %; Hemoglobin 11.6 g/dL (11.5-15.4); Immature Granulocytes % 0.7 % (0-4); Lymphocytes # 0.7 K/mcL (0.6-4.6); Lymphocytes % 9.8 %; Mean Corpuscular HGB Conc 31.4 g/dL (31.6-35.5); Mean Corpuscular Hemoglobin 28.6 pg (28.0-33.3); Mean Corpuscular Volume 91.1 fL (83.0-100.0); Mean Platelet Volume 11.4 fL (9.4-12.4); Monocytes # 0.4 K/mcL (0.0-1.3); Neutrophils # 5.9 K/mcL (1.6-8.9); Platelet Count 116 K/mcL (140-400); Red Blood Count 4.06 M/mcL (3.82-4.97); Red Cell Distribution Width 14.6 % (11.5-14.5); Segmented Neutrophils % 84.2 %
[2020-06-15 03:57] LABS: INR 1.8; Prothrombin Time 20.8 Seconds (9.4-12.1)
[2020-06-15 04:07] LABS: Albumin/Globulin Ratio 1.1 (1.1-2.2); Bilirubin,Total 0.7 mg/dL (0.3-1.0); Calcium 8.4 mg/dL (8.6-10.3); Globulin 2.8 g/dL (2.4-3.5); Magnesium 2.6 mg/dL (1.6-2.6); Phosphorous 3.8 mg/dL (2.7-4.5); Potassium 4.5 mEq/L (3.5-5.1); Total Protein 5.8 g/dL (6.4-8.9)
[2020-06-15 04:48] LABS: ABG Base Excess 4 mEq/L (-2 to 3); ABG HCO3 29 mEq/L (21-27); ABG Oxygen Saturation 96 % (95-98); ABG PCO2 46 mmHg (35-45); ABG PO2 81 mmHg (85-104); ABG TCO2 30 mEq/L (20-26); Blood Gas Modality ASSIST CONTROL; Blood Gas VT 450 cc
[2020-06-15 07:03] LABS: ANA IgG by ELISA NONE DETECTED (None Detected)
[2020-06-15] MEDS: Phenylephrine 50 MG in 0.9 % Sodium Chloride 250 ML IVC SCH (07:17)
[2020-06-15] MEDS: Chlorhexidine Rinse 15 ML MOUTHWASH MM SCH ×2 (08:28→19:36)
[2020-06-15] MEDS: Pantoprazole 40 MG VIAL IVP SCH (08:28)
[2020-06-15] MEDS: Hydrocortisone Sodium Succ 100 MG/2 ML VIAL IVP SCH ×2 (08:28→19:36)
[2020-06-15] MEDS ORDERED: Albumin 25% 25gram/100mL 25 GM/100 ML IV.SOLN IVPB ONE (08:35)
[2020-06-15] MEDS ORDERED: Furosemide 40 MG in 0.9 % Sodium Chloride 50 ML IVPB ONE (08:35)
[2020-06-15] MEDS: Midazolam HCl 50 MG/100 ML IV.SOLN IVC SCH (09:51)
[2020-06-15 10:54] LABS: ABG Base Excess 3 mEq/L (-2 to 3); ABG HCO3 28 mEq/L (21-27); ABG Oxygen Saturation 95 % (95-98); ABG PCO2 45 mmHg (35-45); ABG PO2 76 mmHg (85-104); ABG TCO2 30 mEq/L (20-26); Blood Gas Modality ASSIST CONTROL; Blood Gas VT 400 cc
[2020-06-15] MEDS: FentaNYL (PF) 1,000 MCG/100 ML IV.SOLN IVC SCH ×2 (13:30→20:59)
[2020-06-15] MEDS: cefTRIAXone 2,000 MG in Water for inj. (sterile) 20 ML IVP SCH (13:30)
[2020-06-15] MEDS: Heparin 25,000UNIT/250ML 1/2NS 25,000 UNIT/250 ML IV.SOLN IVC SCH (14:50)
[2020-06-15 16:02] LABS: Hematocrit 35.4 % (35.3-44.9); Hemoglobin 11.2 g/dL (11.5-15.4); Mean Corpuscular HGB Conc 31.6 g/dL (31.6-35.5); Mean Corpuscular Hemoglobin 28.9 pg (28.0-33.3); Mean Corpuscular Volume 91.5 fL (83.0-100.0); Platelet Count 107 K/mcL (140-400); Red Blood Count 3.87 M/mcL (3.82-4.97); Red Cell Distribution Width 14.6 % (11.5-14.5); White Blood Count 6.2 K/mcL (4.3-11.1)
[2020-06-15] MEDS: Norepinephrine 8 MG in 0.9 % Sodium Chloride 250 ML IVC SCH (17:13)
[2020-06-16] MEDS: Heparin 25,000UNIT/250ML 1/2NS 25,000 UNIT/250 ML IV.SOLN IVC SCH ×2 (02:15→17:16)
[2020-06-16] MEDS: FentaNYL (PF) 1,000 MCG/100 ML IV.SOLN IVC SCH (03:05)
[2020-06-16] MEDS: Levalbuterol Neb 1.25 MG/3 ML IH SCH (03:23)
[2020-06-16] MEDS: Midazolam HCl 50 MG/100 ML IV.SOLN IVC SCH ×2 (03:30→08:26)
[2020-06-16 03:32] LABS: Hematocrit 36.6 % (35.3-44.9); Hemoglobin 11.5 g/dL (11.5-15.4); Mean Corpuscular HGB Conc 31.4 g/dL (31.6-35.5); Mean Corpuscular Hemoglobin 28.9 pg (28.0-33.3); Platelet Count 113 K/mcL (140-400); Red Blood Count 3.98 M/mcL (3.82-4.97); Red Cell Distribution Width 14.6 % (11.5-14.5); White Blood Count 6.4 K/mcL (4.3-11.1)
[2020-06-16 03:33] LABS: Basophils % 0.6 %; Eosinophils % 0.2 %; Lymphocytes # 0.7 K/mcL (0.6-4.6); Lymphocytes % 11.5 %; Monocytes # 0.4 K/mcL (0.0-1.3); Monocytes % 6.6 %; Neutrophils # 4.8 K/mcL (1.6-8.9); Segmented Neutrophils % 76.1 %
[2020-06-16 03:43] LABS: INR 1.4; Prothrombin Time 16.1 Seconds (9.4-12.1)
[2020-06-16] MEDS: Artificial Tears SOLN 15 ML BOTTLE BOTH EYES SCH ×6 (03:45→23:28)
[2020-06-16 03:50] LABS: VBG Ionized Calcium 1.04 mmol/L (1.15-1.35)
[2020-06-16 03:51] LABS: Albumin 3.2 g/dL (3.5-5.7); Albumin/Globulin Ratio 1.2 (1.1-2.2); Bilirubin,Total 0.7 mg/dL (0.3-1.0); Calcium 8.2 mg/dL (8.6-10.3); Globulin 2.6 g/dL (2.4-3.5); Magnesium 2.4 mg/dL (1.6-2.6); Phosphorous 3.7 mg/dL (2.7-4.5); Potassium 4.1 mEq/L (3.5-5.1); Total Protein 5.8 g/dL (6.4-8.9)
[2020-06-16 05:22] LABS: ABG Base Excess 5 mEq/L (-2 to 3); ABG HCO3 32 mEq/L (21-27); ABG Oxygen Saturation 94 % (95-98); ABG PCO2 58 mmHg (35-45); ABG PH 7.35 pH Units (7.32-7.45); ABG PO2 74 mmHg (85-104); ABG TCO2 33 mEq/L (20-26); Blood Gas Modality AF; Blood Gas VT 400 cc
[2020-06-16] MEDS: FentaNYL (PF) 2,500 MCG/50 ML IV.SOLN IVC SCH ×2 (07:49→15:40)
[2020-06-16] MEDS: Phenylephrine 50 MG in 0.9 % Sodium Chloride 250 ML IVC SCH (07:49)
[2020-06-16] MEDS: Pantoprazole 40 MG VIAL IVP SCH (08:48)
[2020-06-16] MEDS: Hydrocortisone Sodium Succ 100 MG/2 ML VIAL IVP SCH ×2 (08:48→19:23)
[2020-06-16] MEDS: Chlorhexidine Rinse 15 ML MOUTHWASH MM SCH ×2 (08:49→19:23)
[2020-06-16] MEDS ORDERED: Levalbuterol Neb 1.25 MG/3 ML IH PRN (09:42)
[2020-06-16] MEDS: levoFLOXacin 750 MG/150 ML 750 MG/150 ML BAG IVPB SCH (10:36)
[2020-06-16 10:55] LABS: Immunoglobulin A 148 mg/dL (68-408); Immunoglobulin G 575 mg/dL (768-1632); Immunoglobulin M 87 mg/dL (35-263)
[2020-06-16] MEDS: Ipratropium/Albuterol Neb 3 ML IH SCH ×4 (11:27→23:25)
[2020-06-16] MEDS: cefTRIAXone 2,000 MG in Water for inj. (sterile) 20 ML IVP SCH (12:53)
[2020-06-16] MEDS: Calcium Gluconate 1gm/50mL 1 GM/50 ML BAG IVPB PRN (12:53)
[2020-06-16] MEDS: Dexmedetomidine HCl 400 MCG/100 ML MLS IVC SCH ×2 (14:42→19:22)
[2020-06-16] MEDS: Norepinephrine 8 MG in 0.9 % Sodium Chloride 250 ML IVC SCH (17:39)
[2020-06-16] MEDS: QUEtiapine Fumarate 25 MG TABLET PO SCH (19:23)
[2020-06-16 21:10] LABS: ABG Ionized Calcium 1.15 mmol/L (1.15-1.35)
[2020-06-17] MEDS: Dexmedetomidine HCl 400 MCG/100 ML MLS IVC SCH ×5 (00:28→20:12)
[2020-06-17] MEDS ORDERED: Furosemide 40 MG/4 ML VIAL IVP ONE (00:34)
[2020-06-17] MEDS: Heparin 25,000UNIT/250ML 1/2NS 25,000 UNIT/250 ML IV.SOLN IVC SCH ×2 (03:20→12:01)
[2020-06-17] MEDS: Artificial Tears SOLN 15 ML BOTTLE BOTH EYES SCH ×5 (03:20→20:07)
[2020-06-17] MEDS: Ipratropium/Albuterol Neb 3 ML IH SCH ×6 (03:23→23:31)
[2020-06-17] MEDS: Phenylephrine 50 MG in 0.9 % Sodium Chloride 250 ML IVC SCH (03:37)
[2020-06-17 04:09] LABS: Albumin 3.3 g/dL (3.5-5.7); Albumin/Globulin Ratio 1.3 (1.1-2.2); Bilirubin,Total 0.7 mg/dL (0.3-1.0); Calcium 8.3 mg/dL (8.6-10.3); Globulin 2.6 g/dL (2.4-3.5); Magnesium 2.2 mg/dL (1.6-2.6); Phosphorous 3.9 mg/dL (2.7-4.5); Potassium 4.1 mEq/L (3.5-5.1); Total Protein 5.9 g/dL (6.4-8.9)
[2020-06-17 04:13] LABS: Basophils % 0.9 %; Eosinophils % 0.4 %; Hematocrit 37.8 % (35.3-44.9); Hemoglobin 11.6 g/dL (11.5-15.4); Immature Granulocytes % 6.3 % (0-4); Lymphocytes # 0.7 K/mcL (0.6-4.6); Lymphocytes % 15.4 %; Mean Corpuscular HGB Conc 30.7 g/dL (31.6-35.5); Mean Corpuscular Hemoglobin 28.8 pg (28.0-33.3); Mean Corpuscular Volume 93.8 fL (83.0-100.0); Mean Platelet Volume 11.3 fL (9.4-12.4); Monocytes # 0.4 K/mcL (0.0-1.3); Monocytes % 7.6 %; Neutrophils # 3.2 K/mcL (1.6-8.9); Platelet Count 101 K/mcL (140-400); Red Blood Count 4.03 M/mcL (3.82-4.97); Red Cell Distribution Width 14.8 % (11.5-14.5); Segmented Neutrophils % 69.4 %; White Blood Count 4.6 K/mcL (4.3-11.1)
[2020-06-17 04:16] LABS: INR 1.1
[2020-06-17 04:58] LABS: ABG Base Excess 6 mEq/L (-2 to 3); ABG HCO3 31 mEq/L (21-27); ABG Oxygen Saturation 96 % (95-98); ABG PCO2 46 mmHg (35-45); ABG PH 7.44 pH Units (7.32-7.45); ABG PO2 82 mmHg (85-104); ABG TCO2 33 mEq/L (20-26); Blood Gas VT 400 cc
[2020-06-17 05:17] LABS: Platelet Estimate Decreased (Normal)
[2020-06-17] MEDS: Pantoprazole 40 MG VIAL IVP SCH (10:06)
[2020-06-17] MEDS: Hydrocortisone Sodium Succ 100 MG/2 ML VIAL IVP SCH ×2 (10:07→20:11)
[2020-06-17] MEDS: Chlorhexidine Rinse 15 ML MOUTHWASH MM SCH ×2 (10:09→20:11)
[2020-06-17] MEDS: cefTRIAXone 2,000 MG in Water for inj. (sterile) 20 ML IVP SCH (13:59)
[2020-06-17] MEDS: Furosemide 40 MG/4 ML VIAL IVP SCH (16:44)
[2020-06-17] MEDS: Norepinephrine 8 MG in 0.9 % Sodium Chloride 250 ML IVC SCH (20:06)
[2020-06-17] MEDS: QUEtiapine Fumarate 25 MG TABLET PO SCH (20:11)
[2020-06-18] MEDS: Artificial Tears SOLN 15 ML BOTTLE BOTH EYES SCH ×7 (00:20→23:47)
[2020-06-18] MEDS: Dexmedetomidine HCl 400 MCG/100 ML MLS IVC SCH ×7 (00:20→22:15)
[2020-06-18] MEDS: FentaNYL (PF) 2,500 MCG/50 ML IV.SOLN IVC SCH (01:40)
[2020-06-18] MEDS: Ipratropium/Albuterol Neb 3 ML IH SCH ×5 (03:16→20:10)
[2020-06-18 04:44] LABS: VBG Ionized Calcium 1.08 mmol/L (1.15-1.35)
[2020-06-18 04:53] LABS: ABG Base Excess 8 mEq/L (-2 to 3); ABG HCO3 33 mEq/L (21-27); ABG Oxygen Saturation 95 % (95-98); ABG PCO2 45 mmHg (35-45); ABG PH 7.47 pH Units (7.32-7.45); ABG PO2 73 mmHg (85-104); ABG TCO2 34 mEq/L (20-26); Blood Gas Modality AF; Blood Gas VT 400 cc
[2020-06-18 04:54] LABS: Basophils % 0.8 %; Eosinophils % 0.6 %; Hematocrit 36.9 % (35.3-44.9); Hemoglobin 11.8 g/dL (11.5-15.4); INR 1.2; Immature Granulocytes % 7.6 % (0-4); Lymphocytes # 0.8 K/mcL (0.6-4.6); Lymphocytes % 15.9 %; Mean Corpuscular Hemoglobin 29.3 pg (28.0-33.3); Mean Corpuscular Volume 91.6 fL (83.0-100.0); Mean Platelet Volume 11.1 fL (9.4-12.4); Monocytes # 0.4 K/mcL (0.0-1.3); Monocytes % 7.8 %; Neutrophils # 3.4 K/mcL (1.6-8.9); Platelet Count 111 K/mcL (140-400); Prothrombin Time 13.6 Seconds (9.4-12.1); Red Blood Count 4.03 M/mcL (3.82-4.97); Red Cell Distribution Width 14.7 % (11.5-14.5); Segmented Neutrophils % 67.3 %; White Blood Count 5.1 K/mcL (4.3-11.1)
[2020-06-18 05:11] LABS: Albumin/Globulin Ratio 1.2 (1.1-2.2); Bilirubin,Total 0.8 mg/dL (0.3-1.0); Calcium 8.4 mg/dL (8.6-10.3); Globulin 2.6 g/dL (2.4-3.5); Magnesium 1.9 mg/dL (1.6-2.6); Phosphorous 3.9 mg/dL (2.7-4.5); Potassium 3.6 mEq/L (3.5-5.1); Total Protein 5.6 g/dL (6.4-8.9)
[2020-06-18] MEDS: Heparin 25,000UNIT/250ML 1/2NS 25,000 UNIT/250 ML IV.SOLN IVC SCH ×2 (05:12→06:39)
[2020-06-18] MEDS: Phenylephrine 50 MG in 0.9 % Sodium Chloride 250 ML IVC SCH (05:12)
[2020-06-18 05:36] LABS: Platelet Estimate Slight Decrease (Normal)
[2020-06-18] MEDS: Calcium Gluconate 1gm/50mL 1 GM/50 ML BAG IVPB PRN (06:40)
[2020-06-18] MEDS: Furosemide 40 MG/4 ML VIAL IVP SCH (08:27)
[2020-06-18] MEDS: Chlorhexidine Rinse 15 ML MOUTHWASH MM SCH ×2 (08:27→21:21)
[2020-06-18] MEDS: Pantoprazole 40 MG VIAL IVP SCH (08:28)
[2020-06-18] MEDS: Hydrocortisone Sodium Succ 100 MG/2 ML VIAL IVP SCH ×2 (08:28→21:21)
[2020-06-18] MEDS ORDERED: Racepinephrine Neb 0.5 ML VIAL IH ONE ×2 (10:48→10:51)
[2020-06-18] MEDS: cefTRIAXone 2,000 MG in Water for inj. (sterile) 20 ML IVP SCH (10:51)
[2020-06-18] MEDS: Norepinephrine 8 MG in 0.9 % Sodium Chloride 250 ML IVC SCH (10:58)
[2020-06-18 11:54] LABS: Alpha 2 Globulin (PEP) 0.57 g/dL (0.48-1.05); Beta Globulin (PEP) 0.53 g/dL (0.48-1.10)
[2020-06-18 11:57] LABS: IFE Reflexed IFE Done
[2020-06-18] MEDS ORDERED: Acetaminophen IV 500 MG/50 ML BAG IVPB ONE (12:41)
[2020-06-18] MEDS: DilTIAZem 50 MG/50 ML IV.SOLN IVC SCH (13:23)
[2020-06-19] MEDS: Heparin 25,000UNIT/250ML 1/2NS 25,000 UNIT/250 ML IV.SOLN IVC SCH ×2 (00:11→20:47)
[2020-06-19] MEDS: Ipratropium/Albuterol Neb 3 ML IH SCH ×7 (00:25→23:25)
[2020-06-19] MEDS: Dexmedetomidine HCl 400 MCG/100 ML MLS IVC SCH ×6 (02:00→21:59)
[2020-06-19] MEDS: Artificial Tears SOLN 15 ML BOTTLE BOTH EYES SCH ×6 (03:22→23:53)
[2020-06-19] MEDS: Phenylephrine 50 MG in 0.9 % Sodium Chloride 250 ML IVC SCH ×2 (03:22→23:54)
[2020-06-19 03:49] LABS: Red Blood Count 4.32 M/mcL (3.82-4.97)
[2020-06-19 03:49] LABS: VBG Ionized Calcium 1.01 mmol/L (1.15-1.35)
[2020-06-19 03:51] LABS: Hematocrit 39.3 % (35.3-44.9); Hemoglobin 12.2 g/dL (11.5-15.4); Immature Platelets 4.8 % (1.1-6.1); Mean Corpuscular Hemoglobin 28.2 pg (28.0-33.3); Mean Platelet Volume 10.8 fL (9.4-12.4); Red Cell Distribution Width 14.8 % (11.5-14.5); White Blood Count 7.5 K/mcL (4.3-11.1)
[2020-06-19] MEDS: FentaNYL (PF) 2,500 MCG/50 ML IV.SOLN IVC SCH ×2 (03:54→23:54)
[2020-06-19 04:08] LABS: BUN/Creatinine Ratio 50 (6-26); Blood Urea Nitrogen 52 mg/dL (8-23); Calcium 8.9 mg/dL (8.6-10.3); Carbon Dioxide 34 mEq/L (23-29); Chloride 109 mEq/L (98-107); Glucose 122 mg/dL (70-105); Magnesium 2.1 mg/dL (1.6-2.6); Osmolality,Calculated 323 (280-300); Potassium 3.5 mEq/L (3.5-5.1); Sodium 149 mEq/L (136-145); eGFR For African Americans > 60 (> 60); eGFR For Non-African Americans 52 (> 60)
[2020-06-19] MEDS: Potassium Chloride 40 MEQ/200 ML BAG IVPB PRN ×2 (04:36→05:36)
[2020-06-19] MEDS: Calcium Gluconate 1gm/50mL 1 GM/50 ML BAG IVPB PRN (04:36)
[2020-06-19 04:50] LABS: ABG Base Excess 8 mEq/L (-2 to 3); ABG HCO3 33 mEq/L (21-27); ABG Oxygen Saturation 97 % (95-98); ABG PCO2 44 mmHg (35-45); ABG PH 7.48 pH Units (7.32-7.45); ABG PO2 86 mmHg (85-104); ABG TCO2 34 mEq/L (20-26); Blood Gas Modality 4LPM
[2020-06-19] MEDS: Hydrocortisone Sodium Succ 100 MG/2 ML VIAL IVP SCH (07:30)
[2020-06-19] MEDS: Pantoprazole 40 MG VIAL IVP SCH (07:30)
[2020-06-19] MEDS: Chlorhexidine Rinse 15 ML MOUTHWASH MM SCH ×2 (07:31→20:47)
[2020-06-19] MEDS: cefTRIAXone 2,000 MG in Water for inj. (sterile) 20 ML IVP SCH (10:53)
[2020-06-19] MEDS ORDERED: Insulin DETEMIR 100 UNIT/ML X5UNITS SQ SCH (13:45)
[2020-06-19] MEDS ORDERED: Dextrose Gel 15 GM/37.5 ML TUBE PO PRN ×2 (13:51)
[2020-06-19] MEDS: D5% in Water 500 ML IVC SCH ×2 (14:00→23:56)
[2020-06-19] MEDS: DilTIAZem 50 MG/50 ML IV.SOLN IVC SCH (17:11)
[2020-06-19] MEDS: Midazolam HCl 50 MG/100 ML IV.SOLN IVC SCH (20:06)
[2020-06-19] MEDS: Norepinephrine 8 MG in 0.9 % Sodium Chloride 250 ML IVC SCH (20:06)
[2020-06-19] MEDS: Insulin LISPRO 300 UNITS/3 ML VIAL SQ SCH ×2 (20:06→23:54)
[2020-06-20] MEDS: Dexmedetomidine HCl 400 MCG/100 ML MLS IVC SCH (02:55)
[2020-06-20] MEDS: Ipratropium/Albuterol Neb 3 ML IH SCH ×6 (03:47→23:48)
[2020-06-20] MEDS: Heparin 25,000UNIT/250ML 1/2NS 25,000 UNIT/250 ML IV.SOLN IVC SCH ×2 (03:54→17:46)
[2020-06-20] MEDS: Artificial Tears SOLN 15 ML BOTTLE BOTH EYES SCH ×3 (03:54→11:17)
[2020-06-20 05:05] LABS: ABG Ionized Calcium 1.14 mmol/L (1.15-1.35)
[2020-06-20] MEDS: Insulin LISPRO 300 UNITS/3 ML VIAL SQ SCH ×3 (05:19→17:56)
[2020-06-20 05:20] LABS: Hematocrit 38.3 % (35.3-44.9); Hemoglobin 11.9 g/dL (11.5-15.4); Mean Corpuscular HGB Conc 31.1 g/dL (31.6-35.5); Mean Corpuscular Hemoglobin 28.2 pg (28.0-33.3); Mean Corpuscular Volume 90.8 fL (83.0-100.0); Mean Platelet Volume 11.2 fL (9.4-12.4); Platelet Count 146 K/mcL (140-400); Red Blood Count 4.22 M/mcL (3.82-4.97)
[2020-06-20 05:23] LABS: BUN/Creatinine Ratio 51 (6-26); Blood Urea Nitrogen 43 mg/dL (8-23); Calcium 8.6 mg/dL (8.6-10.3); Carbon Dioxide 32 mEq/L (23-29); Chloride 109 mEq/L (98-107); Glucose 101 mg/dL (70-105); Magnesium 1.9 mg/dL (1.6-2.6); Osmolality,Calculated 317 (280-300); Potassium 3.2 mEq/L (3.5-5.1); Sodium 148 mEq/L (136-145); eGFR For African Americans > 60 (> 60); eGFR For Non-African Americans > 60 (> 60)
[2020-06-20] MEDS: Potassium Chloride 40 MEQ/200 ML BAG IVPB PRN (05:29)
[2020-06-20] MEDS: Chlorhexidine Rinse 15 ML MOUTHWASH MM SCH (07:48)
[2020-06-20] MEDS: Pantoprazole 40 MG VIAL IVP SCH (09:22)
[2020-06-20] MEDS ORDERED: Furosemide 40 MG/4 ML VIAL IVP ONE (09:37)
[2020-06-20] MEDS ORDERED: Prochlorperazine 10 MG/2 ML VIAL IVP PRN ×2 (09:39→16:47)
[2020-06-20] MEDS: D5% in Water 500 ML IVC SCH (10:09)
[2020-06-20] MEDS: cefTRIAXone 2,000 MG in Water for inj. (sterile) 20 ML IVP SCH (10:14)
[2020-06-20] MEDS: *HR* Dextrose 50 % in Water (Vial) 50 ML VIAL IVP PRN ×2 (10:56→11:42)
[2020-06-20] MEDS ORDERED: Acetaminophen IV 500 MG/50 ML BAG IVPB ONE (11:03)
[2020-06-20] MEDS: DilTIAZem 50 MG/50 ML IV.SOLN IVC SCH ×4 (12:09→23:07)
[2020-06-20 13:43] LABS: Potassium 3.3 mEq/L (3.5-5.1)
[2020-06-20] MEDS ORDERED: Bacitracin/PolymyxinB OINT 14.17 GM TUBE TP SCH (13:45)
[2020-06-20] MEDS ORDERED: E-Z-PAQUE (BARIUM SULF) SUSP 1 BOTTLE PO ONE (15:08)
[2020-06-20] MEDS ORDERED: E-Z-HD (BARIUM SULF) SUSPENSION PO ONE (15:08)
[2020-06-20] MEDS ORDERED: *HR* Heparin 5,000 UNIT/ML VIAL IVP PRN ×4 (16:41→16:47)
[2020-06-20] MEDS ORDERED: Naloxone 0.4 MG/ML INJ IVP PRN (16:47)
[2020-06-20] MEDS ORDERED: Calcium Gluconate 1gm/50mL 1 GM/50 ML BAG IVPB PRN (16:47)
[2020-06-20] MEDS ORDERED: Dextrose Gel 15 GM/37.5 ML TUBE PO PRN ×2 (16:47)
[2020-06-20] MEDS ORDERED: Levalbuterol Neb 1.25 MG/3 ML IH PRN (16:47)
[2020-06-20] MEDS ORDERED: *HR* Dextrose 50 % in Water (Vial) 50 ML VIAL IVP PRN (16:47)
[2020-06-20] MEDS: D5% in Water 1,000 ML IVC SCH (18:49)
[2020-06-20] MEDS: Bacitracin/PolymyxinB OINT 14.17 GM TUBE TP SCH (20:44)
[2020-06-21] MEDS: Insulin LISPRO 300 UNITS/3 ML VIAL SQ SCH ×5 (00:43→23:53)
[2020-06-21] MEDS: Ipratropium/Albuterol Neb 3 ML IH SCH ×6 (03:46→23:53)
[2020-06-21 05:03] LABS: Hematocrit 38.9 % (35.3-44.9); Hemoglobin 12.1 g/dL (11.5-15.4); Mean Corpuscular HGB Conc 31.1 g/dL (31.6-35.5); Mean Corpuscular Hemoglobin 28.6 pg (28.0-33.3); Mean Platelet Volume 11.1 fL (9.4-12.4); Platelet Count 212 K/mcL (140-400); Red Blood Count 4.23 M/mcL (3.82-4.97); Red Cell Distribution Width 15.3 % (11.5-14.5)
[2020-06-21 05:21] LABS: BUN/Creatinine Ratio 34 (6-26); Blood Urea Nitrogen 34 mg/dL (8-23); Calcium 8.5 mg/dL (8.6-10.3); Carbon Dioxide 32 mEq/L (23-29); Chloride 103 mEq/L (98-107); Glucose 81 mg/dL (70-105); Magnesium 1.8 mg/dL (1.6-2.6); Osmolality,Calculated 301 (280-300); Potassium 3.3 mEq/L (3.5-5.1); Sodium 142 mEq/L (136-145); eGFR For African Americans > 60 (> 60); eGFR For Non-African Americans 55 (> 60)
[2020-06-21 05:24] LABS: White Blood Count 14.7 K/mcL (4.3-11.1)
[2020-06-21] MEDS: Heparin 25,000UNIT/250ML 1/2NS 25,000 UNIT/250 ML IV.SOLN IVC SCH ×2 (08:25→23:48)
[2020-06-21] MEDS: Bacitracin/PolymyxinB OINT 14.17 GM TUBE TP SCH ×2 (08:28→19:47)
[2020-06-21] MEDS: cefTRIAXone 2,000 MG in Water for inj. (sterile) 20 ML IVP SCH (10:05)
[2020-06-21] MEDS: D5% in Water 1,000 ML IVC SCH (13:38)
[2020-06-21 17:25] LABS: INR 1.3; Prothrombin Time 14.4 Seconds (9.4-12.1)
[2020-06-21] MEDS: Furosemide 40 MG/4 ML VIAL IVP SCH (17:43)
[2020-06-21] MEDS ORDERED: *HR* Warfarin 2.5 MG TABLET PO ONE (18:00)
[2020-06-21] MEDS ORDERED: Warfarin perPT PO PRN (18:00)
[2020-06-21] MEDS: Ondansetron 4 MG/2 ML VIAL IVP PRN (21:12)
[2020-06-21] MEDS ORDERED: Furosemide 20 MG/2 ML VIAL IVP ONE (23:35)
[2020-06-22 03:51] LABS: Hematocrit 38.5 % (35.3-44.9); Hemoglobin 11.8 g/dL (11.5-15.4); Mean Corpuscular HGB Conc 30.6 g/dL (31.6-35.5); Mean Corpuscular Hemoglobin 28.2 pg (28.0-33.3); Mean Corpuscular Volume 92.1 fL (83.0-100.0); Mean Platelet Volume 10.5 fL (9.4-12.4); Platelet Count 212 K/mcL (140-400); Red Blood Count 4.18 M/mcL (3.82-4.97); Red Cell Distribution Width 15.4 % (11.5-14.5); White Blood Count 13.8 K/mcL (4.3-11.1)
[2020-06-22 03:52] LABS: INR 1.3
[2020-06-22 04:07] LABS: BUN/Creatinine Ratio 27 (6-26); Blood Urea Nitrogen 28 mg/dL (8-23); Calcium 8.6 mg/dL (8.6-10.3); Carbon Dioxide 32 mEq/L (23-29); Chloride 103 mEq/L (98-107); Glucose 94 mg/dL (70-105); Magnesium 1.6 mg/dL (1.6-2.6); Osmolality,Calculated 299 (280-300); Potassium 3.7 mEq/L (3.5-5.1); Sodium 142 mEq/L (136-145); eGFR For African Americans > 60 (> 60); eGFR For Non-African Americans 52 (> 60)
[2020-06-22] MEDS: Ipratropium/Albuterol Neb 3 ML IH SCH ×6 (04:07→23:16)
[2020-06-22] MEDS: Ondansetron 4 MG/2 ML VIAL IVP PRN ×2 (04:59→11:40)
[2020-06-22] MEDS: Furosemide 40 MG/4 ML VIAL IVP SCH (08:04)
[2020-06-22] MEDS: Insulin LISPRO 300 UNITS/3 ML VIAL SQ SCH ×3 (08:05→19:11)
[2020-06-22] MEDS: Bacitracin/PolymyxinB OINT 14.17 GM TUBE TP SCH ×2 (08:05→20:01)
[2020-06-22] MEDS: cefTRIAXone 2,000 MG in Water for inj. (sterile) 20 ML IVP SCH (11:39)
[2020-06-22] MEDS: *HR* Digoxin 0.25 MG TABLET PO SCH ×3 (13:15→20:01)
[2020-06-22] MEDS: carvediloL 6.25 MG TABLET PO SCH ×2 (13:16→16:34)
[2020-06-22] MEDS ORDERED: Ondansetron 4 MG/2 ML VIAL IVP PRN (16:54)
[2020-06-22] MEDS ORDERED: *HR* Warfarin 2.5 MG TABLET PO ONE (18:00)
[2020-06-22] MEDS: Heparin 25,000UNIT/250ML 1/2NS 25,000 UNIT/250 ML IV.SOLN IVC SCH (18:59)
[2020-06-23] MEDS: Insulin LISPRO 300 UNITS/3 ML VIAL SQ SCH ×4 (00:19→19:28)
[2020-06-23] MEDS: Ipratropium/Albuterol Neb 3 ML IH SCH ×6 (03:37→23:47)
[2020-06-23 05:10] LABS: INR 1.3; Prothrombin Time 14.9 Seconds (9.4-12.1)
[2020-06-23 05:11] LABS: Hematocrit 35.1 % (35.3-44.9); Hemoglobin 10.8 g/dL (11.5-15.4); Mean Corpuscular HGB Conc 30.8 g/dL (31.6-35.5); Mean Corpuscular Hemoglobin 28.6 pg (28.0-33.3); Mean Corpuscular Volume 92.9 fL (83.0-100.0); Mean Platelet Volume 10.8 fL (9.4-12.4); Platelet Count 155 K/mcL (140-400); Red Blood Count 3.78 M/mcL (3.82-4.97); Red Cell Distribution Width 15.1 % (11.5-14.5); White Blood Count 7.6 K/mcL (4.3-11.1)
[2020-06-23 05:20] LABS: BUN/Creatinine Ratio 25 (6-26); Blood Urea Nitrogen 26 mg/dL (8-23); Calcium 8.6 mg/dL (8.6-10.3); Carbon Dioxide 31 mEq/L (23-29); Chloride 104 mEq/L (98-107); Glucose 91 mg/dL (70-105); Magnesium 1.5 mg/dL (1.6-2.6); Osmolality,Calculated 294 (280-300); Potassium 3.9 mEq/L (3.5-5.1); Sodium 140 mEq/L (136-145); eGFR For African Americans > 60 (> 60); eGFR For Non-African Americans 53 (> 60)
[2020-06-23] MEDS: Furosemide 40 MG/4 ML VIAL IVP SCH (07:38)
[2020-06-23] MEDS: carvediloL 6.25 MG TABLET PO SCH ×2 (07:38→16:26)
[2020-06-23] MEDS: Bacitracin/PolymyxinB OINT 14.17 GM TUBE TP SCH (07:39)
[2020-06-23] MEDS: Heparin 25,000UNIT/250ML 1/2NS 25,000 UNIT/250 ML IV.SOLN IVC SCH ×2 (09:44→23:00)
[2020-06-23] MEDS: cefTRIAXone 2,000 MG in Water for inj. (sterile) 20 ML IVP SCH (12:06)
[2020-06-23] MEDS: *HR* Digoxin 0.125 MG TABLET PO SCH (12:09)
[2020-06-23] MEDS ORDERED: *HR* Warfarin 2.5 MG TABLET PO ONE (18:00)
[2020-06-24] MEDS: Ipratropium/Albuterol Neb 3 ML IH SCH ×6 (03:50→23:39)
[2020-06-24 05:31] LABS: Hematocrit 35.2 % (35.3-44.9); Hemoglobin 10.9 g/dL (11.5-15.4); Mean Corpuscular Hemoglobin 28.7 pg (28.0-33.3); Mean Corpuscular Volume 92.6 fL (83.0-100.0); Mean Platelet Volume 10.9 fL (9.4-12.4); Platelet Count 214 K/mcL (140-400); Red Cell Distribution Width 14.6 % (11.5-14.5); White Blood Count 10.1 K/mcL (4.3-11.1)
[2020-06-24 05:32] LABS: INR 1.3; Prothrombin Time 15.3 Seconds (9.4-12.1)
[2020-06-24 06:02] LABS: BUN/Creatinine Ratio 27 (6-26); Blood Urea Nitrogen 25 mg/dL (8-23); Calcium 8.6 mg/dL (8.6-10.3); Carbon Dioxide 31 mEq/L (23-29); Chloride 104 mEq/L (98-107); Glucose 93 mg/dL (70-105); Magnesium 1.5 mg/dL (1.6-2.6); Osmolality,Calculated 292 (280-300); Phosphorous 3.6 mg/dL (2.7-4.5); Potassium 4.4 mEq/L (3.5-5.1); Sodium 139 mEq/L (136-145); eGFR For African Americans > 60 (> 60); eGFR For Non-African Americans 59 (> 60)
[2020-06-24] MEDS: Bacitracin/PolymyxinB OINT 14.17 GM TUBE TP SCH ×3 (06:12→22:15)
[2020-06-24] MEDS: Insulin LISPRO 300 UNITS/3 ML VIAL SQ SCH ×3 (06:13→11:36)
[2020-06-24] MEDS: Furosemide 40 MG/4 ML VIAL IVP SCH (09:49)
[2020-06-24] MEDS: carvediloL 6.25 MG TABLET PO SCH (09:49)
[2020-06-24] MEDS: cefTRIAXone 2,000 MG in Water for inj. (sterile) 20 ML IVP SCH (09:50)
[2020-06-24] MEDS: *HR* Digoxin 0.125 MG TABLET PO SCH (09:53)
[2020-06-24] MEDS ORDERED: Isovue-370 500 ML BOTTLE IVP ONE ×2 (09:56→20:03)
[2020-06-24 11:10] LABS: Heparin anti-factor XA UFH 0.71 IU/mL (0.30-0.70)
[2020-06-24] MEDS ORDERED: *HR* Rocuronium Bromide 50 MG/5 ML VIAL IVP ONE (12:14)
[2020-06-24] MEDS ORDERED: *HR* Midazolam HCl 5 MG/5 ML VIAL IVP ONE ×3 (12:14→17:02)
[2020-06-24] MEDS ORDERED: *HR* Etomidate 40 MG/20 ML VIAL IVP ONE (12:14)
[2020-06-24] MEDS ORDERED: *HR* Midazolam HCl 2 MG/2 ML VIAL IVP ONE (12:14)
[2020-06-24] MEDS ORDERED: 0.9 % Sodium Chloride 250 ML IVC SCH ×2 (13:15→20:03)
[2020-06-24 13:53] LABS: Hematocrit 31.1 % (35.3-44.9); Hemoglobin 9.7 g/dL (11.5-15.4)
[2020-06-24] MEDS ORDERED: 0.9 % Sodium Chloride 1,000 ML ONE (15:13)
[2020-06-24] MEDS ORDERED: 0.9 % Sodium Chloride 1,000 ML IV ONE ×2 (15:13→20:03)
[2020-06-24] MEDS ORDERED: *HR* Norepinephrine 4 MG/4 ML VIAL IVC ONE (15:22)
[2020-06-24] MEDS ORDERED: 0.9 % Sodium Chloride 250 ML ONE ×2 (15:22→15:31)
[2020-06-24 15:46] LABS: Basophils # 0.1 K/mcL (0.0-0.2); Basophils % 0.4 %; Eosinophils # 0.1 K/mcL (0.0-0.6); Hematocrit 28.3 % (35.3-44.9); Immature Granulocytes % 1.3 % (0-4); Lymphocytes # 1.6 K/mcL (0.6-4.6); Lymphocytes % 11.4 %; Mean Corpuscular HGB Conc 31.8 g/dL (31.6-35.5); Mean Corpuscular Hemoglobin 29.7 pg (28.0-33.3); Mean Corpuscular Volume 93.4 fL (83.0-100.0); Mean Platelet Volume 10.9 fL (9.4-12.4); Monocytes % 7.4 %; Neutrophils # 10.9 K/mcL (1.6-8.9); Platelet Count 283 K/mcL (140-400); Red Blood Count 3.03 M/mcL (3.82-4.97); Red Cell Distribution Width 14.6 % (11.5-14.5); Segmented Neutrophils % 78.5 %; White Blood Count 13.9 K/mcL (4.3-11.1)
[2020-06-24 16:24] LABS: INR 1.3; Prothrombin Time 15.1 Seconds (9.4-12.1)
[2020-06-24] MEDS ORDERED: Dexmedetomidine HCl 400 MCG/100 ML MLS IVC ONE ×2 (16:33→20:06)
[2020-06-24] MEDS ORDERED: *HR* FentaNYL (PF) 100 MCG/2 ML VIAL ONE (16:34)
[2020-06-24] MEDS ORDERED: Artificial Tears SOLN 15 ML BOTTLE BOTH EYES PRN (16:38)
[2020-06-24] MEDS ORDERED: FentaNYL (PF) 1,000 MCG/100 ML IV.SOLN IVC SCH (16:45)
[2020-06-24] MEDS ORDERED: Dexmedetomidine HCl 400 MCG/100 ML MLS IVC SCH (16:45)
[2020-06-24] MEDS ORDERED: *HR* FentaNYL (PF) 100 MCG/2 ML VIAL IVP ONE (16:47)
[2020-06-24] MEDS ORDERED: *HR* Warfarin 5 MG TABLET PO ONE (18:00)
[2020-06-24] MEDS ORDERED: *HR* Metoprolol 5 MG/5 ML VIAL IVP SCH (18:00)
[2020-06-24 18:21] LABS: ABG Base Excess 4 mEq/L (-2 to 3); ABG HCO3 30 mEq/L (21-27); ABG Oxygen Saturation 98 % (95-98); ABG PCO2 46 mmHg (35-45); ABG PH 7.42 pH Units (7.32-7.45); ABG PO2 97 mmHg (85-104); ABG TCO2 31 mEq/L (20-26); Blood Gas Modality ASSIST CONTROL; Blood Gas VT 480 cc
[2020-06-24] MEDS: Norepinephrine 4 MG/254 ML IV.SOLN IVC SCH ×3 (18:46→23:59)
[2020-06-24] MEDS ORDERED: Artificial Tears SOLN 15 ML BOTTLE BOTH EYES SCH (20:00)
[2020-06-24] MEDS ORDERED: Levalbuterol Neb 1.25 MG/3 ML IH PRN (20:03)
[2020-06-24] MEDS ORDERED: *HR* Dextrose 50 % in Water (Vial) 50 ML VIAL IVP PRN (20:03)
[2020-06-24] MEDS ORDERED: Prochlorperazine 10 MG/2 ML VIAL IVP PRN (20:03)
[2020-06-24] MEDS ORDERED: Naloxone 0.4 MG/ML INJ IVP PRN (20:03)
[2020-06-24] MEDS ORDERED: Chlorhexidine Rinse 15 ML MOUTHWASH MM SCH (21:00)
[2020-06-24 21:58] LABS: Hematocrit 30.7 % (35.3-44.9); Hemoglobin 9.9 g/dL (11.5-15.4)
[2020-06-24 22:08] LABS: INR 1.2; Prothrombin Time 13.9 Seconds (9.4-12.1)
[2020-06-24 22:10] LABS: Activated Partial Thrombo Time 27.6 Seconds (26.0-36.0)
[2020-06-25] MEDS: Norepinephrine 4 MG/254 ML IV.SOLN IVC SCH
[2020-06-25] MEDS: Insulin LISPRO 300 UNITS/3 ML VIAL SQ SCH ×4 (00:07→17:33)
[2020-06-25] MEDS: Dexmedetomidine HCl 400 MCG/100 ML MLS IVC SCH ×4 (02:18→20:00)
[2020-06-25] MEDS: Norepinephrine 8 MG in 0.9 % Sodium Chloride 250 ML IVC SCH ×4 (02:26→19:59)
[2020-06-25] MEDS: Ipratropium/Albuterol Neb 3 ML IH SCH ×5 (03:50→19:56)
[2020-06-25 04:45] LABS: ABG PH 7.44 pH Units (7.32-7.45)
[2020-06-25 04:46] LABS: ABG Base Excess 4 mEq/L (-2 to 3); ABG HCO3 29 mEq/L (21-27); ABG Oxygen Saturation 96 % (95-98); ABG PCO2 43 mmHg (35-45); ABG PO2 82 mmHg (85-104); ABG TCO2 30 mEq/L (20-26); Blood Gas Modality ASSIST CONTROL; Blood Gas VT 450 cc
[2020-06-25 04:51] LABS: Basophils # 0.1 K/mcL (0.0-0.2); Basophils % 0.5 %; Eosinophils # 0.4 K/mcL (0.0-0.6); Eosinophils % 1.8 %; Hemoglobin 9.3 g/dL (11.5-15.4); Lymphocytes # 3.3 K/mcL (0.6-4.6); Lymphocytes % 15.9 %; Mean Corpuscular HGB Conc 32.1 g/dL (31.6-35.5); Mean Corpuscular Hemoglobin 28.8 pg (28.0-33.3); Mean Corpuscular Volume 89.8 fL (83.0-100.0); Mean Platelet Volume 10.7 fL (9.4-12.4); Monocytes # 1.6 K/mcL (0.0-1.3); Monocytes % 7.8 %; Neutrophils # 15.3 K/mcL (1.6-8.9); Platelet Count 262 K/mcL (140-400); Red Blood Count 3.23 M/mcL (3.82-4.97); Red Cell Distribution Width 14.4 % (11.5-14.5)
[2020-06-25 04:53] LABS: VBG Ionized Calcium 1.09 mmol/L (1.15-1.35)
[2020-06-25 05:06] LABS: INR 1.2; Prothrombin Time 13.3 Seconds (9.4-12.1)
[2020-06-25 05:15] LABS: Albumin 2.7 g/dL (3.5-5.7); Bilirubin,Total 0.8 mg/dL (0.3-1.0); Calcium 8.4 mg/dL (8.6-10.3); Globulin 2.8 g/dL (2.4-3.5); Magnesium 1.8 mg/dL (1.6-2.6); Phosphorous 4.3 mg/dL (2.7-4.5); Potassium 4.9 mEq/L (3.5-5.1); Total Protein 5.5 g/dL (6.4-8.9)
[2020-06-25] MEDS: FentaNYL (PF) 1,000 MCG/100 ML IV.SOLN IVC SCH (06:43)
[2020-06-25] MEDS ORDERED: Vancomycin 2,000 MG/520 ML IV.SOLN IVPB ONE (08:05)
[2020-06-25] MEDS ORDERED: *HR* Digoxin 0.5 MG/2 ML AMPUL IVP SCH ×2 (09:00)
[2020-06-25 09:03] LABS: Hematocrit 31.2 % (35.3-44.9)
[2020-06-25] MEDS: Furosemide 40 MG/4 ML VIAL IVP SCH (09:35)
[2020-06-25] MEDS: Cefepime HCl 1,000 MG in Water for inj. (sterile) 10 ML IVP SCH ×2 (09:37→16:01)
[2020-06-25] MEDS: Bacitracin/PolymyxinB OINT 14.17 GM TUBE TP SCH ×2 (09:37→23:30)
[2020-06-25 10:57] LABS: Bacteria,Urine Few per hpf (None-Few); Bilirubin,Urine Negative (Negative); Blood,Urine Trace (Negative); Clarity,Urine Clear (Clear); Color,Urine Yellow (Yellow); Glucose,Urine (UA) Normal (Normal); Ketones,Urine Negative (Negative); Leukocyte Esterase,Urine Negative (Negative); Mucus,Urine Few per lpf (None-Few); Nitrite,Urine Negative (Negative); Protein,Urine 30 mg/dL (Neg-Trace); RBC,Urine 0-3 per hpf (0-3); Specific Gravity,Urine 1.028 (1.010-1.025); Urobilinogen,Urine Normal (Normal)
[2020-06-25] MEDS ORDERED: cefTRIAXone 2,000 MG in Water for inj. (sterile) 20 ML IVP SCH (11:00)
[2020-06-25] MEDS ORDERED: Artificial Tears SOLN 15 ML BOTTLE BOTH EYES PRN (20:04)
[2020-06-25] MEDS: Pantoprazole 40 MG VIAL IVP SCH (21:17)
[2020-06-25] MEDS: Artificial Tears SOLN 15 ML BOTTLE BOTH EYES SCH (21:17)
[2020-06-25] MEDS: Chlorhexidine Rinse 15 ML MOUTHWASH MM SCH (21:17)
[2020-06-25 21:37] LABS: Hematocrit 25.2 % (35.3-44.9)
[2020-06-26] MEDS: Ipratropium/Albuterol Neb 3 ML IH SCH ×7 (00:20→23:31)
[2020-06-26] MEDS: Insulin LISPRO 300 UNITS/3 ML VIAL SQ SCH ×5 (00:38→17:14)
[2020-06-26] MEDS: Cefepime HCl 1,000 MG in Water for inj. (sterile) 10 ML IVP SCH ×3 (00:38→16:15)
[2020-06-26] MEDS: Dexmedetomidine HCl 400 MCG/100 ML MLS IVC SCH ×2 (02:06→06:35)
[2020-06-26] MEDS: FentaNYL (PF) 1,000 MCG/100 ML IV.SOLN IVC SCH (03:30)
[2020-06-26 04:29] LABS: Basophils % 0.2 %; Eosinophils # 0.1 K/mcL (0.0-0.6); Eosinophils % 0.5 %; Hematocrit 24.2 % (35.3-44.9); Hemoglobin 7.6 g/dL (11.5-15.4); Hemoglobin 7.7 g/dL (11.5-15.4); Immature Granulocytes % 0.6 % (0-4); Lymphocytes # 1.8 K/mcL (0.6-4.6); Lymphocytes % 9.9 %; Mean Corpuscular HGB Conc 31.4 g/dL (31.6-35.5); Mean Corpuscular Hemoglobin 29.3 pg (28.0-33.3); Mean Corpuscular Volume 93.4 fL (83.0-100.0); Monocytes # 1.5 K/mcL (0.0-1.3); Monocytes % 8.3 %; Neutrophils # 14.3 K/mcL (1.6-8.9); Platelet Count 175 K/mcL (140-400); Red Blood Count 2.59 M/mcL (3.82-4.97); Red Cell Distribution Width 14.9 % (11.5-14.5); Segmented Neutrophils % 80.5 %; White Blood Count 17.7 K/mcL (4.3-11.1)
[2020-06-26 04:30] LABS: Hematocrit 24.3 % (35.3-44.9); Hemoglobin 7.6 g/dL (11.5-15.4)
[2020-06-26] MEDS: Artificial Tears SOLN 15 ML BOTTLE BOTH EYES SCH ×5 (04:30→20:07)
[2020-06-26 04:42] LABS: Calcium 7.9 mg/dL (8.6-10.3); Magnesium 1.7 mg/dL (1.6-2.6); Potassium 4.8 mEq/L (3.5-5.1)
[2020-06-26 04:43] LABS: INR 1.2; Prothrombin Time 13.3 Seconds (9.4-12.1)
[2020-06-26 05:48] LABS: ABG Base Excess 4 mEq/L (-2 to 3); ABG HCO3 27 mEq/L (21-27); ABG Oxygen Saturation 96 % (95-98); ABG PCO2 34 mmHg (35-45); ABG PH 7.51 pH Units (7.32-7.45); ABG PO2 74 mmHg (85-104); ABG TCO2 28 mEq/L (20-26); Blood Gas Modality ASSIST CONTROL; Blood Gas VT 450 cc
[2020-06-26] MEDS: Norepinephrine 8 MG in 0.9 % Sodium Chloride 250 ML IVC SCH (06:37)
[2020-06-26] MEDS ORDERED: 0.9 % Sodium Chloride 250 ML IVC SCH (07:15)
[2020-06-26] MEDS: Pantoprazole 40 MG VIAL IVP SCH (09:29)
[2020-06-26] MEDS: Chlorhexidine Rinse 15 ML MOUTHWASH MM SCH ×2 (09:29→22:51)
[2020-06-26] MEDS: Vancomycin 1,750 MG/517.5 ML IV.SOLN IVPB SCH (09:29)
[2020-06-26] MEDS: Bacitracin/PolymyxinB OINT 14.17 GM TUBE TP SCH ×2 (09:30→22:51)
[2020-06-26] MEDS: Heparin 25,000UNIT/250ML 1/2NS 25,000 UNIT/250 ML IV.SOLN IVC SCH (09:51)
[2020-06-26] MEDS: Furosemide 40 MG/4 ML VIAL IVP SCH (10:46)
[2020-06-26 11:21] LABS: Hematocrit 25.3 % (35.3-44.9); Hemoglobin 8.1 g/dL (11.5-15.4)
[2020-06-26] MEDS: Phenylephrine 10 MG in 0.9 % Sodium Chloride 250 ML IVC SCH ×2 (17:54→23:33)
[2020-06-26 19:35] LABS: Hematocrit 25.6 % (35.3-44.9); Hemoglobin 8.2 g/dL (11.5-15.4)
[2020-06-27] MEDS: Insulin LISPRO 300 UNITS/3 ML VIAL SQ SCH ×3 (00:28→11:34)
[2020-06-27] MEDS: Cefepime HCl 1,000 MG in Water for inj. (sterile) 10 ML IVP SCH ×4 (00:29→23:30)
[2020-06-27] MEDS: Artificial Tears SOLN 15 ML BOTTLE BOTH EYES SCH ×7 (00:29→20:35)
[2020-06-27] MEDS: Phenylephrine 10 MG in 0.9 % Sodium Chloride 250 ML IVC SCH (02:05)
[2020-06-27] MEDS: Ipratropium/Albuterol Neb 3 ML IH SCH ×5 (03:43→20:13)
[2020-06-27] MEDS: Phenylephrine 50 MG in 0.9 % Sodium Chloride 250 ML IVC SCH ×4 (03:50→21:52)
[2020-06-27 04:10] LABS: Basophils % 0.2 %; Eosinophils # 0.1 K/mcL (0.0-0.6); Eosinophils % 0.7 %; Hematocrit 22.7 % (35.3-44.9); Immature Granulocytes % 0.7 % (0-4); Lymphocytes # 1.1 K/mcL (0.6-4.6); Mean Corpuscular HGB Conc 30.8 g/dL (31.6-35.5); Mean Corpuscular Volume 94.2 fL (83.0-100.0); Mean Platelet Volume 11.3 fL (9.4-12.4); Monocytes % 8.4 %; Neutrophils # 9.6 K/mcL (1.6-8.9); Nucleated Red Blood Cells 0.2 /100 WBC (0); Platelet Count 132 K/mcL (140-400); Red Blood Count 2.41 M/mcL (3.82-4.97); Red Cell Distribution Width 15.2 % (11.5-14.5); White Blood Count 11.8 K/mcL (4.3-11.1)
[2020-06-27 04:18] LABS: INR 1.3; Prothrombin Time 14.9 Seconds (9.4-12.1)
[2020-06-27 04:29] LABS: Calcium 7.9 mg/dL (8.6-10.3); Magnesium 1.8 mg/dL (1.6-2.6); Potassium 4.4 mEq/L (3.5-5.1)
[2020-06-27] MEDS: FentaNYL (PF) 1,000 MCG/100 ML IV.SOLN IVC SCH ×2 (05:21→18:23)
[2020-06-27] MEDS ORDERED: 0.9 % Sodium Chloride 250 ML IVC SCH (05:45)
[2020-06-27] MEDS: Pantoprazole 40 MG VIAL IVP SCH (08:38)
[2020-06-27] MEDS: Chlorhexidine Rinse 15 ML MOUTHWASH MM SCH ×2 (08:38→20:17)
[2020-06-27] MEDS: Bacitracin/PolymyxinB OINT 14.17 GM TUBE TP SCH ×3 (08:39→20:17)
[2020-06-27] MEDS: Furosemide 40 MG/4 ML VIAL IVP SCH (08:39)
[2020-06-27] MEDS: Vancomycin 1,750 MG/517.5 ML IV.SOLN IVPB SCH (08:44)
[2020-06-27 08:59] LABS: Adenovirus Not Detected (Not Detect); Coronavirus 229E Not Detected (Not Detect); Coronavirus HKU1 Not Detected (Not Detect); Coronavirus NL63 Not Detected (Not Detect)
[2020-06-27 09:00] LABS: Bordetella Pertussis Not Detected (Not Detect); Chlamydophila pneumoniae Not Detected (Not Detect); Coronavirus OC43 Not Detected (Not Detect); Human Metapneumovirus Not Detected (Not Detect); Human Rhinovirus/Enterovirus Not Detected (Not Detect); Influenza A Subtype 2009 H1 Not Detected (Not Detect); Influenza B Not Detected (Not Detect); Mycoplasma pneumoniae Not Detected (Not Detect); Parainfluenza Virus 1 Not Detected (Not Detect); Parainfluenza Virus 2 Not Detected (Not Detect); Parainfluenza Virus 3 Not Detected (Not Detect); Parainfluenza Virus 4 Not Detected (Not Detect); Respiratory Syncytial Virus Not Detected (Not Detect); SARS-CoV-2 Not Detected (Not Detect)
[2020-06-27] MEDS: Calcium Gluconate 1gm/50mL 1 GM/50 ML BAG IVPB SCH ×2 (10:59→11:59)
[2020-06-27 11:14] LABS: Hematocrit 26.9 % (35.3-44.9)
[2020-06-27 11:15] LABS: Hemoglobin 8.6 g/dL (11.5-15.4)
[2020-06-27 11:18] LABS: INR 1.2; Prothrombin Time 14.3 Seconds (9.4-12.1)
[2020-06-27] MEDS: Ondansetron 4 MG/2 ML VIAL IVP PRN (23:29)
[2020-06-28] MEDS: Ipratropium/Albuterol Neb 3 ML IH SCH ×7 (00:03→23:52)
[2020-06-28] MEDS: Artificial Tears SOLN 15 ML BOTTLE BOTH EYES SCH ×2 (03:55→08:43)
[2020-06-28 04:19] LABS: Basophils % 0.3 %; Eosinophils # 0.1 K/mcL (0.0-0.6); Eosinophils % 1.3 %; Hematocrit 26.5 % (35.3-44.9); Hemoglobin 8.4 g/dL (11.5-15.4); Immature Granulocytes % 0.4 % (0-4); Lymphocytes % 8.5 %; Mean Corpuscular HGB Conc 31.7 g/dL (31.6-35.5); Mean Corpuscular Hemoglobin 30.4 pg (28.0-33.3); Mean Platelet Volume 10.9 fL (9.4-12.4); Monocytes # 0.8 K/mcL (0.0-1.3); Monocytes % 7.2 %; Neutrophils # 9.2 K/mcL (1.6-8.9); Platelet Count 185 K/mcL (140-400); Red Blood Count 2.76 M/mcL (3.82-4.97); Red Cell Distribution Width 15.2 % (11.5-14.5); Segmented Neutrophils % 82.3 %; White Blood Count 11.2 K/mcL (4.3-11.1)
[2020-06-28 04:25] LABS: VBG Ionized Calcium 1.11 mmol/L (1.15-1.35)
[2020-06-28 04:37] LABS: BUN/Creatinine Ratio 27 (6-26); Blood Urea Nitrogen 24 mg/dL (8-23); Carbon Dioxide 27 mEq/L (23-29); Chloride 107 mEq/L (98-107); Glucose 86 mg/dL (70-105); Magnesium 1.9 mg/dL (1.6-2.6); Osmolality,Calculated 293 (280-300); Potassium 3.9 mEq/L (3.5-5.1); Sodium 140 mEq/L (136-145); eGFR For African Americans > 60 (> 60); eGFR For Non-African Americans > 60 (> 60)
[2020-06-28] MEDS: Cefepime HCl 1,000 MG in Water for inj. (sterile) 10 ML IVP SCH (08:44)
[2020-06-28] MEDS: Furosemide 40 MG/4 ML VIAL IVP SCH (08:45)
[2020-06-28] MEDS: Chlorhexidine Rinse 15 ML MOUTHWASH MM SCH (08:45)
[2020-06-28] MEDS: Bacitracin/PolymyxinB OINT 14.17 GM TUBE TP SCH ×2 (08:46→20:37)
[2020-06-28] MEDS: Pantoprazole 40 MG VIAL IVP SCH (08:46)
[2020-06-28] MEDS: carvediloL 6.25 MG TABLET PO SCH ×2 (12:44→19:22)
[2020-06-28] MEDS: Cefepime HCl 2,000 MG in Water for inj. (sterile) 20 ML IVP SCH (15:26)
[2020-06-28] MEDS: Dexmedetomidine HCl 400 MCG/100 ML MLS IVC SCH (20:18)
[2020-06-28] MEDS ORDERED: carvediloL 6.25 MG TABLET PO ONE (20:22)
[2020-06-28] MEDS: Ondansetron 4 MG/2 ML VIAL IVP PRN (20:30)
[2020-06-29] MEDS: Cefepime HCl 2,000 MG in Water for inj. (sterile) 20 ML IVP SCH ×2 (03:07→08:30)
[2020-06-29 03:29] LABS: Basophils % 0.2 %; Eosinophils # 0.1 K/mcL (0.0-0.6); Eosinophils % 1.3 %; Hematocrit 24.7 % (35.3-44.9); Hemoglobin 7.9 g/dL (11.5-15.4); Immature Granulocytes % 0.3 % (0-4); Lymphocytes # 0.7 K/mcL (0.6-4.6); Lymphocytes % 10.4 %; Mean Corpuscular Hemoglobin 30.5 pg (28.0-33.3); Mean Corpuscular Volume 95.4 fL (83.0-100.0); Mean Platelet Volume 10.5 fL (9.4-12.4); Monocytes # 0.5 K/mcL (0.0-1.3); Monocytes % 7.8 %; Platelet Count 120 K/mcL (140-400); Red Blood Count 2.59 M/mcL (3.82-4.97); Red Cell Distribution Width 15.2 % (11.5-14.5); White Blood Count 6.3 K/mcL (4.3-11.1)
[2020-06-29] MEDS: Ipratropium/Albuterol Neb 3 ML IH SCH ×3 (03:38→16:46)
[2020-06-29 03:43] LABS: VBG Ionized Calcium 1.14 mmol/L (1.15-1.35)
[2020-06-29 03:51] LABS: BUN/Creatinine Ratio 27 (6-26); Blood Urea Nitrogen 23 mg/dL (8-23); Carbon Dioxide 28 mEq/L (23-29); Chloride 104 mEq/L (98-107); Glucose 133 mg/dL (70-105); Magnesium 1.9 mg/dL (1.6-2.6); Osmolality,Calculated 290 (280-300); Phosphorous 2.3 mg/dL (2.7-4.5); Potassium 3.5 mEq/L (3.5-5.1); Sodium 137 mEq/L (136-145); eGFR For African Americans > 60 (> 60); eGFR For Non-African Americans > 60 (> 60)
[2020-06-29] MEDS: carvediloL 6.25 MG TABLET PO SCH ×2 (08:27→16:28)
[2020-06-29] MEDS: Dexmedetomidine HCl 400 MCG/100 ML MLS IVC SCH (08:27)
[2020-06-29] MEDS: Furosemide 40 MG/4 ML VIAL IVP SCH (08:30)
[2020-06-29] MEDS: Bacitracin/PolymyxinB OINT 14.17 GM TUBE TP SCH ×2 (08:35→19:56)
[2020-06-29 08:39] LABS: ABG Base Excess 3 mEq/L (-2 to 3); ABG HCO3 28 mEq/L (21-27); ABG Oxygen Saturation 92 % (95-98); ABG PCO2 41 mmHg (35-45); ABG PH 7.44 pH Units (7.32-7.45); ABG PO2 61 mmHg (85-104); ABG TCO2 29 mEq/L (20-26)
[2020-06-29] MEDS ORDERED: DilTIAZem CD (24hr) 120 MG CAP.ER.24H PO SCH (10:45)
[2020-06-29] MEDS ORDERED: carvediloL 6.25 MG TABLET PO SCH (11:05)
[2020-06-29] MEDS ORDERED: Ertapenem 1,000 MG in 0.9 % Sodium Chloride Mini Bag 100 ML IVPB SCH (12:00)
[2020-06-29] MEDS ORDERED: Ipratropium/Albuterol Neb 3 ML IH PRN (12:02)
[2020-06-29] MEDS ORDERED: Prochlorperazine 10 MG/2 ML VIAL IVP PRN (14:13)
[2020-06-29] MEDS ORDERED: Naloxone 0.4 MG/ML INJ IVP PRN (14:13)
[2020-06-29] MEDS ORDERED: 0.9 % Sodium Chloride 250 ML IVC SCH (14:13)
[2020-06-29] MEDS: Ipratropium/Albuterol Neb 3 ML IH PRN (16:53)
[2020-06-29] MEDS ORDERED: carvediloL 6.25 MG TABLET PO ONE (20:22)
[2020-06-29] MEDS: Acetaminophen 325 MG TABLET PO PRN (21:28)
[2020-06-30] MEDS: Ipratropium/Albuterol Neb 3 ML IH PRN ×2 (00:37→15:26)
[2020-06-30 05:23] LABS: Mean Platelet Volume 10.9 fL (9.4-12.4)
[2020-06-30 05:25] LABS: Hematocrit 24.5 % (35.3-44.9); Hemoglobin 7.7 g/dL (11.5-15.4); Immature Platelets 3.4 % (1.1-6.1); Mean Corpuscular HGB Conc 31.4 g/dL (31.6-35.5); Mean Corpuscular Hemoglobin 29.8 pg (28.0-33.3); Red Blood Count 2.58 M/mcL (3.82-4.97); White Blood Count 6.4 K/mcL (4.3-11.1)
[2020-06-30 05:39] LABS: Magnesium 1.9 mg/dL (1.6-2.6); Phosphorous 3.4 mg/dL (2.7-4.5); Potassium 3.5 mEq/L (3.5-5.1)
[2020-06-30] MEDS: carvediloL 6.25 MG TABLET PO SCH ×2 (08:12→17:33)
[2020-06-30] MEDS: DilTIAZem CD (24hr) 120 MG CAP.ER.24H PO SCH (08:12)
[2020-06-30] MEDS ORDERED: Furosemide 40 MG/4 ML VIAL IVP SCH (09:00)
[2020-06-30] MEDS ORDERED: Furosemide 40 MG/4 ML VIAL IVP ONE (10:23)
[2020-06-30 10:29] LABS: Bilirubin,Urine Negative (Negative); Blood,Urine Moderate (Negative); Budding Yeast,Urine Many per hpf (None Seen); Clarity,Urine Turbid (Clear); Color,Urine Orange (Yellow); Glucose,Urine (UA) Normal (Normal); Ketones,Urine Trace mg/dL (Negative); Leukocyte Esterase,Urine Small (Negative); Mucus,Urine Few per lpf (None-Few); Nitrite,Urine Negative (Negative); Protein,Urine 200 mg/dL (Neg-Trace); Specific Gravity,Urine 1.021 (1.010-1.025); Squamous Epithelial Cell,Urine Few per hpf (None-Few); Urobilinogen,Urine Normal (Normal); WBC,Urine 15-30 per hpf (0-3)
[2020-06-30] MEDS: Bacitracin/PolymyxinB OINT 14.17 GM TUBE TP SCH ×2 (10:39→19:56)
[2020-06-30] MEDS: Levalbuterol Neb 1.25 MG/3 ML IH PRN ×2 (11:34→21:35)
[2020-06-30] MEDS: Ertapenem 1,000 MG in 0.9 % Sodium Chloride Mini Bag 100 ML IVPB SCH (11:46)
[2020-06-30] MEDS: Acetaminophen 325 MG TABLET PO PRN (19:01)
[2020-07-01] MEDS: Ipratropium/Albuterol Neb 3 ML IH PRN ×3 (03:16→22:24)
[2020-07-01] MEDS: Levalbuterol Neb 1.25 MG/3 ML IH PRN (03:16)
[2020-07-01 04:04] LABS: Hematocrit 24.5 % (35.3-44.9); Hemoglobin 7.4 g/dL (11.5-15.4); Mean Corpuscular HGB Conc 30.2 g/dL (31.6-35.5); Mean Corpuscular Hemoglobin 29.5 pg (28.0-33.3); Mean Corpuscular Volume 97.6 fL (83.0-100.0); Mean Platelet Volume 11.3 fL (9.4-12.4); Platelet Count 139 K/mcL (140-400); Red Blood Count 2.51 M/mcL (3.82-4.97); Red Cell Distribution Width 15.2 % (11.5-14.5); White Blood Count 6.1 K/mcL (4.3-11.1)
[2020-07-01 04:22] LABS: Calcium 8.6 mg/dL (8.6-10.3); Magnesium 2.1 mg/dL (1.6-2.6); Phosphorous 5.6 mg/dL (2.7-4.5)
[2020-07-01] MEDS: carvediloL 6.25 MG TABLET PO SCH ×2 (09:24→17:24)
[2020-07-01] MEDS: DilTIAZem CD (24hr) 120 MG CAP.ER.24H PO SCH (09:25)
[2020-07-01] MEDS: Bacitracin/PolymyxinB OINT 14.17 GM TUBE TP SCH ×2 (09:31→22:10)
[2020-07-01 13:02] LABS: Sodium, Urine 15.7 mEq/L
[2020-07-01] MEDS: Ertapenem 1,000 MG in 0.9 % Sodium Chloride Mini Bag 100 ML IVPB SCH (14:10)
[2020-07-02 05:43] LABS: ABG Base Excess 1 mEq/L (-2 to 3); ABG HCO3 30 mEq/L (21-27); ABG Oxygen Saturation 92 % (95-98); ABG PCO2 73 mmHg (35-45); ABG PH 7.22 pH Units (7.32-7.45); ABG PO2 79 mmHg (85-104); ABG TCO2 32 mEq/L (20-26)
[2020-07-02] MEDS ORDERED: 0.9 % Sodium Chloride 1,000 ML ONE (06:47)
[2020-07-02] MEDS ORDERED: Artificial Tears SOLN 15 ML BOTTLE BOTH EYES PRN (07:33)
[2020-07-02] MEDS ORDERED: Dexmedetomidine HCl 400 MCG/100 ML MLS IVC ONE (07:38)
[2020-07-02] MEDS: Dexmedetomidine HCl 400 MCG/100 ML MLS IVC SCH ×3 (07:45→22:17)
[2020-07-02] MEDS: FentaNYL (PF) 1,000 MCG/100 ML IV.SOLN IVC SCH ×2 (07:50→22:17)
[2020-07-02] MEDS: Ipratropium/Albuterol Neb 3 ML IH SCH ×5 (08:29→23:36)
[2020-07-02 08:34] LABS: Hemoglobin 8.1 g/dL (11.5-15.4); Red Cell Distribution Width 15.3 % (11.5-14.5)
[2020-07-02 08:36] LABS: Basophils % 0.2 %; Eosinophils # 0.1 K/mcL (0.0-0.6); Eosinophils % 1.2 %; Hematocrit 27.4 % (35.3-44.9); Immature Granulocytes % 2.9 % (0-4); Immature Platelets 5.9 % (1.1-6.1); Lymphocytes % 6.8 %; Mean Corpuscular HGB Conc 29.6 g/dL (31.6-35.5); Mean Corpuscular Hemoglobin 29.5 pg (28.0-33.3); Mean Corpuscular Volume 99.6 fL (83.0-100.0); Mean Platelet Volume 11.5 fL (9.4-12.4); Monocytes # 0.5 K/mcL (0.0-1.3); Monocytes % 6.6 %; Neutrophils # 6.6 K/mcL (1.6-8.9); Platelet Count 216 K/mcL (140-400); Red Blood Count 2.75 M/mcL (3.82-4.97); Segmented Neutrophils % 82.3 %
[2020-07-02 08:38] LABS: Lymphocytes # 0.5 K/mcL (0.6-4.6)
[2020-07-02] MEDS: carvediloL 6.25 MG TABLET PO SCH (08:45)
[2020-07-02] MEDS: DilTIAZem CD (24hr) 120 MG CAP.ER.24H PO SCH (08:46)
[2020-07-02 08:50] LABS: Alanine Aminotransferase 64 Units/L (7-52); Albumin 2.7 g/dL (3.5-5.7); Albumin/Globulin Ratio 0.7 (1.1-2.2); Alkaline Phosphatase 222 Units/L (34-104); Aspartate Amino Transferase 63 Units/L (13-39); BUN/Creatinine Ratio 19 (6-26); Bilirubin,Total 1.2 mg/dL (0.3-1.0); Blood Urea Nitrogen 60 mg/dL (8-23); Calcium 8.5 mg/dL (8.6-10.3); Carbon Dioxide 27 mEq/L (23-29); Chloride 100 mEq/L (98-107); Globulin 3.9 g/dL (2.4-3.5); Glucose 146 mg/dL (70-105); Magnesium 2.4 mg/dL (1.6-2.6); Osmolality,Calculated 302 (280-300); Phosphorous 7.7 mg/dL (2.7-4.5); Potassium 4.6 mEq/L (3.5-5.1); Sodium 136 mEq/L (136-145); Total Protein 6.6 g/dL (6.4-8.9); Troponin I < 0.03 ng/mL (< 0.04); eGFR For African Americans 18 (> 60); eGFR For Non-African Americans 14 (> 60)
[2020-07-02] MEDS: Chlorhexidine Rinse 15 ML MOUTHWASH MM SCH ×2 (08:54→19:57)
[2020-07-02] MEDS: Pantoprazole 40 MG VIAL IVP SCH (08:54)
[2020-07-02] MEDS: Artificial Tears SOLN 15 ML BOTTLE BOTH EYES SCH ×4 (08:55→19:57)
[2020-07-02 09:26] LABS: ABG Base Excess 1 mEq/L (-2 to 3); ABG HCO3 28 mEq/L (21-27); ABG Oxygen Saturation 91 % (95-98); ABG PCO2 57 mmHg (35-45); ABG PO2 69 mmHg (85-104); ABG TCO2 30 mEq/L (20-26); Blood Gas Modality CPAP/PS; Blood Gas Pressure Support 12 cm H2O
[2020-07-02] MEDS ORDERED: 0.9 % Sodium Chloride 250 ML IVC PRN (09:57)
[2020-07-02] MEDS ORDERED: 0.9 % Sodium Chloride 1,000 ML PRIME SCH (10:00)
[2020-07-02] MEDS: Bacitracin/PolymyxinB OINT 14.17 GM TUBE TP SCH ×2 (10:09→19:57)
[2020-07-02 10:47] LABS: INR 1.1
[2020-07-02] MEDS: Ertapenem 1,000 MG in 0.9 % Sodium Chloride Mini Bag 100 ML IVPB SCH (12:06)
[2020-07-02] MEDS ORDERED: *HR* Heparin 5,000 UNIT/ML VIAL ONE (14:57)
[2020-07-02] MEDS ORDERED: Heparin 1,000 UNITS/500 mL 500 ML ONE (14:57)
[2020-07-02] MEDS ORDERED: *HR* EPINEPHrine 1 MG/10 ML SYRINGE IVP ONE (16:22)
[2020-07-02] MEDS ORDERED: *HR* Midazolam HCl 2 MG/2 ML VIAL IVP ONE (16:26)
[2020-07-02] MEDS ORDERED: *HR* Heparin 10,000 UNIT/10 ML VIAL IV PRN (17:17)
[2020-07-02] MEDS: Norepinephrine 4 MG/254 ML IV.SOLN IVC SCH (17:30)
[2020-07-02 17:50] LABS: Hepatitis B Surface Antibody 7.52 mIU/mL
[2020-07-02 20:07] LABS: Hepatitis B Surface Antigen Nonreactive (Nonreactive)
[2020-07-03] MEDS: Norepinephrine 4 MG/254 ML IV.SOLN IVC SCH ×2 (00:10→08:27)
[2020-07-03] MEDS: Artificial Tears SOLN 15 ML BOTTLE BOTH EYES SCH ×2 (01:13→08:28)
[2020-07-03] MEDS: Ipratropium/Albuterol Neb 3 ML IH SCH ×6 (03:17→23:24)
[2020-07-03 04:00] LABS: Hematocrit 24.5 % (35.3-44.9); Hemoglobin 7.8 g/dL (11.5-15.4); Mean Corpuscular HGB Conc 31.8 g/dL (31.6-35.5); Mean Corpuscular Hemoglobin 29.5 pg (28.0-33.3); Mean Platelet Volume 10.1 fL (9.4-12.4); Platelet Count 303 K/mcL (140-400); Red Blood Count 2.64 M/mcL (3.82-4.97); Red Cell Distribution Width 15.4 % (11.5-14.5); White Blood Count 7.9 K/mcL (4.3-11.1)
[2020-07-03 04:16] LABS: Calcium 7.9 mg/dL (8.6-10.3); Phosphorous 4.4 mg/dL (2.7-4.5); Potassium 4.1 mEq/L (3.5-5.1)
[2020-07-03 04:36] LABS: Mean Corpuscular Volume 92.8 fL (83.0-100.0)
[2020-07-03 04:45] LABS: ABG Base Excess 2 mEq/L (-2 to 3); ABG HCO3 27 mEq/L (21-27); ABG Oxygen Saturation 98 % (95-98); ABG PCO2 39 mmHg (35-45); ABG PH 7.44 pH Units (7.32-7.45); ABG PO2 109 mmHg (85-104); ABG TCO2 28 mEq/L (20-26); Blood Gas Modality AF; Blood Gas VT 450 cc
[2020-07-03] MEDS: Pantoprazole 40 MG VIAL IVP SCH (08:27)
[2020-07-03] MEDS: Chlorhexidine Rinse 15 ML MOUTHWASH MM SCH (08:28)
[2020-07-03] MEDS: Bacitracin/PolymyxinB OINT 14.17 GM TUBE TP SCH (08:28)
[2020-07-03] MEDS ORDERED: Furosemide 40 MG/4 ML VIAL IVP ONE (09:38)
[2020-07-03] MEDS ORDERED: Albumin 25% 25gram/100mL 25 GM/100 ML IV.SOLN IVPB ONE (09:38)
[2020-07-03] MEDS: Ondansetron 4 MG/2 ML VIAL IVP PRN (19:27)
[2020-07-04] MEDS: Bacitracin/PolymyxinB OINT 14.17 GM TUBE TP SCH ×3 (01:25→21:29)
[2020-07-04] MEDS: Ipratropium/Albuterol Neb 3 ML IH SCH ×5 (03:20→20:02)
[2020-07-04 03:43] LABS: Basophils % 0.2 %; Eosinophils # 0.2 K/mcL (0.0-0.6); Eosinophils % 3.1 %; Hematocrit 22.5 % (35.3-44.9); Hemoglobin 6.9 g/dL (11.5-15.4); Lymphocytes # 0.6 K/mcL (0.6-4.6); Lymphocytes % 11.8 %; Mean Corpuscular HGB Conc 30.7 g/dL (31.6-35.5); Mean Corpuscular Hemoglobin 29.9 pg (28.0-33.3); Mean Corpuscular Volume 97.4 fL (83.0-100.0); Mean Platelet Volume 10.3 fL (9.4-12.4); Monocytes # 0.5 K/mcL (0.0-1.3); Monocytes % 8.6 %; Platelet Count 188 K/mcL (140-400); Red Blood Count 2.31 M/mcL (3.82-4.97); Red Cell Distribution Width 15.4 % (11.5-14.5); Segmented Neutrophils % 75.3 %; White Blood Count 5.2 K/mcL (4.3-11.1)
[2020-07-04 03:48] LABS: VBG Ionized Calcium 1.08 mmol/L (1.15-1.35)
[2020-07-04 04:01] LABS: Albumin 2.6 g/dL (3.5-5.7); Albumin/Globulin Ratio 0.7 (1.1-2.2); Bilirubin,Total 1.7 mg/dL (0.3-1.0); Calcium 8.1 mg/dL (8.6-10.3); Globulin 3.6 g/dL (2.4-3.5); Magnesium 2.1 mg/dL (1.6-2.6); Phosphorous 6.3 mg/dL (2.7-4.5); Potassium 4.4 mEq/L (3.5-5.1); Total Protein 6.2 g/dL (6.4-8.9)
[2020-07-04] MEDS: Calcium Gluconate 1gm/50mL 1 GM/50 ML BAG IVPB PRN ×2 (05:34→06:02)
[2020-07-04] MEDS ORDERED: 0.9 % Sodium Chloride 250 ML IVC PRN (06:55)
[2020-07-04] MEDS: Ondansetron 4 MG/2 ML VIAL IVP PRN ×2 (07:04→21:29)
[2020-07-04] MEDS: Pantoprazole 40 MG VIAL IVP SCH (08:05)
[2020-07-05] MEDS: Ipratropium/Albuterol Neb 3 ML IH SCH ×7 (00:28→23:44)
[2020-07-05 04:01] LABS: Hematocrit 28.8 % (35.3-44.9); Hemoglobin 8.6 g/dL (11.5-15.4); Mean Corpuscular HGB Conc 29.9 g/dL (31.6-35.5); Mean Corpuscular Hemoglobin 28.6 pg (28.0-33.3); Mean Corpuscular Volume 95.7 fL (83.0-100.0); Mean Platelet Volume 10.2 fL (9.4-12.4); Platelet Count 246 K/mcL (140-400); Red Blood Count 3.01 M/mcL (3.82-4.97); Red Cell Distribution Width 15.7 % (11.5-14.5); White Blood Count 6.8 K/mcL (4.3-11.1)
[2020-07-05 04:13] LABS: Calcium 8.6 mg/dL (8.6-10.3); Potassium 4.4 mEq/L (3.5-5.1)
[2020-07-05] MEDS: Pantoprazole 40 MG VIAL IVP SCH (07:12)
[2020-07-05] MEDS: Bacitracin/PolymyxinB OINT 14.17 GM TUBE TP SCH ×2 (07:15→21:24)
[2020-07-05] MEDS: Budesonide/Formoterol 160/4.5 1 PUFF INH IH SCH ×2 (11:07→20:05)
[2020-07-05] MEDS ORDERED: 0.9 % Sodium Chloride 250 ML IVC PRN (11:13)
[2020-07-05] MEDS ORDERED: *HR* Heparin 10,000 UNIT/10 ML VIAL IV PRN (11:13)
[2020-07-05] MEDS ORDERED: 0.9 % Sodium Chloride 1,000 ML PRIME SCH (11:15)
[2020-07-05] MEDS: *HR* Dextrose 50 % in Water (Vial) 50 ML VIAL IVP PRN ×3 (11:27→17:23)
[2020-07-06] MEDS: Ipratropium/Albuterol Neb 3 ML IH SCH ×6 (03:30→23:22)
[2020-07-06 04:47] LABS: Hematocrit 29.3 % (35.3-44.9); Mean Corpuscular HGB Conc 30.7 g/dL (31.6-35.5); Mean Corpuscular Hemoglobin 29.2 pg (28.0-33.3); Mean Corpuscular Volume 95.1 fL (83.0-100.0); Mean Platelet Volume 10.4 fL (9.4-12.4); Platelet Count 337 K/mcL (140-400); Red Blood Count 3.08 M/mcL (3.82-4.97); Red Cell Distribution Width 15.3 % (11.5-14.5); White Blood Count 7.3 K/mcL (4.3-11.1)
[2020-07-06 05:09] LABS: Calcium 8.6 mg/dL (8.6-10.3); Potassium 4.3 mEq/L (3.5-5.1)
[2020-07-06] MEDS: Levalbuterol Neb 1.25 MG/3 ML IH PRN (05:40)
[2020-07-06 05:54] LABS: ABG Base Excess 2 mEq/L (-2 to 3); ABG HCO3 29 mEq/L (21-27); ABG Oxygen Saturation 97 % (95-98); ABG PCO2 56 mmHg (35-45); ABG PH 7.32 pH Units (7.32-7.45); ABG PO2 104 mmHg (85-104); ABG TCO2 30 mEq/L (20-26); Blood Gas Modality BiLevel
[2020-07-06] MEDS: Dexmedetomidine HCl 400 MCG/100 ML MLS IVC SCH ×4 (07:30→22:57)
[2020-07-06] MEDS: Norepinephrine 4 MG/254 ML IV.SOLN IVC SCH ×2 (07:31→19:19)
[2020-07-06] MEDS: Budesonide/Formoterol 160/4.5 1 PUFF INH IH SCH ×2 (07:32→19:32)
[2020-07-06] MEDS: Pantoprazole 40 MG VIAL IVP SCH (07:38)
[2020-07-06] MEDS: Bacitracin/PolymyxinB OINT 14.17 GM TUBE TP SCH ×2 (07:39→22:46)
[2020-07-06] MEDS ORDERED: 0.9 % Sodium Chloride 250 ML IVC PRN (08:27)
[2020-07-06] MEDS ORDERED: *HR* Heparin 10,000 UNIT/10 ML VIAL IV PRN (09:34)
[2020-07-06] MEDS: *HR* Dextrose 50 % in Water (Vial) 50 ML VIAL IVP PRN (10:42)
[2020-07-06] MEDS ORDERED: Morphine Sulfate 2 MG/ML SYRINGE IVP ONE (14:30)
[2020-07-06] MEDS: Artificial Tears SOLN 15 ML BOTTLE BOTH EYES SCH (20:00)
[2020-07-06 23:44] LABS: ABG Base Excess 4 mEq/L (-2 to 3); ABG HCO3 32 mEq/L (21-27); ABG Oxygen Saturation 91 % (95-98); ABG PCO2 70 mmHg (35-45); ABG PH 7.28 pH Units (7.32-7.45); ABG PO2 72 mmHg (85-104); ABG TCO2 35 mEq/L (20-26); Blood Gas Modality avaps; Blood Gas VT 450 cc
[2020-07-07 01:41] LABS: ABG Base Excess 4 mEq/L (-2 to 3); ABG HCO3 31 mEq/L (21-27); ABG Oxygen Saturation 97 % (95-98); ABG PCO2 61 mmHg (35-45); ABG PH 7.32 pH Units (7.32-7.45); ABG PO2 100 mmHg (85-104); ABG TCO2 33 mEq/L (20-26); Blood Gas VT 450 cc
[2020-07-07] MEDS: Ipratropium/Albuterol Neb 3 ML IH SCH ×6 (03:55→23:22)
[2020-07-07 04:08] LABS: Hematocrit 28.5 % (35.3-44.9); Hemoglobin 8.7 g/dL (11.5-15.4); Mean Corpuscular HGB Conc 30.5 g/dL (31.6-35.5); Mean Corpuscular Volume 98.3 fL (83.0-100.0); Platelet Count 298 K/mcL (140-400); Red Cell Distribution Width 15.2 % (11.5-14.5)
[2020-07-07 04:26] LABS: Calcium 8.6 mg/dL (8.6-10.3); Potassium 4.4 mEq/L (3.5-5.1)
[2020-07-07] MEDS: Budesonide/Formoterol 160/4.5 1 PUFF INH IH SCH ×2 (07:59→20:11)
[2020-07-07] MEDS: Pantoprazole 40 MG VIAL IVP SCH (08:51)
[2020-07-07] MEDS: Dexmedetomidine HCl 400 MCG/100 ML MLS IVC SCH ×2 (17:07→19:07)
[2020-07-07] MEDS: Norepinephrine 4 MG/254 ML IV.SOLN IVC SCH (17:07)
[2020-07-07] MEDS: DilTIAZem CD (24hr) 240 MG CAP.ER.24H PO SCH (17:39)
[2020-07-07] MEDS: Bacitracin/PolymyxinB OINT 14.17 GM TUBE TP SCH ×2 (19:06→19:36)
[2020-07-07] MEDS: Acetaminophen 325 MG TABLET PO PRN (19:29)
[2020-07-07] MEDS ORDERED: Bisacodyl 10 MG RECTAL SUPPOSITORY RC PRN (19:29)
[2020-07-08] MEDS: Dexmedetomidine HCl 400 MCG/100 ML MLS IVC SCH ×2 (02:44→19:30)
[2020-07-08] MEDS: Ipratropium/Albuterol Neb 3 ML IH SCH ×6 (03:31→23:04)
[2020-07-08 04:10] LABS: Hematocrit 29.1 % (35.3-44.9); Mean Corpuscular HGB Conc 30.9 g/dL (31.6-35.5); Mean Corpuscular Hemoglobin 29.7 pg (28.0-33.3); Mean Platelet Volume 9.9 fL (9.4-12.4); Platelet Count 332 K/mcL (140-400); Red Blood Count 3.03 M/mcL (3.82-4.97); Red Cell Distribution Width 14.8 % (11.5-14.5)
[2020-07-08 04:12] LABS: White Blood Count 9.2 K/mcL (4.3-11.1)
[2020-07-08 04:29] LABS: Calcium 8.7 mg/dL (8.6-10.3); Potassium 4.2 mEq/L (3.5-5.1)
[2020-07-08 05:27] LABS: ABG Base Excess 4 mEq/L (-2 to 3); ABG HCO3 32 mEq/L (21-27); ABG Oxygen Saturation 96 % (95-98); ABG PCO2 71 mmHg (35-45); ABG PH 7.27 pH Units (7.32-7.45); ABG PO2 94 mmHg (85-104); ABG TCO2 34 mEq/L (20-26); Blood Gas Modality ASSIST CONTROL; Blood Gas VT 450 cc
[2020-07-08] MEDS ORDERED: 0.9 % Sodium Chloride 250 ML IVC PRN ×2 (07:09→18:11)
[2020-07-08] MEDS: Budesonide/Formoterol 160/4.5 1 PUFF INH IH SCH ×2 (07:39→20:14)
[2020-07-08] MEDS ORDERED: Magnesium Oxide 400 MG TABLET PO SCH (09:00)
[2020-07-08] MEDS: Pantoprazole 40 MG VIAL IVP SCH (09:58)
[2020-07-08] MEDS ORDERED: *HR* Heparin 10,000 UNIT/10 ML VIAL IV PRN (09:59)
[2020-07-08] MEDS: DilTIAZem CD (24hr) 240 MG CAP.ER.24H PO SCH (09:59)
[2020-07-08] MEDS: Bacitracin/PolymyxinB OINT 14.17 GM TUBE TP SCH ×2 (09:59→19:47)
[2020-07-08] MEDS ORDERED: *HR* Heparin 10,000 UNIT/10 ML VIAL ONE (12:04)
[2020-07-08] MEDS: Acetaminophen 325 MG TABLET PO PRN (17:02)
[2020-07-08] MEDS ORDERED: Naloxone 0.4 MG/ML INJ IVP PRN (18:11)
[2020-07-08] MEDS ORDERED: *HR* Dextrose 50 % in Water (Vial) 50 ML VIAL IVP PRN (18:11)
[2020-07-08] MEDS ORDERED: 0.9 % Sodium Chloride 1,000 ML PRIME SCH (18:11)
[2020-07-08] MEDS ORDERED: Bisacodyl 10 MG RECTAL SUPPOSITORY RC PRN (18:11)
[2020-07-08] MEDS ORDERED: Levalbuterol Neb 1.25 MG/3 ML IH PRN (18:11)
[2020-07-08] MEDS ORDERED: 0.9 % Sodium Chloride 250 ML IVC SCH (18:11)
[2020-07-08] MEDS ORDERED: Norepinephrine 4 MG/254 ML IV.SOLN IVC SCH (18:11)
[2020-07-08] MEDS ORDERED: Prochlorperazine 10 MG/2 ML VIAL IVP PRN (18:11)
[2020-07-08] MEDS: Ondansetron 4 MG/2 ML VIAL IVP PRN (19:47)
[2020-07-09] MEDS ORDERED: Lactulose Oral Soln 20 GM/30 ML UDC PO ONE (02:33)
[2020-07-09] MEDS: Ondansetron 4 MG/2 ML VIAL IVP PRN ×2 (03:23→17:07)
[2020-07-09] MEDS: Ipratropium/Albuterol Neb 3 ML IH SCH ×5 (03:27→20:46)
[2020-07-09 04:19] LABS: ABG Base Excess 5 mEq/L (-2 to 3); ABG HCO3 30 mEq/L (21-27); ABG Oxygen Saturation 95 % (95-98); ABG PCO2 46 mmHg (35-45); ABG PH 7.42 pH Units (7.32-7.45); ABG PO2 77 mmHg (85-104); ABG TCO2 31 mEq/L (20-26)
[2020-07-09] MEDS: Budesonide/Formoterol 160/4.5 1 PUFF INH IH SCH ×2 (08:05→20:46)
[2020-07-09] MEDS: Dexmedetomidine HCl 400 MCG/100 ML MLS IVC SCH (08:49)
[2020-07-09] MEDS: Bacitracin/PolymyxinB OINT 14.17 GM TUBE TP SCH ×2 (09:00→20:02)
[2020-07-09] MEDS ORDERED: Pantoprazole 40 MG VIAL IVP ONE ×2 (09:58→12:41)
[2020-07-09 10:16] LABS: Hematocrit 30.4 % (35.3-44.9); Hemoglobin 9.4 g/dL (11.5-15.4); Mean Corpuscular HGB Conc 30.9 g/dL (31.6-35.5); Mean Corpuscular Hemoglobin 29.7 pg (28.0-33.3); Mean Corpuscular Volume 95.9 fL (83.0-100.0); Mean Platelet Volume 10.1 fL (9.4-12.4); Platelet Count 384 K/mcL (140-400); Red Blood Count 3.17 M/mcL (3.82-4.97); Red Cell Distribution Width 15.1 % (11.5-14.5); White Blood Count 13.7 K/mcL (4.3-11.1)
[2020-07-09 10:33] LABS: Calcium 8.8 mg/dL (8.6-10.3)
[2020-07-09] MEDS: DilTIAZem CD (24hr) 240 MG CAP.ER.24H PO SCH (16:09)
[2020-07-09] MEDS: Magnesium Oxide 400 MG TABLET PO SCH (16:10)
[2020-07-09] MEDS: Acetaminophen 325 MG TABLET PO PRN (18:15)
[2020-07-10] MEDS: Ipratropium/Albuterol Neb 3 ML IH SCH ×7 (00:02→23:26)
[2020-07-10 05:01] LABS: Hematocrit 29.2 % (35.3-44.9); Hemoglobin 8.8 g/dL (11.5-15.4); Mean Corpuscular HGB Conc 30.1 g/dL (31.6-35.5); Mean Corpuscular Volume 96.4 fL (83.0-100.0); Mean Platelet Volume 9.9 fL (9.4-12.4); Platelet Count 300 K/mcL (140-400); Red Blood Count 3.03 M/mcL (3.82-4.97); Red Cell Distribution Width 15.4 % (11.5-14.5); White Blood Count 10.8 K/mcL (4.3-11.1)
[2020-07-10] MEDS: Budesonide/Formoterol 160/4.5 1 PUFF INH IH SCH ×2 (08:03→19:53)
[2020-07-10] MEDS: Magnesium Oxide 400 MG TABLET PO SCH (08:28)
[2020-07-10] MEDS: DilTIAZem CD (24hr) 240 MG CAP.ER.24H PO SCH (08:28)
[2020-07-10] MEDS: Bacitracin/PolymyxinB OINT 14.17 GM TUBE TP SCH ×2 (10:28→19:57)
[2020-07-11] MEDS: Ipratropium/Albuterol Neb 3 ML IH SCH ×6 (03:28→23:49)
[2020-07-11] MEDS: Acetaminophen 325 MG TABLET PO PRN (04:23)
[2020-07-11 05:20] LABS: Hematocrit 28.8 % (35.3-44.9); Hemoglobin 8.6 g/dL (11.5-15.4); Mean Corpuscular HGB Conc 29.9 g/dL (31.6-35.5); Mean Platelet Volume 10.1 fL (9.4-12.4); Platelet Count 290 K/mcL (140-400); Red Blood Count 2.97 M/mcL (3.82-4.97); Red Cell Distribution Width 15.3 % (11.5-14.5); White Blood Count 8.8 K/mcL (4.3-11.1)
[2020-07-11 05:47] LABS: Calcium 8.7 mg/dL (8.6-10.3); Potassium 4.6 mEq/L (3.5-5.1)
[2020-07-11] MEDS: Budesonide/Formoterol 160/4.5 1 PUFF INH IH SCH ×2 (07:28→22:42)
[2020-07-11] MEDS: DilTIAZem CD (24hr) 240 MG CAP.ER.24H PO SCH (07:42)
[2020-07-11] MEDS: Magnesium Oxide 400 MG TABLET PO SCH (07:42)
[2020-07-11] MEDS: Bacitracin/PolymyxinB OINT 14.17 GM TUBE TP SCH ×2 (07:43→21:52)
[2020-07-11] MEDS ORDERED: *HR* Heparin 10,000 UNIT/10 ML VIAL IV PRN ×2 (09:18)
[2020-07-11] MEDS ORDERED: 0.9 % Sodium Chloride 250 ML IVC PRN (09:18)
[2020-07-12] MEDS: Ondansetron 4 MG/2 ML VIAL IVP PRN (02:48)
[2020-07-12 03:23] LABS: Basophils # 0.1 K/mcL (0.0-0.2); Basophils % 1.1 %; Eosinophils # 0.2 K/mcL (0.0-0.6); Eosinophils % 2.4 %; Hematocrit 28.1 % (35.3-44.9); Hemoglobin 8.7 g/dL (11.5-15.4); Immature Granulocytes % 4.2 % (0-4); Lymphocytes # 0.9 K/mcL (0.6-4.6); Lymphocytes % 12.9 %; Mean Corpuscular Hemoglobin 29.7 pg (28.0-33.3); Mean Corpuscular Volume 95.9 fL (83.0-100.0); Mean Platelet Volume 10.1 fL (9.4-12.4); Monocytes # 0.7 K/mcL (0.0-1.3); Monocytes % 9.8 %; Neutrophils # 4.9 K/mcL (1.6-8.9); Platelet Count 276 K/mcL (140-400); Red Blood Count 2.93 M/mcL (3.82-4.97); Red Cell Distribution Width 14.9 % (11.5-14.5); Segmented Neutrophils % 69.6 %; White Blood Count 7.1 K/mcL (4.3-11.1)
[2020-07-12 03:37] LABS: Calcium 8.6 mg/dL (8.6-10.3); Potassium 3.9 mEq/L (3.5-5.1)
[2020-07-12] MEDS: Ipratropium/Albuterol Neb 3 ML IH SCH ×6 (03:56→23:24)
[2020-07-12] MEDS: Magnesium Oxide 400 MG TABLET PO SCH (08:27)
[2020-07-12] MEDS: DilTIAZem CD (24hr) 240 MG CAP.ER.24H PO SCH (08:28)
[2020-07-12] MEDS: Bacitracin/PolymyxinB OINT 14.17 GM TUBE TP SCH ×2 (08:28→21:15)
[2020-07-12] MEDS: Budesonide/Formoterol 160/4.5 1 PUFF INH IH SCH ×2 (10:05→20:07)
[2020-07-13] MEDS: Ipratropium/Albuterol Neb 3 ML IH SCH ×6 (04:00→22:56)
[2020-07-13 04:25] LABS: Basophils # 0.1 K/mcL (0.0-0.2); Basophils % 0.7 %; Eosinophils # 0.1 K/mcL (0.0-0.6); Eosinophils % 1.8 %; Hematocrit 26.5 % (35.3-44.9); Hemoglobin 8.2 g/dL (11.5-15.4); Immature Granulocytes % 3.7 % (0-4); Lymphocytes % 14.2 %; Mean Corpuscular HGB Conc 30.9 g/dL (31.6-35.5); Mean Corpuscular Hemoglobin 29.7 pg (28.0-33.3); Mean Platelet Volume 9.9 fL (9.4-12.4); Monocytes # 0.7 K/mcL (0.0-1.3); Monocytes % 9.7 %; Neutrophils # 4.7 K/mcL (1.6-8.9); Platelet Count 249 K/mcL (140-400); Red Blood Count 2.76 M/mcL (3.82-4.97); Red Cell Distribution Width 15.2 % (11.5-14.5); Segmented Neutrophils % 69.9 %; White Blood Count 6.7 K/mcL (4.3-11.1)
[2020-07-13 04:42] LABS: Calcium 8.6 mg/dL (8.6-10.3); Potassium 4.1 mEq/L (3.5-5.1)
[2020-07-13] MEDS ORDERED: 0.9 % Sodium Chloride 2,000 ML ONE (06:27)
[2020-07-13] MEDS: Budesonide/Formoterol 160/4.5 1 PUFF INH IH SCH ×2 (07:27→19:51)
[2020-07-13] MEDS: DilTIAZem CD (24hr) 240 MG CAP.ER.24H PO SCH (07:52)
[2020-07-13] MEDS: Magnesium Oxide 400 MG TABLET PO SCH (07:53)
[2020-07-13] MEDS: Bacitracin/PolymyxinB OINT 14.17 GM TUBE TP SCH ×2 (07:57→20:40)
[2020-07-13] MEDS ORDERED: 0.9 % Sodium Chloride 250 ML IVC PRN (09:53)
[2020-07-13] MEDS ORDERED: *HR* Heparin 10,000 UNIT/10 ML VIAL IV PRN ×2 (09:53→09:55)
[2020-07-13] MEDS ORDERED: 0.9 % Sodium Chloride 1,000 ML PRIME SCH (10:00)
[2020-07-13] MEDS ORDERED: Heparin 1,000 UNITS/500 mL 500 ML ONE (11:52)
[2020-07-13] MEDS ORDERED: Lidocaine/EPI 1:100k 1% 50 ML VIAL ONE (11:52)
[2020-07-13] MEDS ORDERED: *HR* FentaNYL (PF) 100 MCG/2 ML VIAL IVP ONE (11:55)
[2020-07-13] MEDS ORDERED: Clindamycin 600 MG/50 ML 600 MG/50 ML IV.SOLN IVPB ONE (11:56)
[2020-07-13] MEDS ORDERED: *HR* Heparin 5,000 UNIT/ML VIAL ONE (13:08)
[2020-07-14] MEDS: Ipratropium/Albuterol Neb 3 ML IH SCH ×6 (03:42→23:35)
[2020-07-14 06:18] LABS: Basophils # 0.1 K/mcL (0.0-0.2); Basophils % 1.3 %; Eosinophils # 0.1 K/mcL (0.0-0.6); Eosinophils % 1.9 %; Hematocrit 30.6 % (35.3-44.9); Hemoglobin 9.2 g/dL (11.5-15.4); Lymphocytes # 0.9 K/mcL (0.6-4.6); Lymphocytes % 13.6 %; Mean Corpuscular HGB Conc 30.1 g/dL (31.6-35.5); Mean Corpuscular Hemoglobin 29.3 pg (28.0-33.3); Mean Corpuscular Volume 97.5 fL (83.0-100.0); Mean Platelet Volume 9.9 fL (9.4-12.4); Monocytes # 0.6 K/mcL (0.0-1.3); Monocytes % 8.5 %; Neutrophils # 4.9 K/mcL (1.6-8.9); Platelet Count 278 K/mcL (140-400); Red Blood Count 3.14 M/mcL (3.82-4.97); Red Cell Distribution Width 15.1 % (11.5-14.5); Segmented Neutrophils % 70.7 %; White Blood Count 6.9 K/mcL (4.3-11.1)
[2020-07-14 06:36] LABS: Calcium 9.1 mg/dL (8.6-10.3)
[2020-07-14] MEDS: DilTIAZem CD (24hr) 240 MG CAP.ER.24H PO SCH (07:37)
[2020-07-14] MEDS: Bacitracin/PolymyxinB OINT 14.17 GM TUBE TP SCH ×2 (07:37→20:14)
[2020-07-14] MEDS: Magnesium Oxide 400 MG TABLET PO SCH (07:37)
[2020-07-14] MEDS: Budesonide/Formoterol 160/4.5 1 PUFF INH IH SCH ×2 (07:46→19:59)
[2020-07-14] MEDS: carvediloL 6.25 MG TABLET PO SCH (16:22)
[2020-07-14] MEDS: Acetaminophen 325 MG TABLET PO PRN (21:16)
[2020-07-14] MEDS: Ondansetron 4 MG/2 ML VIAL IVP PRN (21:16)
[2020-07-15] MEDS: Ipratropium/Albuterol Neb 3 ML IH SCH ×5 (04:09→20:14)
[2020-07-15 06:22] LABS: Basophils # 0.1 K/mcL (0.0-0.2); Basophils % 0.9 %; Eosinophils # 0.1 K/mcL (0.0-0.6); Eosinophils % 1.9 %; Hematocrit 29.8 % (35.3-44.9); Hemoglobin 9.3 g/dL (11.5-15.4); Immature Granulocytes % 2.8 % (0-4); Lymphocytes # 0.9 K/mcL (0.6-4.6); Lymphocytes % 13.6 %; Mean Corpuscular HGB Conc 31.2 g/dL (31.6-35.5); Mean Corpuscular Hemoglobin 30.1 pg (28.0-33.3); Mean Corpuscular Volume 96.4 fL (83.0-100.0); Mean Platelet Volume 10.3 fL (9.4-12.4); Monocytes # 0.6 K/mcL (0.0-1.3); Monocytes % 9.4 %; Neutrophils # 4.6 K/mcL (1.6-8.9); Platelet Count 247 K/mcL (140-400); Red Blood Count 3.09 M/mcL (3.82-4.97); Red Cell Distribution Width 14.9 % (11.5-14.5); Segmented Neutrophils % 71.4 %; White Blood Count 6.4 K/mcL (4.3-11.1)
[2020-07-15 06:41] LABS: Calcium 9.3 mg/dL (8.6-10.3); Potassium 4.1 mEq/L (3.5-5.1)
[2020-07-15] MEDS: Budesonide/Formoterol 160/4.5 1 PUFF INH IH SCH ×2 (07:51→20:14)
[2020-07-15] MEDS: DilTIAZem CD (24hr) 240 MG CAP.ER.24H PO SCH (08:32)
[2020-07-15] MEDS: carvediloL 6.25 MG TABLET PO SCH ×2 (08:32→16:12)
[2020-07-15] MEDS: Magnesium Oxide 400 MG TABLET PO SCH (08:33)
[2020-07-15] MEDS: Bacitracin/PolymyxinB OINT 14.17 GM TUBE TP SCH ×2 (08:35→20:06)
[2020-07-15] MEDS: Acetaminophen 325 MG TABLET PO PRN (16:12)
[2020-07-16 02:08] LABS: Basophils % 0.5 %; Eosinophils # 0.1 K/mcL (0.0-0.6); Eosinophils % 1.6 %; Hematocrit 27.7 % (35.3-44.9); Hemoglobin 8.7 g/dL (11.5-15.4); Immature Granulocytes % 1.9 % (0-4); Lymphocytes # 0.8 K/mcL (0.6-4.6); Lymphocytes % 12.8 %; Mean Corpuscular HGB Conc 31.4 g/dL (31.6-35.5); Mean Corpuscular Hemoglobin 29.9 pg (28.0-33.3); Mean Corpuscular Volume 95.2 fL (83.0-100.0); Mean Platelet Volume 10.1 fL (9.4-12.4); Monocytes # 0.6 K/mcL (0.0-1.3); Monocytes % 8.9 %; Neutrophils # 4.8 K/mcL (1.6-8.9); Platelet Count 207 K/mcL (140-400); Red Blood Count 2.91 M/mcL (3.82-4.97); Red Cell Distribution Width 14.6 % (11.5-14.5); Segmented Neutrophils % 74.3 %; White Blood Count 6.4 K/mcL (4.3-11.1)
[2020-07-16 02:27] LABS: Calcium 9.3 mg/dL (8.6-10.3); Potassium 4.1 mEq/L (3.5-5.1)
[2020-07-16] MEDS: Ipratropium/Albuterol Neb 3 ML IH SCH ×6 (03:55→20:33)
[2020-07-16] MEDS: Budesonide/Formoterol 160/4.5 1 PUFF INH IH SCH ×2 (07:33→20:33)
[2020-07-16] MEDS: carvediloL 6.25 MG TABLET PO SCH ×2 (08:15→17:06)
[2020-07-16] MEDS: DilTIAZem CD (24hr) 240 MG CAP.ER.24H PO SCH (08:16)
[2020-07-16] MEDS: Magnesium Oxide 400 MG TABLET PO SCH (08:16)
[2020-07-16] MEDS: Bacitracin/PolymyxinB OINT 14.17 GM TUBE TP SCH ×2 (08:20→20:46)
[2020-07-16] MEDS ORDERED: 0.9 % Sodium Chloride 250 ML IVC PRN (08:30)
[2020-07-16] MEDS ORDERED: *HR* Heparin 10,000 UNIT/10 ML VIAL IV PRN (08:30)
[2020-07-17] MEDS: Ipratropium/Albuterol Neb 3 ML IH SCH ×7 (00:33→23:45)
[2020-07-17 02:59] LABS: Basophils % 0.7 %; Eosinophils # 0.1 K/mcL (0.0-0.6); Eosinophils % 2.4 %; Hematocrit 29.2 % (35.3-44.9); Hemoglobin 8.9 g/dL (11.5-15.4); Lymphocytes # 0.8 K/mcL (0.6-4.6); Lymphocytes % 14.1 %; Mean Corpuscular HGB Conc 30.5 g/dL (31.6-35.5); Mean Corpuscular Hemoglobin 29.3 pg (28.0-33.3); Mean Corpuscular Volume 96.1 fL (83.0-100.0); Mean Platelet Volume 10.5 fL (9.4-12.4); Monocytes # 0.6 K/mcL (0.0-1.3); Monocytes % 10.3 %; Neutrophils # 4.2 K/mcL (1.6-8.9); Platelet Count 219 K/mcL (140-400); Red Blood Count 3.04 M/mcL (3.82-4.97); Red Cell Distribution Width 14.8 % (11.5-14.5); Segmented Neutrophils % 70.5 %
[2020-07-17 03:13] LABS: Potassium 3.9 mEq/L (3.5-5.1)
[2020-07-17] MEDS: carvediloL 6.25 MG TABLET PO SCH ×2 (08:32→16:15)
[2020-07-17] MEDS: Magnesium Oxide 400 MG TABLET PO SCH (08:33)
[2020-07-17] MEDS: DilTIAZem CD (24hr) 240 MG CAP.ER.24H PO SCH (08:33)
[2020-07-17] MEDS: Bacitracin/PolymyxinB OINT 14.17 GM TUBE TP SCH ×2 (08:34→21:29)
[2020-07-17] MEDS: Budesonide/Formoterol 160/4.5 1 PUFF INH IH SCH ×2 (11:27→20:01)
[2020-07-18] MEDS: Ipratropium/Albuterol Neb 3 ML IH SCH ×6 (03:42→23:27)
[2020-07-18 05:44] LABS: Basophils # 0.1 K/mcL (0.0-0.2); Eosinophils # 0.1 K/mcL (0.0-0.6); Eosinophils % 2.7 %; Hemoglobin 8.7 g/dL (11.5-15.4); Immature Granulocytes % 1.1 % (0-4); Lymphocytes # 0.9 K/mcL (0.6-4.6); Lymphocytes % 16.6 %; Mean Corpuscular Hemoglobin 28.9 pg (28.0-33.3); Mean Corpuscular Volume 96.3 fL (83.0-100.0); Mean Platelet Volume 10.5 fL (9.4-12.4); Monocytes # 0.5 K/mcL (0.0-1.3); Monocytes % 10.3 %; Neutrophils # 3.6 K/mcL (1.6-8.9); Platelet Count 181 K/mcL (140-400); Red Blood Count 3.01 M/mcL (3.82-4.97); Red Cell Distribution Width 14.9 % (11.5-14.5); Segmented Neutrophils % 68.3 %; White Blood Count 5.2 K/mcL (4.3-11.1)
[2020-07-18 06:05] LABS: Calcium 9.3 mg/dL (8.6-10.3)
[2020-07-18] MEDS: Budesonide/Formoterol 160/4.5 1 PUFF INH IH SCH ×2 (07:17→19:45)
[2020-07-18] MEDS: Magnesium Oxide 400 MG TABLET PO SCH (07:31)
[2020-07-18] MEDS ORDERED: 0.9 % Sodium Chloride 250 ML IVC PRN (07:31)
[2020-07-18] MEDS: DilTIAZem CD (24hr) 240 MG CAP.ER.24H PO SCH (07:31)
[2020-07-18] MEDS: carvediloL 6.25 MG TABLET PO SCH ×2 (07:31→17:39)
[2020-07-18] MEDS ORDERED: *HR* Heparin 10,000 UNIT/10 ML VIAL IV PRN (07:31)
[2020-07-18] MEDS: Bacitracin/PolymyxinB OINT 14.17 GM TUBE TP SCH ×2 (07:32→20:10)
[2020-07-18] MEDS ORDERED: 0.9 % Sodium Chloride 1,000 ML PRIME SCH (07:45)
[2020-07-19] MEDS: Ipratropium/Albuterol Neb 3 ML IH SCH ×6 (03:23→23:39)
[2020-07-19] MEDS: Budesonide/Formoterol 160/4.5 1 PUFF INH IH SCH ×2 (07:32→19:48)
[2020-07-19] MEDS: Magnesium Oxide 400 MG TABLET PO SCH (09:21)
[2020-07-19] MEDS: DilTIAZem CD (24hr) 240 MG CAP.ER.24H PO SCH (09:22)
[2020-07-19] MEDS: carvediloL 6.25 MG TABLET PO SCH ×2 (09:22→17:25)
[2020-07-19] MEDS: Bacitracin/PolymyxinB OINT 14.17 GM TUBE TP SCH (10:21)
[2020-07-20] MEDS: Ipratropium/Albuterol Neb 3 ML IH SCH ×3 (03:37→10:58)
[2020-07-20 07:03] LABS: Calcium 9.8 mg/dL (8.6-10.3); Potassium 3.7 mEq/L (3.5-5.1)
[2020-07-20] MEDS ORDERED: *HR* Heparin 10,000 UNIT/10 ML VIAL IV PRN (07:38)
[2020-07-20] MEDS ORDERED: 0.9 % Sodium Chloride 250 ML IVC PRN (07:38)
[2020-07-20] MEDS ORDERED: 0.9 % Sodium Chloride 1,000 ML PRIME SCH (07:45)
[2020-07-20] MEDS: Budesonide/Formoterol 160/4.5 1 PUFF INH IH SCH (08:08)
[2020-07-20] MEDS: Magnesium Oxide 400 MG TABLET PO SCH (13:18)
[2020-07-20] MEDS: carvediloL 6.25 MG TABLET PO SCH (13:18)
[2020-07-20] MEDS: DilTIAZem CD (24hr) 240 MG CAP.ER.24H PO SCH (13:18)
[2020-07-20 14:19] VITALS: BP 118/78
== END 2020-07-20 14:30 | DRG 720 ==
LOC: EMEROOARM 19:28 → ICNU 06-11 00:23 → SUATTDRO 06-11 00:23 → ICNU 06-11 00:45 → 2NNU 06-20 16:31 → 2ANU 06-23 14:07 → ICNU 06-24 19:29 → 2NNU 06-29 17:29 → ICNU 07-02 07:37 → 2NNU 07-11 21:29 → 2ANU 07-17 12:43
PROVIDERS: ADMIT Student in an Organized Health Care Education/Training Program; ATTEND Internal Medicine
PROC: IRPERMA (2020-07-13 12:00)

== ENCOUNTER 2020-08-30 16:54 | Inpatient (IN) ==
[2020-08-30 17:29] LABS: Basophils % 0.4 %; Eosinophils # 0.2 K/mcL (0.0-0.6); Eosinophils % 2.4 %; Hemoglobin 11.4 g/dL (11.5-15.4); Immature Granulocytes % 0.3 % (0-4); Lymphocytes % 14.8 %; Mean Corpuscular HGB Conc 30.8 g/dL (31.6-35.5); Mean Corpuscular Hemoglobin 30.5 pg (28.0-33.3); Mean Corpuscular Volume 98.9 fL (83.0-100.0); Mean Platelet Volume 10.4 fL (9.4-12.4); Monocytes # 0.5 K/mcL (0.0-1.3); Monocytes % 6.7 %; Platelet Count 213 K/mcL (140-400); Red Blood Count 3.74 M/mcL (3.82-4.97); Segmented Neutrophils % 75.4 %
[2020-08-30 17:42] LABS: Neutrophils # 5.1 K/mcL (1.6-8.9); White Blood Count 6.7 K/mcL (4.3-11.1)
[2020-08-30 17:49] LABS: BUN/Creatinine Ratio 21 (6-26); Blood Urea Nitrogen 18 mg/dL (8-23); Calcium 10.5 mg/dL (8.6-10.3); Carbon Dioxide 34 mEq/L (23-29); Chloride 104 mEq/L (98-107); Glucose 123 mg/dL (70-105); Osmolality,Calculated 295 (280-300); Potassium 4.5 mEq/L (3.5-5.1); Sodium 141 mEq/L (136-145); Troponin I < 0.03 ng/mL (< 0.04); eGFR For African Americans > 60 (> 60); eGFR For Non-African Americans > 60 (> 60)
[2020-08-30] MEDS ORDERED: Furosemide 40 MG/4 ML VIAL IVP ONE (19:41)
[2020-08-30] MEDS ORDERED: Nitroglycerin 0.4 MG TAB.SUBL SL STA (19:41)
[2020-08-30] MEDS ORDERED: Ondansetron ODT 4 MG TAB.RAPDIS SL PRN (22:10)
[2020-08-30] MEDS ORDERED: Naloxone 0.4 MG/ML INJ IVP PRN (22:10)
[2020-08-30] MEDS ORDERED: Acetaminophen 325 MG TABLET PO PRN (22:10)
[2020-08-31 05:16] LABS: Basophils % 0.5 %; Eosinophils # 0.1 K/mcL (0.0-0.6); Eosinophils % 0.8 %; Hematocrit 37.8 % (35.3-44.9); Hemoglobin 11.3 g/dL (11.5-15.4); Immature Granulocytes % 0.5 % (0-4); Lymphocytes # 0.9 K/mcL (0.6-4.6); Lymphocytes % 14.2 %; Mean Corpuscular HGB Conc 29.9 g/dL (31.6-35.5); Mean Corpuscular Hemoglobin 29.5 pg (28.0-33.3); Mean Corpuscular Volume 98.7 fL (83.0-100.0); Mean Platelet Volume 10.2 fL (9.4-12.4); Monocytes # 0.6 K/mcL (0.0-1.3); Monocytes % 8.9 %; Neutrophils # 4.7 K/mcL (1.6-8.9); Platelet Count 180 K/mcL (140-400); Red Blood Count 3.83 M/mcL (3.82-4.97); Red Cell Distribution Width 12.9 % (11.5-14.5); Segmented Neutrophils % 75.1 %; White Blood Count 6.3 K/mcL (4.3-11.1)
[2020-08-31 05:17] LABS: INR 1.1; Prothrombin Time 12.2 Seconds (9.4-12.1)
[2020-08-31 05:33] LABS: Alanine Aminotransferase 15 Units/L (7-52); Albumin 3.4 g/dL (3.5-5.7); Albumin/Globulin Ratio 1.1 (1.1-2.2); Alkaline Phosphatase 153 Units/L (34-104); Aspartate Amino Transferase 16 Units/L (13-39); BUN/Creatinine Ratio 23 (6-26); Bilirubin,Total 0.7 mg/dL (0.3-1.0); Blood Urea Nitrogen 19 mg/dL (8-23); Calcium 10.5 mg/dL (8.6-10.3); Carbon Dioxide 33 mEq/L (23-29); Chloride 105 mEq/L (98-107); Globulin 3.2 g/dL (2.4-3.5); Glucose 118 mg/dL (70-105); Magnesium 1.6 mg/dL (1.6-2.6); Osmolality,Calculated 297 (280-300); Phosphorous 5.3 mg/dL (2.7-4.5); Sodium 142 mEq/L (136-145); Total Protein 6.6 g/dL (6.4-8.9); eGFR For African Americans > 60 (> 60); eGFR For Non-African Americans > 60 (> 60)
[2020-08-31] MEDS: hydrOXYzine pamoate 25 MG CAPSULE PO SCH ×4 (08:25→19:41)
[2020-08-31] MEDS: DilTIAZem CD (24hr) 240 MG CAP.ER.24H PO SCH (08:26)
[2020-08-31] MEDS: carvediloL 6.25 MG TABLET PO SCH ×2 (08:26→15:44)
[2020-08-31] MEDS ORDERED: *HR* Enoxaparin 40 MG/0.4 ML SYRINGE SQ SCH (09:00)
[2020-08-31 10:53] LABS: VBG HCO3 36 mEq/L (21-27); VBG PCO2 80 mmHg (41-51); VBG PH 7.26 pH Units (7.32-7.42); VBG PO2 229 mmHg (25-50)
[2020-08-31 11:13] LABS: ABG Base Excess 6 mEq/L (-2 to 3); ABG HCO3 36 mEq/L (21-27); ABG Oxygen Saturation 93 % (95-98); ABG PCO2 79 mmHg (35-45); ABG PH 7.26 pH Units (7.32-7.45); ABG PO2 79 mmHg (85-104); ABG TCO2 38 mEq/L (20-26)
[2020-08-31] MEDS ORDERED: 0.9 % Sodium Chloride 250 ML IVC PRN (12:52)
[2020-08-31] MEDS ORDERED: *HR* Heparin 10,000 UNIT/10 ML VIAL IV PRN (12:52)
[2020-08-31] MEDS ORDERED: 0.9 % Sodium Chloride 1,000 ML PRIME SCH (13:00)
[2020-08-31 13:01] LABS: ABG Base Excess 9 mEq/L (-2 to 3); ABG HCO3 37 mEq/L (21-27); ABG Oxygen Saturation 90 % (95-98); ABG PCO2 79 mmHg (35-45); ABG PH 7.28 pH Units (7.32-7.45); ABG PO2 70 mmHg (85-104); ABG TCO2 40 mEq/L (20-26)
[2020-08-31 13:38] LABS: Hepatitis B Surface Antibody < 3.10 mIU/mL
[2020-08-31 13:49] LABS: Hepatitis B Surface Antigen Nonreactive (Nonreactive)
[2020-08-31] MEDS ORDERED: Ondansetron 4 MG/2 ML VIAL IVP PRN (17:05)
[2020-09-01 02:39] LABS: Basophils % 0.3 %; Eosinophils # 0.1 K/mcL (0.0-0.6); Eosinophils % 2.8 %; Hematocrit 34.7 % (35.3-44.9); Hemoglobin 10.7 g/dL (11.5-15.4); Immature Granulocytes % 0.3 % (0-4); Lymphocytes # 0.9 K/mcL (0.6-4.6); Lymphocytes % 26.4 %; Mean Corpuscular HGB Conc 30.8 g/dL (31.6-35.5); Mean Corpuscular Hemoglobin 30.7 pg (28.0-33.3); Mean Corpuscular Volume 99.7 fL (83.0-100.0); Mean Platelet Volume 10.9 fL (9.4-12.4); Monocytes # 0.4 K/mcL (0.0-1.3); Monocytes % 11.8 %; Neutrophils # 1.9 K/mcL (1.6-8.9); Platelet Count 118 K/mcL (140-400); Red Blood Count 3.48 M/mcL (3.82-4.97); Red Cell Distribution Width 12.7 % (11.5-14.5); Segmented Neutrophils % 58.4 %; White Blood Count 3.2 K/mcL (4.3-11.1)
[2020-09-01 03:01] LABS: BUN/Creatinine Ratio 28 (6-26); Blood Urea Nitrogen 21 mg/dL (8-23); Calcium 10.1 mg/dL (8.6-10.3); Carbon Dioxide 32 mEq/L (23-29); Chloride 104 mEq/L (98-107); Glucose 82 mg/dL (70-105); Osmolality,Calculated 296 (280-300); Potassium 4.2 mEq/L (3.5-5.1); Sodium 142 mEq/L (136-145); eGFR For African Americans > 60 (> 60); eGFR For Non-African Americans > 60 (> 60)
[2020-09-01] MEDS ORDERED: *HR* Enoxaparin 40 MG/0.4 ML SYRINGE SQ SCH (06:00)
[2020-09-01] MEDS ORDERED: Ipratropium/Albuterol Neb 3 ML IH SCH (08:00)
[2020-09-01] MEDS: DilTIAZem CD (24hr) 240 MG CAP.ER.24H PO SCH (08:08)
[2020-09-01] MEDS: hydrOXYzine pamoate 25 MG CAPSULE PO SCH ×3 (08:08→20:13)
[2020-09-01] MEDS: carvediloL 6.25 MG TABLET PO SCH ×2 (08:08→17:15)
[2020-09-01] MEDS ORDERED: *HR* Heparin 10,000 UNIT/10 ML VIAL IV PRN (09:00)
[2020-09-01] MEDS ORDERED: 0.9 % Sodium Chloride 250 ML IVC PRN (09:00)
[2020-09-01] MEDS ORDERED: 0.9 % Sodium Chloride 1,000 ML PRIME SCH (09:00)
[2020-09-01] MEDS: Ipratropium/Albuterol Neb 3 ML IH SCH ×4 (09:23→20:13)
[2020-09-01 10:03] LABS: Adenovirus Not Detected (Not Detect); Bordetella Pertussis Not Detected (Not Detect); Chlamydophila pneumoniae Not Detected (Not Detect); Coronavirus 229E Not Detected (Not Detect); Coronavirus HKU1 Not Detected (Not Detect); Coronavirus NL63 Not Detected (Not Detect); Coronavirus OC43 Not Detected (Not Detect); Human Metapneumovirus Not Detected (Not Detect); Human Rhinovirus/Enterovirus Not Detected (Not Detect); Influenza A Subtype 2009 H1 Not Detected (Not Detect); Influenza B Not Detected (Not Detect); Mycoplasma pneumoniae Not Detected (Not Detect); Parainfluenza Virus 1 Not Detected (Not Detect); Parainfluenza Virus 2 Not Detected (Not Detect); Parainfluenza Virus 3 Not Detected (Not Detect); Parainfluenza Virus 4 Not Detected (Not Detect); Respiratory Syncytial Virus Not Detected (Not Detect); SARS-CoV-2 Not Detected (Not Detect)
[2020-09-02] MEDS: Ipratropium/Albuterol Neb 3 ML IH SCH ×7 (00:13→23:37)
[2020-09-02 04:05] LABS: Basophils % 0.7 %; Eosinophils # 0.1 K/mcL (0.0-0.6); Eosinophils % 4.1 %; Hematocrit 29.7 % (35.3-44.9); Hemoglobin 9.3 g/dL (11.5-15.4); Immature Granulocytes % 0.3 % (0-4); Lymphocytes # 0.9 K/mcL (0.6-4.6); Lymphocytes % 31.7 %; Mean Corpuscular HGB Conc 31.3 g/dL (31.6-35.5); Mean Corpuscular Hemoglobin 30.8 pg (28.0-33.3); Mean Corpuscular Volume 98.3 fL (83.0-100.0); Mean Platelet Volume 10.9 fL (9.4-12.4); Monocytes # 0.3 K/mcL (0.0-1.3); Neutrophils # 1.5 K/mcL (1.6-8.9); Platelet Count 124 K/mcL (140-400); Red Blood Count 3.02 M/mcL (3.82-4.97); Red Cell Distribution Width 12.8 % (11.5-14.5); Segmented Neutrophils % 52.2 %; White Blood Count 2.9 K/mcL (4.3-11.1)
[2020-09-02 04:25] LABS: BUN/Creatinine Ratio 35 (6-26); Blood Urea Nitrogen 27 mg/dL (8-23); Calcium 9.8 mg/dL (8.6-10.3); Carbon Dioxide 33 mEq/L (23-29); Chloride 103 mEq/L (98-107); Glucose 95 mg/dL (70-105); Osmolality,Calculated 299 (280-300); Potassium 3.6 mEq/L (3.5-5.1); Sodium 142 mEq/L (136-145); eGFR For African Americans > 60 (> 60); eGFR For Non-African Americans > 60 (> 60)
[2020-09-02] MEDS: carvediloL 6.25 MG TABLET PO SCH ×2 (07:56→18:39)
[2020-09-02] MEDS: hydrOXYzine pamoate 25 MG CAPSULE PO SCH ×3 (07:56→20:02)
[2020-09-02] MEDS: DilTIAZem CD (24hr) 240 MG CAP.ER.24H PO SCH (07:56)
[2020-09-02] MEDS: *HR* Heparin 5,000 UNIT/ML VIAL SQ SCH ×2 (07:57→18:39)
[2020-09-03] MEDS: *HR* Heparin 5,000 UNIT/ML VIAL SQ SCH ×3 (01:04→16:40)
[2020-09-03 02:05] LABS: Basophils % 0.6 %; Eosinophils # 0.1 K/mcL (0.0-0.6); Hematocrit 30.2 % (35.3-44.9); Hemoglobin 9.4 g/dL (11.5-15.4); Immature Granulocytes % 0.3 % (0-4); Lymphocytes # 0.9 K/mcL (0.6-4.6); Lymphocytes % 26.7 %; Mean Corpuscular HGB Conc 31.1 g/dL (31.6-35.5); Mean Corpuscular Hemoglobin 30.2 pg (28.0-33.3); Mean Corpuscular Volume 97.1 fL (83.0-100.0); Mean Platelet Volume 10.9 fL (9.4-12.4); Monocytes # 0.2 K/mcL (0.0-1.3); Monocytes % 7.3 %; Platelet Count 140 K/mcL (140-400); Red Blood Count 3.11 M/mcL (3.82-4.97); Red Cell Distribution Width 12.9 % (11.5-14.5); Segmented Neutrophils % 61.1 %; White Blood Count 3.3 K/mcL (4.3-11.1)
[2020-09-03 02:25] LABS: BUN/Creatinine Ratio 35 (6-26); Blood Urea Nitrogen 26 mg/dL (8-23); Calcium 9.7 mg/dL (8.6-10.3); Carbon Dioxide 33 mEq/L (23-29); Chloride 104 mEq/L (98-107); Glucose 100 mg/dL (70-105); Osmolality,Calculated 297 (280-300); Potassium 3.8 mEq/L (3.5-5.1); Sodium 141 mEq/L (136-145); eGFR For African Americans > 60 (> 60); eGFR For Non-African Americans > 60 (> 60)
[2020-09-03] MEDS: Ipratropium/Albuterol Neb 3 ML IH SCH ×6 (03:05→23:39)
[2020-09-03] MEDS: carvediloL 6.25 MG TABLET PO SCH ×2 (08:08→16:40)
[2020-09-03] MEDS: hydrOXYzine pamoate 25 MG CAPSULE PO SCH ×3 (08:08→21:30)
[2020-09-03] MEDS: DilTIAZem CD (24hr) 240 MG CAP.ER.24H PO SCH (08:08)
[2020-09-04] MEDS: *HR* Heparin 5,000 UNIT/ML VIAL SQ SCH ×4 (01:51→23:53)
[2020-09-04 04:04] LABS: Basophils % 0.3 %; Eosinophils # 0.2 K/mcL (0.0-0.6); Eosinophils % 5.4 %; Hematocrit 27.7 % (35.3-44.9); Hemoglobin 8.7 g/dL (11.5-15.4); Lymphocytes % 32.5 %; Mean Corpuscular HGB Conc 31.4 g/dL (31.6-35.5); Mean Corpuscular Volume 95.5 fL (83.0-100.0); Monocytes # 0.3 K/mcL (0.0-1.3); Monocytes % 8.8 %; Neutrophils # 1.6 K/mcL (1.6-8.9); Platelet Count 150 K/mcL (140-400); Red Cell Distribution Width 12.9 % (11.5-14.5)
[2020-09-04] MEDS: Ipratropium/Albuterol Neb 3 ML IH SCH ×7 (04:11→23:52)
[2020-09-04 04:28] LABS: BUN/Creatinine Ratio 37 (6-26); Blood Urea Nitrogen 24 mg/dL (8-23); Calcium 9.8 mg/dL (8.6-10.3); Carbon Dioxide 32 mEq/L (23-29); Chloride 101 mEq/L (98-107); Glucose 90 mg/dL (70-105); Osmolality,Calculated 290 (280-300); Potassium 3.7 mEq/L (3.5-5.1); Sodium 138 mEq/L (136-145); eGFR For African Americans > 60 (> 60); eGFR For Non-African Americans > 60 (> 60)
[2020-09-04] MEDS: hydrOXYzine pamoate 25 MG CAPSULE PO SCH ×3 (08:54→19:38)
[2020-09-04] MEDS: carvediloL 6.25 MG TABLET PO SCH ×2 (08:55→18:17)
[2020-09-04] MEDS: DilTIAZem CD (24hr) 240 MG CAP.ER.24H PO SCH (08:55)
[2020-09-05] MEDS: Ipratropium/Albuterol Neb 3 ML IH SCH ×6 (04:04→23:14)
[2020-09-05 06:36] LABS: BUN/Creatinine Ratio 33 (6-26); Blood Urea Nitrogen 23 mg/dL (8-23); Calcium 9.8 mg/dL (8.6-10.3); Carbon Dioxide 32 mEq/L (23-29); Chloride 103 mEq/L (98-107); Glucose 91 mg/dL (70-105); Osmolality,Calculated 291 (280-300); Potassium 4.1 mEq/L (3.5-5.1); Sodium 139 mEq/L (136-145); eGFR For African Americans > 60 (> 60); eGFR For Non-African Americans > 60 (> 60)
[2020-09-05] MEDS: DilTIAZem CD (24hr) 240 MG CAP.ER.24H PO SCH (08:47)
[2020-09-05] MEDS: hydrOXYzine pamoate 25 MG CAPSULE PO SCH ×3 (08:47→21:00)
[2020-09-05] MEDS: carvediloL 6.25 MG TABLET PO SCH ×2 (08:47→16:25)
[2020-09-05] MEDS: *HR* Heparin 5,000 UNIT/ML VIAL SQ SCH ×2 (08:48→16:26)
[2020-09-06] MEDS: *HR* Heparin 5,000 UNIT/ML VIAL SQ SCH ×3 (02:43→15:57)
[2020-09-06 04:06] LABS: BUN/Creatinine Ratio 31 (6-26); Blood Urea Nitrogen 24 mg/dL (8-23); Calcium 9.9 mg/dL (8.6-10.3); Carbon Dioxide 30 mEq/L (23-29); Chloride 104 mEq/L (98-107); Glucose 101 mg/dL (70-105); Osmolality,Calculated 292 (280-300); Potassium 4.5 mEq/L (3.5-5.1); Sodium 139 mEq/L (136-145); eGFR For African Americans > 60 (> 60); eGFR For Non-African Americans > 60 (> 60)
[2020-09-06] MEDS: Ipratropium/Albuterol Neb 3 ML IH SCH ×4 (04:14→15:57)
[2020-09-06] MEDS: carvediloL 6.25 MG TABLET PO SCH ×2 (08:51→15:57)
[2020-09-06] MEDS: DilTIAZem CD (24hr) 240 MG CAP.ER.24H PO SCH (08:51)
[2020-09-06] MEDS: hydrOXYzine pamoate 25 MG CAPSULE PO SCH ×2 (08:51→15:56)
[2020-09-06] MEDS ORDERED: Furosemide 40 MG TABLET PO SCH (09:00)
[2020-09-06 16:01] VITALS: BP 127/82
== END 2020-09-06 18:08 | DRG 194 ==
LOC: 2ANU 16:54 → EMEROOARM 16:54 → SUATTDRO 21:11 → 2ANU 21:43
PROVIDERS: ADMIT Internal Medicine; ATTEND Student in an Organized Health Care Education/Training Program

== ENCOUNTER 2021-07-14 15:28 | Observation (INO) ==
[2021-07-14] MEDS ORDERED: Ondansetron 4 MG/2 ML VIAL IVP ONE (16:10)
[2021-07-14] MEDS ORDERED: Morphine Sulfate 2 MG/ML SYRINGE IVP ONE (16:10)
[2021-07-14 16:51] LABS: Basophils % 0.4 %; Eosinophils # 0.2 K/mcL (0.0-0.6); Eosinophils % 2.4 %; Hematocrit 36.6 % (35.3-44.9); Hemoglobin 11.6 g/dL (11.5-15.4); Immature Granulocytes % 0.3 % (0-4); Lymphocytes # 1.2 K/mcL (0.6-4.6); Lymphocytes % 15.8 %; Mean Corpuscular HGB Conc 31.7 g/dL (31.6-35.5); Mean Corpuscular Hemoglobin 29.1 pg (28.0-33.3); Mean Platelet Volume 11.1 fL (9.4-12.4); Monocytes # 0.8 K/mcL (0.0-1.3); Monocytes % 10.4 %; Neutrophils # 5.2 K/mcL (1.6-8.9); Platelet Count 161 K/mcL (140-400); Red Blood Count 3.98 M/mcL (3.82-4.97); Red Cell Distribution Width 13.2 % (11.5-14.5); Segmented Neutrophils % 70.7 %; White Blood Count 7.4 K/mcL (4.3-11.1)
[2021-07-14 17:12] LABS: Alanine Aminotransferase 29 Units/L (7-52); Albumin 3.2 g/dL (3.5-5.7); Alkaline Phosphatase 187 Units/L (34-104); Aspartate Amino Transferase 25 Units/L (13-39); BUN/Creatinine Ratio 29 (6-26); Bilirubin,Direct 0.3 mg/dL (0.0-0.2); Bilirubin,Indirect 0.6 mg/dL (0.0-1.0); Bilirubin,Total 0.9 mg/dL (0.3-1.0); Blood Urea Nitrogen 23 mg/dL (8-23); Calcium 8.8 mg/dL (8.6-10.3); Carbon Dioxide 35 mEq/L (23-29); Chloride 95 mEq/L (98-107); Globulin 3.2 g/dL (2.4-3.5); Glucose 115 mg/dL (70-105); Lipase 6 Units/L (11-82); Osmolality,Calculated 285 (280-300); Potassium 4.1 mEq/L (3.5-5.1); Sodium 135 mEq/L (136-145); Total Protein 6.4 g/dL (6.4-8.9); eGFR For African Americans > 60 (> 60); eGFR For Non-African Americans > 60 (> 60)
[2021-07-14] MEDS ORDERED: Isovue-370 500 ML BOTTLE IVP ONE (19:00)
[2021-07-14] MEDS ORDERED: *HR* Heparin 5,000 UNIT/ML VIAL IVP PRN ×2 (22:16)
[2021-07-14] MEDS ORDERED: *HR* Heparin 5,000 UNIT/ML VIAL IVP ONE (22:16)
[2021-07-14] MEDS ORDERED: Heparin 25,000UNIT/250ML 1/2NS 25,000 UNIT/250 ML IV.SOLN IVC SCH (22:30)
[2021-07-14] MEDS ORDERED: Acetaminophen 325 MG TABLET PO PRN (22:41)
[2021-07-14] MEDS ORDERED: *HR* Promethazine 25 MG/ML VIAL IM PRN (22:41)
[2021-07-14] MEDS ORDERED: Naloxone 0.4 MG/ML INJ IVP PRN (22:41)
[2021-07-14] MEDS ORDERED: *HR* HYDROcodone/Acet 5/325 mg TABLET PO PRN (22:41)
[2021-07-14] MEDS ORDERED: Melatonin 3 MG TABLET PO PRN (22:41)
[2021-07-14] MEDS ORDERED: Ondansetron 4 MG/2 ML VIAL IVP PRN (22:41)
[2021-07-14] MEDS ORDERED: Ipratropium/Albuterol Neb 3 ML IH PRN (22:46)
[2021-07-14] MEDS ORDERED: Perflutren Lipid Microsphere 1.3 ML in 0.9 % Sodium Chloride 8.7 ML IVP PRN (23:35)
[2021-07-15] MEDS: Heparin 25,000 UNIT/250 ML 25,000 UNIT/250 ML IV.SOLN IVC SCH ×2 (00:47→14:09)
[2021-07-15 00:49] LABS: Basophils % 0.4 %; Eosinophils # 0.2 K/mcL (0.0-0.6); Eosinophils % 2.1 %; Hematocrit 37.5 % (35.3-44.9); Hemoglobin 11.9 g/dL (11.5-15.4); Immature Granulocytes % 0.3 % (0-4); Lymphocytes % 13.6 %; Mean Corpuscular HGB Conc 31.7 g/dL (31.6-35.5); Mean Corpuscular Hemoglobin 29.6 pg (28.0-33.3); Mean Corpuscular Volume 93.3 fL (83.0-100.0); Mean Platelet Volume 11.1 fL (9.4-12.4); Monocytes # 0.9 K/mcL (0.0-1.3); Monocytes % 12.1 %; Platelet Count 163 K/mcL (140-400); Red Blood Count 4.02 M/mcL (3.82-4.97); Red Cell Distribution Width 13.2 % (11.5-14.5); Segmented Neutrophils % 71.5 %
[2021-07-15 01:08] LABS: INR 1.1; Prothrombin Time 12.2 Seconds (9.4-12.1)
[2021-07-15 01:10] LABS: BUN/Creatinine Ratio 29 (6-26); Blood Urea Nitrogen 22 mg/dL (8-23); Calcium 9.2 mg/dL (8.6-10.3); Carbon Dioxide 35 mEq/L (23-29); Chloride 96 mEq/L (98-107); Chol/HDL Ratio 3.5 (0-4.9); Cholesterol 125 mg/dL (< 200); Glucose 101 mg/dL (70-105); HDL Cholesterol 36 mg/dL (40-59); LDL Cholesterol,Calculated 75 mg/dL (< 100); Osmolality,Calculated 287 (280-300); Potassium 4.1 mEq/L (3.5-5.1); Sodium 137 mEq/L (136-145); Triglycerides 71 mg/dL (< 150); eGFR For African Americans > 60 (> 60); eGFR For Non-African Americans > 60 (> 60)
[2021-07-15] MEDS ORDERED: polyethylene glycoL 3350 17 GM POWD.PACK PO PRN (01:20)
[2021-07-15 06:47] LABS: Bacteria,Urine Few per hpf (None-Few); Bilirubin,Urine Negative (Negative); Blood,Urine Small (Negative); Clarity,Urine Turbid (Clear); Color,Urine Yellow (Yellow); Glucose,Urine (UA) Normal (Normal); Ketones,Urine Negative (Negative); Leukocyte Esterase,Urine Large (Negative); Nitrite,Urine Negative (Negative); Protein,Urine 30 mg/dL (Neg-Trace); Specific Gravity,Urine > 1.030 (1.010-1.025); Squamous Epithelial Cell,Urine Few per hpf (None-Few); Urobilinogen,Urine Normal (Normal); WBC,Urine 50-100 per hpf (0-3)
[2021-07-15] MEDS ORDERED: Tiotropium 10 INH DOSE IH ONE (07:51)
[2021-07-15] MEDS: Tiotropium 10 INH DOSE IH SCH (07:52)
[2021-07-15] MEDS: DilTIAZem CD (24hr) 240 MG CAP.ER.24H PO SCH (08:13)
[2021-07-15] MEDS: carvediloL 6.25 MG TABLET PO SCH ×2 (08:13→16:46)
[2021-07-15] MEDS ORDERED: Perflutren Lipid Microsphere 1.3 ML in 0.9 % Sodium Chloride 8.7 ML IVP PRN (10:18)
[2021-07-15] MEDS: *HR* OxyCODONE Immed Rel 5 MG TABLET PO PRN ×2 (13:31→23:18)
[2021-07-15] MEDS ORDERED: FLUTICASONE PROPIONATE IH SCH (21:00)
[2021-07-16] MEDS: *HR* OxyCODONE Immed Rel 5 MG TABLET PO PRN ×3 (05:31→19:57)
[2021-07-16] MEDS: Heparin 25,000 UNIT/250 ML 25,000 UNIT/250 ML IV.SOLN IVC SCH ×2 (05:33→21:52)
[2021-07-16 06:50] LABS: Basophils % 0.4 %; Eosinophils # 0.2 K/mcL (0.0-0.6); Hematocrit 35.6 % (35.3-44.9); Hemoglobin 11.3 g/dL (11.5-15.4); Immature Granulocytes % 0.2 % (0-4); Mean Corpuscular HGB Conc 31.7 g/dL (31.6-35.5); Mean Corpuscular Hemoglobin 29.5 pg (28.0-33.3); Mean Platelet Volume 10.7 fL (9.4-12.4); Monocytes # 0.7 K/mcL (0.0-1.3); Monocytes % 13.5 %; Neutrophils # 3.5 K/mcL (1.6-8.9); Platelet Count 199 K/mcL (140-400); Red Blood Count 3.83 M/mcL (3.82-4.97); Red Cell Distribution Width 13.2 % (11.5-14.5); Segmented Neutrophils % 62.9 %; White Blood Count 5.5 K/mcL (4.3-11.1)
[2021-07-16 07:08] LABS: BUN/Creatinine Ratio 38 (6-26); Blood Urea Nitrogen 29 mg/dL (8-23); Calcium 9.1 mg/dL (8.6-10.3); Carbon Dioxide 36 mEq/L (23-29); Chloride 96 mEq/L (98-107); Glucose 91 mg/dL (70-105); Osmolality,Calculated 289 (280-300); Potassium 4.5 mEq/L (3.5-5.1); Sodium 137 mEq/L (136-145); eGFR For African Americans > 60 (> 60); eGFR For Non-African Americans > 60 (> 60)
[2021-07-16] MEDS: Tiotropium 10 INH DOSE IH SCH (08:03)
[2021-07-16] MEDS: carvediloL 6.25 MG TABLET PO SCH ×2 (08:30→16:40)
[2021-07-16] MEDS: Furosemide 40 MG TABLET PO SCH (08:30)
[2021-07-16] MEDS: DilTIAZem CD (24hr) 240 MG CAP.ER.24H PO SCH (08:30)
[2021-07-16] MEDS: Letrozole 2.5 MG TABLET PO SCH (08:30)
[2021-07-16] MEDS: Magnesium Oxide 400 MG TABLET PO SCH (08:30)
[2021-07-16] MEDS: Loratadine 10 MG TABLET PO SCH (08:30)
[2021-07-16] MEDS: Nystatin SUSP 5 ML UD.LIQ PO SCH ×3 (12:55→19:57)
[2021-07-16] MEDS: Nystatin POWDER 30 GM BOTTLE TP SCH ×2 (14:42→20:05)
[2021-07-17 04:47] LABS: Hematocrit 34.3 % (35.3-44.9); Hemoglobin 10.6 g/dL (11.5-15.4); Mean Corpuscular HGB Conc 30.9 g/dL (31.6-35.5); Mean Corpuscular Hemoglobin 28.9 pg (28.0-33.3); Mean Corpuscular Volume 93.5 fL (83.0-100.0); Mean Platelet Volume 11.1 fL (9.4-12.4); Platelet Count 190 K/mcL (140-400); Red Blood Count 3.67 M/mcL (3.82-4.97); Red Cell Distribution Width 13.2 % (11.5-14.5); White Blood Count 5.3 K/mcL (4.3-11.1)
[2021-07-17 05:06] LABS: BUN/Creatinine Ratio 35 (6-26); Blood Urea Nitrogen 29 mg/dL (8-23); Calcium 9.1 mg/dL (8.6-10.3); Carbon Dioxide 36 mEq/L (23-29); Chloride 96 mEq/L (98-107); Glucose 106 mg/dL (70-105); Osmolality,Calculated 290 (280-300); Potassium 4.4 mEq/L (3.5-5.1); Sodium 137 mEq/L (136-145); eGFR For African Americans > 60 (> 60); eGFR For Non-African Americans > 60 (> 60)
[2021-07-17] MEDS: Tiotropium 10 INH DOSE IH SCH (08:38)
[2021-07-17] MEDS: Nystatin SUSP 5 ML UD.LIQ PO SCH ×2 (08:44→15:16)
[2021-07-17] MEDS: Furosemide 40 MG TABLET PO SCH (08:44)
[2021-07-17] MEDS: Magnesium Oxide 400 MG TABLET PO SCH (08:44)
[2021-07-17] MEDS: Loratadine 10 MG TABLET PO SCH (08:44)
[2021-07-17] MEDS: DilTIAZem CD (24hr) 240 MG CAP.ER.24H PO SCH (08:44)
[2021-07-17] MEDS: carvediloL 6.25 MG TABLET PO SCH (08:45)
[2021-07-17] MEDS: Letrozole 2.5 MG TABLET PO SCH (08:46)
[2021-07-17] MEDS: Heparin 25,000 UNIT/250 ML 25,000 UNIT/250 ML IV.SOLN IVC SCH (09:25)
[2021-07-17] MEDS: Nystatin POWDER 30 GM BOTTLE TP SCH ×2 (09:26→15:16)
[2021-07-17] MEDS ORDERED: *HR* Rivaroxaban 10 MG TABLET PO SCH (10:00)
[2021-07-17 11:06] VITALS: O2SAT 96
[2021-07-17 16:19] VITALS: BP 128/60; PULSE 79; TEMP 98.3
[2021-07-17 16:52] LABS: Adenovirus Not Detected (Not Detect); Bordetella Pertussis Not Detected (Not Detect); Chlamydophila pneumoniae Not Detected (Not Detect); Coronavirus 229E Not Detected (Not Detect); Coronavirus HKU1 Not Detected (Not Detect); Coronavirus NL63 Not Detected (Not Detect); Coronavirus OC43 Not Detected (Not Detect); Human Metapneumovirus Not Detected (Not Detect); Human Rhinovirus/Enterovirus Not Detected (Not Detect); Influenza A Subtype 2009 H1 Not Detected (Not Detect); Influenza B Not Detected (Not Detect); Mycoplasma pneumoniae Not Detected (Not Detect); Parainfluenza Virus 1 Not Detected (Not Detect); Parainfluenza Virus 2 Not Detected (Not Detect); Parainfluenza Virus 3 Not Detected (Not Detect); Parainfluenza Virus 4 Not Detected (Not Detect); Respiratory Syncytial Virus Not Detected (Not Detect); SARS-CoV-2 Not Detected (Not Detect)
== END 2021-07-17 18:10 ==
LOC: 2ANU 15:28 → EMEROOARM 15:28 → SUATTDRO 22:29 → 2ANU 23:05
PROVIDERS: ADMIT Internal Medicine; ATTEND Internal Medicine

== ENCOUNTER 2021-09-28 13:57 | Inpatient (IN) ==
[2021-09-28 15:20] LABS: Basophils % 0.7 %; Eosinophils # 0.2 K/mcL (0.0-0.6); Eosinophils % 3.5 %; Hematocrit 40.4 % (35.3-44.9); Hemoglobin 12.9 g/dL (11.5-15.4); Immature Granulocytes % 0.4 % (0-4); Lymphocytes # 1.8 K/mcL (0.6-4.6); Lymphocytes % 32.6 %; Mean Corpuscular HGB Conc 31.9 g/dL (31.6-35.5); Mean Corpuscular Hemoglobin 29.1 pg (28.0-33.3); Mean Platelet Volume 10.9 fL (9.4-12.4); Monocytes # 0.5 K/mcL (0.0-1.3); Monocytes % 8.3 %; Platelet Count 262 K/mcL (140-400); Red Blood Count 4.44 M/mcL (3.82-4.97); Red Cell Distribution Width 13.4 % (11.5-14.5); Segmented Neutrophils % 54.5 %; White Blood Count 5.4 K/mcL (4.3-11.1)
[2021-09-28 15:24] LABS: INR 1.9; Prothrombin Time 21.5 Seconds (9.4-12.1)
[2021-09-28 15:30] LABS: BUN/Creatinine Ratio 26 (6-26); Blood Urea Nitrogen 20 mg/dL (8-23); Carbon Dioxide 36 mEq/L (23-29); Chloride 98 mEq/L (98-107); Glucose 101 mg/dL (70-105); Osmolality,Calculated 293 (280-300); Potassium 3.9 mEq/L (3.5-5.1); Sodium 140 mEq/L (136-145); eGFR For African Americans > 60 (> 60); eGFR For Non-African Americans > 60 (> 60)
[2021-09-28] MEDS ORDERED: Melatonin 3 MG TABLET PO PRN (15:56)
[2021-09-28] MEDS ORDERED: Acetaminophen 325 MG TABLET PO PRN ×2 (15:56→16:53)
[2021-09-28] MEDS ORDERED: Naloxone 0.4 MG/ML INJ IVP PRN ×2 (15:56→16:42)
[2021-09-28] MEDS ORDERED: Ondansetron 4 MG/2 ML VIAL IVP PRN (16:42)
[2021-09-28] MEDS ORDERED: *HR* HYDROcodone/Acet 5/325 mg TABLET PO PRN (16:53)
[2021-09-28] MEDS ORDERED: polyethylene glycoL 3350 17 GM POWD.PACK PO PRN (16:53)
[2021-09-28] MEDS ORDERED: Isovue-370 500 ML BOTTLE IVP ONE (17:05)
[2021-09-28] MEDS ORDERED: Isovue-370 500 ML BOTTLE PO ONE (17:34)
[2021-09-28] MEDS: levoFLOXacin 750 MG/150 ML 750 MG/150 ML BAG IVPB SCH (18:04)
[2021-09-28] MEDS: Ipratropium/Albuterol Neb 3 ML IH SCH (18:04)
[2021-09-28] MEDS: carvediloL 6.25 MG TABLET PO SCH (18:06)
[2021-09-28] MEDS: Budesonide/Formoterol 160/4.5 1 PUFF INH IH SCH (19:48)
[2021-09-28] MEDS: *HR* Rivaroxaban 10 MG TABLET PO SCH (20:36)
[2021-09-28] MEDS: Furosemide 40 MG TABLET PO SCH (20:37)
[2021-09-28] MEDS ORDERED: FLUTICASONE PROPIONATE IH SCH (21:00)
[2021-09-29 04:36] LABS: Bacteria,Urine Few per hpf (None-Few); Bilirubin,Urine Negative (Negative); Blood,Urine Small (Negative); Clarity,Urine Clear (Clear); Color,Urine Light-Yellow (Yellow); Glucose,Urine (UA) Normal (Normal); Ketones,Urine Negative (Negative); Leukocyte Esterase,Urine Moderate (Negative); Nitrite,Urine Negative (Negative); PH,Urine 6.5 pH Units (5.0-8.0); Protein,Urine Negative (Neg-Trace); RBC,Urine 0-3 per hpf (0-3); Squamous Epithelial Cell,Urine Few per hpf (None-Few); Urobilinogen,Urine Normal (Normal); WBC,Urine 0-3 per hpf (0-3)
[2021-09-29] MEDS ORDERED: Tiotropium 10 INH DOSE IH ONE (07:36)
[2021-09-29] MEDS: Budesonide/Formoterol 160/4.5 1 PUFF INH IH SCH ×2 (07:37→19:32)
[2021-09-29] MEDS: Tiotropium 10 INH DOSE IH SCH (07:37)
[2021-09-29 08:08] LABS: Prothrombin Time 22.2 Seconds (9.4-12.1)
[2021-09-29 08:38] LABS: Alanine Aminotransferase 23 Units/L (7-52); Albumin 3.3 g/dL (3.5-5.7); Albumin/Globulin Ratio 1.1 (1.1-2.2); Alkaline Phosphatase 143 Units/L (34-104); Aspartate Amino Transferase 23 Units/L (13-39); BUN/Creatinine Ratio 22 (6-26); Bilirubin,Total 0.6 mg/dL (0.3-1.0); Blood Urea Nitrogen 18 mg/dL (8-23); Calcium 9.2 mg/dL (8.6-10.3); Carbon Dioxide 37 mEq/L (23-29); Chloride 97 mEq/L (98-107); Globulin 3.1 g/dL (2.4-3.5); Glucose 88 mg/dL (70-105); Lipase 5 Units/L (11-82); Magnesium 1.9 mg/dL (1.6-2.6); Osmolality,Calculated 291 (280-300); Potassium 3.8 mEq/L (3.5-5.1); Sodium 140 mEq/L (136-145); Total Protein 6.4 g/dL (6.4-8.9); Troponin I < 0.03 ng/mL (< 0.04); eGFR For African Americans > 60 (> 60); eGFR For Non-African Americans > 60 (> 60)
[2021-09-29] MEDS: Letrozole 2.5 MG TABLET PO SCH (10:04)
[2021-09-29] MEDS: Furosemide 40 MG TABLET PO SCH ×2 (10:04→16:17)
[2021-09-29] MEDS: Famotidine 20 MG TABLET PO SCH (10:04)
[2021-09-29] MEDS: Magnesium Oxide 400 MG TABLET PO SCH (10:04)
[2021-09-29] MEDS: carvediloL 6.25 MG TABLET PO SCH ×2 (10:05→16:17)
[2021-09-29] MEDS: Loratadine 10 MG TABLET PO SCH (10:05)
[2021-09-29] MEDS: DilTIAZem CD (24hr) 240 MG CAP.ER.24H PO SCH (10:05)
[2021-09-29 10:20] LABS: Eosinophils # 0.2 K/mcL (0.0-0.6); Eosinophils % 3.7 %; Hematocrit 40.1 % (35.3-44.9); Hemoglobin 12.8 g/dL (11.5-15.4); Immature Granulocytes % 0.2 % (0-4); Lymphocytes # 1.2 K/mcL (0.6-4.6); Lymphocytes % 28.9 %; Mean Corpuscular HGB Conc 31.9 g/dL (31.6-35.5); Mean Corpuscular Volume 90.9 fL (83.0-100.0); Mean Platelet Volume 10.8 fL (9.4-12.4); Monocytes # 0.4 K/mcL (0.0-1.3); Neutrophils # 2.3 K/mcL (1.6-8.9); Platelet Count 210 K/mcL (140-400); Red Blood Count 4.41 M/mcL (3.82-4.97); Red Cell Distribution Width 13.4 % (11.5-14.5); Segmented Neutrophils % 57.2 %
[2021-09-29 10:35] LABS: Lipase 11 Units/L (11-82)
[2021-09-29 10:36] LABS: Troponin I < 0.03 ng/mL (< 0.04)
[2021-09-29] MEDS ORDERED: Lidocaine HCL 4 ML Topical Solution (Laryng-O-Jet Kit Sterile Pak) TP ONE (12:57)
[2021-09-29] MEDS ORDERED: *HR* Succinylcholine 200 MG/10 ML VIAL IVP ONE (12:57)
[2021-09-29] MEDS ORDERED: Ondansetron 4 MG/2 ML VIAL ONE (12:57)
[2021-09-29] MEDS ORDERED: Lidocaine -MPF 2% 5 ML VIAL ONE (12:57)
[2021-09-29] MEDS ORDERED: *HR* Propofol 200 MG/20 ML VIAL IVP ONE (12:58)
[2021-09-29] MEDS ORDERED: Lidocaine -MPF 4% 5 ML AMPUL ONE (13:17)
[2021-09-29] MEDS ORDERED: Acetylcysteine 10% 2 ML INHSOL IH ONE (13:40)
[2021-09-29] MEDS: levoFLOXacin 750 MG/150 ML 750 MG/150 ML BAG IVPB SCH (16:17)
[2021-09-29] MEDS: *HR* Rivaroxaban 10 MG TABLET PO SCH (20:02)
[2021-09-30 06:09] LABS: Basophils % 0.3 %; Hematocrit 38.5 % (35.3-44.9); Hemoglobin 12.4 g/dL (11.5-15.4); Immature Granulocytes % 0.3 % (0-4); Lymphocytes # 0.6 K/mcL (0.6-4.6); Lymphocytes % 16.2 %; Mean Corpuscular HGB Conc 32.2 g/dL (31.6-35.5); Mean Corpuscular Hemoglobin 28.6 pg (28.0-33.3); Mean Corpuscular Volume 88.9 fL (83.0-100.0); Mean Platelet Volume 10.6 fL (9.4-12.4); Monocytes # 0.3 K/mcL (0.0-1.3); Monocytes % 7.6 %; Neutrophils # 2.6 K/mcL (1.6-8.9); Platelet Count 225 K/mcL (140-400); Red Blood Count 4.33 M/mcL (3.82-4.97); Red Cell Distribution Width 13.2 % (11.5-14.5); Segmented Neutrophils % 75.6 %; White Blood Count 3.4 K/mcL (4.3-11.1)
[2021-09-30 06:28] LABS: BUN/Creatinine Ratio 24 (6-26); Blood Urea Nitrogen 21 mg/dL (8-23); Carbon Dioxide 35 mEq/L (23-29); Chloride 97 mEq/L (98-107); Glucose 128 mg/dL (70-105); Osmolality,Calculated 291 (280-300); Potassium 3.5 mEq/L (3.5-5.1); Sodium 138 mEq/L (136-145); eGFR For African Americans > 60 (> 60); eGFR For Non-African Americans > 60 (> 60)
[2021-09-30] MEDS ORDERED: Gadolinium Contrast Agent (WT Based) IV PRN (07:42)
[2021-09-30] MEDS: Tiotropium 10 INH DOSE IH SCH (07:47)
[2021-09-30] MEDS: Budesonide/Formoterol 160/4.5 1 PUFF INH IH SCH ×2 (07:47→20:06)
[2021-09-30] MEDS: Loratadine 10 MG TABLET PO SCH (07:49)
[2021-09-30] MEDS: Magnesium Oxide 400 MG TABLET PO SCH (07:49)
[2021-09-30] MEDS: carvediloL 6.25 MG TABLET PO SCH ×2 (07:49→17:18)
[2021-09-30] MEDS: Furosemide 40 MG TABLET PO SCH ×2 (07:50→17:18)
[2021-09-30] MEDS: DilTIAZem CD (24hr) 240 MG CAP.ER.24H PO SCH (07:50)
[2021-09-30] MEDS: Famotidine 20 MG TABLET PO SCH (07:50)
[2021-09-30] MEDS: Letrozole 2.5 MG TABLET PO SCH (07:50)
[2021-09-30] MEDS: Vancomycin 1,500 MG/265 ML IV.SOLN IVPB SCH (13:41)
[2021-09-30] MEDS: levoFLOXacin 750 MG/150 ML 750 MG/150 ML BAG IVPB SCH (17:18)
[2021-09-30] MEDS: *HR* Rivaroxaban 10 MG TABLET PO SCH (20:37)
[2021-10-01] MEDS: Vancomycin 1,500 MG/265 ML IV.SOLN IVPB SCH ×2 (00:29→13:35)
[2021-10-01 06:35] LABS: Basophils % 0.3 %; Eosinophils # 0.1 K/mcL (0.0-0.6); Eosinophils % 1.3 %; Hematocrit 37.3 % (35.3-44.9); Hemoglobin 11.9 g/dL (11.5-15.4); Lymphocytes # 1.3 K/mcL (0.6-4.6); Lymphocytes % 31.5 %; Mean Corpuscular HGB Conc 31.9 g/dL (31.6-35.5); Mean Platelet Volume 10.8 fL (9.4-12.4); Monocytes # 0.4 K/mcL (0.0-1.3); Monocytes % 9.8 %; Neutrophils # 2.3 K/mcL (1.6-8.9); Platelet Count 212 K/mcL (140-400); Red Cell Distribution Width 13.6 % (11.5-14.5); Segmented Neutrophils % 57.1 %
[2021-10-01 07:27] LABS: BUN/Creatinine Ratio 22 (6-26); Blood Urea Nitrogen 18 mg/dL (8-23); Calcium 8.8 mg/dL (8.6-10.3); Carbon Dioxide 36 mEq/L (23-29); Chloride 98 mEq/L (98-107); Glucose 99 mg/dL (70-105); Osmolality,Calculated 290 (280-300); Potassium 3.5 mEq/L (3.5-5.1); Sodium 139 mEq/L (136-145); eGFR For African Americans > 60 (> 60); eGFR For Non-African Americans > 60 (> 60)
[2021-10-01] MEDS: Tiotropium 10 INH DOSE IH SCH (07:50)
[2021-10-01] MEDS: Budesonide/Formoterol 160/4.5 1 PUFF INH IH SCH ×2 (07:50→20:20)
[2021-10-01] MEDS: Magnesium Oxide 400 MG TABLET PO SCH (08:14)
[2021-10-01] MEDS: Famotidine 20 MG TABLET PO SCH (08:14)
[2021-10-01] MEDS: Letrozole 2.5 MG TABLET PO SCH (08:14)
[2021-10-01] MEDS: Loratadine 10 MG TABLET PO SCH (08:15)
[2021-10-01] MEDS: DilTIAZem CD (24hr) 240 MG CAP.ER.24H PO SCH (08:15)
[2021-10-01] MEDS: Furosemide 40 MG TABLET PO SCH ×2 (08:16→16:38)
[2021-10-01] MEDS: carvediloL 6.25 MG TABLET PO SCH ×3 (08:16→16:47)
[2021-10-01] MEDS: *HR* Heparin 5,000 UNIT/ML VIAL SQ SCH ×2 (13:39→20:49)
[2021-10-01] MEDS: levoFLOXacin 750 MG/150 ML 750 MG/150 ML BAG IVPB SCH (16:38)
[2021-10-02 00:56] LABS: Basophils % 0.6 %; Eosinophils # 0.2 K/mcL (0.0-0.6); Eosinophils % 3.3 %; Hematocrit 35.4 % (35.3-44.9); Hemoglobin 11.2 g/dL (11.5-15.4); Immature Granulocytes % 0.2 % (0-4); Lymphocytes # 1.4 K/mcL (0.6-4.6); Lymphocytes % 28.5 %; Mean Corpuscular HGB Conc 31.6 g/dL (31.6-35.5); Mean Corpuscular Hemoglobin 28.9 pg (28.0-33.3); Mean Corpuscular Volume 91.2 fL (83.0-100.0); Mean Platelet Volume 10.5 fL (9.4-12.4); Monocytes # 0.5 K/mcL (0.0-1.3); Monocytes % 10.1 %; Neutrophils # 2.8 K/mcL (1.6-8.9); Platelet Count 199 K/mcL (140-400); Red Blood Count 3.88 M/mcL (3.82-4.97); Red Cell Distribution Width 13.8 % (11.5-14.5); Segmented Neutrophils % 57.3 %; White Blood Count 4.9 K/mcL (4.3-11.1)
[2021-10-02 01:09] LABS: BUN/Creatinine Ratio 24 (6-26); Blood Urea Nitrogen 22 mg/dL (8-23); Calcium 8.6 mg/dL (8.6-10.3); Carbon Dioxide 33 mEq/L (23-29); Chloride 97 mEq/L (98-107); Glucose 105 mg/dL (70-105); Osmolality,Calculated 286 (280-300); Potassium 3.6 mEq/L (3.5-5.1); Sodium 136 mEq/L (136-145); eGFR For African Americans > 60 (> 60); eGFR For Non-African Americans > 60 (> 60)
[2021-10-02] MEDS: Vancomycin 1,500 MG/265 ML IV.SOLN IVPB SCH (02:37)
[2021-10-02] MEDS: *HR* Heparin 5,000 UNIT/ML VIAL SQ SCH ×3 (06:15→20:50)
[2021-10-02] MEDS: Budesonide/Formoterol 160/4.5 1 PUFF INH IH SCH ×2 (07:27→19:47)
[2021-10-02] MEDS: Tiotropium 10 INH DOSE IH SCH (07:28)
[2021-10-02] MEDS ORDERED: Vancomycin 1,250 MG/262.5 ML IV.SOLN IVPB SCH (08:00)
[2021-10-02] MEDS: Furosemide 40 MG TABLET PO SCH ×2 (08:22→19:01)
[2021-10-02] MEDS: Famotidine 20 MG TABLET PO SCH (08:22)
[2021-10-02] MEDS: Magnesium Oxide 400 MG TABLET PO SCH (08:22)
[2021-10-02] MEDS: carvediloL 6.25 MG TABLET PO SCH ×2 (08:22→19:01)
[2021-10-02] MEDS: DilTIAZem CD (24hr) 240 MG CAP.ER.24H PO SCH (08:22)
[2021-10-02] MEDS: Letrozole 2.5 MG TABLET PO SCH (08:22)
[2021-10-02] MEDS: Loratadine 10 MG TABLET PO SCH (08:22)
[2021-10-02] MEDS ORDERED: Lidocaine -MPF 4% 5 ML AMPUL ONE (11:19)
[2021-10-02] MEDS ORDERED: Lidocaine -MPF 2% 5 ML VIAL ONE (11:19)
[2021-10-02] MEDS ORDERED: Ondansetron 4 MG/2 ML VIAL ONE (11:19)
[2021-10-02] MEDS ORDERED: *HR* FentaNYL (PF) 100 MCG/2 ML VIAL ONE (11:19)
[2021-10-02] MEDS ORDERED: *HR* Rocuronium Bromide 50 MG/5 ML VIAL ONE (11:19)
[2021-10-02] MEDS ORDERED: *HR* Propofol 200 MG/20 ML VIAL IVP ONE (11:19)
[2021-10-02] MEDS ORDERED: Vancomycin 2,000 MG/520 ML IV.SOLN IVPB SCH (13:00)
[2021-10-02] MEDS: levoFLOXacin 750 MG/150 ML 750 MG/150 ML BAG IVPB SCH (19:01)
[2021-10-03] MEDS: *HR* Heparin 5,000 UNIT/ML VIAL SQ SCH ×3 (06:52→21:03)
[2021-10-03] MEDS: Budesonide/Formoterol 160/4.5 1 PUFF INH IH SCH ×2 (07:36→20:04)
[2021-10-03] MEDS: Tiotropium 10 INH DOSE IH SCH (07:36)
[2021-10-03] MEDS: Magnesium Oxide 400 MG TABLET PO SCH (09:13)
[2021-10-03] MEDS: Loratadine 10 MG TABLET PO SCH (09:13)
[2021-10-03] MEDS: Letrozole 2.5 MG TABLET PO SCH (09:13)
[2021-10-03] MEDS: carvediloL 6.25 MG TABLET PO SCH ×2 (09:14→16:42)
[2021-10-03] MEDS: Famotidine 20 MG TABLET PO SCH (09:15)
[2021-10-03] MEDS: DilTIAZem CD (24hr) 240 MG CAP.ER.24H PO SCH (09:15)
[2021-10-03] MEDS: Furosemide 40 MG TABLET PO SCH ×2 (09:15→16:42)
[2021-10-03] MEDS: levoFLOXacin 750 MG/150 ML 750 MG/150 ML BAG IVPB SCH (16:44)
[2021-10-04] MEDS: *HR* Heparin 5,000 UNIT/ML VIAL SQ SCH ×3 (05:48→21:11)
[2021-10-04 07:05] LABS: Basophils % 0.4 %; Eosinophils # 0.1 K/mcL (0.0-0.6); Eosinophils % 1.1 %; Hematocrit 37.4 % (35.3-44.9); Hemoglobin 11.9 g/dL (11.5-15.4); Immature Granulocytes % 0.4 % (0-4); Lymphocytes # 1.9 K/mcL (0.6-4.6); Lymphocytes % 33.9 %; Mean Corpuscular HGB Conc 31.8 g/dL (31.6-35.5); Mean Corpuscular Hemoglobin 28.5 pg (28.0-33.3); Mean Corpuscular Volume 89.7 fL (83.0-100.0); Mean Platelet Volume 10.6 fL (9.4-12.4); Monocytes # 0.5 K/mcL (0.0-1.3); Monocytes % 8.9 %; Neutrophils # 3.1 K/mcL (1.6-8.9); Platelet Count 198 K/mcL (140-400); Red Blood Count 4.17 M/mcL (3.82-4.97); Segmented Neutrophils % 55.3 %; White Blood Count 5.6 K/mcL (4.3-11.1)
[2021-10-04 07:25] LABS: BUN/Creatinine Ratio 22 (6-26); Blood Urea Nitrogen 22 mg/dL (8-23); Calcium 8.8 mg/dL (8.6-10.3); Carbon Dioxide 36 mEq/L (23-29); Chloride 97 mEq/L (98-107); Glucose 100 mg/dL (70-105); Osmolality,Calculated 291 (280-300); Potassium 3.2 mEq/L (3.5-5.1); Sodium 139 mEq/L (136-145); eGFR For African Americans > 60 (> 60); eGFR For Non-African Americans 54 (> 60)
[2021-10-04] MEDS: Tiotropium 10 INH DOSE IH SCH (07:40)
[2021-10-04] MEDS: Budesonide/Formoterol 160/4.5 1 PUFF INH IH SCH ×2 (07:40→20:28)
[2021-10-04] MEDS: carvediloL 6.25 MG TABLET PO SCH ×2 (07:56→17:36)
[2021-10-04] MEDS: DilTIAZem CD (24hr) 240 MG CAP.ER.24H PO SCH (07:56)
[2021-10-04] MEDS: Loratadine 10 MG TABLET PO SCH (07:56)
[2021-10-04] MEDS: Letrozole 2.5 MG TABLET PO SCH (07:56)
[2021-10-04] MEDS: Famotidine 20 MG TABLET PO SCH (07:56)
[2021-10-04] MEDS: Furosemide 40 MG TABLET PO SCH ×2 (07:56→17:36)
[2021-10-04] MEDS: Magnesium Oxide 400 MG TABLET PO SCH (07:56)
[2021-10-04] MEDS ORDERED: 0.9 % Sodium Chloride 500 ML ONE (08:19)
[2021-10-04] MEDS ORDERED: *HR* FentaNYL (PF) 100 MCG/2 ML VIAL IVP ONE (08:26)
[2021-10-04] MEDS ORDERED: hydrOXYzine pamoate 25 MG CAPSULE PO PRN (16:37)
[2021-10-04] MEDS: cefTRIAXone 1,000 MG in 0.9 % Sodium Chloride 10 ML IVP SCH (17:36)
[2021-10-05] MEDS: *HR* Heparin 5,000 UNIT/ML VIAL SQ SCH ×3 (05:34→20:13)
[2021-10-05] MEDS: Tiotropium 10 INH DOSE IH SCH (08:07)
[2021-10-05] MEDS: Budesonide/Formoterol 160/4.5 1 PUFF INH IH SCH ×2 (08:08→20:08)
[2021-10-05] MEDS: Furosemide 40 MG TABLET PO SCH ×2 (08:48→16:35)
[2021-10-05] MEDS: carvediloL 6.25 MG TABLET PO SCH ×2 (08:48→16:35)
[2021-10-05] MEDS ORDERED: levoFLOXacin 750 MG TABLET PO SCH (09:00)
[2021-10-05] MEDS: DilTIAZem CD (24hr) 240 MG CAP.ER.24H PO SCH (10:47)
[2021-10-05] MEDS: Loratadine 10 MG TABLET PO SCH (10:47)
[2021-10-05] MEDS: Magnesium Oxide 400 MG TABLET PO SCH (10:48)
[2021-10-05] MEDS: Letrozole 2.5 MG TABLET PO SCH (10:48)
[2021-10-05] MEDS: Famotidine 20 MG TABLET PO SCH (10:48)
[2021-10-05] MEDS: cefTRIAXone 1,000 MG in 0.9 % Sodium Chloride 10 ML IVP SCH (10:48)
[2021-10-05] MEDS ORDERED: *HR* FentaNYL (PF) 100 MCG/2 ML VIAL ONE (13:59)
[2021-10-06 05:43] LABS: Hemoglobin 12.1 g/dL (11.5-15.4); Mean Corpuscular HGB Conc 31.8 g/dL (31.6-35.5); Mean Corpuscular Hemoglobin 28.6 pg (28.0-33.3); Mean Corpuscular Volume 89.8 fL (83.0-100.0); Mean Platelet Volume 10.5 fL (9.4-12.4); Platelet Count 199 K/mcL (140-400); Red Blood Count 4.23 M/mcL (3.82-4.97); Red Cell Distribution Width 14.1 % (11.5-14.5); White Blood Count 4.6 K/mcL (4.3-11.1)
[2021-10-06 06:01] LABS: BUN/Creatinine Ratio 27 (6-26); Blood Urea Nitrogen 24 mg/dL (8-23); Carbon Dioxide 35 mEq/L (23-29); Chloride 98 mEq/L (98-107); Glucose 139 mg/dL (70-105); Magnesium 2.1 mg/dL (1.6-2.6); Osmolality,Calculated 290 (280-300); Potassium 4.1 mEq/L (3.5-5.1); Sodium 137 mEq/L (136-145); eGFR For African Americans > 60 (> 60); eGFR For Non-African Americans > 60 (> 60)
[2021-10-06] MEDS: Tiotropium 10 INH DOSE IH SCH (07:56)
[2021-10-06] MEDS: Budesonide/Formoterol 160/4.5 1 PUFF INH IH SCH (07:57)
[2021-10-06] MEDS: Magnesium Oxide 400 MG TABLET PO SCH (09:46)
[2021-10-06] MEDS: Famotidine 20 MG TABLET PO SCH (09:47)
[2021-10-06] MEDS: DilTIAZem CD (24hr) 240 MG CAP.ER.24H PO SCH (09:47)
[2021-10-06] MEDS: carvediloL 6.25 MG TABLET PO SCH (09:47)
[2021-10-06] MEDS: Letrozole 2.5 MG TABLET PO SCH (09:47)
[2021-10-06] MEDS: *HR* Heparin 5,000 UNIT/ML VIAL SQ SCH (09:47)
[2021-10-06] MEDS: Loratadine 10 MG TABLET PO SCH (09:47)
[2021-10-06] MEDS: Furosemide 40 MG TABLET PO SCH (09:47)
[2021-10-06] MEDS: cefTRIAXone 1,000 MG in 0.9 % Sodium Chloride 10 ML IVP SCH (09:48)
[2021-10-06 11:28] VITALS: O2SAT 98
[2021-10-06 11:55] VITALS: BP 113/53; PULSE 90; TEMP 97.9
== END 2021-10-06 16:00 | DRG 139 ==
LOC: EMEROOARM 13:57 → 3NENU 15:19 → SUATTDRO 15:19 → INTOOBSV 15:19 → OBSVTOIN 15:19 → 3NENU 15:53
PROVIDERS: ADMIT Internal Medicine; ATTEND Internal Medicine
PROC: ENDOBRF (2021-09-29 22:30)

== ENCOUNTER 2021-11-29 12:19 | Inpatient (IN) ==
[~2021-11-29 12:19] MED LIST: *HR* Etomidate 20 MG/10 ML AMPUL IVP ONE; *HR* Midazolam HCl 5 MG/5 ML VIAL IVP ONE
[2021-11-29] MEDS ORDERED: Ipratropium/Albuterol Neb 3 ML IH ONE (12:31)
[2021-11-29 12:46] LABS: Basophils # 0.1 K/mcL (0.0-0.2); Basophils % 0.9 %; Eosinophils # 0.1 K/mcL (0.0-0.6); Eosinophils % 1.1 %; Hematocrit 42.1 % (35.3-44.9); Hemoglobin 13.2 g/dL (11.5-15.4); Immature Granulocytes % 0.6 % (0-4); Lymphocytes % 15.5 %; Mean Corpuscular HGB Conc 31.4 g/dL (31.6-35.5); Mean Corpuscular Hemoglobin 30.1 pg (28.0-33.3); Mean Corpuscular Volume 96.1 fL (83.0-100.0); Mean Platelet Volume 9.7 fL (9.4-12.4); Monocytes # 0.2 K/mcL (0.0-1.3); Monocytes % 3.8 %; Neutrophils # 4.9 K/mcL (1.6-8.9); Platelet Count 328 K/mcL (140-400); Red Blood Count 4.38 M/mcL (3.82-4.97); Red Cell Distribution Width 14.6 % (11.5-14.5); Segmented Neutrophils % 78.1 %
[2021-11-29 12:55] LABS: VBG HCO3 45 mEq/L (21-27); VBG PCO2 102 mmHg (41-51); VBG PH 7.26 pH Units (7.32-7.42); VBG PO2 80 mmHg (25-50)
[2021-11-29 12:59] LABS: White Blood Count 6.3 K/mcL (4.3-11.1)
[2021-11-29 13:03] LABS: Platelet Estimate Normal (Normal); Reactive Lymphocytes Present (Not Present)
[2021-11-29 13:34] LABS: Alanine Aminotransferase 14 Units/L (7-52); Albumin 3.6 g/dL (3.5-5.7); Alkaline Phosphatase 166 Units/L (34-104); Aspartate Amino Transferase 17 Units/L (13-39); BUN/Creatinine Ratio 17 (6-26); Bilirubin,Total 0.9 mg/dL (0.3-1.0); Blood Urea Nitrogen 15 mg/dL (8-23); Calcium 9.9 mg/dL (8.6-10.3); Carbon Dioxide 40 mEq/L (23-29); Chloride 93 mEq/L (98-107); Globulin 3.5 g/dL (2.4-3.5); Glucose 140 mg/dL (70-105); Lipase < 3 Units/L (11-82); Magnesium 1.8 mg/dL (1.6-2.6); Osmolality,Calculated 297 (280-300); Potassium 4.7 mEq/L (3.5-5.1); Sodium 142 mEq/L (136-145); Total Protein 7.1 g/dL (6.4-8.9); eGFR For African Americans > 60 (> 60); eGFR For Non-African Americans > 60 (> 60)
[2021-11-29 14:04] LABS: ABG Base Excess 13 mEq/L (-2 to 3); ABG HCO3 44 mEq/L (21-27); ABG Oxygen Saturation 90 % (95-98); ABG PCO2 88 mmHg (35-45); ABG PH 7.31 pH Units (7.32-7.45); ABG PO2 68 mmHg (85-104); ABG TCO2 47 mEq/L (20-26); Blood Gas VT 550 cc
[2021-11-29] MEDS ORDERED: Azithromycin 500 MG in 0.9 % Sodium Chloride 250 ML IVPB ONE (14:13)
[2021-11-29] MEDS ORDERED: cefTRIAXone 1,000 MG in 0.9 % Sodium Chloride Mini Bag 100 ML IVPB ONE (14:13)
[2021-11-29 14:14] LABS: Prothrombin Time 22.4 Seconds (9.4-12.1)
[2021-11-29] MEDS ORDERED: Naloxone 0.4 MG/ML INJ IVP PRN (15:22)
[2021-11-29] MEDS ORDERED: methylPREDNISolone 125 MG/2 ML VIAL IVP ONE (15:31)
[2021-11-29] MEDS: Ipratropium/Albuterol Neb 3 ML IH SCH ×3 (15:45→23:07)
[2021-11-29] MEDS: Cefepime HCl 2,000 MG in 0.9 % Sodium Chloride 10 ML IVP SCH ×2 (17:40→23:48)
[2021-11-29] MEDS: Vancomycin 1,500 MG/265 ML IV.SOLN IVPB SCH (17:47)
[2021-11-29] MEDS ORDERED: Norepinephrine 4 MG/254 ML IV.SOLN IVC ONE (18:49)
[2021-11-29] MEDS ORDERED: Artificial Tears SOLN 15 ML BOTTLE BOTH EYES PRN (18:58)
[2021-11-29] MEDS ORDERED: 0.9 % Sodium Chloride 1,000 ML ONE (19:05)
[2021-11-29] MEDS ORDERED: 0.9 % Sodium Chloride 1,000 ML IVC ONE (19:23)
[2021-11-29 20:43] LABS: ABG Base Excess 9 mEq/L (-2 to 3); ABG HCO3 36 mEq/L (21-27); ABG Oxygen Saturation 100 % (95-98); ABG PCO2 56 mmHg (35-45); ABG PH 7.41 pH Units (7.32-7.45); ABG PO2 216 mmHg (85-104); ABG TCO2 37 mEq/L (20-26); Blood Gas Modality ASSIST CONTROL; Blood Gas VT 450 cc
[2021-11-29] MEDS: Chlorhexidine Rinse 15 ML MOUTHWASH MM SCH (21:03)
[2021-11-29] MEDS: Artificial Tears SOLN 15 ML BOTTLE BOTH EYES SCH ×2 (21:04→23:49)
[2021-11-29] MEDS: Pantoprazole 40 MG VIAL IVP SCH (21:04)
[2021-11-29] MEDS: MethylPREDNISolone 40 MG/ML VIAL IVP SCH (21:04)
[2021-11-29] MEDS: Dexmedetomidine HCl 400 MCG/100 ML MLS IVC SCH (23:45)
[2021-11-30] MEDS ORDERED: Acetylcysteine 10% 2 ML INHSOL IH SCH
[2021-11-30] MEDS: Ipratropium/Albuterol Neb 3 ML IH SCH ×6 (02:54→23:23)
[2021-11-30 04:04] LABS: ABG Base Excess 12 mEq/L (-2 to 3); ABG HCO3 38 mEq/L (21-27); ABG Oxygen Saturation 97 % (95-98); ABG PCO2 48 mmHg (35-45); ABG PO2 87 mmHg (85-104); ABG TCO2 39 mEq/L (20-26); Blood Gas Modality ASSIST CONTROL; Blood Gas VT 450 cc
[2021-11-30 04:11] LABS: Basophils % 0.2 %; Immature Granulocytes % 0.6 % (0-4); Lymphocytes # 0.8 K/mcL (0.6-4.6); Lymphocytes % 8.5 %; Mean Corpuscular HGB Conc 32.1 g/dL (31.6-35.5); Mean Corpuscular Hemoglobin 29.8 pg (28.0-33.3); Mean Corpuscular Volume 92.9 fL (83.0-100.0); Monocytes # 0.1 K/mcL (0.0-1.3); Monocytes % 1.1 %; Platelet Count 292 K/mcL (140-400); Red Blood Count 3.66 M/mcL (3.82-4.97); Red Cell Distribution Width 14.3 % (11.5-14.5); Segmented Neutrophils % 89.6 %; White Blood Count 9.1 K/mcL (4.3-11.1)
[2021-11-30 04:12] LABS: Hemoglobin 10.9 g/dL (11.5-15.4); Neutrophils # 8.2 K/mcL (1.6-8.9)
[2021-11-30 04:29] LABS: Albumin 3.1 g/dL (3.5-5.7); Albumin/Globulin Ratio 1.1 (1.1-2.2); Bilirubin,Total 1.2 mg/dL (0.3-1.0); Calcium 9.2 mg/dL (8.6-10.3); Globulin 2.8 g/dL (2.4-3.5); Magnesium 1.8 mg/dL (1.6-2.6); Phosphorous 2.1 mg/dL (2.7-4.5); Total Protein 5.9 g/dL (6.4-8.9)
[2021-11-30 04:50] LABS: Platelet Estimate Normal (Normal)
[2021-11-30] MEDS: Artificial Tears SOLN 15 ML BOTTLE BOTH EYES SCH ×5 (05:20→19:24)
[2021-11-30] MEDS: MethylPREDNISolone 40 MG/ML VIAL IVP SCH ×2 (06:14→17:11)
[2021-11-30] MEDS: Vancomycin 1,500 MG/265 ML IV.SOLN IVPB SCH ×2 (06:14→17:11)
[2021-11-30] MEDS ORDERED: Ringers Solution, Lactated 1,000 ML ONE (06:39)
[2021-11-30] MEDS: Chlorhexidine Rinse 15 ML MOUTHWASH MM SCH ×2 (07:24→19:24)
[2021-11-30] MEDS: Cefepime HCl 2,000 MG in 0.9 % Sodium Chloride 10 ML IVP SCH ×3 (07:24→23:08)
[2021-11-30] MEDS: Pantoprazole 40 MG VIAL IVP SCH (07:24)
[2021-11-30] MEDS ORDERED: 0.9 % Sodium Chloride 1,000 ML IV ONE (07:26)
[2021-11-30] MEDS: Acetylcysteine 10% 2 ML INHSOL IH SCH ×3 (07:29→23:23)
[2021-11-30] MEDS ORDERED: *HR* EPINEPHrine 1 MG/10 ML SYRINGE INTRATRACH PRN (08:43)
[2021-11-30] MEDS ORDERED: *HR* EPINEPHrine 1 MG/10 ML SYRINGE ONE (08:49)
[2021-11-30] MEDS: Norepinephrine 4 MG/254 ML IV.SOLN IVC SCH ×2 (09:22→19:45)
[2021-11-30] MEDS: Dexmedetomidine HCl 400 MCG/100 ML MLS IVC SCH ×3 (09:36→23:07)
[2021-11-30] MEDS ORDERED: Calcium Gluconate 1gm/50mL 1 GM/50 ML BAG IVPB PRN (11:07)
[2021-11-30 11:47] LABS: VBG Ionized Calcium 1.14 mmol/L (1.15-1.35)
[2021-11-30 12:05] LABS: Calcium 9.2 mg/dL (8.6-10.3); Magnesium 2.2 mg/dL (1.6-2.6); Potassium 4.3 mEq/L (3.5-5.1)
[2021-11-30] MEDS: Azithromycin 500 MG in 0.9 % Sodium Chloride 250 ML IVPB SCH (15:07)
[2021-11-30] MEDS: *HR* Heparin 5,000 UNIT/ML VIAL SQ SCH ×2 (15:07→21:46)
[2021-12-01] MEDS: Artificial Tears SOLN 15 ML BOTTLE BOTH EYES SCH ×4 (01:04→13:02)
[2021-12-01] MEDS: Ipratropium/Albuterol Neb 3 ML IH SCH ×6 (03:08→23:04)
[2021-12-01] MEDS: Dexmedetomidine HCl 400 MCG/100 ML MLS IVC SCH ×2 (03:30→09:40)
[2021-12-01 03:34] LABS: VBG Ionized Calcium 1.13 mmol/L (1.15-1.35)
[2021-12-01 03:38] LABS: Magnesium 2.3 mg/dL (1.6-2.6); Phosphorous 3.7 mg/dL (2.7-4.5)
[2021-12-01 04:26] LABS: Hematocrit 30.1 % (35.3-44.9); Hemoglobin 9.7 g/dL (11.5-15.4); Immature Granulocytes % 0.7 % (0-4); Lymphocytes # 0.6 K/mcL (0.6-4.6); Lymphocytes % 13.7 %; Mean Corpuscular HGB Conc 32.2 g/dL (31.6-35.5); Mean Corpuscular Hemoglobin 30.5 pg (28.0-33.3); Mean Corpuscular Volume 94.7 fL (83.0-100.0); Mean Platelet Volume 10.6 fL (9.4-12.4); Monocytes # 0.1 K/mcL (0.0-1.3); Monocytes % 2.7 %; Neutrophils # 3.4 K/mcL (1.6-8.9); Platelet Count 193 K/mcL (140-400); Red Blood Count 3.18 M/mcL (3.82-4.97); Segmented Neutrophils % 82.9 %
[2021-12-01 04:28] LABS: White Blood Count 4.1 K/mcL (4.3-11.1)
[2021-12-01 04:37] LABS: ABG Base Excess 9 mEq/L (-2 to 3); ABG HCO3 34 mEq/L (21-27); ABG Oxygen Saturation 94 % (95-98); ABG PCO2 46 mmHg (35-45); ABG PH 7.48 pH Units (7.32-7.45); ABG PO2 66 mmHg (85-104); ABG TCO2 35 mEq/L (20-26); Blood Gas Modality ASSIST CONTROL; Blood Gas VT 400 cc
[2021-12-01 04:42] LABS: Calcium 8.9 mg/dL (8.6-10.3); Potassium 4.3 mEq/L (3.5-5.1)
[2021-12-01 04:51] LABS: Platelet Estimate Normal (Normal)
[2021-12-01] MEDS: MethylPREDNISolone 40 MG/ML VIAL IVP SCH ×2 (05:15→18:02)
[2021-12-01] MEDS: *HR* Heparin 5,000 UNIT/ML VIAL SQ SCH ×3 (05:15→20:27)
[2021-12-01] MEDS: Norepinephrine 4 MG/254 ML IV.SOLN IVC SCH ×2 (07:31→15:04)
[2021-12-01] MEDS: Acetylcysteine 10% 2 ML INHSOL IH SCH ×3 (07:35→19:55)
[2021-12-01] MEDS: Chlorhexidine Rinse 15 ML MOUTHWASH MM SCH ×2 (08:05→20:27)
[2021-12-01] MEDS: Pantoprazole 40 MG VIAL IVP SCH (08:05)
[2021-12-01] MEDS: Cefepime HCl 2,000 MG in 0.9 % Sodium Chloride 10 ML IVP SCH ×3 (08:05→23:35)
[2021-12-01] MEDS ORDERED: Vancomycin 1,750 MG/517.5 ML IV.SOLN IVPB SCH (10:00)
[2021-12-01] MEDS: Azithromycin 500 MG in 0.9 % Sodium Chloride 250 ML IVPB SCH (15:15)
[2021-12-02] MEDS: Ipratropium/Albuterol Neb 3 ML IH SCH ×6 (03:51→23:14)
[2021-12-02] MEDS: Acetylcysteine 10% 2 ML INHSOL IH SCH ×3 (03:51→19:32)
[2021-12-02 04:21] LABS: BUN/Creatinine Ratio 40 (6-26); Blood Urea Nitrogen 43 mg/dL (8-23); Carbon Dioxide 37 mEq/L (23-29); Chloride 102 mEq/L (98-107); Glucose 114 mg/dL (70-105); Osmolality,Calculated 312 (280-300); Potassium 4.1 mEq/L (3.5-5.1); Sodium 145 mEq/L (136-145); eGFR For African Americans > 60 (> 60); eGFR For Non-African Americans 50 (> 60)
[2021-12-02] MEDS: *HR* Heparin 5,000 UNIT/ML VIAL SQ SCH (05:22)
[2021-12-02] MEDS: MethylPREDNISolone 40 MG/ML VIAL IVP SCH ×2 (05:22→16:45)
[2021-12-02] MEDS: Chlorhexidine Rinse 15 ML MOUTHWASH MM SCH ×2 (07:20→20:07)
[2021-12-02] MEDS: Norepinephrine 4 MG/254 ML IV.SOLN IVC SCH (07:20)
[2021-12-02] MEDS: Cefepime HCl 2,000 MG in 0.9 % Sodium Chloride 10 ML IVP SCH ×3 (07:20→23:38)
[2021-12-02] MEDS: Pantoprazole 40 MG VIAL IVP SCH (07:20)
[2021-12-02] MEDS ORDERED: *HR* HYDROcodone/Acet 5/325 mg TABLET PO PRN ×2 (09:33→13:12)
[2021-12-02] MEDS ORDERED: PALBOCICLIB 100 MG PO SCH (09:45)
[2021-12-02] MEDS ORDERED: DilTIAZem CD (24hr) 240 MG CAP.ER.24H PO SCH (09:45)
[2021-12-02] MEDS ORDERED: Ondansetron ODT 4 MG TAB.RAPDIS PO PRN ×2 (09:47→13:12)
[2021-12-02] MEDS ORDERED: carvediloL 6.25 MG TABLET PO SCH (10:30)
[2021-12-02] MEDS ORDERED: Artificial Tears SOLN 15 ML BOTTLE BOTH EYES PRN (13:12)
[2021-12-02] MEDS ORDERED: Calcium Gluconate 1gm/50mL 1 GM/50 ML BAG IVPB PRN (13:12)
[2021-12-02] MEDS ORDERED: Naloxone 0.4 MG/ML INJ IVP PRN (13:12)
[2021-12-02] MEDS ORDERED: Nystatin POWDER 30 GM BOTTLE TP SCH (15:00)
[2021-12-02] MEDS: Azithromycin 500 MG in 0.9 % Sodium Chloride 250 ML IVPB SCH (15:07)
[2021-12-02] MEDS: Nystatin POWDER 30 GM BOTTLE TP SCH ×2 (15:09→20:08)
[2021-12-02] MEDS: Furosemide 40 MG TABLET PO SCH (16:36)
[2021-12-02] MEDS: carvediloL 6.25 MG TABLET PO SCH (16:43)
[2021-12-02] MEDS ORDERED: Morphine Sulfate Oral CONC 10 MG/0.5 ML ORAL.SYG SL ONE (19:37)
[2021-12-02] MEDS: Budesonide/Formoterol 80/4.5 1 PUFF INH IH SCH (19:44)
[2021-12-02] MEDS: *HR* Rivaroxaban 10 MG TABLET PO SCH (20:07)
[2021-12-02] MEDS ORDERED: *HR* Rivaroxaban 10 MG TABLET PO SCH (21:00)
[2021-12-02] MEDS ORDERED: Furosemide 40 MG TABLET PO SCH (21:00)
[2021-12-02] MEDS ORDERED: FLUTICASONE PROPIONATE IH SCH (21:00)
[2021-12-02] MEDS ORDERED: Budesonide/Formoterol 80/4.5 1 PUFF INH IH SCH (22:00)
[2021-12-03] MEDS: Ipratropium/Albuterol Neb 3 ML IH SCH ×6 (03:53→23:21)
[2021-12-03] MEDS: Acetylcysteine 10% 2 ML INHSOL IH SCH ×3 (03:54→20:12)
[2021-12-03] MEDS: MethylPREDNISolone 40 MG/ML VIAL IVP SCH ×2 (05:51→17:31)
[2021-12-03 06:04] LABS: Hematocrit 34.4 % (35.3-44.9); Hemoglobin 11.2 g/dL (11.5-15.4); Immature Granulocytes % 0.7 % (0-4); Lymphocytes # 0.8 K/mcL (0.6-4.6); Lymphocytes % 17.8 %; Mean Corpuscular HGB Conc 32.6 g/dL (31.6-35.5); Mean Corpuscular Hemoglobin 30.6 pg (28.0-33.3); Mean Platelet Volume 10.3 fL (9.4-12.4); Monocytes # 0.2 K/mcL (0.0-1.3); Monocytes % 5.4 %; Neutrophils # 3.4 K/mcL (1.6-8.9); Platelet Count 243 K/mcL (140-400); Red Blood Count 3.66 M/mcL (3.82-4.97); Red Cell Distribution Width 15.3 % (11.5-14.5); Segmented Neutrophils % 76.1 %; White Blood Count 4.4 K/mcL (4.3-11.1)
[2021-12-03 06:07] LABS: Potassium 3.8 mEq/L (3.5-5.1)
[2021-12-03] MEDS: Famotidine 20 MG TABLET PO SCH (07:45)
[2021-12-03] MEDS: Furosemide 40 MG TABLET PO SCH ×2 (07:45→16:51)
[2021-12-03] MEDS: Magnesium Oxide 400 MG TABLET PO SCH (07:45)
[2021-12-03] MEDS: carvediloL 6.25 MG TABLET PO SCH ×2 (07:45→16:51)
[2021-12-03] MEDS: DilTIAZem CD (24hr) 240 MG CAP.ER.24H PO SCH (07:45)
[2021-12-03] MEDS: Chlorhexidine Rinse 15 ML MOUTHWASH MM SCH (07:46)
[2021-12-03] MEDS: Cefepime HCl 2,000 MG in 0.9 % Sodium Chloride 10 ML IVP SCH ×3 (07:46→23:52)
[2021-12-03] MEDS: Nystatin POWDER 30 GM BOTTLE TP SCH ×3 (07:47→19:18)
[2021-12-03] MEDS: Budesonide/Formoterol 80/4.5 1 PUFF INH IH SCH ×2 (08:00→20:12)
[2021-12-03] MEDS ORDERED: Magnesium Oxide 400 MG TABLET PO SCH (09:00)
[2021-12-03] MEDS ORDERED: Famotidine 20 MG TABLET PO SCH (09:00)
[2021-12-03] MEDS: Azithromycin 500 MG in 0.9 % Sodium Chloride 250 ML IVPB SCH (14:34)
[2021-12-03] MEDS: *HR* Rivaroxaban 10 MG TABLET PO SCH (19:17)
[2021-12-04] MEDS: Acetylcysteine 10% 2 ML INHSOL IH SCH ×3 (03:38→23:48)
[2021-12-04] MEDS: Ipratropium/Albuterol Neb 3 ML IH SCH ×6 (03:39→23:48)
[2021-12-04] MEDS: MethylPREDNISolone 40 MG/ML VIAL IVP SCH ×2 (04:28→18:19)
[2021-12-04 05:28] LABS: Hematocrit 35.6 % (35.3-44.9); Hemoglobin 11.4 g/dL (11.5-15.4); Mean Corpuscular Hemoglobin 30.1 pg (28.0-33.3); Mean Corpuscular Volume 93.9 fL (83.0-100.0); Mean Platelet Volume 10.2 fL (9.4-12.4); Platelet Count 262 K/mcL (140-400); Red Blood Count 3.79 M/mcL (3.82-4.97); Red Cell Distribution Width 15.2 % (11.5-14.5); White Blood Count 4.2 K/mcL (4.3-11.1)
[2021-12-04 05:48] LABS: Calcium 8.8 mg/dL (8.6-10.3); Potassium 3.8 mEq/L (3.5-5.1)
[2021-12-04] MEDS: Budesonide/Formoterol 80/4.5 1 PUFF INH IH SCH ×2 (07:37→19:34)
[2021-12-04] MEDS: carvediloL 6.25 MG TABLET PO SCH ×2 (09:04→16:36)
[2021-12-04] MEDS: Furosemide 40 MG TABLET PO SCH (09:04)
[2021-12-04] MEDS: DilTIAZem CD (24hr) 240 MG CAP.ER.24H PO SCH (09:04)
[2021-12-04] MEDS: Famotidine 20 MG TABLET PO SCH (09:04)
[2021-12-04] MEDS: Cefepime HCl 2,000 MG in 0.9 % Sodium Chloride 10 ML IVP SCH ×3 (09:04→23:54)
[2021-12-04] MEDS: Magnesium Oxide 400 MG TABLET PO SCH (09:04)
[2021-12-04] MEDS: Nystatin POWDER 30 GM BOTTLE TP SCH ×3 (09:06→21:50)
[2021-12-04] MEDS ORDERED: Furosemide 20 MG/2 ML VIAL IVP ONE (09:27)
[2021-12-04] MEDS ORDERED: *HR* FentaNYL (PF) 100 MCG/2 ML VIAL ONE (16:54)
[2021-12-04] MEDS ORDERED: *HR* Propofol 200 MG/20 ML VIAL IVP ONE (16:55)
[2021-12-04] MEDS ORDERED: Ondansetron 4 MG/2 ML VIAL ONE (16:55)
[2021-12-04] MEDS ORDERED: Lidocaine HCL 4 ML Topical Solution (Laryng-O-Jet Kit Sterile Pak) TP ONE (16:55)
[2021-12-04] MEDS ORDERED: Lidocaine -MPF 2% 2 ML VIAL ONE (16:55)
[2021-12-04] MEDS ORDERED: *HR* Succinylcholine 200 MG/10 ML VIAL IVP ONE (16:55)
[2021-12-04] MEDS ORDERED: *HR* Rocuronium Bromide 50 MG/5 ML VIAL ONE (16:55)
[2021-12-04] MEDS ORDERED: *HR* Midazolam HCl 2 MG/2 ML VIAL ONE (17:49)
[2021-12-04] MEDS: FentaNYL (PF) 1,000 MCG/100 ML IV.SOLN IVC SCH (18:21)
[2021-12-04] MEDS ORDERED: Artificial Tears SOLN 15 ML BOTTLE BOTH EYES PRN (18:21)
[2021-12-04] MEDS: Dexmedetomidine HCl 400 MCG/100 ML MLS IVC SCH ×2 (18:21→23:35)
[2021-12-04 20:21] LABS: ABG Base Excess 12 mEq/L (-2 to 3); ABG HCO3 36 mEq/L (21-27); ABG Oxygen Saturation 100 % (95-98); ABG PCO2 42 mmHg (35-45); ABG PH 7.54 pH Units (7.32-7.45); ABG PO2 351 mmHg (85-104); ABG TCO2 37 mEq/L (20-26); Blood Gas Modality ASSIST CONTROL
[2021-12-04 21:10] LABS: Appearance of Body Fluid Hazy (Clear); Volume of Body Fluid 25 mL
[2021-12-04] MEDS: *HR* Rivaroxaban 10 MG TABLET PO SCH (21:45)
[2021-12-04] MEDS: Pantoprazole 40 MG VIAL IVP SCH (21:48)
[2021-12-04] MEDS: Chlorhexidine Rinse 15 ML MOUTHWASH MM SCH (21:49)
[2021-12-04] MEDS: Furosemide 40 MG/4 ML VIAL IVP SCH (21:49)
[2021-12-04] MEDS: Artificial Tears SOLN 15 ML BOTTLE BOTH EYES SCH ×2 (21:49→23:55)
[2021-12-05] MEDS: FentaNYL (PF) 1,000 MCG/100 ML IV.SOLN IVC SCH ×2 (01:20→22:53)
[2021-12-05 04:02] LABS: Hematocrit 32.5 % (35.3-44.9); Hemoglobin 10.7 g/dL (11.5-15.4); Immature Granulocytes % 0.4 % (0-4); Lymphocytes # 0.5 K/mcL (0.6-4.6); Lymphocytes % 20.6 %; Mean Corpuscular HGB Conc 32.9 g/dL (31.6-35.5); Mean Corpuscular Hemoglobin 30.6 pg (28.0-33.3); Mean Corpuscular Volume 92.9 fL (83.0-100.0); Mean Platelet Volume 10.4 fL (9.4-12.4); Monocytes # 0.1 K/mcL (0.0-1.3); Monocytes % 3.1 %; Neutrophils # 1.7 K/mcL (1.6-8.9); Platelet Count 134 K/mcL (140-400); Segmented Neutrophils % 75.9 %; White Blood Count 2.2 K/mcL (4.3-11.1)
[2021-12-05] MEDS: Artificial Tears SOLN 15 ML BOTTLE BOTH EYES SCH ×5 (04:02→19:51)
[2021-12-05] MEDS: Ipratropium/Albuterol Neb 3 ML IH SCH ×6 (04:03→23:55)
[2021-12-05 04:13] LABS: ABG Base Excess 11 mEq/L (-2 to 3); ABG HCO3 34 mEq/L (21-27); ABG Oxygen Saturation 99 % (95-98); ABG PCO2 39 mmHg (35-45); ABG PH 7.55 pH Units (7.32-7.45); ABG PO2 125 mmHg (85-104); ABG TCO2 35 mEq/L (20-26); Blood Gas Modality ASSIST CONTROL; Blood Gas VT 380 cc
[2021-12-05 04:23] LABS: Calcium 8.6 mg/dL (8.6-10.3); Magnesium 2.1 mg/dL (1.6-2.6); Phosphorous 2.9 mg/dL (2.7-4.5); Potassium 3.7 mEq/L (3.5-5.1)
[2021-12-05] MEDS: MethylPREDNISolone 40 MG/ML VIAL IVP SCH ×2 (06:20→18:38)
[2021-12-05] MEDS: Budesonide/Formoterol 80/4.5 1 PUFF INH IH SCH ×2 (07:20→19:47)
[2021-12-05] MEDS: Acetylcysteine 10% 2 ML INHSOL IH SCH ×3 (07:20→19:46)
[2021-12-05] MEDS: Furosemide 40 MG/4 ML VIAL IVP SCH (08:04)
[2021-12-05] MEDS: Cefepime HCl 2,000 MG in 0.9 % Sodium Chloride 10 ML IVP SCH ×2 (08:04→15:58)
[2021-12-05] MEDS: Pantoprazole 40 MG VIAL IVP SCH (08:04)
[2021-12-05] MEDS: carvediloL 6.25 MG TABLET PO SCH ×2 (08:05→18:38)
[2021-12-05] MEDS: Potassium Phosphate 44 MEQ in 0.9 % Sodium Chloride 250 ML IVPB PRN (08:05)
[2021-12-05] MEDS: DilTIAZem CD (24hr) 240 MG CAP.ER.24H PO SCH (08:05)
[2021-12-05] MEDS: Chlorhexidine Rinse 15 ML MOUTHWASH MM SCH ×2 (08:05→19:53)
[2021-12-05] MEDS: Nystatin POWDER 30 GM BOTTLE TP SCH ×3 (08:06→19:51)
[2021-12-05] MEDS: Famotidine 20 MG TABLET PO SCH (08:06)
[2021-12-05] MEDS: Magnesium Oxide 400 MG TABLET PO SCH (08:06)
[2021-12-05] MEDS: Dexmedetomidine HCl 400 MCG/100 ML MLS IVC SCH ×2 (10:20→19:49)
[2021-12-05] MEDS: *HR* Rivaroxaban 10 MG TABLET PO SCH (19:50)
[2021-12-06] MEDS: Artificial Tears SOLN 15 ML BOTTLE BOTH EYES SCH ×3 (01:10→07:53)
[2021-12-06] MEDS: Cefepime HCl 2,000 MG in 0.9 % Sodium Chloride 10 ML IVP SCH ×4 (01:10→23:46)
[2021-12-06] MEDS: Dexmedetomidine HCl 400 MCG/100 ML MLS IVC SCH (01:17)
[2021-12-06 03:46] LABS: White Blood Count 2.3 K/mcL (4.3-11.1)
[2021-12-06 03:47] LABS: Hematocrit 33.8 % (35.3-44.9); Hemoglobin 11.2 g/dL (11.5-15.4); Immature Granulocytes % 0.4 % (0-4); Lymphocytes # 0.4 K/mcL (0.6-4.6); Lymphocytes % 17.5 %; Mean Corpuscular HGB Conc 33.1 g/dL (31.6-35.5); Mean Corpuscular Hemoglobin 30.6 pg (28.0-33.3); Mean Corpuscular Volume 92.3 fL (83.0-100.0); Mean Platelet Volume 10.6 fL (9.4-12.4); Monocytes # 0.1 K/mcL (0.0-1.3); Monocytes % 3.4 %; Neutrophils # 1.8 K/mcL (1.6-8.9); Platelet Count 133 K/mcL (140-400); Red Blood Count 3.66 M/mcL (3.82-4.97); Red Cell Distribution Width 14.9 % (11.5-14.5); Segmented Neutrophils % 78.7 %
[2021-12-06] MEDS: Ipratropium/Albuterol Neb 3 ML IH SCH ×6 (03:54→23:29)
[2021-12-06] MEDS: Acetylcysteine 10% 2 ML INHSOL IH SCH ×4 (03:55→23:29)
[2021-12-06 04:06] LABS: Albumin 3.2 g/dL (3.5-5.7); Albumin/Globulin Ratio 1.1 (1.1-2.2); Bilirubin,Total 0.7 mg/dL (0.3-1.0); Calcium 8.5 mg/dL (8.6-10.3); Globulin 2.9 g/dL (2.4-3.5); Magnesium 2.3 mg/dL (1.6-2.6); Phosphorous 4.6 mg/dL (2.7-4.5); Potassium 4.3 mEq/L (3.5-5.1); Total Protein 6.1 g/dL (6.4-8.9)
[2021-12-06 04:08] LABS: ABG Base Excess 8 mEq/L (-2 to 3); ABG HCO3 32 mEq/L (21-27); ABG Oxygen Saturation 94 % (95-98); ABG PCO2 44 mmHg (35-45); ABG PH 7.47 pH Units (7.32-7.45); ABG PO2 67 mmHg (85-104); ABG TCO2 34 mEq/L (20-26); Blood Gas Modality ASSIST CONTROL; Blood Gas VT 300 cc
[2021-12-06] MEDS: MethylPREDNISolone 40 MG/ML VIAL IVP SCH ×2 (05:07→16:31)
[2021-12-06] MEDS: Budesonide/Formoterol 80/4.5 1 PUFF INH IH SCH ×2 (07:08→20:20)
[2021-12-06] MEDS: Chlorhexidine Rinse 15 ML MOUTHWASH MM SCH (07:53)
[2021-12-06] MEDS: Pantoprazole 40 MG VIAL IVP SCH (07:53)
[2021-12-06] MEDS: Furosemide 40 MG/4 ML VIAL IVP SCH (07:54)
[2021-12-06] MEDS: carvediloL 6.25 MG TABLET PO SCH ×2 (16:30→19:38)
[2021-12-06] MEDS: DilTIAZem CD (24hr) 240 MG CAP.ER.24H PO SCH (19:38)
[2021-12-06] MEDS: Magnesium Oxide 400 MG TABLET PO SCH (19:38)
[2021-12-06] MEDS: Nystatin POWDER 30 GM BOTTLE TP SCH ×3 (19:39→20:42)
[2021-12-06] MEDS: Famotidine 20 MG TABLET PO SCH (19:40)
[2021-12-06] MEDS ORDERED: *HR* Heparin 5,000 UNIT/ML VIAL SQ SCH (22:00)
[2021-12-07 02:31] LABS: VBG Ionized Calcium 1.09 mmol/L (1.15-1.35)
[2021-12-07] MEDS: Calcium Gluconate 1gm/50mL 1 GM/50 ML BAG IVPB PRN (02:37)
[2021-12-07 02:46] LABS: Albumin 3.3 g/dL (3.5-5.7); Albumin/Globulin Ratio 1.2 (1.1-2.2); Bilirubin,Total 1.1 mg/dL (0.3-1.0); Calcium 8.5 mg/dL (8.6-10.3); Globulin 2.7 g/dL (2.4-3.5); Magnesium 2.4 mg/dL (1.6-2.6); Phosphorous 2.4 mg/dL (2.7-4.5); Potassium 3.8 mEq/L (3.5-5.1); Troponin I 0.11 ng/mL (< 0.04)
[2021-12-07] MEDS ORDERED: *HR* Heparin 5,000 UNIT/ML VIAL IVP PRN ×2 (02:49)
[2021-12-07] MEDS ORDERED: *HR* Heparin 5,000 UNIT/ML VIAL IVP ONE (02:49)
[2021-12-07 02:52] LABS: Hematocrit 36.4 % (35.3-44.9); Hemoglobin 11.8 g/dL (11.5-15.4); Immature Granulocytes % 0.4 % (0-4); Lymphocytes % 18.2 %; Mean Corpuscular HGB Conc 32.4 g/dL (31.6-35.5); Mean Corpuscular Hemoglobin 30.2 pg (28.0-33.3); Mean Corpuscular Volume 93.1 fL (83.0-100.0); Mean Platelet Volume 10.9 fL (9.4-12.4); Monocytes # 0.3 K/mcL (0.0-1.3); Monocytes % 5.1 %; Neutrophils # 4.2 K/mcL (1.6-8.9); Platelet Count 201 K/mcL (140-400); Red Blood Count 3.91 M/mcL (3.82-4.97); Red Cell Distribution Width 15.5 % (11.5-14.5); Segmented Neutrophils % 76.3 %
[2021-12-07 02:56] LABS: White Blood Count 5.5 K/mcL (4.3-11.1)
[2021-12-07 03:02] LABS: Activated Partial Thrombo Time 22.1 Seconds (26.0-36.0)
[2021-12-07] MEDS: Heparin 25,000UNIT/250ML 1/2NS 25,000 UNIT/250 ML IV.SOLN IVC SCH (03:34)
[2021-12-07] MEDS: Ipratropium/Albuterol Neb 3 ML IH SCH ×6 (03:36→23:04)
[2021-12-07 03:54] LABS: INR 1.2; Prothrombin Time 13.6 Seconds (9.4-12.1)
[2021-12-07] MEDS: MethylPREDNISolone 40 MG/ML VIAL IVP SCH (05:31)
[2021-12-07] MEDS: Budesonide/Formoterol 80/4.5 1 PUFF INH IH SCH ×2 (07:21→19:58)
[2021-12-07] MEDS: Acetylcysteine 10% 2 ML INHSOL IH SCH ×3 (07:21→23:04)
[2021-12-07] MEDS: DilTIAZem CD (24hr) 240 MG CAP.ER.24H PO SCH (08:15)
[2021-12-07] MEDS: carvediloL 6.25 MG TABLET PO SCH ×2 (08:15→17:50)
[2021-12-07] MEDS: Cefepime HCl 2,000 MG in 0.9 % Sodium Chloride 10 ML IVP SCH ×3 (08:15→23:16)
[2021-12-07] MEDS: Famotidine 20 MG TABLET PO SCH (08:15)
[2021-12-07] MEDS: Pantoprazole 40 MG VIAL IVP SCH (08:15)
[2021-12-07] MEDS: Furosemide 40 MG/4 ML VIAL IVP SCH (08:15)
[2021-12-07] MEDS: Magnesium Oxide 400 MG TABLET PO SCH (08:15)
[2021-12-07] MEDS: Nystatin POWDER 30 GM BOTTLE TP SCH ×3 (08:18→20:23)
[2021-12-07] MEDS ORDERED: Perflutren Lipid Microsphere 1.3 ML in 0.9 % Sodium Chloride 8.7 ML IVP PRN (09:26)
[2021-12-07] MEDS ORDERED: *HR* Digoxin 0.5 MG/2 ML AMPUL IVP STA (10:48)
[2021-12-07] MEDS: Aspirin Enteric Coated 81 MG Tablet PO SCH (17:52)
[2021-12-08 01:09] LABS: Basophils % 0.2 %; Eosinophils % 0.6 %; Hematocrit 37.2 % (35.3-44.9); Hemoglobin 12.2 g/dL (11.5-15.4); Immature Granulocytes % 0.5 % (0-4); Lymphocytes # 3.1 K/mcL (0.6-4.6); Lymphocytes % 48.1 %; Mean Corpuscular HGB Conc 32.8 g/dL (31.6-35.5); Mean Corpuscular Hemoglobin 30.5 pg (28.0-33.3); Mean Platelet Volume 10.5 fL (9.4-12.4); Monocytes # 0.4 K/mcL (0.0-1.3); Monocytes % 5.8 %; Neutrophils # 2.9 K/mcL (1.6-8.9); Platelet Count 181 K/mcL (140-400); Segmented Neutrophils % 44.8 %; White Blood Count 6.5 K/mcL (4.3-11.1)
[2021-12-08 01:18] LABS: VBG Ionized Calcium 1.09 mmol/L (1.15-1.35)
[2021-12-08 01:27] LABS: Albumin 3.1 g/dL (3.5-5.7); Albumin/Globulin Ratio 1.1 (1.1-2.2); Bilirubin,Total 1.1 mg/dL (0.3-1.0); Calcium 8.4 mg/dL (8.6-10.3); Globulin 2.9 g/dL (2.4-3.5); Magnesium 2.3 mg/dL (1.6-2.6); Phosphorous 2.7 mg/dL (2.7-4.5); Potassium 3.7 mEq/L (3.5-5.1)
[2021-12-08] MEDS: Calcium Gluconate 1gm/50mL 1 GM/50 ML BAG IVPB PRN (01:33)
[2021-12-08] MEDS: Potassium Phosphate 44 MEQ in 0.9 % Sodium Chloride 250 ML IVPB PRN (02:13)
[2021-12-08] MEDS: Ipratropium/Albuterol Neb 3 ML IH SCH ×6 (03:56→23:04)
[2021-12-08] MEDS: Heparin 25,000UNIT/250ML 1/2NS 25,000 UNIT/250 ML IV.SOLN IVC SCH (06:26)
[2021-12-08] MEDS: Acetylcysteine 10% 2 ML INHSOL IH SCH ×3 (07:38→23:04)
[2021-12-08] MEDS: Budesonide/Formoterol 80/4.5 1 PUFF INH IH SCH ×2 (07:40→20:23)
[2021-12-08] MEDS: Aspirin Enteric Coated 81 MG Tablet PO SCH (08:35)
[2021-12-08] MEDS: Famotidine 20 MG TABLET PO SCH (08:35)
[2021-12-08] MEDS: Pantoprazole 40 MG VIAL IVP SCH (08:36)
[2021-12-08] MEDS: Magnesium Oxide 400 MG TABLET PO SCH (08:36)
[2021-12-08] MEDS: MethylPREDNISolone 40 MG/ML VIAL IVP SCH (08:36)
[2021-12-08] MEDS: DilTIAZem CD (24hr) 240 MG CAP.ER.24H PO SCH (08:36)
[2021-12-08] MEDS: carvediloL 6.25 MG TABLET PO SCH ×2 (08:36→17:15)
[2021-12-08] MEDS: Cefepime HCl 2,000 MG in 0.9 % Sodium Chloride 10 ML IVP SCH ×2 (08:36→17:31)
[2021-12-08] MEDS: Nystatin POWDER 30 GM BOTTLE TP SCH ×3 (08:38→19:55)
[2021-12-09 02:03] LABS: Basophils % 0.2 %; Eosinophils % 0.2 %; Hematocrit 33.9 % (35.3-44.9); Immature Granulocytes % 0.6 % (0-4); Lymphocytes # 1.6 K/mcL (0.6-4.6); Mean Corpuscular HGB Conc 32.4 g/dL (31.6-35.5); Mean Corpuscular Hemoglobin 30.2 pg (28.0-33.3); Mean Corpuscular Volume 93.1 fL (83.0-100.0); Mean Platelet Volume 10.8 fL (9.4-12.4); Monocytes # 0.3 K/mcL (0.0-1.3); Monocytes % 5.1 %; Neutrophils # 3.5 K/mcL (1.6-8.9); Platelet Count 168 K/mcL (140-400); Red Blood Count 3.64 M/mcL (3.82-4.97); Red Cell Distribution Width 15.9 % (11.5-14.5); Segmented Neutrophils % 64.9 %; White Blood Count 5.4 K/mcL (4.3-11.1)
[2021-12-09 02:06] LABS: VBG Ionized Calcium 1.09 mmol/L (1.15-1.35)
[2021-12-09] MEDS: Heparin 25,000UNIT/250ML 1/2NS 25,000 UNIT/250 ML IV.SOLN IVC SCH (02:24)
[2021-12-09 02:28] LABS: Albumin 3.1 g/dL (3.5-5.7); Albumin/Globulin Ratio 1.1 (1.1-2.2); Bilirubin,Total 0.8 mg/dL (0.3-1.0); Calcium 8.3 mg/dL (8.6-10.3); Globulin 2.7 g/dL (2.4-3.5); Magnesium 2.2 mg/dL (1.6-2.6); Phosphorous 3.2 mg/dL (2.7-4.5); Potassium 4.2 mEq/L (3.5-5.1); Total Protein 5.8 g/dL (6.4-8.9)
[2021-12-09] MEDS: Ipratropium/Albuterol Neb 3 ML IH SCH ×6 (04:08→23:06)
[2021-12-09] MEDS: Acetylcysteine 10% 2 ML INHSOL IH SCH ×3 (07:50→23:06)
[2021-12-09] MEDS: Budesonide/Formoterol 80/4.5 1 PUFF INH IH SCH ×2 (07:50→19:55)
[2021-12-09] MEDS: Famotidine 20 MG TABLET PO SCH (08:35)
[2021-12-09] MEDS: Aspirin Enteric Coated 81 MG Tablet PO SCH (08:35)
[2021-12-09] MEDS: carvediloL 6.25 MG TABLET PO SCH ×2 (08:36→17:28)
[2021-12-09] MEDS: Nystatin POWDER 30 GM BOTTLE TP SCH ×3 (08:36→19:39)
[2021-12-09] MEDS: Pantoprazole 40 MG VIAL IVP SCH (08:36)
[2021-12-09] MEDS: Magnesium Oxide 400 MG TABLET PO SCH (08:36)
[2021-12-09] MEDS: MethylPREDNISolone 40 MG/ML VIAL IVP SCH (08:36)
[2021-12-09] MEDS: DilTIAZem CD (24hr) 240 MG CAP.ER.24H PO SCH (08:36)
[2021-12-09] MEDS ORDERED: *HR* Rivaroxaban 10 MG TABLET PO SCH (17:00)
[2021-12-10] MEDS: Ipratropium/Albuterol Neb 3 ML IH SCH ×3 (03:55→11:04)
[2021-12-10 05:31] LABS: Basophils % 0.1 %; Eosinophils % 0.2 %; Hematocrit 37.5 % (35.3-44.9); Immature Granulocytes % 0.5 % (0-4); Lymphocytes # 3.1 K/mcL (0.6-4.6); Lymphocytes % 30.8 %; Mean Corpuscular Hemoglobin 30.7 pg (28.0-33.3); Mean Corpuscular Volume 95.9 fL (83.0-100.0); Mean Platelet Volume 10.8 fL (9.4-12.4); Monocytes # 0.6 K/mcL (0.0-1.3); Monocytes % 6.1 %; Neutrophils # 6.3 K/mcL (1.6-8.9); Platelet Count 171 K/mcL (140-400); Red Blood Count 3.91 M/mcL (3.82-4.97); Red Cell Distribution Width 16.4 % (11.5-14.5); Segmented Neutrophils % 62.3 %
[2021-12-10 05:36] LABS: White Blood Count 10.1 K/mcL (4.3-11.1)
[2021-12-10 06:12] LABS: Albumin 3.3 g/dL (3.5-5.7); Albumin/Globulin Ratio 1.2 (1.1-2.2); Bilirubin,Total 0.6 mg/dL (0.3-1.0); Calcium 8.4 mg/dL (8.6-10.3); Globulin 2.7 g/dL (2.4-3.5); Magnesium 2.4 mg/dL (1.6-2.6); Phosphorous 2.5 mg/dL (2.7-4.5); Potassium 4.3 mEq/L (3.5-5.1)
[2021-12-10] MEDS: Acetylcysteine 10% 2 ML INHSOL IH SCH (07:14)
[2021-12-10] MEDS: Budesonide/Formoterol 80/4.5 1 PUFF INH IH SCH (07:14)
[2021-12-10 07:21] VITALS: TEMP 98
[2021-12-10] MEDS: Famotidine 20 MG TABLET PO SCH (08:02)
[2021-12-10] MEDS: Magnesium Oxide 400 MG TABLET PO SCH (08:02)
[2021-12-10] MEDS: Aspirin Enteric Coated 81 MG Tablet PO SCH (08:02)
[2021-12-10] MEDS: MethylPREDNISolone 40 MG/ML VIAL IVP SCH (08:02)
[2021-12-10] MEDS: DilTIAZem CD (24hr) 240 MG CAP.ER.24H PO SCH (08:02)
[2021-12-10] MEDS: carvediloL 6.25 MG TABLET PO SCH (08:02)
[2021-12-10] MEDS: Nystatin POWDER 30 GM BOTTLE TP SCH (08:03)
[2021-12-10] MEDS: Pantoprazole 40 MG VIAL IVP SCH (08:03)
[2021-12-10 09:14] LABS: VBG Ionized Calcium 1.15 mmol/L (1.15-1.35)
[2021-12-10 11:08] VITALS: O2SAT 96
[2021-12-10 11:24] LABS: Adenovirus Not Detected (Not Detect); Bordetella Pertussis Not Detected (Not Detect); Chlamydophila pneumoniae Not Detected (Not Detect); Coronavirus 229E Not Detected (Not Detect); Coronavirus HKU1 Not Detected (Not Detect); Coronavirus NL63 Not Detected (Not Detect); Coronavirus OC43 Not Detected (Not Detect); Human Metapneumovirus Not Detected (Not Detect); Human Rhinovirus/Enterovirus Not Detected (Not Detect); Influenza A Subtype 2009 H1 Not Detected (Not Detect); Influenza B Not Detected (Not Detect); Mycoplasma pneumoniae Not Detected (Not Detect); Parainfluenza Virus 1 Not Detected (Not Detect); Parainfluenza Virus 2 Not Detected (Not Detect); Parainfluenza Virus 3 Not Detected (Not Detect); Parainfluenza Virus 4 Not Detected (Not Detect); Respiratory Syncytial Virus Not Detected (Not Detect); SARS-CoV-2 Not Detected (Not Detect)
[2021-12-10 11:43] VITALS: BP 118/75; PULSE 80
== END 2021-12-10 12:17 | DRG 133 ==
LOC: EMEROOARM 12:19 → 2NNU 15:33 → SUATTDRO 15:33 → ICNU 16:00 → 3ANU 12-02 13:08 → ICNU 12-04 18:15 → 2ANU 12-08 14:28
PROVIDERS: ADMIT Student in an Organized Health Care Education/Training Program; ATTEND Internal Medicine

== ENCOUNTER 2022-01-08 11:39 | Inpatient (IN) ==
[2022-01-08] MEDS ORDERED: methylPREDNISolone 125 MG/2 ML VIAL IVP ONE (12:04)
[2022-01-08] MEDS ORDERED: Albuterol 2.5 MG/3 ML NEBULIZER IH ONE (12:04)
[2022-01-08] MEDS ORDERED: Ipratropium/Albuterol Neb 3 ML IH ONE (12:04)
[2022-01-08 12:29] LABS: Hematocrit 35.1 % (35.3-44.9); Hemoglobin 11.1 g/dL (11.5-15.4); Mean Corpuscular HGB Conc 31.6 g/dL (31.6-35.5); Mean Corpuscular Hemoglobin 32.6 pg (28.0-33.3); Mean Platelet Volume 9.9 fL (9.4-12.4); Platelet Count 235 K/mcL (140-400); Red Cell Distribution Width 16.8 % (11.5-14.5); White Blood Count 4.3 K/mcL (4.3-11.1)
[2022-01-08 12:33] LABS: Mean Corpuscular Volume 103.2 fL (83.0-100.0)
[2022-01-08 12:39] LABS: INR 2.1; Prothrombin Time 23.8 Seconds (9.4-12.1)
[2022-01-08 12:55] LABS: Alanine Aminotransferase 10 Units/L (7-52); Albumin 3.3 g/dL (3.5-5.7); Albumin/Globulin Ratio 1.1 (1.1-2.2); Alkaline Phosphatase 156 Units/L (34-104); Aspartate Amino Transferase 17 Units/L (13-39); BUN/Creatinine Ratio 22 (6-26); Bilirubin,Total 0.8 mg/dL (0.3-1.0); Blood Urea Nitrogen 19 mg/dL (8-23); Calcium 9.6 mg/dL (8.6-10.3); Carbon Dioxide 43 mEq/L (23-29); Chloride 96 mEq/L (98-107); Glucose 128 mg/dL (70-105); Osmolality,Calculated 298 (280-300); Potassium 4.1 mEq/L (3.5-5.1); Sodium 142 mEq/L (136-145); Total Protein 6.3 g/dL (6.4-8.9); Troponin I 0.06 ng/mL (< 0.04); eGFR For African Americans > 60 (> 60); eGFR For Non-African Americans > 60 (> 60)
[2022-01-08 13:28] LABS: Anisocytosis 1+ (Not Present); Basophils # 0.2 K/mcL (0.0-0.2); Lymphocytes # 1.9 K/mcL (0.6-4.6); Monocytes # 0.2 K/mcL (0.0-1.3); Neutrophils # 2.1 K/mcL (1.6-8.9); Platelet Clumps Few (Not Present); Reactive Lymphocytes Present (Not Present)
[2022-01-08 13:29] LABS: Platelet Estimate Normal (Normal)
[2022-01-08 14:00] LABS: Adenovirus Not Detected (Not Detect); Bordetella Pertussis Not Detected (Not Detect); Chlamydophila pneumoniae Not Detected (Not Detect); Coronavirus 229E Not Detected (Not Detect); Coronavirus HKU1 Not Detected (Not Detect); Coronavirus NL63 Not Detected (Not Detect); Coronavirus OC43 Not Detected (Not Detect); Human Metapneumovirus Not Detected (Not Detect); Human Rhinovirus/Enterovirus Not Detected (Not Detect); Influenza A Subtype 2009 H1 Not Detected (Not Detect); Influenza B Not Detected (Not Detect); Mycoplasma pneumoniae Not Detected (Not Detect); Parainfluenza Virus 1 Not Detected (Not Detect); Parainfluenza Virus 2 Not Detected (Not Detect); Parainfluenza Virus 3 Not Detected (Not Detect); Parainfluenza Virus 4 Not Detected (Not Detect); Respiratory Syncytial Virus Not Detected (Not Detect); SARS-CoV-2 Not Detected (Not Detect)
[2022-01-08 14:04] LABS: ABG Base Excess 12 mEq/L (-2 to 3); ABG HCO3 41 mEq/L (21-27); ABG Oxygen Saturation 95 % (95-98); ABG PCO2 78 mmHg (35-45); ABG PH 7.32 pH Units (7.32-7.45); ABG PO2 86 mmHg (85-104); ABG TCO2 43 mEq/L (20-26)
[2022-01-08] MEDS ORDERED: Furosemide 20 MG/2 ML VIAL IVP ONE (14:08)
[2022-01-08] MEDS ORDERED: Iopamidol - 370 500 ML MLS IVP ONE (14:41)
[2022-01-08] MEDS ORDERED: Vancomycin 2,000 MG/520 ML IV.SOLN IVPB ONE (14:43)
[2022-01-08] MEDS ORDERED: Cefepime HCl 2,000 MG in 0.9 % Sodium Chloride 10 ML IVP ONE (14:43)
[2022-01-08] MEDS ORDERED: Gadolinium Contrast Agent (WT Based) IV PRN (16:11)
[2022-01-08] MEDS ORDERED: Melatonin 3 MG TABLET PO PRN (16:44)
[2022-01-08] MEDS ORDERED: Acetaminophen 325 MG TABLET PO PRN (16:44)
[2022-01-08] MEDS ORDERED: Naloxone 0.4 MG/ML INJ IVP PRN (16:44)
[2022-01-08] MEDS ORDERED: Ondansetron 4 MG/2 ML VIAL IVP PRN (16:44)
[2022-01-08] MEDS ORDERED: Albuterol 2.5 MG/3 ML NEBULIZER IH PRN (16:44)
[2022-01-08] MEDS ORDERED: Vancomycin (wt based) 1,000 MG VIAL IVPB SCH (17:00)
[2022-01-08 17:15] LABS: ABG Base Excess 12 mEq/L (-2 to 3); ABG HCO3 41 mEq/L (21-27); ABG Oxygen Saturation 90 % (95-98); ABG PCO2 82 mmHg (35-45); ABG PH 7.31 pH Units (7.32-7.45); ABG PO2 69 mmHg (85-104); ABG TCO2 44 mEq/L (20-26); Blood Gas Modality NIV
[2022-01-08] MEDS ORDERED: GADOBUTROL 30 MMOL/30 ML VIAL IVP ONE (17:56)
[2022-01-08] MEDS: Azithromycin 500 MG in 0.9 % Sodium Chloride 250 ML IVPB SCH (19:40)
[2022-01-08] MEDS: MethylPREDNISolone 40 MG/ML VIAL IVP SCH (19:40)
[2022-01-08] MEDS: Furosemide 40 MG/4 ML VIAL IVP SCH (21:58)
[2022-01-09] MEDS: Cefepime HCl 2,000 MG in 0.9 % Sodium Chloride 10 ML IVP SCH ×3 (01:22→17:57)
[2022-01-09] MEDS: MethylPREDNISolone 40 MG/ML VIAL IVP SCH ×4 (01:22→17:58)
[2022-01-09] MEDS ORDERED: Vancomycin 2,000 MG/520 ML IV.SOLN IVPB SCH (02:00)
[2022-01-09] MEDS ORDERED: *HR* Succinylcholine 200 MG/10 ML VIAL IVP ONE (03:20)
[2022-01-09] MEDS ORDERED: *HR* Etomidate 20 MG/10 ML AMPUL IVP ONE (03:20)
[2022-01-09] MEDS ORDERED: *HR* Midazolam HCl 5 MG/5 ML VIAL IVP ONE (03:20)
[2022-01-09] MEDS ORDERED: Artificial Tears SOLN 15 ML BOTTLE BOTH EYES PRN (03:40)
[2022-01-09] MEDS: Norepinephrine 4 MG/254 ML IV.SOLN IVC SCH (04:15)
[2022-01-09] MEDS: FentaNYL (PF) 1,000 MCG/100 ML IV.SOLN IVC SCH (04:30)
[2022-01-09 05:43] LABS: ABG Base Excess 12 mEq/L (-2 to 3); ABG HCO3 34 mEq/L (21-27); ABG Oxygen Saturation 100 % (95-98); ABG PCO2 36 mmHg (35-45); ABG PH 7.59 pH Units (7.32-7.45); ABG PO2 159 mmHg (85-104); ABG TCO2 35 mEq/L (20-26)
[2022-01-09] MEDS: Artificial Tears SOLN 15 ML BOTTLE BOTH EYES SCH ×5 (06:22→20:25)
[2022-01-09 08:56] LABS: Hematocrit 35.2 % (35.3-44.9); Hemoglobin 11.5 g/dL (11.5-15.4); Mean Corpuscular HGB Conc 32.7 g/dL (31.6-35.5); Mean Corpuscular Hemoglobin 32.7 pg (28.0-33.3); Mean Platelet Volume 10.4 fL (9.4-12.4); Platelet Count 228 K/mcL (140-400); Red Blood Count 3.52 M/mcL (3.82-4.97); Red Cell Distribution Width 16.7 % (11.5-14.5); White Blood Count 5.4 K/mcL (4.3-11.1)
[2022-01-09 09:18] LABS: Alanine Aminotransferase 8 Units/L (7-52); Alkaline Phosphatase 131 Units/L (34-104); Aspartate Amino Transferase 19 Units/L (13-39); BUN/Creatinine Ratio 23 (6-26); Bilirubin,Total 1.2 mg/dL (0.3-1.0); Blood Urea Nitrogen 24 mg/dL (8-23); Calcium 9.6 mg/dL (8.6-10.3); Carbon Dioxide 39 mEq/L (23-29); Chloride 96 mEq/L (98-107); Chol/HDL Ratio 3.8 (0-4.9); Cholesterol 139 mg/dL (< 200); Glucose 156 mg/dL (70-105); HDL Cholesterol 37 mg/dL (40-59); LDL Cholesterol,Calculated 70 mg/dL (< 100); Magnesium 1.9 mg/dL (1.6-2.6); Osmolality,Calculated 303 (280-300); Phosphorous 2.4 mg/dL (2.7-4.5); Potassium 4.3 mEq/L (3.5-5.1); Sodium 143 mEq/L (136-145); Triglycerides 159 mg/dL (< 150); Troponin I 0.07 ng/mL (< 0.04); eGFR For African Americans > 60 (> 60); eGFR For Non-African Americans 52 (> 60)
[2022-01-09] MEDS: Chlorhexidine Rinse 15 ML MOUTHWASH MM SCH ×2 (09:19→20:25)
[2022-01-09] MEDS: Pantoprazole 40 MG VIAL IVP SCH (09:19)
[2022-01-09] MEDS: Furosemide 40 MG/4 ML VIAL IVP SCH (09:31)
[2022-01-09] MEDS ORDERED: *HR* EPINEPHrine 1 MG/10 ML SYRINGE ONE (14:05)
[2022-01-09] MEDS ORDERED: *HR* Dextrose 50 % in Water (Syg) 50 ML SYRINGE IVP PRN (16:09)
[2022-01-09] MEDS ORDERED: D5% in Water 1,000 ML IVC PRN (16:09)
[2022-01-09] MEDS ORDERED: Dextrose Gel 15 GM/37.5 ML TUBE PO PRN ×2 (16:09)
[2022-01-09] MEDS ORDERED: Norepinephrine 4 MG/254 ML in 0.9% Sodium Chloride IVC ONE (17:41)
[2022-01-09] MEDS ORDERED: *HR* Norepinephrine 4 MG/4 ML VIAL IVC ONE (17:41)
[2022-01-09] MEDS ORDERED: EPINEPHrine 1 MG/ML VIAL IV ONE (17:41)
[2022-01-09] MEDS: Insulin LISPRO 300 UNITS/3 ML VIAL SUBQ SCH (17:57)
[2022-01-09] MEDS: Azithromycin 500 MG in 0.9 % Sodium Chloride 250 ML IVPB SCH (18:01)
[2022-01-10] MEDS: Artificial Tears SOLN 15 ML BOTTLE BOTH EYES SCH ×6 (00:39→20:58)
[2022-01-10] MEDS: MethylPREDNISolone 40 MG/ML VIAL IVP SCH ×4 (00:39→17:03)
[2022-01-10] MEDS: Cefepime HCl 2,000 MG in 0.9 % Sodium Chloride 10 ML IVP SCH ×3 (00:39→20:59)
[2022-01-10] MEDS: Insulin LISPRO 300 UNITS/3 ML VIAL SUBQ SCH ×4 (00:40→17:03)
[2022-01-10 03:50] LABS: VBG Ionized Calcium 1.09 mmol/L (1.15-1.35)
[2022-01-10 03:51] LABS: Basophils % 0.1 %; Hematocrit 31.8 % (35.3-44.9); Hemoglobin 10.7 g/dL (11.5-15.4); Immature Granulocytes % 0.5 % (0-4); Lymphocytes # 1.6 K/mcL (0.6-4.6); Lymphocytes % 20.9 %; Mean Corpuscular HGB Conc 33.6 g/dL (31.6-35.5); Mean Corpuscular Hemoglobin 33.1 pg (28.0-33.3); Mean Corpuscular Volume 98.5 fL (83.0-100.0); Mean Platelet Volume 10.3 fL (9.4-12.4); Monocytes # 0.2 K/mcL (0.0-1.3); Monocytes % 2.4 %; Neutrophils # 5.7 K/mcL (1.6-8.9); Nucleated Red Blood Cells 0.3 /100 WBC (0); Platelet Count 317 K/mcL (140-400); Red Blood Count 3.23 M/mcL (3.82-4.97); Red Cell Distribution Width 17.6 % (11.5-14.5); Segmented Neutrophils % 76.1 %; White Blood Count 7.4 K/mcL (4.3-11.1)
[2022-01-10 04:02] LABS: Heparin anti-factor XA UFH 0.46 IU/mL (0.30-0.70)
[2022-01-10 04:03] LABS: INR 1.3; Prothrombin Time 14.9 Seconds (9.4-12.1)
[2022-01-10 04:05] LABS: Activated Partial Thrombo Time 26.2 Seconds (26.0-36.0); Albumin/Globulin Ratio 1.1 (1.1-2.2); Bilirubin,Total 0.8 mg/dL (0.3-1.0); Calcium 9.3 mg/dL (8.6-10.3); Globulin 2.8 g/dL (2.4-3.5); Magnesium 1.9 mg/dL (1.6-2.6); Phosphorous 2.9 mg/dL (2.7-4.5); Potassium 3.8 mEq/L (3.5-5.1); Total Protein 5.8 g/dL (6.4-8.9)
[2022-01-10] MEDS ORDERED: Calcium Gluconate 1gm/50mL 1 GM/50 ML BAG IVPB ONE (04:53)
[2022-01-10 04:55] LABS: ABG Base Excess 13 mEq/L (-2 to 3); ABG HCO3 35 mEq/L (21-27); ABG Oxygen Saturation 100 % (95-98); ABG PCO2 35 mmHg (35-45); ABG PH 7.61 pH Units (7.32-7.45); ABG PO2 140 mmHg (85-104); ABG TCO2 36 mEq/L (20-26); Blood Gas Modality AF; Blood Gas VT 440 cc
[2022-01-10] MEDS: Norepinephrine 4 MG/254 ML IV.SOLN IVC SCH ×2 (07:00→21:03)
[2022-01-10] MEDS: FentaNYL (PF) 1,000 MCG/100 ML IV.SOLN IVC SCH (07:00)
[2022-01-10] MEDS: Pantoprazole 40 MG VIAL IVP SCH (09:33)
[2022-01-10] MEDS: Chlorhexidine Rinse 15 ML MOUTHWASH MM SCH ×2 (09:33→20:59)
[2022-01-10] MEDS ORDERED: Vancomycin 1,500 MG/265 ML IV.SOLN IVPB SCH (10:00)
[2022-01-10] MEDS ORDERED: *HR* Heparin 5,000 UNIT/ML VIAL IVP PRN (15:44)
[2022-01-10] MEDS ORDERED: Heparin 25,000UNIT/250ML 1/2NS 25,000 UNIT/250 ML IV.SOLN IVC SCH (15:45)
[2022-01-10] MEDS: Azithromycin 500 MG in 0.9 % Sodium Chloride 250 ML IVPB SCH (16:47)
[2022-01-10] MEDS: Heparin 25,000UNIT/250ML 1/2NS 25,000 UNIT/250 ML IV.SOLN IVC SCH (17:04)
[2022-01-10 23:48] LABS: Heparin anti-factor XA UFH 1.25 IU/mL (0.30-0.70)
[2022-01-11] MEDS: MethylPREDNISolone 40 MG/ML VIAL IVP SCH ×3 (00:01→12:17)
[2022-01-11] MEDS: Artificial Tears SOLN 15 ML BOTTLE BOTH EYES SCH ×6 (00:02→19:56)
[2022-01-11] MEDS: Insulin LISPRO 300 UNITS/3 ML VIAL SUBQ SCH ×4 (00:02→18:19)
[2022-01-11 00:11] LABS: Activated Partial Thrombo Time 102.2 Seconds (26.0-36.0)
[2022-01-11] MEDS: FentaNYL (PF) 1,000 MCG/100 ML IV.SOLN IVC SCH (03:05)
[2022-01-11 04:46] LABS: ABG Base Excess 10 mEq/L (-2 to 3); ABG HCO3 34 mEq/L (21-27); ABG Oxygen Saturation 99 % (95-98); ABG PCO2 45 mmHg (35-45); ABG PH 7.49 pH Units (7.32-7.45); ABG PO2 125 mmHg (85-104); ABG TCO2 35 mEq/L (20-26); Blood Gas Modality AF; Blood Gas VT 400 cc
[2022-01-11 06:08] LABS: VBG Ionized Calcium 1.04 mmol/L (1.15-1.35)
[2022-01-11] MEDS ORDERED: Calcium Gluconate 1gm/50mL 1 GM/50 ML BAG IVPB ONE (06:18)
[2022-01-11 06:30] LABS: Hematocrit 28.8 % (35.3-44.9); Hemoglobin 9.3 g/dL (11.5-15.4); Immature Granulocytes % 0.8 % (0-4); Lymphocytes % 24.6 %; Mean Corpuscular HGB Conc 32.3 g/dL (31.6-35.5); Mean Corpuscular Hemoglobin 32.7 pg (28.0-33.3); Mean Corpuscular Volume 101.4 fL (83.0-100.0); Mean Platelet Volume 10.4 fL (9.4-12.4); Monocytes # 0.2 K/mcL (0.0-1.3); Monocytes % 4.1 %; Neutrophils # 2.8 K/mcL (1.6-8.9); Platelet Count 187 K/mcL (140-400); Red Blood Count 2.84 M/mcL (3.82-4.97); Red Cell Distribution Width 18.6 % (11.5-14.5); Segmented Neutrophils % 70.5 %; White Blood Count 3.9 K/mcL (4.3-11.1)
[2022-01-11 06:34] LABS: Alanine Aminotransferase 7 Units/L (7-52); Albumin 2.8 g/dL (3.5-5.7); Albumin/Globulin Ratio 1.1 (1.1-2.2); Alkaline Phosphatase 129 Units/L (34-104); Aspartate Amino Transferase 15 Units/L (13-39); BUN/Creatinine Ratio 28 (6-26); Bilirubin,Total 0.6 mg/dL (0.3-1.0); Blood Urea Nitrogen 42 mg/dL (8-23); Calcium 8.7 mg/dL (8.6-10.3); Carbon Dioxide 35 mEq/L (23-29); Chloride 100 mEq/L (98-107); Globulin 2.5 g/dL (2.4-3.5); Glucose 133 mg/dL (70-105); Magnesium 2.1 mg/dL (1.6-2.6); Osmolality,Calculated 308 (280-300); Phosphorous 4.6 mg/dL (2.7-4.5); Potassium 4.1 mEq/L (3.5-5.1); Sodium 143 mEq/L (136-145); Total Protein 5.3 g/dL (6.4-8.9); eGFR For African Americans 40 (> 60); eGFR For Non-African Americans 33 (> 60)
[2022-01-11] MEDS: Chlorhexidine Rinse 15 ML MOUTHWASH MM SCH ×2 (09:43→19:55)
[2022-01-11] MEDS: Cefepime HCl 2,000 MG in 0.9 % Sodium Chloride 10 ML IVP SCH ×2 (09:46→19:56)
[2022-01-11] MEDS: Pantoprazole 40 MG VIAL IVP SCH (09:48)
[2022-01-11] MEDS: Heparin 25,000UNIT/250ML 1/2NS 25,000 UNIT/250 ML IV.SOLN IVC SCH ×2 (19:58→23:24)
[2022-01-11] MEDS: *HR* Heparin 5,000 UNIT/ML VIAL IVP PRN (23:23)
[2022-01-12] MEDS ORDERED: MethylPREDNISolone 40 MG/ML VIAL IVP SCH
[2022-01-12] MEDS: Insulin LISPRO 300 UNITS/3 ML VIAL SUBQ SCH ×3 (00:23→15:36)
[2022-01-12] MEDS: FentaNYL (PF) 1,000 MCG/100 ML IV.SOLN IVC SCH (00:23)
[2022-01-12] MEDS: Artificial Tears SOLN 15 ML BOTTLE BOTH EYES SCH ×6 (00:23→19:22)
[2022-01-12] MEDS: Norepinephrine 4 MG/254 ML IV.SOLN IVC SCH (00:26)
[2022-01-12 05:52] LABS: Hematocrit 31.6 % (35.3-44.9); Hemoglobin 9.9 g/dL (11.5-15.4); Immature Granulocytes % 1.1 % (0-4); Lymphocytes # 0.7 K/mcL (0.6-4.6); Lymphocytes % 23.8 %; Mean Corpuscular HGB Conc 31.3 g/dL (31.6-35.5); Mean Corpuscular Hemoglobin 32.9 pg (28.0-33.3); Mean Platelet Volume 10.6 fL (9.4-12.4); Monocytes # 0.1 K/mcL (0.0-1.3); Monocytes % 3.5 %; Platelet Count 147 K/mcL (140-400); Red Blood Count 3.01 M/mcL (3.82-4.97); Red Cell Distribution Width 18.2 % (11.5-14.5); Segmented Neutrophils % 71.6 %; White Blood Count 2.8 K/mcL (4.3-11.1)
[2022-01-12 06:16] LABS: Albumin 3.2 g/dL (3.5-5.7); Albumin/Globulin Ratio 1.2 (1.1-2.2); Bilirubin,Total 0.7 mg/dL (0.3-1.0); Calcium 8.7 mg/dL (8.6-10.3); Globulin 2.6 g/dL (2.4-3.5); Magnesium 2.4 mg/dL (1.6-2.6); Phosphorous 4.6 mg/dL (2.7-4.5); Total Protein 5.8 g/dL (6.4-8.9)
[2022-01-12] MEDS: Cefepime HCl 2,000 MG in 0.9 % Sodium Chloride 10 ML IVP SCH ×2 (08:37→19:41)
[2022-01-12] MEDS: Chlorhexidine Rinse 15 ML MOUTHWASH MM SCH ×2 (08:37→19:41)
[2022-01-12] MEDS: Pantoprazole 40 MG VIAL IVP SCH (08:39)
[2022-01-12] MEDS: Heparin 25,000UNIT/250ML 1/2NS 25,000 UNIT/250 ML IV.SOLN IVC SCH (16:25)
[2022-01-12] MEDS: *HR* Heparin 5,000 UNIT/ML VIAL IVP PRN (23:14)
[2022-01-13 04:43] LABS: VBG Ionized Calcium 1.08 mmol/L (1.15-1.35)
[2022-01-13 04:43] LABS: Eosinophils % 0.2 %; Hematocrit 32.5 % (35.3-44.9); Hemoglobin 10.1 g/dL (11.5-15.4); Immature Granulocytes % 0.8 % (0-4); Lymphocytes # 2.3 K/mcL (0.6-4.6); Lymphocytes % 47.9 %; Mean Corpuscular HGB Conc 31.1 g/dL (31.6-35.5); Mean Corpuscular Hemoglobin 32.6 pg (28.0-33.3); Mean Corpuscular Volume 104.8 fL (83.0-100.0); Mean Platelet Volume 10.1 fL (9.4-12.4); Monocytes # 0.1 K/mcL (0.0-1.3); Monocytes % 2.8 %; Neutrophils # 2.3 K/mcL (1.6-8.9); Nucleated Red Blood Cells 0.4 /100 WBC (0); Platelet Count 196 K/mcL (140-400); Red Cell Distribution Width 18.4 % (11.5-14.5); Segmented Neutrophils % 48.3 %
[2022-01-13 04:50] LABS: White Blood Count 4.7 K/mcL (4.3-11.1)
[2022-01-13 05:05] LABS: Albumin 3.2 g/dL (3.5-5.7); Albumin/Globulin Ratio 1.2 (1.1-2.2); Bilirubin,Total 0.8 mg/dL (0.3-1.0); Calcium 8.6 mg/dL (8.6-10.3); Globulin 2.6 g/dL (2.4-3.5); Magnesium 2.5 mg/dL (1.6-2.6); Phosphorous 2.5 mg/dL (2.7-4.5); Potassium 3.4 mEq/L (3.5-5.1); Total Protein 5.8 g/dL (6.4-8.9)
[2022-01-13] MEDS ORDERED: Potassium Phosphate 44 MEQ in 0.9 % Sodium Chloride 250 ML IVPB ONE (08:00)
[2022-01-13] MEDS: Pantoprazole 40 MG VIAL IVP SCH (08:06)
[2022-01-13] MEDS: Cefepime HCl 2,000 MG in 0.9 % Sodium Chloride 10 ML IVP SCH ×2 (08:08→20:10)
[2022-01-13] MEDS: *HR* OxyCODONE Immed Rel 5 MG TABLET PO PRN (08:12)
[2022-01-13] MEDS: MethylPREDNISolone 40 MG/ML VIAL IVP SCH (08:13)
[2022-01-13] MEDS: Chlorhexidine Rinse 15 ML MOUTHWASH MM SCH ×2 (08:14→20:10)
[2022-01-13] MEDS: Artificial Tears SOLN 15 ML BOTTLE BOTH EYES SCH ×5 (08:14→21:40)
[2022-01-13] MEDS: DilTIAZem CD (24hr) 240 MG CAP.ER.24H PO SCH (08:15)
[2022-01-13] MEDS: carvediloL 6.25 MG TABLET PO SCH ×2 (08:21→17:54)
[2022-01-13] MEDS: *HR* Heparin 5,000 UNIT/ML VIAL IVP PRN (14:07)
[2022-01-13] MEDS: Heparin 25,000UNIT/250ML 1/2NS 25,000 UNIT/250 ML IV.SOLN IVC SCH ×3 (20:08→20:10)
[2022-01-14 04:36] LABS: VBG Ionized Calcium 1.13 mmol/L (1.15-1.35)
[2022-01-14 04:56] LABS: Alanine Aminotransferase 29 Units/L (7-52); Albumin 3.1 g/dL (3.5-5.7); Albumin/Globulin Ratio 1.2 (1.1-2.2); Alkaline Phosphatase 203 Units/L (34-104); Aspartate Amino Transferase 30 Units/L (13-39); BUN/Creatinine Ratio 33 (6-26); Bilirubin,Total 0.8 mg/dL (0.3-1.0); Blood Urea Nitrogen 31 mg/dL (8-23); Calcium 8.6 mg/dL (8.6-10.3); Carbon Dioxide 36 mEq/L (23-29); Chloride 104 mEq/L (98-107); Globulin 2.6 g/dL (2.4-3.5); Glucose 96 mg/dL (70-105); Magnesium 2.4 mg/dL (1.6-2.6); Osmolality,Calculated 306 (280-300); Phosphorous 3.1 mg/dL (2.7-4.5); Potassium 4.4 mEq/L (3.5-5.1); Sodium 145 mEq/L (136-145); Total Protein 5.7 g/dL (6.4-8.9); eGFR For African Americans > 60 (> 60); eGFR For Non-African Americans 58 (> 60)
[2022-01-14 06:23] LABS: Hematocrit 32.5 % (35.3-44.9); Hemoglobin 10.1 g/dL (11.5-15.4); Immature Granulocytes % 0.8 % (0-4); Lymphocytes # 1.2 K/mcL (0.6-4.6); Lymphocytes % 33.1 %; Mean Corpuscular HGB Conc 31.1 g/dL (31.6-35.5); Mean Corpuscular Hemoglobin 32.8 pg (28.0-33.3); Mean Corpuscular Volume 105.5 fL (83.0-100.0); Mean Platelet Volume 10.8 fL (9.4-12.4); Monocytes # 0.2 K/mcL (0.0-1.3); Neutrophils # 2.2 K/mcL (1.6-8.9); Nucleated Red Blood Cells 1.1 /100 WBC (0); Platelet Count 161 K/mcL (140-400); Red Blood Count 3.08 M/mcL (3.82-4.97); Red Cell Distribution Width 18.2 % (11.5-14.5); Segmented Neutrophils % 61.1 %; White Blood Count 3.6 K/mcL (4.3-11.1)
[2022-01-14] MEDS: Pantoprazole 40 MG VIAL IVP SCH (08:08)
[2022-01-14] MEDS: DilTIAZem CD (24hr) 240 MG CAP.ER.24H PO SCH (08:11)
[2022-01-14] MEDS: MethylPREDNISolone 40 MG/ML VIAL IVP SCH (08:11)
[2022-01-14] MEDS: carvediloL 6.25 MG TABLET PO SCH ×2 (08:11→16:30)
[2022-01-14] MEDS: Cefepime HCl 2,000 MG in 0.9 % Sodium Chloride 10 ML IVP SCH ×2 (08:12→19:15)
[2022-01-14] MEDS: Artificial Tears SOLN 15 ML BOTTLE BOTH EYES SCH ×2 (08:13→13:41)
[2022-01-14] MEDS: Chlorhexidine Rinse 15 ML MOUTHWASH MM SCH ×2 (08:14→19:15)
[2022-01-14] MEDS: *HR* OxyCODONE Immed Rel 5 MG TABLET PO PRN (08:43)
[2022-01-14] MEDS: Heparin 25,000UNIT/250ML 1/2NS 25,000 UNIT/250 ML IV.SOLN IVC SCH (19:15)
[2022-01-15 06:35] LABS: Basophils % 0.4 %; Eosinophils % 0.4 %; Immature Granulocytes % 1.5 % (0-4); Lymphocytes % 38.8 %; Mean Corpuscular HGB Conc 31.4 g/dL (31.6-35.5); Mean Corpuscular Hemoglobin 33.5 pg (28.0-33.3); Mean Corpuscular Volume 106.7 fL (83.0-100.0); Mean Platelet Volume 11.7 fL (9.4-12.4); Monocytes # 0.3 K/mcL (0.0-1.3); Monocytes % 5.4 %; Neutrophils # 2.8 K/mcL (1.6-8.9); Nucleated Red Blood Cells 0.4 /100 WBC (0); Platelet Count 129 K/mcL (140-400); Red Blood Count 3.28 M/mcL (3.82-4.97); Red Cell Distribution Width 17.7 % (11.5-14.5); Segmented Neutrophils % 53.5 %; White Blood Count 5.2 K/mcL (4.3-11.1)
[2022-01-15 07:19] LABS: Alanine Aminotransferase 24 Units/L (7-52); Albumin 3.2 g/dL (3.5-5.7); Albumin/Globulin Ratio 1.2 (1.1-2.2); Alkaline Phosphatase 195 Units/L (34-104); Aspartate Amino Transferase 27 Units/L (13-39); BUN/Creatinine Ratio 28 (6-26); Bilirubin,Total 0.8 mg/dL (0.3-1.0); Blood Urea Nitrogen 24 mg/dL (8-23); Calcium 8.6 mg/dL (8.6-10.3); Carbon Dioxide 28 mEq/L (23-29); Chloride 102 mEq/L (98-107); Globulin 2.7 g/dL (2.4-3.5); Glucose 79 mg/dL (70-105); Magnesium 2.4 mg/dL (1.6-2.6); Osmolality,Calculated 289 (280-300); Phosphorous 1.9 mg/dL (2.7-4.5); Potassium 4.7 mEq/L (3.5-5.1); Sodium 138 mEq/L (136-145); Total Protein 5.9 g/dL (6.4-8.9); eGFR For African Americans > 60 (> 60); eGFR For Non-African Americans > 60 (> 60)
[2022-01-15] MEDS: Pantoprazole 40 MG VIAL IVP SCH (08:27)
[2022-01-15] MEDS: MethylPREDNISolone 40 MG/ML VIAL IVP SCH (08:27)
[2022-01-15] MEDS: Cefepime HCl 2,000 MG in 0.9 % Sodium Chloride 10 ML IVP SCH ×3 (08:28→23:12)
[2022-01-15] MEDS: *HR* OxyCODONE Immed Rel 5 MG TABLET PO PRN (08:28)
[2022-01-15] MEDS: carvediloL 6.25 MG TABLET PO SCH ×2 (08:29→16:08)
[2022-01-15] MEDS: Chlorhexidine Rinse 15 ML MOUTHWASH MM SCH (08:29)
[2022-01-15] MEDS: DilTIAZem CD (24hr) 240 MG CAP.ER.24H PO SCH (08:29)
[2022-01-15] MEDS ORDERED: Potassium Phosphate 44 MEQ in 0.9 % Sodium Chloride 250 ML IVPB ONE (11:12)
[2022-01-15] MEDS ORDERED: *HR* Propofol 200 MG/20 ML VIAL IVP ONE (11:56)
[2022-01-15] MEDS ORDERED: Lidocaine -MPF 2% 2 ML VIAL ONE (11:57)
[2022-01-15] MEDS ORDERED: *HR* Succinylcholine 200 MG/10 ML VIAL IVP ONE (11:57)
[2022-01-15] MEDS ORDERED: EPHEDrine 50 MG/ML VIAL ONE (12:17)
[2022-01-15] MEDS: Budesonide/Formoterol 80/4.5 1 PUFF INH IH SCH (20:23)
[2022-01-15] MEDS: Heparin 25,000UNIT/250ML 1/2NS 25,000 UNIT/250 ML IV.SOLN IVC SCH ×2 (22:12→22:47)
[2022-01-16] MEDS: Budesonide/Formoterol 80/4.5 1 PUFF INH IH SCH ×2 (07:41→22:20)
[2022-01-16 08:06] LABS: Basophils % 0.3 %; Hematocrit 31.9 % (35.3-44.9); Hemoglobin 10.2 g/dL (11.5-15.4); Lymphocytes # 1.2 K/mcL (0.6-4.6); Lymphocytes % 29.9 %; Mean Corpuscular Volume 103.2 fL (83.0-100.0); Mean Platelet Volume 11.1 fL (9.4-12.4); Monocytes # 0.3 K/mcL (0.0-1.3); Monocytes % 7.1 %; Neutrophils # 2.4 K/mcL (1.6-8.9); Platelet Count 174 K/mcL (140-400); Red Blood Count 3.09 M/mcL (3.82-4.97); Red Cell Distribution Width 17.9 % (11.5-14.5); Segmented Neutrophils % 61.7 %; White Blood Count 3.9 K/mcL (4.3-11.1)
[2022-01-16 08:13] LABS: Alanine Aminotransferase 23 Units/L (7-52); Albumin 3.3 g/dL (3.5-5.7); Albumin/Globulin Ratio 1.3 (1.1-2.2); Alkaline Phosphatase 185 Units/L (34-104); Aspartate Amino Transferase 17 Units/L (13-39); BUN/Creatinine Ratio 28 (6-26); Bilirubin,Total 0.8 mg/dL (0.3-1.0); Blood Urea Nitrogen 22 mg/dL (8-23); Calcium 8.8 mg/dL (8.6-10.3); Carbon Dioxide 33 mEq/L (23-29); Chloride 102 mEq/L (98-107); Globulin 2.5 g/dL (2.4-3.5); Glucose 103 mg/dL (70-105); Magnesium 2.3 mg/dL (1.6-2.6); Osmolality,Calculated 292 (280-300); Phosphorous 2.3 mg/dL (2.7-4.5); Sodium 139 mEq/L (136-145); Total Protein 5.8 g/dL (6.4-8.9); eGFR For African Americans > 60 (> 60); eGFR For Non-African Americans > 60 (> 60)
[2022-01-16 08:46] LABS: VBG Ionized Calcium 1.15 mmol/L (1.15-1.35)
[2022-01-16] MEDS: *HR* OxyCODONE Immed Rel 5 MG TABLET PO PRN ×2 (10:16→17:47)
[2022-01-16] MEDS: carvediloL 6.25 MG TABLET PO SCH ×2 (10:16→17:47)
[2022-01-16] MEDS: Famotidine 20 MG TABLET PO SCH (10:16)
[2022-01-16] MEDS: predniSONE 20 MG TABLET PO SCH (10:17)
[2022-01-16] MEDS: DilTIAZem CD (24hr) 240 MG CAP.ER.24H PO SCH (10:17)
[2022-01-16] MEDS: Cefepime HCl 2,000 MG in 0.9 % Sodium Chloride 10 ML IVP SCH ×3 (10:17→23:12)
[2022-01-16] MEDS: Heparin 25,000UNIT/250ML 1/2NS 25,000 UNIT/250 ML IV.SOLN IVC SCH ×2 (18:29→20:31)
[2022-01-17 04:24] LABS: Hematocrit 30.7 % (35.3-44.9); Hemoglobin 9.9 g/dL (11.5-15.4); Mean Corpuscular HGB Conc 32.2 g/dL (31.6-35.5); Mean Corpuscular Hemoglobin 33.7 pg (28.0-33.3); Mean Corpuscular Volume 104.4 fL (83.0-100.0); Mean Platelet Volume 11.1 fL (9.4-12.4); Platelet Count 118 K/mcL (140-400); Red Blood Count 2.94 M/mcL (3.82-4.97); Red Cell Distribution Width 17.9 % (11.5-14.5); White Blood Count 3.4 K/mcL (4.3-11.1)
[2022-01-17 04:54] LABS: BUN/Creatinine Ratio 31 (6-26); Blood Urea Nitrogen 25 mg/dL (8-23); Calcium 8.5 mg/dL (8.6-10.3); Carbon Dioxide 33 mEq/L (23-29); Chloride 102 mEq/L (98-107); Glucose 105 mg/dL (70-105); Osmolality,Calculated 289 (280-300); Potassium 5.1 mEq/L (3.5-5.1); Sodium 137 mEq/L (136-145); eGFR For African Americans > 60 (> 60); eGFR For Non-African Americans > 60 (> 60)
[2022-01-17] MEDS: Budesonide/Formoterol 80/4.5 1 PUFF INH IH SCH ×2 (07:44→19:33)
[2022-01-17] MEDS: Cefepime HCl 2,000 MG in 0.9 % Sodium Chloride 10 ML IVP SCH (09:51)
[2022-01-17] MEDS: predniSONE 20 MG TABLET PO SCH (09:52)
[2022-01-17] MEDS: Famotidine 20 MG TABLET PO SCH (09:52)
[2022-01-17] MEDS: DilTIAZem CD (24hr) 240 MG CAP.ER.24H PO SCH (09:52)
[2022-01-17] MEDS: carvediloL 6.25 MG TABLET PO SCH ×2 (09:54→16:25)
[2022-01-17] MEDS: Heparin 25,000UNIT/250ML 1/2NS 25,000 UNIT/250 ML IV.SOLN IVC SCH (16:31)
[2022-01-18 04:09] LABS: Hemoglobin 9.6 g/dL (11.5-15.4); Mean Corpuscular Hemoglobin 33.3 pg (28.0-33.3); Mean Corpuscular Volume 104.2 fL (83.0-100.0); Mean Platelet Volume 11.4 fL (9.4-12.4); Platelet Count 140 K/mcL (140-400); Red Blood Count 2.88 M/mcL (3.82-4.97); Red Cell Distribution Width 18.3 % (11.5-14.5); White Blood Count 4.8 K/mcL (4.3-11.1)
[2022-01-18 04:30] LABS: BUN/Creatinine Ratio 34 (6-26); Blood Urea Nitrogen 27 mg/dL (8-23); Calcium 8.5 mg/dL (8.6-10.3); Carbon Dioxide 31 mEq/L (23-29); Chloride 103 mEq/L (98-107); Glucose 91 mg/dL (70-105); Osmolality,Calculated 289 (280-300); Potassium 4.8 mEq/L (3.5-5.1); Sodium 137 mEq/L (136-145); eGFR For African Americans > 60 (> 60); eGFR For Non-African Americans > 60 (> 60)
[2022-01-18] MEDS: Budesonide/Formoterol 80/4.5 1 PUFF INH IH SCH ×2 (07:23→20:07)
[2022-01-18] MEDS: carvediloL 6.25 MG TABLET PO SCH ×2 (07:57→17:20)
[2022-01-18] MEDS: predniSONE 20 MG TABLET PO SCH (07:57)
[2022-01-18] MEDS: DilTIAZem CD (24hr) 240 MG CAP.ER.24H PO SCH (07:58)
[2022-01-18] MEDS: Famotidine 20 MG TABLET PO SCH (07:58)
[2022-01-18] MEDS: Heparin 25,000UNIT/250ML 1/2NS 25,000 UNIT/250 ML IV.SOLN IVC SCH (12:04)
[2022-01-19 01:44] LABS: Hemoglobin 9.5 g/dL (11.5-15.4); Mean Corpuscular HGB Conc 31.7 g/dL (31.6-35.5); Mean Corpuscular Hemoglobin 32.9 pg (28.0-33.3); Mean Corpuscular Volume 103.8 fL (83.0-100.0); Mean Platelet Volume 11.3 fL (9.4-12.4); Platelet Count 117 K/mcL (140-400); Red Blood Count 2.89 M/mcL (3.82-4.97); Red Cell Distribution Width 18.6 % (11.5-14.5); White Blood Count 5.1 K/mcL (4.3-11.1)
[2022-01-19 02:01] LABS: BUN/Creatinine Ratio 32 (6-26); Blood Urea Nitrogen 28 mg/dL (8-23); Calcium 8.5 mg/dL (8.6-10.3); Carbon Dioxide 29 mEq/L (23-29); Chloride 105 mEq/L (98-107); Glucose 107 mg/dL (70-105); Osmolality,Calculated 292 (280-300); Potassium 4.8 mEq/L (3.5-5.1); Sodium 138 mEq/L (136-145); eGFR For African Americans > 60 (> 60); eGFR For Non-African Americans > 60 (> 60)
[2022-01-19] MEDS: Heparin 25,000UNIT/250ML 1/2NS 25,000 UNIT/250 ML IV.SOLN IVC SCH ×2 (02:27→14:04)
[2022-01-19] MEDS: Budesonide/Formoterol 80/4.5 1 PUFF INH IH SCH ×2 (07:46→20:35)
[2022-01-19] MEDS: Famotidine 20 MG TABLET PO SCH (08:17)
[2022-01-19] MEDS: DilTIAZem CD (24hr) 240 MG CAP.ER.24H PO SCH (08:17)
[2022-01-19] MEDS: carvediloL 6.25 MG TABLET PO SCH ×2 (08:17→16:09)
[2022-01-19] MEDS: predniSONE 20 MG TABLET PO SCH (08:17)
[2022-01-19] MEDS: *HR* OxyCODONE Immed Rel 5 MG TABLET PO PRN (15:39)
[2022-01-20 01:22] LABS: Basophils % 0.3 %; Eosinophils % 0.3 %; Hematocrit 30.1 % (35.3-44.9); Hemoglobin 9.6 g/dL (11.5-15.4); Immature Granulocytes % 2.5 % (0-4); Lymphocytes # 2.6 K/mcL (0.6-4.6); Lymphocytes % 41.5 %; Mean Corpuscular HGB Conc 31.9 g/dL (31.6-35.5); Mean Corpuscular Hemoglobin 33.6 pg (28.0-33.3); Mean Corpuscular Volume 105.2 fL (83.0-100.0); Monocytes # 0.5 K/mcL (0.0-1.3); Monocytes % 7.6 %; Nucleated Red Blood Cells 0.6 /100 WBC (0); Platelet Count 130 K/mcL (140-400); Red Blood Count 2.86 M/mcL (3.82-4.97); Segmented Neutrophils % 47.8 %; White Blood Count 6.3 K/mcL (4.3-11.1)
[2022-01-20 01:40] LABS: BUN/Creatinine Ratio 34 (6-26); Blood Urea Nitrogen 29 mg/dL (8-23); Calcium 8.6 mg/dL (8.6-10.3); Carbon Dioxide 32 mEq/L (23-29); Chloride 105 mEq/L (98-107); Glucose 95 mg/dL (70-105); Osmolality,Calculated 294 (280-300); Potassium 4.6 mEq/L (3.5-5.1); Sodium 139 mEq/L (136-145); eGFR For African Americans > 60 (> 60); eGFR For Non-African Americans > 60 (> 60)
[2022-01-20 07:30] VITALS: BP 134/63; PULSE 77; TEMP 98.4
[2022-01-20] MEDS: Budesonide/Formoterol 80/4.5 1 PUFF INH IH SCH (07:39)
[2022-01-20 07:41] VITALS: O2SAT 93
[2022-01-20] MEDS: Famotidine 20 MG TABLET PO SCH (08:23)
[2022-01-20] MEDS: predniSONE 20 MG TABLET PO SCH (08:23)
[2022-01-20] MEDS: DilTIAZem CD (24hr) 240 MG CAP.ER.24H PO SCH (08:23)
[2022-01-20] MEDS: carvediloL 6.25 MG TABLET PO SCH (08:23)
== END 2022-01-20 10:15 | disposition short-term general hospital (02) | DRG 137 ==
LOC: 2NENU 11:39 → EMEROOARM 11:39 → 2NENU 19:00 → ICNU 01-09 04:25 → SUATTDRO 01-09 12:12 → 2NENU 01-12 18:46
PROVIDERS: ADMIT Student in an Organized Health Care Education/Training Program; ATTEND Internal Medicine